=== PATIENT | female | born 1965 | race Caucasian/White ===

== ENCOUNTER 2024-07-22 10:57 | Inpatient (IN) | payer OTHER ==
--- NOTE | 2024-07-22 11:26 | ED ---
General Adult HPI - General Chief complaint: Weakness Stated complaint: Weakness,Dehydration Time Seen by Provider: 07/22/24 11:00 Source: patient, EMS, RN notes reviewed, old records reviewed Mode of arrival: EMS Limitations: no limitations - History of Present Illness Initial comments: 58-year-old female presenting with subjective fever and chills, nausea vomiting and diarrhea over the past 1 week. Apparently the patient has been bedbound for the past 1 week and was found by paramedics in bed covered in urine and stool. There is other people living in the home. Patient states she has had a mild cough as well. History is somewhat limited. - Related Data Allergies Allergy/AdvReac Type Severity Reaction Status Date / Time No Known Allergies Allergy Verified 07/22/24 11:09 Review of Systems ROS Statement: Those systems with pertinent positive or pertinent negative responses have been documented in the HPI. ROS Other: All systems not noted in ROS Statement are negative. Past Medical History Past Medical History: No Reported History History of Any Multi-Drug Resistant Organisms: None Reported Past Surgical History: No Surgical Hx Reported Past Psychological History: No Psychological Hx Reported Smoking Status: Former smoker Past Alcohol Use History: None Reported Past Drug Use History: None Reported General Exam Limitations: no limitations General appearance: in no apparent distress, lethargic Head exam: Present: atraumatic, normocephalic Eye exam: Present: normal appearance, PERRL ENT exam: Present: mucous membranes dry Respiratory exam: Present: normal lung sounds bilaterally. Absent: respiratory distress, wheezes Cardiovascular Exam: Present: regular rate, normal rhythm GI/Abdominal exam: Present: soft. Absent: distended, tenderness, guarding Extremities exam: Present: normal inspection. Absent: normal capillary refill, pedal edema Neurological exam: Present: alert, oriented X3, CN II-XII intact. Absent: motor sensory deficit Psychiatric exam: Present: normal affect, normal mood Skin exam: Present: warm, dry, other (Skin breakdown from the patient's low back to the upper thighs). Absent: intact, cyanosis, diaphoretic Course Vital Signs 07/22/24 07/22/24 11:01 13:13 Temperature 98.7 F Pulse Rate 67 105 H Respiratory 18 18 Rate Blood Pressure 126/91 113/95 O2 Sat by Pulse 96 92 L Oximetry Medical Decision Making - Medical Decision Making Was pt. sent in by a medical professional or institution (CHANDA Melvin, LINE APPLIANCE ASSEMBLER, urgent care, hospital, or fci...) When possible be specific @ -No Did you speak to anyone other than the patient for history (EMS, parent, family, police, friend...)? What history was obtained from this source @ -No Did you review nursing and triage notes (agree or disagree)? Why? @ -I reviewed and agree with nursing and triage notes Were old charts reviewed (outside hosp., previous admission, EMS record, old EKG, old radiological studies, urgent care reports/EKG's, fci records)? Report findings @ -No old charts were reviewed Differential Weakness: Hypoglycemia, shock, sepsis, hyponatremia, anemia, infection, OK, ETOH, adverse medicine reaction, overdose, stroke, this is not meant to be an all-inclusive list. EKG interpreted by me (3pts min.). @Sinus tachycardia rate of 109, HI interval 124, QRS duration 94, QTc [address] segment elevation. X-rays interpreted by me (1pt min.). @ -Chest x-ray negative for acute cardiopulmonary findings. CT interpreted by me (1pt min.). @ -None done U/S interpreted by me (1pt. min.). @ -None done What testing was considered but not performed or refused? (CT, X-rays, U/S, lab s)? Why? @ -None What meds were considered but not given or refused? Why? @ -None Did you discuss the management of the patient with other professionals (professionals i.e. CHANDA Melvin, LINE APPLIANCE ASSEMBLER, lab, RT, psych nurse, social work professor, salvage diver, teacher, community resource officer, caser)? Give summary @ -Yes, Dr. Norris will admit, he is able to see the patient in the emergency department. Was smoking cessation discussed for >3mins.? @ -No Was critical care preformed (if so, how long)? @ -[Yes, 35 minutes Were there social determinants of health that impacted care today? How? (Homelessness, low income, unemployed, alcoholism, drug addiction, transportation, low edu. Level, literacy, decrease access to med. care, custodial, rehab)? @ -No Was there de-escalation of care discussed even if they declined (Discuss DNR or withdrawal of care, Hospice)? DNR status @ -No What co-morbidities impacted this encounter? (DM, HTN, Smoking, COPD, CAD, Cancer, CVA, ARF, Chemo, Hep., AIDS, mental health diagnosis, sleep apnea, morbid obesity)? @ -None Was patient admitted / discharged? Hospital course, mention meds given and route, prescriptions, significant lab abnormalities, going to OR and other pertinent info. @ -58-year-old female presenting with weakness, chills, cough. Patient does test positive for coronavirus. She appears significantly dehydrated on exam. She has a JOHN with a BUN of 103 and a creatinine of 3.40. She has a lactic acid of 4.9 which I suspect is from dehydration. She has a elevated bilirubin and transaminitis. She has significant skin breakdown from her mid back to her upper thigh. She test positive for coronavirus but given her leukocytosis of 24 she is covered with antibiotics. She is given IV fluid and admitted for further treatment and evaluation. Undiagnosed new problem with uncertain prognosis? @ -No Drug Therapy requiring intensive monitoring for toxicity (Heparin, Nitro, Insulin, Cardizem)? @ -No Were any procedures done? @ -No Diagnosis/symptom? @ -[Coronavirus, JOHN, dehydration, leukocytosis Acute, or Chronic, or Acute on Chronic? @ -Acute Uncomplicated (without systemic symptoms) or Complicated (systemic symptoms)? @ -Complicated Side effects of treatment? @ -No Exacerbation, Progression, or Severe Exacerbation? @ -No Poses a threat to life or bodily function? How? (Chest pain, USA, OK, pneumonia, PE, COPD, DKA, ARF, appy, cholecystitis, CVA, Diverticulitis, Homicidal, Suicidal, threat to staff... and all critical care pts) @ -Yes, JOHN, dehydration, multiorgan failure, sepsis - Lab Data Result diagrams: 07/22/24 11:22 07/22/24 12:42 Lab Results 07/22/24 07/22/24 07/22/24 Range/Units 11:22 11:22 11:22 WBC 24.1 H (3.8-10.6) k/uL RBC 5.16 (3.80-5.40) m/uL Hgb 15.2 (11.4-16.0) gm/dL Hct 47.6 H (34.0-46.0) % MCV 92.2 (80.0-100.0) fL MCH 29.5 (25.0-35.0) pg MCHC 32.0 (31.0-37.0) g/dL RDW 14.3 (11.5-15.5) % Plt Count 251 (150-450) k/uL MPV 10.0 Neutrophils % 90 % Lymphocytes % 7 % Monocytes % 2 % Eosinophils % 1 % Basophils % 0 % Neutrophils # 21.7 H (1.3-7.7) k/uL Lymphocytes # 1.6 (1.0-4.8) k/uL Monocytes # 0.4 (0-1.0) k/uL Eosinophils # 0.2 (0-0.7) k/uL Basophils # 0.1 (0-0.2) k/uL PT 15.5 H (10.0-12.5) sec INR 1.5 H (<1.2) APTT 19.7 L (22.0-30.0) sec Sodium (137-145) mmol/L Potassium (3.5-5.1) mmol/L Chloride (98-107) mmol/L Carbon Dioxide (22-30) mmol/L Anion Gap mmol/L BUN (7-17) mg/dL Creatinine (0.52-1.04) mg/dL Est GFR (CKD-EPI)AfAm (>60 ml/min/1.73 sqM) Est GFR (CKD-EPI)NonAf (>60 ml/min/1.73 sqM) Glucose (74-99) mg/dL Lactic Ac Sepsis Rflx Plasma Lactic Acid Noel 4.9 H* (0.7-2.0) mmol/L Calcium (8.4-10.2) mg/dL Magnesium (1.6-2.3) mg/dL Total Bilirubin (0.2-1.3) mg/dL AST (14-36) U/L ALT (4-34) U/L Alkaline Phosphatase (38-126) U/L Creatine Kinase (30-135) U/L Total Protein (6.3-8.2) g/dL Albumin (3.5-5.0) g/dL Urine Color Urine Appearance (Clear) Urine pH (5.0-8.0) Ur Specific [place] (1.001-1.035) Urine Protein (Negative) Urine Glucose (UA) (Negative) Urine Ketones (Negative) Urine Blood (Negative) Urine Nitrite (Negative) Urine Bilirubin (Negative) Urine Urobilinogen (<2.0) mg/dL Ur Leukocyte Esterase (Negative) Urine RBC (0-5) /hpf Urine WBC (0-5) /hpf Ur Squamous Epith Cells (0-4) /hpf Urine Bacteria (None) /hpf Hyaline Casts (0-2) /lpf Urine Mucus (None) /hpf Influenza Type A (PCR) (Not Detectd) Influenza Type B (PCR) (Not Detectd) RSV (PCR) (Not Detectd) SARS-CoV-2 (PCR) (Not Detectd) 07/22/24 07/22/24 07/22/24 Range/Units 11:22 11:51 12:42 WBC (3.8-10.6) k/uL RBC (3.80-5.40) m/uL Hgb (11.4-16.0) gm/dL Hct (34.0-46.0) % MCV (80.0-100.0) fL MCH (25.0-35.0) pg MCHC (31.0-37.0) g/dL RDW (11.5-15.5) % Plt Count (150-450) k/uL MPV Neutrophils % % Lymphocytes % % Monocytes % % Eosinophils % % Basophils % % Neutrophils # (1.3-7.7) k/uL Lymphocytes # (1.0-4.8) k/uL Monocytes # (0-1.0) k/uL Eosinophils # (0-0.7) k/uL Basophils # (0-0.2) k/uL PT (10.0-12.5) sec INR (<1.2) APTT (22.0-30.0) sec Sodium 143 (137-145) mmol/L Potassium 4.0 (3.5-5.1) mmol/L Chloride 99 (98-107) mmol/L Carbon Dioxide 26 (22-30) mmol/L Anion Gap 18 mmol/L BUN 103 H* (7-17) mg/dL Creatinine 3.38 H (0.52-1.04) mg/dL Est GFR (CKD-EPI)AfAm 17 (>60 ml/min/1.73 sqM) Est GFR (CKD-EPI)NonAf 15 (>60 ml/min/1.73 sqM) Glucose 115 H (74-99) mg/dL Lactic Ac Sepsis Rflx Y Plasma Lactic Acid Noel (0.7-2.0) mmol/L Calcium 8.9 (8.4-10.2) mg/dL Magnesium 2.6 H (1.6-2.3) mg/dL Total Bilirubin 4.3 H (0.2-1.3) mg/dL AST 1317 H (14-36) U/L ALT 1141 H (4-34) U/L Alkaline Phosphatase 181 H (38-126) U/L Creatine Kinase 363 H (30-135) U/L Total Protein 6.8 (6.3-8.2) g/dL Albumin 3.6 (3.5-5.0) g/dL Urine Color Urine Appearance (Clear) Urine pH (5.0-8.0) Ur Specific [place] (1.001-1.035) Urine Protein (Negative) Urine Glucose (UA) (Negative) Urine Ketones (Negative) Urine Blood (Negative) Urine Nitrite (Negative) Urine Bilirubin (Negative) Urine Urobilinogen (<2.0) mg/dL Ur Leukocyte Esterase (Negative) Urine RBC (0-5) /hpf Urine WBC (0-5) /hpf Ur Squamous Epith Cells (0-4) /hpf Urine Bacteria (None) /hpf Hyaline Casts (0-2) /lpf Urine Mucus (None) /hpf Influenza Type A (PCR) Not Detected (Not Detectd) Influenza Type B (PCR) Not Detected (Not Detectd) RSV (PCR) Not Detected (Not Detectd) SARS-CoV-2 (PCR) Detected A (Not Detectd) 07/22/24 Range/Units 13:13 WBC (3.8-10.6) k/uL RBC (3.80-5.40) m/uL Hgb (11.4-16.0) gm/dL Hct (34.0-46.0) % MCV (80.0-100.0) fL MCH (25.0-35.0) pg MCHC (31.0-37.0) g/dL RDW (11.5-15.5) % Plt Count (150-450) k/uL MPV Neutrophils % % Lymphocytes % % Monocytes % % Eosinophils % % Basophils % % Neutrophils # (1.3-7.7) k/uL Lymphocytes # (1.0-4.8) k/uL Monocytes # (0-1.0) k/uL Eosinophils # (0-0.7) k/uL Basophils # (0-0.2) k/uL PT (10.0-12.5) sec INR (<1.2) APTT (22.0-30.0) sec Sodium (137-145) mmol/L Potassium (3.5-5.1) mmol/L Chloride (98-107) mmol/L Carbon Dioxide (22-30) mmol/L Anion Gap mmol/L BUN (7-17) mg/dL Creatinine (0.52-1.04) mg/dL Est GFR (CKD-EPI)AfAm (>60 ml/min/1.73 sqM) Est GFR (CKD-EPI)NonAf (>60 ml/min/1.73 sqM) Glucose (74-99) mg/dL Lactic Ac Sepsis Rflx Plasma Lactic Acid Noel (0.7-2.0) mmol/L Calcium (8.4-10.2) mg/dL Magnesium (1.6-2.3) mg/dL Total Bilirubin (0.2-1.3) mg/dL AST (14-36) U/L ALT (4-34) U/L Alkaline Phosphatase (38-126) U/L Creatine Kinase (30-135) U/L Total Protein (6.3-8.2) g/dL Albumin (3.5-5.0) g/dL Urine Color Dark Brown Urine Appearance Cloudy H (Clear) Urine pH 5.5 (5.0-8.0) Ur Specific [place] 1.026 (1.001-1.035) Urine Protein Trace H (Negative) Urine Glucose (UA) Negative (Negative) Urine Ketones Negative (Negative) Urine Blood Negative (Negative) Urine Nitrite Negative (Negative) Urine Bilirubin 1+ H (Negative) Urine Urobilinogen 12.0 (<2.0) mg/dL Ur Leukocyte Esterase Moderate H (Negative) Urine RBC 1 (0-5) /hpf Urine WBC 29 H (0-5) /hpf Ur Squamous Epith Cells 8 H (0-4) /hpf Urine Bacteria Moderate H (None) /hpf Hyaline Casts 12 H (0-2) /lpf Urine Mucus Few H (None) /hpf Influenza Type A (PCR) (Not Detectd) Influenza Type B (PCR) (Not Detectd) RSV (PCR) (Not Detectd) SARS-CoV-2 (PCR) (Not Detectd) Critical Care Time Critical Care Time: Yes Total Critical Care Time: 35 Disposition Clinical Impression: Dehydration, COVID-19, Lactic acidosis Disposition: ADMITTED IP TO THIS [facility] Condition: Stable Is patient prescribed a controlled substance at d/c from ED?: No Referrals: [facility] [NON-STAFF] - 1-2 days [facility] [NON-STAFF] - 1-2 days None,Stated [Primary Care Provider] - 1-2 days Forms: PH Area PCPs Time of Disposition: 14:11
[2024-07-22 11:37] LABS: Basophils # (A) 0.1 k/uL (0-0.2); Basophils % (A) 0 %; Eosinophils # (A) 0.2 k/uL (0-0.7); Eosinophils % (A) 1 %; HCT 47.6 % (34.0-46.0); HGB 15.2 gm/dL (11.4-16.0); Lymphocytes # (A) 1.6 k/uL (1.0-4.8); Lymphocytes % (A) 7 %; MCH 29.5 pg (25.0-35.0); MCV 92.2 fL (80.0-100.0); Monocytes # (A) 0.4 k/uL (0-1.0); Monocytes % (A) 2 %; Neutrophils # (A) 21.7 k/uL (1.3-7.7); Neutrophils % (A) 90 %; Platelet Count 251 k/uL (150-450); RBC 5.16 m/uL (3.80-5.40); RDW 14.3 % (11.5-15.5); WBC 24.1 k/uL (3.8-10.6)
[2024-07-22] MEDS: SODIUM CHLORIDE 0.9% 1,000 ML IV ONE ×2 (11:57→13:43)
[2024-07-22 12:09] LABS: INR 1.5 (<1.2); Influenza A Not Detected (Not Detectd); Influenza B Not Detected (Not Detectd); Prothrombin Time 15.5 sec (10.0-12.5); RSV Not Detected (Not Detectd)
[2024-07-22 12:10] LABS: Partial Thromboplastin Time 19.7 sec (22.0-30.0)
[2024-07-22 13:06] LABS: Albumin 3.6 g/dL (3.5-5.0); Alkaline Phosphatase 181 U/L (38-126); Anion Gap 18 mmol/L; Calcium 8.9 mg/dL (8.4-10.2); Carbon Dioxide 26 mmol/L (22-30); Chloride 99 mmol/L (98-107); Creatine Kinase 363 U/L (30-135); Glucose 115 mg/dL (74-99); Magnesium 2.6 mg/dL (1.6-2.3); Sodium 143 mmol/L (137-145); Total Bilirubin 4.3 mg/dL (0.2-1.3); Total Protein 6.8 g/dL (6.3-8.2)
[2024-07-22 13:12] LABS: African American GFR (CKD) 17 (>60 ml/min/1.73 sqM); Non-African American GFR(CKD) 15 (>60 ml/min/1.73 sqM)
[2024-07-22] MEDS: SODIUM CHLORIDE 0.9% 1,000 ML IV SCH (13:13)
--- NOTE | 2024-07-22 13:23 | XR ---
EXAMINATION TYPE: XR chest 1V portable DATE OF EXAM: 07/22/2024 12:11 PM COMPARISON: None CLINICAL INDICATION: Female, 58 years old with history of weakness; TECHNIQUE: XR chest 1V portable Frontal view of the chest. FINDINGS: Lungs/Pleura: There is no evidence of pleural effusion, focal consolidation, or pneumothorax. Pulmonary vascularity: Unremarkable. Heart/mediastinum: Cardiomediastinal silhouette is unremarkable. Musculoskeletal: No acute osseous pathology. IMPRESSION: No acute cardiopulmonary disease/process. [facility], , 07/22/2024 1:21 PM
[2024-07-22] MEDS ORDERED: TEMAZEPAM 15 MG CAP PO PRN (13:25)
[2024-07-22 13:28] LABS: ALT 1141 U/L (4-34); AST 1317 U/L (14-36); Blood Urea Nitrogen 103 mg/dL (7-17)
[2024-07-22 13:29] LABS: Appearance,Urine Cloudy (Clear); Bacteria,Urine Moderate /hpf; Bilirubin,Urine 1+ (Negative); Blood,Urine Negative (Negative); Color,Urine Dark Brown; Glucose,Urine (UA) Negative (Negative); Hyaline Casts,Urine 12 /lpf (0-2); Ketones,Urine Negative (Negative); Leukocyte Esterase,Urine Moderate (Negative); Mucus,Urine Few /hpf; Nitrite,Urine Negative (Negative); PH, Urine 5.5 (5.0-8.0); Protein,Urine Trace (Negative); RBC,Urine 1 /hpf (0-5); Specific Gravity,Urine 1.026 (1.001-1.035); Squamous Epithelial Cell,Urine 8 /hpf (0-4); WBC,Urine 29 /hpf (0-5)
[2024-07-22] MEDS ORDERED: NALOXONE 0.4 MG/ML 1 ML VIAL IV PRN (13:33)
[2024-07-22] MEDS: PIPERACILLIN-TAZOBACTAM 3.375 GM in SODIUM CHLORIDE 0.9% 100 ML IVPB SCH (13:42)
[2024-07-22] MEDS: HEPARIN SODIUM,PORCINE 5,000 UNIT/ML 1 ML VIAL SQ SCH (13:43)
[2024-07-22 14:31] LABS: T4, Free (Free Thyroxine) 2.37 ng/dL (0.78-2.19)
[2024-07-22] MEDS: THIAMINE 100 MG TAB PO SCH (17:38)
[2024-07-22] MEDS: HYDROmorphone 0.5 MG/0.5 ML SYRINGE IVP PRN (22:46)
--- NOTE | 2024-07-22 23:43 | HP ---
HISTORY AND PHYSICAL CHIEF COMPLAINTS: Nausea, vomiting, and diarrhea, decubitus ulcers, and weakness. HISTORY OF PRESENT ILLNESS: This is a 58-year-old woman with a past medical history of no significant medical illness, apparently not being followed by any primary physicians, apparently living with both her parents. The patient apparently became progressively weak and apparently bed bound for several days to weeks. The patient was having nausea, vomiting and diarrhea and weakness and EMS was called, found extensive decubitus ulcers in the back, where even underwear is stuck to the skin. The patient has some cough and COVID-19 is positive, which improved after treatment. The patient has features of sepsis. There is no history of any fever, rigors, or chills. PAST MEDICAL HISTORY: No significant history of cardiovascular or respiratory illness documented. MEDICATIONS: None. ALLERGIES: None. FAMILY HISTORY: No history of heart disease or strokes in the family. SOCIAL HISTORY: Previous history of smoking. REVIEW OF SYSTEMS: A 14-point review of systems is negative except as mentioned earlier. PHYSICAL EXAMINATION: VITAL SIGNS: Pulse is 105, blood pressure 130/94, respirations 18. HEENT: Conjunctivae normal. NECK: No JVD. CARDIOVASCULAR: S1, S2. RESPIRATIONS: Breath sounds diminished at the bases. No rhonchi. No crackles. ABDOMEN: Soft, obese, nontender. No mass palpable. LEGS: No edema. NERVOUS SYSTEM: As mentioned earlier, diffusely weak. SKIN: Extensive decubitus ulcers with cutting to the skin, erythematous in the back area present. LABORATORY DATA: WBC 24.1, INR 1.5. Lactic acid 4.9. COVID-19 is positive. ASSESSMENT: 1. Extensive decubitus ulcer with pressure ulcer with sepsis present on admission. 2. Generalized weakness. Nausea, vomiting, and diarrhea. 3. Elevated lactic acid. 4. COVID-19 positive. 5. Morbid obesity with BMI of 54.9. 6. Noncompliance. RECOMMENDATIONS AND DISCUSSION: This is a 58-year-old woman, who presented with multiple complex medical issues, we will monitor the patient closely. We will initiate broad-spectrum IV antibiotics, Infectious Disease and as well as Wound Care. DVT prophylaxis. Cultures. Monitor blood pressure closely. Symptomatic treatment for COVID. Chest x-ray showed no acute abnormality. Pulse ox 92%. DVT prophylaxis. Extruder Operator Vertical consult and possibly inform the APS regarding the home situation and involving the parents as well. Prognosis extremely guarded. Further recommendations to follow. MMODL / IJN: [id number] /
[2024-07-23] MEDS: HYDROcodone/APAP 5-325MG 1 EACH TAB PO PRN (04:30)
[2024-07-23 07:40] LABS: Basophils % (A) 0 %; Eosinophils % (A) 0 %; HCT 40.6 % (34.0-46.0); HGB 13.5 gm/dL (11.4-16.0); Lymphocytes # (A) 1.4 k/uL (1.0-4.8); Lymphocytes % (A) 8 %; MCH 30.2 pg (25.0-35.0); MCHC 33.2 g/dL (31.0-37.0); Mean Platelet Volume 10.2; Monocytes # (A) 0.5 k/uL (0-1.0); Monocytes % (A) 3 %; Neutrophils % (A) 89 %; Platelet Count 193 k/uL (150-450); RBC 4.47 m/uL (3.80-5.40); RDW 14.6 % (11.5-15.5)
[2024-07-23 07:48] LABS: Anion Gap 14 mmol/L; Calcium 7.9 mg/dL (8.4-10.2); Carbon Dioxide 22 mmol/L (22-30); Chloride 106 mmol/L (98-107); Glucose 104 mg/dL (74-99); Sodium 142 mmol/L (137-145)
[2024-07-23 07:54] LABS: African American GFR (CKD) 14 (>60 ml/min/1.73 sqM); Non-African American GFR(CKD) 12 (>60 ml/min/1.73 sqM)
[2024-07-23 08:04] LABS: Blood Urea Nitrogen 117 mg/dL (7-17)
--- NOTE | 2024-07-23 08:30 | US ---
EXAMINATION TYPE: US abdomen complete DATE OF EXAM: 07/23/2024 COMPARISON: NONE CLINICAL INDICATION: Female, 58 years old with history of Elevated liver enzymes; Elevated LFT's TECHNIQUE: Grayscale and color Doppler imaging of the abdomen was performed. FINDINGS: EXAM MEASUREMENTS: Liver Length: 17.3 cm Gallbladder Wall: 0.2 cm CBD: 0.3 cm, color Doppler imaging was utilized to isolate the common bile duct for measurement. Spleen: 9.0 cm Right Kidney: 9.7 x 3.6 x 5.0 cm Left Kidney: 9.3 x 5.5 x 4.7 cm CAR REPOSSESSOR NOTES: Morbidly obese, immobile pt- limited views, difficult scan Pancreas: 2mm duct visualized (within normal limits), tail obscured by overlying bowel gas Liver: No gross abnormality of the visualized portions. Limited views. Gallbladder: Lumen filled with sludge and gravel. Gallbladder itself is borderline distended up to 9 .0 x 4.0 cm but without any wall thickening or surrounding fluid. Evidence for sonographic Pulido's sign: No CBD: wnl Spleen: wnl Right Kidney: Visualized portions show no evidence of hydro, lower pole gassed out Left Kidney: Visualized portions show no evidence of hydro, mostly gassed out Upper IVC: wnl Abd Aorta: Obscured by overlying bowel gas IMPRESSION: 1. Exam limitations as above. Borderline liver size at 17.3 cm. 2. The gallbladder is filled with sludge and gravel. No ancillary findings of acute cholecystitis. 3. No biliary ductal dilatation. [facility], , 07/23/2024 8:28 AM
[2024-07-23 08:35] LABS: Crenated RBC Present; Poikilocytosis (M) Present
--- NOTE | 2024-07-23 09:18 | P.CONS ---
History of Present Illness - Reason for Consult Consult date: 07/22/24 Sepsis Requesting physician: Jina Norris - Chief Complaint Weakness nausea vomiting diarrhea x 1 week - History of Present Illness Patient is a 58-year-old female with no reported past medical history former smoker patient has been brought into the hospital for evaluation of subjective fever chills nausea vomiting diarrhea symptom has been going on for about a week apparently patient has been bedbound for the last 1 week as the patient was found by the paramedics in the bed covered with stool and urine with the symptoms the patient has been brought into the hospital on arrival to the ER patient was afebrile and no fever have been recorded subsequently patient was mildly tachycardic, blood pressure has been soft but not requiring any pressor support patient was not hypoxic or need for supplemental oxygen patient did have elevated white count 24,000 with a left shift BUN and creatinine has been elevated as well as elevated lactic acid and elevated liver enzymes UA has been mildly positive tested positive for COVID-19 patient did have a chest x-ray that was reported negative for acute cardiopulmonary disease process infectious disease was consulted for sepsis by admitting team patient denies having any fever or chills has been complaining of feeling weak mild headache but no urinary symptoms no chest pain shortness of breath minimal cough has been complaining of nausea vomiting did have some vague abdominal pain unable to quantify it any further and diarrhea but no blood in mucus in the stools Review of Systems Positive point and negatives has been mentioned in the HPI, complete review of systems was performed and all other systems are negative Past Medical History Past Medical History: No Reported History History of Any Multi-Drug Resistant Organisms: None Reported Past Surgical History: No Surgical Hx Reported Past Psychological History: No Psychological Hx Reported Smoking Status: Former smoker Past Alcohol Use History: None Reported Past Drug Use History: None Reported Medications and Allergies Home Medications Medication Instructions Recorded Confirmed Type No Known Home Medications 07/22/24 07/22/24 History Allergies Allergy/AdvReac Type Severity Reaction Status Date / Time No Known Allergies Allergy Verified 07/22/24 14:12 Physical Exam Vitals: Vital Signs Temp Pulse Resp BP Pulse Ox 07/22/24 13:13 105 H 18 113/95 92 L 07/22/24 11:01 98.7 F 67 18 126/91 96 Intake and Output 07/22/24 07/22/24 07/22/24 06:59 14:59 22:59 Other: Weight 136.078 kg GENERAL DESCRIPTION: Middle-aged female lying in bed, no distress. No tachypnea or accessory muscle of respiration use. HEENT: Shows Pallor , no scleral icterus. Oral mucous membrane is dry. NECK: Trachea central, no thyromegaly. LUNGS: Unlabored breathing. Clear to auscultation anteriorly. No wheeze or crackle. HEART: S1, S2, regular rate and rhythm. No loud murmur ABDOMEN: Soft, no tenderness EXTREMITIES: Diffuse swelling to bilateral lower extremity no redness SKIN: No rash, no masses palpable. NEUROLOGICAL: The patient is awake, alert, mood and affect normal. Results CBC & Chem 7: 07/29/24 08:33 08/02/24 05:44 Labs: Abnormal Lab Results - Last 24 Hours (Table) 07/22/24 07/22/24 07/22/24 Range/Units 11:22 11:22 11:22 WBC 24.1 H (3.8-10.6) k/uL Hct 47.6 H (34.0-46.0) % Neutrophils # 21.7 H (1.3-7.7) k/uL PT 15.5 H (10.0-12.5) sec INR 1.5 H (<1.2) APTT 19.7 L (22.0-30.0) sec BUN (7-17) mg/dL Creatinine (0.52-1.04) mg/dL Glucose (74-99) mg/dL Plasma Lactic Acid Noel 4.9 H* (0.7-2.0) mmol/L Magnesium (1.6-2.3) mg/dL Total Bilirubin (0.2-1.3) mg/dL AST (14-36) U/L ALT (4-34) U/L Alkaline Phosphatase (38-126) U/L Creatine Kinase (30-135) U/L Free T4 (0.78-2.19) ng/dL Urine Appearance (Clear) Urine Protein (Negative) Urine Bilirubin (Negative) Ur Leukocyte Esterase (Negative) Urine WBC (0-5) /hpf Ur Squamous Epith Cells (0-4) /hpf Urine Bacteria (None) /hpf Hyaline Casts (0-2) /lpf Urine Mucus (None) /hpf SARS-CoV-2 (PCR) (Not Detectd) 07/22/24 07/22/24 07/22/24 Range/Units 11:22 12:42 13:13 WBC (3.8-10.6) k/uL Hct (34.0-46.0) % Neutrophils # (1.3-7.7) k/uL PT (10.0-12.5) sec INR (<1.2) APTT (22.0-30.0) sec BUN 103 H* (7-17) mg/dL Creatinine 3.38 H (0.52-1.04) mg/dL Glucose 115 H (74-99) mg/dL Plasma Lactic Acid Noel (0.7-2.0) mmol/L Magnesium 2.6 H (1.6-2.3) mg/dL Total Bilirubin 4.3 H (0.2-1.3) mg/dL AST 1317 H (14-36) U/L ALT 1141 H (4-34) U/L Alkaline Phosphatase 181 H (38-126) U/L Creatine Kinase 363 H (30-135) U/L Free T4 (0.78-2.19) ng/dL Urine Appearance Cloudy H (Clear) Urine Protein Trace H (Negative) Urine Bilirubin 1+ H (Negative) Ur Leukocyte Esterase Moderate H (Negative) Urine WBC 29 H (0-5) /hpf Ur Squamous Epith Cells 8 H (0-4) /hpf Urine Bacteria Moderate H (None) /hpf Hyaline Casts 12 H (0-2) /lpf Urine Mucus Few H (None) /hpf SARS-CoV-2 (PCR) Detected A (Not Detectd) 07/22/24 Range/Units 13:55 WBC (3.8-10.6) k/uL Hct (34.0-46.0) % Neutrophils # (1.3-7.7) k/uL PT (10.0-12.5) sec INR (<1.2) APTT (22.0-30.0) sec BUN (7-17) mg/dL Creatinine (0.52-1.04) mg/dL Glucose (74-99) mg/dL Plasma Lactic Acid Noel (0.7-2.0) mmol/L Magnesium (1.6-2.3) mg/dL Total Bilirubin (0.2-1.3) mg/dL AST (14-36) U/L ALT (4-34) U/L Alkaline Phosphatase (38-126) U/L Creatine Kinase (30-135) U/L Free T4 2.37 H (0.78-2.19) ng/dL Urine Appearance (Clear) Urine Protein (Negative) Urine Bilirubin (Negative) Ur Leukocyte Esterase (Negative) Urine WBC (0-5) /hpf Ur Squamous Epith Cells (0-4) /hpf Urine Bacteria (None) /hpf Hyaline Casts (0-2) /lpf Urine Mucus (None) /hpf SARS-CoV-2 (PCR) (Not Detectd) Assessment and Plan (1) Sepsis Current Visit: Yes Status: Acute Code(s): A41.9 - SEPSIS, UNSPECIFIED ORGANISM SNOMED Code(s): 89764802 (2) Leukocytosis Current Visit: Yes Status: Acute Code(s): D72.829 - ELEVATED WHITE BLOOD CELL COUNT, UNSPECIFIED SNOMED Code(s): 652697012 (3) COVID-19 Current Visit: Yes Status: Acute Code(s): U07.1 - COVID-19 SNOMED Code(s): 964967901 (4) Cholangitis Current Visit: Yes Status: Acute Code(s): K83.09 - OTHER CHOLANGITIS SNOMED Code(s): 56261116 Plan: 1patient did have features of SIRS as the patient did have tachycardia elevated white count but no fever source likely abdominal keeping in mind predominantly symptoms of nausea vomiting and diarrhea and did have elevated liver enzymes concerning for possible cholangitis did have a positive UA urine source not entirely excluded 2-patient did tested positive for COVID-19 however did not have significant respiratory symptoms patient not hypoxic chest x-ray was negative questionable incidental finding versus mild infection treatment will be supportive and did not qualify for remdesivir or steroid 3-patient has been started on Zosyn appropriate to continue 4-check ultrasound of the abdomen to evaluate liver gallbladder as well as kidneys We will follow on clinical condition and cultures to further adjust medication if needed Thank you for this consultation we will follow the patient along with you Dictation was produced using [employer] dictation software. please excuse any grammatical, word or spelling errors. Time with Patient: Greater than 30
[2024-07-23] MEDS: PANTOPRAZOLE 40 MG TABLET PO SCH (09:46)
[2024-07-23 11:54] LABS: Glucose,Whole Blood 100 mg/dL (70-110)
[2024-07-23 16:25] LABS: Glucose,Whole Blood 102 mg/dL (70-110)
[2024-07-23] MEDS: MULTIVITAMINS, THERA 1 EACH TAB PO SCH (17:33)
[2024-07-23 20:17] LABS: Glucose,Whole Blood 109 mg/dL (70-110)
--- NOTE | 2024-07-24 00:26 | PN ---
PROGRESS NOTE DATE OF SERVICE: 07/23/2024 SUBJECTIVE: This is a woman, who was admitted with extensive decubitus ulcer and features of sepsis, who is being closely monitored. No chest pain. No palpitations. No fever. PHYSICAL EXAMINATION: VITAL SIGNS: Pulse is 100, blood pressure 87/58, respirations 16. CHEST: Clear to auscultation. HEART: S1 and S2. ABDOMEN: Soft. SKIN: Extensive decubitus present. LABORATORY DATA: Creatinine 3.91. ASSESSMENT: 1. Extensive decubitus ulcer with pressure ulcer with sepsis, present on admission. 2. Acute renal failure. 3. Generalized weakness. 4. Nausea, vomiting, and diarrhea. 5. Elevated lactic acid. 6. COVID-19 positive. 7. Morbid obesity with BMI of. 8. History of noncompliance. RECOMMENDATIONS: Recommend to continue current management and continue symptomatic treatment. Otherwise, continue with IV fluids cautiously. I would also recommend Nephrology consultation. Creatine kinase. Guarded prognosis. Further recommendations to follow. MMMACEYL / IJN: [id number] / KEN
[2024-07-24 06:25] LABS: Glucose,Whole Blood 94 mg/dL (70-110)
[2024-07-24 08:12] LABS: Anion Gap 16 mmol/L; Calcium 7.8 mg/dL (8.4-10.2); Carbon Dioxide 17 mmol/L (22-30); Chloride 109 mmol/L (98-107); Glucose 88 mg/dL (74-99); Potassium 4.5 mmol/L (3.5-5.1); Sodium 142 mmol/L (137-145)
[2024-07-24 08:18] LABS: African American GFR (CKD) 13 (>60 ml/min/1.73 sqM); Non-African American GFR(CKD) 11 (>60 ml/min/1.73 sqM)
[2024-07-24 08:20] LABS: Basophils % (A) 0 %; Eosinophils # (A) 0.1 k/uL (0-0.7); Eosinophils % (A) 1 %; HCT 34.9 % (34.0-46.0); Hypochromasia Slight; Lymphocytes # (A) 1.2 k/uL (1.0-4.8); Lymphocytes % (A) 12 %; MCH 29.4 pg (25.0-35.0); MCHC 31.6 g/dL (31.0-37.0); MCV 93.2 fL (80.0-100.0); Mean Platelet Volume 9.4; Monocytes # (A) 0.4 k/uL (0-1.0); Monocytes % (A) 4 %; Neutrophils # (A) 8.5 k/uL (1.3-7.7); Neutrophils % (A) 83 %; Platelet Count 162 k/uL (150-450); RBC 3.75 m/uL (3.80-5.40); RDW 14.5 % (11.5-15.5); WBC 10.2 k/uL (3.8-10.6)
[2024-07-24 08:21] LABS: Blood Urea Nitrogen 133 mg/dL (7-17)
--- NOTE | 2024-07-24 10:04 | P.NPCON ---
History of Present Illness - Reason for Consult acute renal failure - History of Present Illness Reason for consultation: Acute kidney injury History of present illness: Patient is a 58-year-old female seen in renal consultation for acute kidney injury. Unknown baseline renal function. Creatinine 3.38 on admission and is 4.19 today. Patient is not a reliable historian. History is obtained from the chart. Patient was brought to the hospital due to fever and chills along with nausea vomiting and diarrhea going on for the last 1 week. It is noted the patient has been bedbound and was found by paramedics in bed covered in urine and stool. Blood pressure noted to be as low as 87/55 this admission. It was 113/57 this morning. I do not see any fluid boluses given. She is currently receiving maintenance fluids with normal saline running at 130 cc an hour. She has a King catheter. Urine output documented as 610 cc since admission. I do not see home med list. Patient has a wound on her back which is growing Corynebacterium. She tested positive for COVID. UA suggestive of UTI. On IV antibiotics. Vital signs are stable. General: No acute distress. HEENT: Head exam is unremarkable. LUNGS: No audible rhonchi or wheezes. HEART: Rate and Rhythm are regular. ABDOMEN: Obese, nontender. EXTREMITITES: No edema. Past Medical History Past Medical History: No Reported History History of Any Multi-Drug Resistant Organisms: None Reported Past Surgical History: No Surgical Hx Reported Past Psychological History: No Psychological Hx Reported Smoking Status: Former smoker Past Alcohol Use History: None Reported Past Drug Use History: None Reported Medications and Allergies Home Medications Medication Instructions Recorded Confirmed Type No Known Home Medications 07/22/24 07/22/24 History Allergies Allergy/AdvReac Type Severity Reaction Status Date / Time No Known Allergies Allergy Verified 07/22/24 14:12 Physical Exam Vitals: Vital Signs Temp Pulse Resp BP Pulse Ox 07/24/24 04:00 98.5 F 64 16 113/57 97 07/24/24 02:00 86 16 07/24/24 00:00 98.3 F 86 16 130/57 97 07/23/24 20:00 98.0 F 99 16 122/64 98 07/23/24 16:00 98.2 F 98 18 115/59 99 07/23/24 14:00 98 18 07/23/24 12:00 98.4 F 98 18 109/67 96 Intake and Output 07/23/24 07/24/24 07/24/24 22:59 06:59 14:59 Intake Total 280 Output Total 210 Balance 70 Intake: Oral 280 Output: Urine 210 Other: Voiding Method Indwelling Catheter Indwelling Catheter Results - Lab Results Most recent lab results Calcium 7.8 mg/dL (8.4-10.2) L 07/24/24 07:29 Magnesium 2.6 mg/dL (1.6-2.3) H 07/22/24 12:42 07/24/24 07:52 07/24/24 07:29 Assessment and Plan Plan: Assessment: 1. Acute kidney injury secondary to ATN secondary to severe sepsis. Creatinine 3.38 on admission and is 4.19 today. Unknown baseline renal function. No hydronephrosis noted on ultrasound. 2. Acute COVID-19 infection. 3. Metabolic acidosis secondary to acute kidney injury and IV fluids. Also component of lactic acidosis which improved. 4. Nausea vomiting and diarrhea. Questionable cholangitis. On antibiotics. ID following. Plan: Change IV fluids from normal saline to bicarb drip. Maintain King catheter. Strict I's and O's. Continue to monitor renal function and urine output. If no improvement in renal function tomorrow, will initiate renal replacement therapy. Thank you for the consultation. I will continue to follow the patient with you during her hospital stay.
[2024-07-24 11:46] LABS: Glucose,Whole Blood 131 mg/dL (70-110)
--- NOTE | 2024-07-24 12:16 | CONS ---
CONSULTATION CHIEF COMPLAINT: Bradycardia. HISTORY OF PRESENT ILLNESS: This is a 58-year-old lady, who has no significant past medical history, lives with her parents, admitted to hospital with progressive weakness that has been going on for several days to weeks. She has extensive decubitus ulcers in her back. She has history of nausea, vomiting, diarrhea, and weakness. She seems very poorly kept. I have been consulted because she had a 4.2 second pause around 4 o'clock in the morning. There was another 6 second pause, which was probably mostly an artifact. She is currently in sinus rhythm with sinus tachycardia. The patient came in with new onset renal failure, but her potassium is not high. We do not have a TSH. We are checking it. The patient is a poor historian and we are not able to obtain any information from her. PAST MEDICAL HISTORY: None. MEDICATIONS: None. ALLERGIES: None. FAMILY HISTORY: I am unable to obtain from the patient in great detail. SOCIAL HISTORY: I am unable to obtain from the patient in great detail. REVIEW OF SYSTEMS: I am unable to obtain from the patient in great detail. The patient is currently not on any AV marina blockers. PHYSICAL EXAM: VITAL SIGNS: Heart rate is 64 beats per minute. Blood pressure is 113/57, respiratory rate is 18, O2 saturation is 99% on room air. CHEST: Reveals good air entry bilaterally. HEART: Reveals first and second heart sounds. No gallop. No murmur. ABDOMEN: Soft. EXTREMITIES: Reveals bilateral edema, cellulitis, and chronic changes. ASSESSMENT: 1. Sinus pause. 2. Acute renal failure. PLAN: Her pause could be related to sleep apnea as this happened in the early hours of morning. Please avoid all AV marina blockers. We will check a TSH. We will check an echocardiogram and we will watch her on telemetry. MMODL / IJN: [id number] /
[2024-07-24] MEDS: DEXTROSE 5% IN WATER 1,000 ML with SODIUM BICARB (1 MEQ/ML) 150 ML IV SCH (12:30)
--- NOTE | 2024-07-24 15:04 | P.PN ---
Subjective Progress Note Date: 07/23/24 Principal diagnosis: Reason for follow-up is COVID-19, leukocytosis Patient is a 58-year-old female with no reported past medical history former smoker patient has been brought into the hospital for evaluation of subjective fever chills nausea vomiting diarrhea patient tested positive for COVID 19 chest x-ray negative for acute cardiopulmonary disease process did have elevated white count and elevated liver enzymes. On today's evaluation that is 07/23/2024, Patient is afebrile this morning patient denies having any chest pain shortness of breath or cough, the patient is currently on room air, patient denies any abdominal pain no further diarrhea no nausea no vomiting. Patient white count is down to 18,000 creatinine 3.91 blood cultures are pending abdominal ultrasound gallbladder is filled with sludge no findings of acute cholecystitis no biliary duct dilatation Objective - Vital Signs Vital signs: Vital Signs Temp 97.5 F L 07/23/24 08:00 Pulse 100 07/23/24 08:00 Resp 16 07/23/24 08:00 BP 87/55 07/23/24 08:00 Pulse Ox 100 07/23/24 08:00 FiO2 Intake & Output 07/22/24 07/23/24 07/23/24 18:59 06:59 18:59 Intake Total 20 250 Output Total 0 400 Balance 20 -150 Weight 136.078 kg 136.078 kg 136.078 kg Intake: IV 20 10 Invasive Line 1 20 10 Oral 240 Output: Urine 0 400 Other: Voiding Method Indwelling Catheter Indwelling Catheter - Exam GENERAL DESCRIPTION: Middle-age female lying in bed in no distress RESPIRATORY SYSTEM: Unlabored breathing , decreased breath sounds at bases HEART: S1 S2 regular rate and rhythm , ABDOMEN: Soft , no tenderness EXTREMITIES: Diffuse swelling to the leg no redness - Labs CBC & Chem 7: 07/24/24 07:52 07/24/24 07:29 Labs: Abnormal Lab Results - Last 24 Hours (Table) 07/22/24 07/22/24 07/22/24 Range/Units 13:55 16:04 19:39 WBC (3.8-10.6) k/uL Neutrophils # (1.3-7.7) k/uL BUN (7-17) mg/dL Creatinine (0.52-1.04) mg/dL Glucose (74-99) mg/dL Plasma Lactic Acid Noel 2.6 H* 2.9 H* (0.7-2.0) mmol/L Calcium (8.4-10.2) mg/dL Creatine Kinase (30-135) U/L Free T3 pg/mL 1.90 L (2.30-4.20) pg/mL 07/22/24 07/23/24 07/23/24 Range/Units 22:43 02:13 06:58 WBC 18.0 H (3.8-10.6) k/uL Neutrophils # 16.0 H (1.3-7.7) k/uL BUN (7-17) mg/dL Creatinine (0.52-1.04) mg/dL Glucose (74-99) mg/dL Plasma Lactic Acid Noel 3.6 H* 3.4 H* (0.7-2.0) mmol/L Calcium (8.4-10.2) mg/dL Creatine Kinase (30-135) U/L Free T3 pg/mL (2.30-4.20) pg/mL 07/23/24 07/23/24 Range/Units 06:58 06:58 WBC (3.8-10.6) k/uL Neutrophils # (1.3-7.7) k/uL BUN 117 H* (7-17) mg/dL Creatinine 3.91 H (0.52-1.04) mg/dL Glucose 104 H (74-99) mg/dL Plasma Lactic Acid Noel (0.7-2.0) mmol/L Calcium 7.9 L (8.4-10.2) mg/dL Creatine Kinase 161 H (30-135) U/L Free T3 pg/mL (2.30-4.20) pg/mL Microbiology - Last 24 Hours (Table) 07/22/24 20:13 Gram Stain - Preliminary Back Assessment and Plan (1) Sepsis Current Visit: Yes Status: Acute Code(s): A41.9 - SEPSIS, UNSPECIFIED ORGANISM SNOMED Code(s): 88525618 (2) Leukocytosis Current Visit: Yes Status: Acute Code(s): D72.829 - ELEVATED WHITE BLOOD CELL COUNT, UNSPECIFIED SNOMED Code(s): 039261515 (3) COVID-19 Current Visit: Yes Status: Acute Code(s): U07.1 - COVID-19 SNOMED Code(s): 163828153 Plan: 1patient did have features of SIRS as the patient did have tachycardia elevated white count but no fever source likely abdominal keeping in mind predominantly symptoms of nausea vomiting and diarrhea and did have elevated liver enzymes concerning for possible cholangitis did have a positive UA urine source not entirely excluded 2-patient did tested positive for COVID-19 however did not have significant respiratory symptoms patient not hypoxic chest x-ray was negative questionable incidental finding versus mild infection treatment will be supportive and did not qualify for remdesivir or steroid 3-patient ultrasound of the abdomen did show some gallbladder sludge but no features of cholecystitis CBD was normal patient white count is trending down we will continue with the Zosyn Dictation was produced using [employer] dictation software. please excuse any grammatical, word or spelling errors. Time with Patient: Less than 30
--- NOTE | 2024-07-24 15:05 | P.PN ---
Subjective Progress Note Date: 07/24/24 Principal diagnosis: Reason for follow-up is COVID-19, leukocytosis Patient is a 58-year-old female with no reported past medical history former smoker patient has been brought into the hospital for evaluation of subjective fever chills nausea vomiting diarrhea patient tested positive for COVID 19 chest x-ray negative for acute cardiopulmonary disease process did have elevated white count and elevated liver enzymes. On today's evaluation that is 07/24/2024,the patient denies any fever or any chills, patient is breathing comfortably on room air, the patient denies chest pain shortness of breath and no significant cough, patient denies abdominal pain, no nausea vomiting or diarrhea. Patient white count normalized to 10.2, creatinine is 4.19 blood culture curre ntly pending Objective - Vital Signs Vital signs: Vital Signs Temp 97.6 F 07/24/24 08:00 Pulse 95 07/24/24 12:00 Resp 16 07/24/24 12:00 BP 108/57 07/24/24 12:00 Pulse Ox 95 07/24/24 12:00 FiO2 Intake & Output 07/23/24 07/24/24 07/24/24 18:59 06:59 18:59 Intake Total 250 280 118 Output Total 400 210 Balance -150 70 118 Weight 136.078 kg Intake: IV 10 Invasive Line 1 10 Oral 240 280 118 Output: Urine 400 210 Other: Voiding Method Indwelling Catheter Indwelling Catheter Indwelling Catheter - Exam GENERAL DESCRIPTION: Middle-age female lying in bed in no distress RESPIRATORY SYSTEM: Unlabored breathing , decreased breath sounds at bases HEART: S1 S2 regular rate and rhythm , ABDOMEN: Soft , no tenderness EXTREMITIES: Diffuse swelling to the leg no redness - Labs CBC & Chem 7: 07/24/24 07:52 07/24/24 07:29 Labs: Abnormal Lab Results - Last 24 Hours (Table) 07/23/24 07/24/24 07/24/24 Range/Units 06:58 07:29 07:52 RBC 3.75 L (3.80-5.40) m/uL Hgb 11.0 L (11.4-16.0) gm/dL Neutrophils # 8.5 H (1.3-7.7) k/uL Chloride 109 H (98-107) mmol/L Carbon Dioxide 17 L (22-30) mmol/L BUN 133 H* (7-17) mg/dL Creatinine 4.19 H (0.52-1.04) mg/dL POC Glucose (mg/dL) (70-110) mg/dL Calcium 7.8 L (8.4-10.2) mg/dL Creatine Kinase 161 H (30-135) U/L 07/24/24 Range/Units 11:44 RBC (3.80-5.40) m/uL Hgb (11.4-16.0) gm/dL Neutrophils # (1.3-7.7) k/uL Chloride (98-107) mmol/L Carbon Dioxide (22-30) mmol/L BUN (7-17) mg/dL Creatinine (0.52-1.04) mg/dL POC Glucose (mg/dL) 131 H (70-110) mg/dL Calcium (8.4-10.2) mg/dL Creatine Kinase (30-135) U/L Microbiology - Last 24 Hours (Table) 07/22/24 20:13 Gram Stain - Preliminary Back Wound Culture - Preliminary Corynebacterium amycolatum 07/22/24 13:13 Urine Culture - Final Urine,Voided 07/22/24 12:42 Blood Culture - Preliminary Blood Assessment and Plan (1) Sepsis Current Visit: Yes Status: Acute Code(s): A41.9 - SEPSIS, UNSPECIFIED ORGANISM SNOMED Code(s): 78836623 (2) Leukocytosis Current Visit: Yes Status: Acute Code(s): D72.829 - ELEVATED WHITE BLOOD CELL COUNT, UNSPECIFIED SNOMED Code(s): 289011300 (3) COVID-19 Current Visit: Yes Status: Acute Code(s): U07.1 - COVID-19 SNOMED Code(s): 710375760 Plan: 1patient did have features of SIRS as the patient did have tachycardia elevated white count but no fever source likely abdominal keeping in mind predominantly symptoms of nausea vomiting and diarrhea and did have elevated liver enzymes concerning for possible cholangitis did have a positive UA urine source not entirely excluded 2-patient did tested positive for COVID-19 however did not have significant respiratory symptoms patient not hypoxic chest x-ray was negative questionable incidental finding versus mild infection treatment will be supportive and did not qualify for remdesivir or steroid 3-patient ultrasound of the abdomen did show some gallbladder sludge but no features of cholecystitis CBD was normal For dialysis patient white count has normalized however has worsening of the kidney function nephrology has been consulted we will continue Zosyn and monitor clinical course closely Dictation was produced using [employer] dictation software. please excuse any grammatical, word or spelling errors. Time with Patient: Less than 30
[2024-07-24 16:49] LABS: Glucose,Whole Blood 108 mg/dL (70-110)
--- NOTE | 2024-07-24 19:01 | PN ---
PROGRESS NOTE DATE OF SERVICE: 07/24/2024 This is a 58-year-old woman who was admitted with extensive decubitus ulcer and pressure ulcers, also had acute renal failure. The creatinine is elevated at 4.19. Urine output is minimal. The patient had elevated LFTs also. PAST MEDICAL HISTORY: Reviewed. REVIEW OF SYSTEMS: Fourteen-point review of systems is negative except as mentioned earlier. CURRENT MEDICATIONS: Reviewed. PHYSICAL EXAM: VITAL SIGNS: Pulse is 95, blood pressure ntd, respirations 16. HEENT: Conjunctivae normal. NECK: No JVD. CARDIOVASCULAR: S1, S2. RESPIRATIONS: A few scattered rhonchi. ABDOMEN: Soft. LABS: Reviewed. ASSESSMENT: 1. Extensive decubitus ulcer with pressure ulcers with sepsis present on admission. 2. Acute renal failure with acute tubular necrosis, present on admission. 3. Generalized weakness. 4. Elevated LFTs. 5. Nausea, vomiting, diarrhea. 6. Elevated lactic acid. 7. COVID-19 positive. 8. Morbid obesity. 9. History of noncompliance with possible underlying psych issues. RECOMMENDATIONS: Recommend to continue current management and continue symptomatic treatment. Otherwise, at this time, I recommend broad-spectrum IV antibiotics. Follow the cultures. Repeat labs. Avoid nephrotoxic and hepatotoxic agents. Further recommendations to follow. MMODL / IJN: [id number] / MTDD
[2024-07-24 19:55] LABS: Glucose,Whole Blood 122 mg/dL (70-110)
[2024-07-25 05:46] LABS: Glucose,Whole Blood 129 mg/dL (70-110)
[2024-07-25 07:12] LABS: ALT 247 U/L (4-34); AST 49 U/L (14-36); Albumin 2.2 g/dL (3.5-5.0); Alkaline Phosphatase 190 U/L (38-126); Anion Gap 14 mmol/L; Calcium 7.2 mg/dL (8.4-10.2); Carbon Dioxide 24 mmol/L (22-30); Chloride 101 mmol/L (98-107); Glucose 107 mg/dL (74-99); Magnesium 2.1 mg/dL (1.6-2.3); Phosphorus 6.2 mg/dL (2.5-4.5); Potassium 3.5 mmol/L (3.5-5.1); Sodium 139 mmol/L (137-145); Total Bilirubin 1.5 mg/dL (0.2-1.3); Total Protein 4.5 g/dL (6.3-8.2)
[2024-07-25 07:14] LABS: Basophils % (A) 0 %; Eosinophils # (A) 0.1 k/uL (0-0.7); Eosinophils % (A) 1 %; HCT 32.2 % (34.0-46.0); HGB 10.8 gm/dL (11.4-16.0); Lymphocytes # (A) 1.3 k/uL (1.0-4.8); Lymphocytes % (A) 18 %; MCH 30.2 pg (25.0-35.0); MCHC 33.4 g/dL (31.0-37.0); MCV 90.4 fL (80.0-100.0); Mean Platelet Volume 10.6; Monocytes # (A) 0.4 k/uL (0-1.0); Monocytes % (A) 6 %; Neutrophils # (A) 5.4 k/uL (1.3-7.7); Neutrophils % (A) 74 %; Platelet Count 137 k/uL (150-450); RBC 3.56 m/uL (3.80-5.40); RDW 14.8 % (11.5-15.5); WBC 7.3 k/uL (3.8-10.6)
[2024-07-25 07:17] LABS: Blood Urea Nitrogen >120 mg/dL (7-17)
[2024-07-25 07:18] LABS: African American GFR (CKD) 11 (>60 ml/min/1.73 sqM); Non-African American GFR(CKD) 9 (>60 ml/min/1.73 sqM)
--- NOTE | 2024-07-25 09:42 | P.PN ---
Subjective Patient is seen in follow-up for acute kidney injury. Renal function worsening. Not a very reliable historian. Hemodynamically stable. Receiving IV fluids. Vital signs are stable. General: No acute distress. HEENT: Head exam is unremarkable. LUNGS: No audible rhonchi or wheezes. HEART: Rate and Rhythm are regular. ABDOMEN: Nontender. EXTREMITITES: Chronic changes noted. Trace edema. Objective - Vital Signs Vital signs: Vital Signs Temp 98 F 07/25/24 04:00 Pulse 78 07/25/24 04:00 Resp 16 07/25/24 04:00 BP 117/58 07/25/24 04:00 Pulse Ox 97 07/25/24 04:00 FiO2 Intake & Output 07/24/24 07/25/24 07/25/24 18:59 06:59 18:59 Intake Total 118 120 Output Total 100 400 Balance 18 -280 Weight 136 kg Intake: Oral 118 120 Output: Urine 100 400 Other: Voiding Method Indwelling Catheter Indwelling Catheter - Labs CBC & Chem 7: 07/25/24 06:13 07/25/24 06:13 Labs: Abnormal Lab Results - Last 24 Hours (Table) 07/24/24 07/24/24 07/25/24 Range/Units 11:44 19:52 05:44 RBC (3.80-5.40) m/uL Hgb (11.4-16.0) gm/dL Hct (34.0-46.0) % Plt Count (150-450) k/uL BUN (7-17) mg/dL Creatinine (0.52-1.04) mg/dL Glucose (74-99) mg/dL POC Glucose (mg/dL) 131 H 122 H 129 H (70-110) mg/dL Calcium (8.4-10.2) mg/dL Phosphorus (2.5-4.5) mg/dL Total Bilirubin (0.2-1.3) mg/dL AST (14-36) U/L ALT (4-34) U/L Alkaline Phosphatase (38-126) U/L Total Protein (6.3-8.2) g/dL Albumin (3.5-5.0) g/dL 07/25/24 07/25/24 Range/Units 06:13 06:13 RBC 3.56 L (3.80-5.40) m/uL Hgb 10.8 L (11.4-16.0) gm/dL Hct 32.2 L (34.0-46.0) % Plt Count 137 L (150-450) k/uL BUN >120 H* (7-17) mg/dL Creatinine 4.87 H (0.52-1.04) mg/dL Glucose 107 H (74-99) mg/dL POC Glucose (mg/dL) (70-110) mg/dL Calcium 7.2 L (8.4-10.2) mg/dL Phosphorus 6.2 H (2.5-4.5) mg/dL Total Bilirubin 1.5 H (0.2-1.3) mg/dL AST 49 H (14-36) U/L ALT 247 H (4-34) U/L Alkaline Phosphatase 190 H (38-126) U/L Total Protein 4.5 L (6.3-8.2) g/dL Albumin 2.2 L (3.5-5.0) g/dL Microbiology - Last 24 Hours (Table) 07/22/24 20:13 Gram Stain - Preliminary Back Wound Culture - Preliminary Corynebacterium amycolatum 07/22/24 12:42 Blood Culture - Preliminary Blood Assessment and Plan Plan: Assessment: 1. Acute kidney injury secondary to ATN secondary to severe sepsis. Creatinine 3.38 on admission and is 4.87 today. Unknown baseline renal function. No hydronephrosis noted on ultrasound. 2. Acute COVID-19 infection. 3. Metabolic acidosis secondary to acute kidney injury and IV fluids. Also component of lactic acidosis which improved. Improved with bicarb drip. 4. Nausea vomiting and diarrhea. Questionable cholangitis. On antibiotics. ID following. 5. Hyperphosphatemia secondary to acute kidney injury. Expect improvement postdialysis. Plan: Stop bicarb drip. Start normal saline at 75 cc an hour. Maintain King catheter. Strict I's and O's. With worsening renal function, concern for uremia, initiate renal replacement therapy. Plan for first treatment of hemodialysis today and second treatment tomorrow. Monitor for renal recovery.
[2024-07-25] MEDS: SODIUM CHLORIDE 0.9% 1,000 ML IV SCH (10:11)
[2024-07-25 11:45] LABS: Glucose,Whole Blood 96 mg/dL (70-110)
--- NOTE | 2024-07-25 12:06 | CA ---
Transthoracic Echo Report Name: Fern Gregg Age: 58 Gender: F : 1965 Exam Date: 07/25/2024 08:21 Exam Location: [facility] Ht (in): 62 Wt (lb): 300 Ordering Physician: Joseph Campa MD ([id number]) Attending/Referring Phys: Lokesh ATKINS Barrel Raiser Lyubov Olivas RDCS Procedure CPT: Indications: Bradycardia Cardiac Hx: Technical Quality: Good Contrast 1: Total Dose (mL): Contrast 2: Total Dose (mL): MEASUREMENTS (Male / Female) Normal Values 2D ECHO LV Diastolic Diameter PLAX 3.7 cm 4.2 - 5.9 / 3.9 - 5.3 cm LV Systolic Diameter PLAX 2.8 cm IVS Diastolic Thickness 0.8 cm 0.6 - 1.0 / 0.6 - 0.9 cm LVPW Diastolic Thickness 0.9 cm 0.6 - 1.0 / 0.6 - 0.9 cm LV Relative Wall Thickness 0.5 RV Internal Dim ED PLAX 3.0 cm LA Systolic Diameter LX 2.7 cm 3.0 - 4.0 / 2.7 - 3.8 cm LV Diastolic Volume MOD 4C 84.1 cm??? LV Systolic Volume MOD 4C 44.7 cm??? LV Ejection Fraction MOD 4C 46.8 % LV Cardiac Index MOD 4C 1509.0 cm???/min???m??? LV Diastolic Length 4C 8.3 cm LV Systolic Length 4C 6.6 cm LV Diastolic Volume MOD 2C 78.2 cm??? LV Systolic Volume MOD 2C 32.9 cm??? LV Ejection Fraction MOD 2C 57.9 % LV Cardiac Index MOD 2C 1736.0 cm???/min???m??? LV Diastolic Length 2C 8.4 cm LV Systolic Length 2C 6.6 cm LA Volume 33.8 cm??? 18 - 58 / 22 - 52 cm??? LA Volume Index 13.3 cm???/m??? 16 - 28 cm???/m??? M-MODE Aortic Root Diameter MM 3.2 cm AV Cusp Separation MM 2.1 cm DOPPLER AV Peak Velocity 166.4 cm/s AV Peak Gradient 11.1 mmHg MV Area PHT 3.5 cm??? Mitral E Point Velocity 105.9 cm/s Mitral A Point Velocity 71.8 cm/s Mitral E to A Ratio 1.5 MV Deceleration Time 219.5 ms TR Peak Velocity 196.3 cm/s TR Peak Gradient 15.4 mmHg Right Ventricular Systolic Press 19.9 mmHg FINDINGS Left Ventricle Left ventricular ejection fraction is estimated at 55-60 %. Small left ventricular cavity. Left ventricular wall thickness normal. Normal left ventricular wall motion. Right Ventricle Normal right ventricular size. Right ventricular systolic pressure within normal limits. Right Atrium Normal right atrial size. No right atrial thrombus or mass seen. Left Atrium Normal left atrial size. No left atrial thrombus or mass present. Mitral Valve Structurally normal mitral valve. No mitral stenosis, regurgitation or prolapse. Aortic Valve Trileaflet aortic valve. No aortic valve stenosis or regurgitation. Tricuspid Valve Structurally normal tricuspid valve. Mild tricuspid regurgitation. Pulmonic Valve Structurally normal pulmonic valve. No pulmonic regurgitation. Pericardium No pericardial or pleural effusion. Aorta Normal size aortic root and proximal ascending aorta. CONCLUSIONS Normal LV function Previewed by: Dr. Joseph Campa MD (Electronically Signed) Final Date: 25 July 2024 12:04
[2024-07-25] MEDS: LIDOCAINE 1% INJ 10MG/ML (20 ML MDV) SQ ONE (14:24)
--- NOTE | 2024-07-25 14:45 | P.GSCN ---
History of Present Illness History of present illness: 58-year-old female history of acute kidney injury due to sepsis consulted for placement of urgent dialysis catheter. Patient has been diagnosed with acute COVID-positive patient also has a m etabolic acidosis complaining of some nausea and vomiting Neck is supple no bruit appreciated Chest few crackles the lung bases. Second sound present Abdomen protuberant no peritoneal sign Femoral 1+ bilateral Plan is placement of a dialysis catheter risk and complication discussed Past Medical History Past Medical History: No Reported History History of Any Multi-Drug Resistant Organisms: None Reported Past Surgical History: No Surgical Hx Reported Past Psychological History: No Psychological Hx Reported Smoking Status: Former smoker Past Alcohol Use History: None Reported Past Drug Use History: None Reported Medications and Allergies Home Medications Medication Instructions Recorded Confirmed Type No Known Home Medications 07/22/24 07/22/24 History Allergies Allergy/AdvReac Type Severity Reaction Status Date / Time No Known Allergies Allergy Verified 07/22/24 14:12 Surgical - Exam Vital Signs Temp Pulse Resp BP Pulse Ox 98.7 F 67 18 126/91 96 07/22/24 11:01 07/22/24 11:01 07/22/24 11:01 07/22/24 11:01 07/22/24 11:01 Results - Labs 07/25/24 06:13 07/25/24 06:13 Abnormal Lab Results - Last 24 Hours (Table) 07/24/24 07/25/24 07/25/24 Range/Units 19:52 05:44 06:13 RBC 3.56 L (3.80-5.40) m/uL Hgb 10.8 L (11.4-16.0) gm/dL Hct 32.2 L (34.0-46.0) % Plt Count 137 L (150-450) k/uL BUN (7-17) mg/dL Creatinine (0.52-1.04) mg/dL Glucose (74-99) mg/dL POC Glucose (mg/dL) 122 H 129 H (70-110) mg/dL Calcium (8.4-10.2) mg/dL Phosphorus (2.5-4.5) mg/dL Total Bilirubin (0.2-1.3) mg/dL AST (14-36) U/L ALT (4-34) U/L Alkaline Phosphatase (38-126) U/L Total Protein (6.3-8.2) g/dL Albumin (3.5-5.0) g/dL 07/25/24 Range/Units 06:13 RBC (3.80-5.40) m/uL Hgb (11.4-16.0) gm/dL Hct (34.0-46.0) % Plt Count (150-450) k/uL BUN >120 H* (7-17) mg/dL Creatinine 4.87 H (0.52-1.04) mg/dL Glucose 107 H (74-99) mg/dL POC Glucose (mg/dL) (70-110) mg/dL Calcium 7.2 L (8.4-10.2) mg/dL Phosphorus 6.2 H (2.5-4.5) mg/dL Total Bilirubin 1.5 H (0.2-1.3) mg/dL AST 49 H (14-36) U/L ALT 247 H (4-34) U/L Alkaline Phosphatase 190 H (38-126) U/L Total Protein 4.5 L (6.3-8.2) g/dL Albumin 2.2 L (3.5-5.0) g/dL Microbiology - Last 24 Hours (Table) 07/22/24 20:13 Gram Stain - Preliminary Back Wound Culture - Preliminary Corynebacterium amycolatum 07/22/24 12:42 Blood Culture - Preliminary Blood Diabetes panel 07/25/24 Range/Units 06:13 Sodium 139 (137-145) mmol/L Potassium 3.5 (3.5-5.1) mmol/L Chloride 101 (98-107) mmol/L Carbon Dioxide 24 (22-30) mmol/L BUN >120 H* (7-17) mg/dL Creatinine 4.87 H (0.52-1.04) mg/dL Glucose 107 H (74-99) mg/dL Calcium 7.2 L (8.4-10.2) mg/dL AST 49 H (14-36) U/L ALT 247 H (4-34) U/L Alkaline Phosphatase 190 H (38-126) U/L Total Protein 4.5 L (6.3-8.2) g/dL Albumin 2.2 L (3.5-5.0) g/dL Calcium panel 07/25/24 Range/Units 06:13 Calcium 7.2 L (8.4-10.2) mg/dL Phosphorus 6.2 H (2.5-4.5) mg/dL Albumin 2.2 L (3.5-5.0) g/dL Pituitary panel 07/25/24 Range/Units 06:13 Sodium 139 (137-145) mmol/L Potassium 3.5 (3.5-5.1) mmol/L Chloride 101 (98-107) mmol/L Carbon Dioxide 24 (22-30) mmol/L BUN >120 H* (7-17) mg/dL Creatinine 4.87 H (0.52-1.04) mg/dL Glucose 107 H (74-99) mg/dL Calcium 7.2 L (8.4-10.2) mg/dL Adrenal panel 07/25/24 Range/Units 06:13 Sodium 139 (137-145) mmol/L Potassium 3.5 (3.5-5.1) mmol/L Chloride 101 (98-107) mmol/L Carbon Dioxide 24 (22-30) mmol/L BUN >120 H* (7-17) mg/dL Creatinine 4.87 H (0.52-1.04) mg/dL Glucose 107 H (74-99) mg/dL Calcium 7.2 L (8.4-10.2) mg/dL Total Bilirubin 1.5 H (0.2-1.3) mg/dL AST 49 H (14-36) U/L ALT 247 H (4-34) U/L Alkaline Phosphatase 190 H (38-126) U/L Total Protein 4.5 L (6.3-8.2) g/dL Albumin 2.2 L (3.5-5.0) g/dL
--- NOTE | 2024-07-25 14:47 | P.PCN ---
Description of Procedure: Preop diagnosis acute kidney injury due to sepsis, history of positive for acute COVID Postop the same Procedure sound guided 30 cm dialysis catheter placed left femoral approach Patient brought to the [employer] right and left groin was prepped and draped in Prestel manner Procedure 1% lidocaine plain infiltrated left groin ultrasound-guided micropuncture introduced left femoral vein micropuncture guide was passed. Then 4 Occitan sheath advanced up the guidewire. Then we passed a regular guidewire which was parked at the inferior vena cava then dilator was advanced up the guidewire under fluoroscopic control then we placed 30 cm dialysis catheter triple-lumen on the top of guidewire guidewire was removed flushed with heparin saline hep-locked secured with 3-0 nylon dressing applied patient tarted the procedure well
--- NOTE | 2024-07-25 15:11 | IR ---
EXAMINATION TYPE: IR cvc insert non tunneled DATE OF EXAM: 07/25/2024 FLUOROSCOPY JOHN, 0.4MIN, 0.125DAP No images are submitted. [facility], , 07/25/2024 3:09 PM
--- NOTE | 2024-07-25 15:23 | P.PN ---
Subjective Progress Note Date: 07/25/24 SUBJECTIVE: BUN more than 120, creatinine is 4.87, BP 117/57, heart rate 78 bpm, sinus rhythm on telemetry Denies any uremic pericarditis or encephalopathy symptoms at this time. PHYSICAL EXAMINATION Vital signs reviewed. Head: Normocephalic. Eyes: Sclerae nonicteric. Neck: Brisk carotid upstroke, no jugular venous distention. Lungs: Clear to auscultation. Heart: Regular rate and rhythm, S1-S2, no S3, no murmur or rub. Abdomen: Soft nontender, bowel sounds present, Extremities: No edema, Neuro: Alert, oriented, no focal neurological deficits. Detailed neuro exam was not performed. ASSESSMENT Sinus pause, likely due to metabolic derangements from JOHN Bradycardia JOHN with oliguric ATN Acute COVID-19 infection Metabolic acidosis Hyperphosphatemia Cardiac testing Echo shows EF 55 to 60%, no major valvular abnormality PLAN Continue to hold AV marina blocking agents Agree with hemodialysis Continue to monitor telemetry Kris Burroughs MD, FACC, RPVI Thank you for allowing [facility] to participate in this patient's care. Please contact us in case of any followup questions. Objective - Vital Signs Vital signs: Vital Signs Temp 98.2 F 07/25/24 10:10 Pulse 75 07/25/24 12:00 Resp 16 07/25/24 12:00 BP 115/56 07/25/24 12:00 Pulse Ox 94 L 07/25/24 12:00 FiO2 Intake & Output 07/24/24 07/25/24 07/25/24 18:59 06:59 18:59 Intake Total 118 120 250 Output Total 100 400 400 Balance 18 -280 -150 Weight 136 kg Intake: Oral 118 120 250 Output: Urine 100 400 400 Other: Voiding Method Indwelling Catheter Indwelling Catheter Indwelling Catheter - Labs CBC & Chem 7: 07/25/24 06:13 07/25/24 06:13 Labs: Abnormal Lab Results - Last 24 Hours (Table) 07/24/24 07/25/24 07/25/24 Range/Units 19:52 05:44 06:13 RBC 3.56 L (3.80-5.40) m/uL Hgb 10.8 L (11.4-16.0) gm/dL Hct 32.2 L (34.0-46.0) % Plt Count 137 L (150-450) k/uL BUN (7-17) mg/dL Creatinine (0.52-1.04) mg/dL Glucose (74-99) mg/dL POC Glucose (mg/dL) 122 H 129 H (70-110) mg/dL Calcium (8.4-10.2) mg/dL Phosphorus (2.5-4.5) mg/dL Total Bilirubin (0.2-1.3) mg/dL AST (14-36) U/L ALT (4-34) U/L Alkaline Phosphatase (38-126) U/L Total Protein (6.3-8.2) g/dL Albumin (3.5-5.0) g/dL 07/25/24 Range/Units 06:13 RBC (3.80-5.40) m/uL Hgb (11.4-16.0) gm/dL Hct (34.0-46.0) % Plt Count (150-450) k/uL BUN >120 H* (7-17) mg/dL Creatinine 4.87 H (0.52-1.04) mg/dL Glucose 107 H (74-99) mg/dL POC Glucose (mg/dL) (70-110) mg/dL Calcium 7.2 L (8.4-10.2) mg/dL Phosphorus 6.2 H (2.5-4.5) mg/dL Total Bilirubin 1.5 H (0.2-1.3) mg/dL AST 49 H (14-36) U/L ALT 247 H (4-34) U/L Alkaline Phosphatase 190 H (38-126) U/L Total Protein 4.5 L (6.3-8.2) g/dL Albumin 2.2 L (3.5-5.0) g/dL Microbiology - Last 24 Hours (Table) 07/22/24 20:13 Gram Stain - Preliminary Back Wound Culture - Preliminary Corynebacterium amycolatum 07/22/24 12:42 Blood Culture - Preliminary Blood
--- NOTE | 2024-07-25 15:36 | P.PN ---
Subjective Progress Note Date: 07/25/24 Principal diagnosis: Reason for follow-up is COVID-19, leukocytosis Patient is a 58-year-old female with no reported past medical history former smoker patient has been brought into the hospital for evaluation of subjective fever chills nausea vomiting diarrhea patient tested positive for COVID 19 chest x-ray negative for acute cardiopulmonary disease process did have elevated white count and elevated liver enzymes. On today's evaluation that is 07/25/2024,the patient remains to be afebrile, patient is on room air not requiring supplemental oxygen and denies any shortness of breath no chest pain or cough.Patient denies having any nausea or vomiting, no abdominal pain and no diarrhea has been reported. Patient white count 7.3 creatinine is 4.87 blood culture with corynebacterium Objective - Vital Signs Vital signs: Vital Signs Temp 98.2 F 07/25/24 10:10 Pulse 75 07/25/24 12:00 Resp 16 07/25/24 12:00 BP 115/56 07/25/24 12:00 Pulse Ox 94 L 07/25/24 12:00 FiO2 Intake & Output 07/24/24 07/25/24 07/25/24 18:59 06:59 18:59 Intake Total 118 120 250 Output Total 100 400 400 Balance 18 -280 -150 Weight 136 kg Intake: Oral 118 120 250 Output: Urine 100 400 400 Other: Voiding Method Indwelling Catheter Indwelling Catheter Indwelling Catheter - Exam GENERAL DESCRIPTION: Middle-age female lying in bed in no distress RESPIRATORY SYSTEM: Unlabored breathing , decreased breath sounds at bases HEART: S1 S2 regular rate and rhythm , ABDOMEN: Soft , no tenderness patient did have a excoriation to bilateral groin area more marked on the left side EXTREMITIES: Diffuse swelling to the leg no redness - Labs CBC & Chem 7: 07/25/24 06:13 07/25/24 06:13 Labs: Abnormal Lab Results - Last 24 Hours (Table) 07/24/24 07/25/24 07/25/24 Range/Units 19:52 05:44 06:13 RBC 3.56 L (3.80-5.40) m/uL Hgb 10.8 L (11.4-16.0) gm/dL Hct 32.2 L (34.0-46.0) % Plt Count 137 L (150-450) k/uL BUN (7-17) mg/dL Creatinine (0.52-1.04) mg/dL Glucose (74-99) mg/dL POC Glucose (mg/dL) 122 H 129 H (70-110) mg/dL Calcium (8.4-10.2) mg/dL Phosphorus (2.5-4.5) mg/dL Total Bilirubin (0.2-1.3) mg/dL AST (14-36) U/L ALT (4-34) U/L Alkaline Phosphatase (38-126) U/L Total Protein (6.3-8.2) g/dL Albumin (3.5-5.0) g/dL 07/25/24 Range/Units 06:13 RBC (3.80-5.40) m/uL Hgb (11.4-16.0) gm/dL Hct (34.0-46.0) % Plt Count (150-450) k/uL BUN >120 H* (7-17) mg/dL Creatinine 4.87 H (0.52-1.04) mg/dL Glucose 107 H (74-99) mg/dL POC Glucose (mg/dL) (70-110) mg/dL Calcium 7.2 L (8.4-10.2) mg/dL Phosphorus 6.2 H (2.5-4.5) mg/dL Total Bilirubin 1.5 H (0.2-1.3) mg/dL AST 49 H (14-36) U/L ALT 247 H (4-34) U/L Alkaline Phosphatase 190 H (38-126) U/L Total Protein 4.5 L (6.3-8.2) g/dL Albumin 2.2 L (3.5-5.0) g/dL Microbiology - Last 24 Hours (Table) 07/22/24 20:13 Gram Stain - Preliminary Back Wound Culture - Preliminary Corynebacterium amycolatum 07/22/24 12:42 Blood Culture - Preliminary Blood Assessment and Plan (1) Sepsis Current Visit: Yes Status: Acute Code(s): A41.9 - SEPSIS, UNSPECIFIED ORGANISM SNOMED Code(s): 95617002 (2) Leukocytosis Current Visit: Yes Status: Acute Code(s): D72.829 - ELEVATED WHITE BLOOD CELL COUNT, UNSPECIFIED SNOMED Code(s): 112561404 (3) COVID-19 Current Visit: Yes Status: Acute Code(s): U07.1 - COVID-19 SNOMED Code(s): 811661876 Plan: 1patient did have features of SIRS as the patient did have tachycardia elevated white count but no fever source likely abdominal keeping in mind predominantly symptoms of nausea vomiting and diarrhea and did have elevated liver enzymes concerning for possible cholangitis did have a positive UA urine source not entirely excluded 2-patient did tested positive for COVID-19 however did not have significant respiratory symptoms patient not hypoxic chest x-ray was negative questionable incidental finding versus mild infection treatment will be supportive and did not qualify for remdesivir or steroid 3-patient ultrasound of the abdomen did show some gallbladder sludge but no features of cholecystitis CBD was normal For dialysis patient white count has normalized however has worsening of the kidney function dialysis has been considered patient is on Zosyn Dictation was produced using [employer] dictation software. please excuse any grammatical, word or spelling errors. Time with Patient: Less than 30
[2024-07-25 16:21] LABS: Hepatitis B Surface Antigen Nonreactive (Nonreactive)
[2024-07-25 16:44] LABS: Glucose,Whole Blood 112 mg/dL (70-110)
[2024-07-25 18:01] LABS: Hepatitis B Surface AB- Quant 3.5 mIU/mL
[2024-07-25 20:08] LABS: Glucose,Whole Blood 98 mg/dL (70-110)
--- NOTE | 2024-07-26 01:49 | PN ---
PROGRESS NOTE DATE OF SERVICE: 07/25/2024 SUBJECTIVE: This is a 58-year-old woman, who was admitted with extensive decubitus ulcers and renal failure, is being closely monitored at this time. Actually the renal failure is worsening at 4.87. Urine output is also noted significant. The patient is confused. PAST MEDICAL HISTORY: Reviewed. REVIEW OF SYSTEMS: Could not be taken. CURRENT MEDICATIONS: Reviewed. PHYSICAL EXAMINATION: VITAL SIGNS: Pulse is 92, blood pressure 104/66, respirations 16. CHEST: A few scattered rhonchi and crackles. ABDOMEN: Soft. NERVOUS SYSTEM: Nonfocal. LABORATORY DATA: Creatinine is 4.87. Total bilirubin is 1.5. Albumin is 2.2. COVID is positive. ASSESSMENT: 1. Extensive decubitus ulcer with pressure ulcers with sepsis present on admission. 2. Acute renal failure with acute tubular necrosis, is worsening with oliguria. 3. Generalized weakness. 4. Elevated LFTs. 5. Nausea, vomiting, diarrhea history. 6. Elevated lactic acid. 7. COVID-19 positive. 8. Morbid obesity. 9. History of noncompliance with possible underlying psych issues. RECOMMENDATIONS: Recommend to continue current management and continue symptomatic treatment. Otherwise, closely follow with Nephrology. Monitor creatinine closely. Avoid nephrotoxic medications. The patient is on broad-spectrum IV antibiotics. The cultures are showing sign of bacteria. We will continue with monitoring with multiple consultants including Nephrology, Infectious Disease, Cardiology. Physical Therapy will be consulted and [employer] to evaluate the home situation. Overall prognosis extremely guarded because of multiple complex medical issues. Further recommendations to follow. MMODL / IJN: [id number] /
[2024-07-26 06:04] LABS: Glucose,Whole Blood 95 mg/dL (70-110)
[2024-07-26 08:27] LABS: African American GFR (CKD) 19 (>60 ml/min/1.73 sqM); Anion Gap 8 mmol/L; Blood Urea Nitrogen 78 mg/dL (7-17); Carbon Dioxide 27 mmol/L (22-30); Chloride 102 mmol/L (98-107); Glucose 82 mg/dL (74-99); Non-African American GFR(CKD) 17 (>60 ml/min/1.73 sqM); Sodium 137 mmol/L (137-145)
[2024-07-26 08:52] LABS: Potassium 3.9 mmol/L (3.5-5.1)
[2024-07-26] MEDS: MIDODRINE 5 MG TAB PO ONE (09:04)
--- NOTE | 2024-07-26 09:58 | P.PN ---
Subjective Patient is seen in follow-up for acute kidney injury. Renal function gradually worsened and was subsequently started on hemodialysis July 25, 2024 via temporary dialysis catheter. Not a very reliable historian. Blood pressure on the lower end. Receiving IV fluids. Vital signs are stable. General: No acute distress. HEENT: Head exam is unremarkable. LUNGS: No audible rhonchi or wheezes. HEART: Rate and Rhythm are regular. ABDOMEN: Nontender. EXTREMITITES: Chronic changes noted. Trace edema. Objective - Vital Signs Vital signs: Vital Signs Temp 98.2 F 07/26/24 08:00 Pulse 83 07/26/24 08:00 Resp 16 07/26/24 08:00 BP 82/50 07/26/24 08:00 Pulse Ox 96 07/26/24 08:00 FiO2 Intake & Output 07/25/24 07/26/24 07/26/24 18:59 06:59 18:59 Intake Total 250 400 Output Total 925 800 Balance -675 -400 Intake: Oral 250 Hemodialysis 400 Output: Urine 925 400 Hemodialysis 400 Hemodialysis Net Amount 0 Other: Voiding Method Indwelling Catheter Indwelling Catheter Indwelling Catheter - Labs CBC & Chem 7: 07/25/24 06:13 07/26/24 07:12 Labs: Abnormal Lab Results - Last 24 Hours (Table) 07/25/24 07/26/24 Range/Units 16:42 07:12 BUN 78 H (7-17) mg/dL Creatinine 3.03 H (0.52-1.04) mg/dL POC Glucose (mg/dL) 112 H (70-110) mg/dL Calcium 7.0 L (8.4-10.2) mg/dL Microbiology - Last 24 Hours (Table) 07/22/24 20:13 Gram Stain - Final Back Wound Culture - Final Corynebacterium amycolatum Brevibacterium species 07/22/24 12:42 Blood Culture - Preliminary Blood Assessment and Plan Plan: Assessment: 1. Acute kidney injury secondary to ATN secondary to severe sepsis. Creatinine 3.38 on admission and was up to 4.87 dated July 25, 2024 with BUN over 120. Started on hemodialysis July 25, 2024 via temporary dialysis catheter. Unknown baseline renal function. No hydronephrosis noted on ultrasound. 2. Acute COVID-19 infection. 3. Metabolic acidosis secondary to acute kidney injury and IV fluids. Also component of lactic acidosis which improved. Improved with bicarb drip. 4. Nausea vomiting and diarrhea. Questionable cholangitis. On antibiotics. ID following. 5. Hyperphosphatemia secondary to acute kidney injury. Phosphorus level 6.2 dated July 25, 2024. Expect improvement postdialysis. Plan: Currently seen while undergoing hemodialysis. Third treatment tomorrow. Maintain normal saline. Midodrine predialysis and mid treatment if needed. Maintain King catheter. Strict I's and O's. Repeat phosphorus level tomorrow. Monitor for renal recovery.
[2024-07-26 10:41] LABS: Glucose,Whole Blood 104 mg/dL (70-110)
[2024-07-26 11:44] LABS: Glucose,Whole Blood 97 mg/dL (70-110)
--- NOTE | 2024-07-26 13:11 | P.CON ---
Consult Note - . Consult date: 07/26/24 Assessment/Plan:: Wound care consultation: Reason for consultation: Multiple areas of pressure injury. Areas of laceration. History of chief complaint: This 58-year-old female is currently admitted with acute renal failure secondary to sepsis, with admitting complaint being simply fever, chills, nausea, vomiting and diarrhea. The patient is not a useful historian. It is difficult to ascertain her baseline cognitive function. It does appear that she has been very immobile. This is all complicated by her morbid obesity.On admission her undergarments were essentially crusted to her skin. Relevant physical examination: This is a severely obese 58-year-old woman with a very simple affect. On numerous large areas including her low back and buttocks posteriorly as well as her posterior right calf have mixed configuration with some full-thickness tissue loss and some mottling. She has one area on her posterior left flank where there appears to be a long area about 1/2 cm wide that also looks like a her and her tissues. Recommendation: On an acute basis I would simply cover the wounds with triad and place gauze over the triad. This would be sufficient while the wounds mature and it is determined what parts are full-thickness and what parts quickly epithelialize. Longer term we can switch to honey gel covered with gauze. The air mattress and rotation to avoid pressure on these areas will also be of help. When she is discharged she will also require more mcc with wound care and use of an air mattress to avoid pressure.
--- NOTE | 2024-07-26 14:58 | P.PN ---
Subjective HISTORY OF PRESENT ILLNESS: 07/26/2024 Patient examined this morning at the bedside. Patient currently denies any chest pain or pressure. She denies any shortness of breath. Patient has been started on hemodialysis secondary to acute kidney injury. Telemetry reviewed revealing sinus mechanism with a heart rate in the 50s. Patient did have a 4- second pause this morning. Echocardiogram completed revealing ejection fraction 55 to 60%, mild TR PHYSICAL EXAM: VITAL SIGNS: Reviewed. GENERAL: Well-developed in no acute distress. NECK: Supple. No JVD or thyromegaly LUNGS: Respirations even and unlabored. Lungs essentially clear to auscultation bilaterally. HEART: Bradycardic. Regular rate and rhythm. S1 and S2 heard. EXTREMITIES: Normal range of motion. No clubbing or cyanosis. Peripheral pulses intact. No lower extremity edema ASSESSMENT: Acute kidney injury secondary to sepsis requiring initiation of hemodialysis Sinus pauses, up to 4 seconds Sinus bradycardia Acute COVID-19 infection Nausea, vomiting, diarrhea Metabolic acidosis Hyperphosphatemia PLAN: Continue hemodialysis per nephrology Avoid AV marina blocking agents Continue telemetry monitoring Patient to receive 14-day event monitor at the time of discharge Patient to follow-up postdischarge with Dr. Campa Further recommendations pending patient course Nurse practitioner note has been reviewed by physician. Signing provider agrees with the documented findings, assessment, and plan of care documented by [employer] as a scribe. Objective - Vital Signs Vital signs: Vital Signs Temp 97.6 F 07/26/24 12:09 Pulse 71 07/26/24 12:09 Resp 16 07/26/24 12:09 BP 120/61 07/26/24 12:09 Pulse Ox 96 07/26/24 08:00 FiO2 Intake & Output 07/25/24 07/26/24 07/26/24 18:59 06:59 18:59 Intake Total 250 400 768 Output Total 925 800 875 Balance -675 -400 -107 Weight 136 kg Intake: Oral 250 118 Hemodialysis 400 650 Output: Urine 925 400 225 Hemodialysis 400 400 Hemodialysis Net Amount 0 250 Other: Voiding Method Indwelling Catheter Indwelling Catheter Indwelling Catheter - Labs CBC & Chem 7: 07/25/24 06:13 07/26/24 07:12 Labs: Abnormal Lab Results - Last 24 Hours (Table) 07/25/24 07/26/24 Range/Units 16:42 07:12 BUN 78 H (7-17) mg/dL Creatinine 3.03 H (0.52-1.04) mg/dL POC Glucose (mg/dL) 112 H (70-110) mg/dL Calcium 7.0 L (8.4-10.2) mg/dL Microbiology - Last 24 Hours (Table) 07/22/24 20:13 Gram Stain - Final Back Wound Culture - Final Corynebacterium amycolatum Brevibacterium species 07/22/24 12:42 Blood Culture - Preliminary Blood
--- NOTE | 2024-07-26 15:16 | P.PN ---
Subjective Progress Note Date: 07/26/24 Principal diagnosis: Reason for follow-up is COVID-19, leukocytosis Patient is a 58-year-old female with no reported past medical history former smoker patient has been brought into the hospital for evaluation of subjective fever chills nausea vomiting diarrhea patient tested positive for COVID 19 chest x-ray negative for acute cardiopulmonary disease process did have elevated white count and elevated liver enzymes. On today's evaluation that is 07/26/2024, the patient continues to be afebrile, the patient is on room air and breathing comfortably, the Pt denies having any chest pain or cough, the patient denies having any abdominal pain no vomiting or any diarrhea, mention no new symptoms feeling slightly better. Patient did have a creatinine 3.03 culture from the back is growing corynebacterium and brevibacterium Objective - Vital Signs Vital signs: Vital Signs Temp 97.6 F 07/26/24 12:09 Pulse 71 07/26/24 12:09 Resp 16 07/26/24 12:09 BP 120/61 07/26/24 12:09 Pulse Ox 96 07/26/24 08:00 FiO2 Intake & Output 07/25/24 07/26/24 07/26/24 18:59 06:59 18:59 Intake Total 250 400 768 Output Total 925 800 875 Balance -675 -400 -107 Weight 136 kg Intake: Oral 250 118 Hemodialysis 400 650 Output: Urine 925 400 225 Hemodialysis 400 400 Hemodialysis Net Amount 0 250 Other: Voiding Method Indwelling Catheter Indwelling Catheter Indwelling Catheter - Exam GENERAL DESCRIPTION: Middle-age female lying in bed in no distress RESPIRATORY SYSTEM: Unlabored breathing , decreased breath sounds at bases HEART: S1 S2 regular rate and rhythm , ABDOMEN: Soft , no tenderness EXTREMITIES: Diffuse swelling to the leg no redness - Labs CBC & Chem 7: 07/25/24 06:13 07/26/24 07:12 Labs: Abnormal Lab Results - Last 24 Hours (Table) 07/25/24 07/26/24 Range/Units 16:42 07:12 BUN 78 H (7-17) mg/dL Creatinine 3.03 H (0.52-1.04) mg/dL POC Glucose (mg/dL) 112 H (70-110) mg/dL Calcium 7.0 L (8.4-10.2) mg/dL Microbiology - Last 24 Hours (Table) 07/22/24 20:13 Gram Stain - Final Back Wound Culture - Final Corynebacterium amycolatum Brevibacterium species 07/22/24 12:42 Blood Culture - Preliminary Blood Assessment and Plan (1) Sepsis Current Visit: Yes Status: Acute Code(s): A41.9 - SEPSIS, UNSPECIFIED ORGANISM SNOMED Code(s): 13829938 (2) Leukocytosis Current Visit: Yes Status: Acute Code(s): D72.829 - ELEVATED WHITE BLOOD CELL COUNT, UNSPECIFIED SNOMED Code(s): 335684660 (3) COVID-19 Current Visit: Yes Status: Acute Code(s): U07.1 - COVID-19 SNOMED Code(s): 843680553 Plan: 1patient did have features of SIRS as the patient did have tachycardia elevated white count but no fever source likely abdominal keeping in mind predominantly symptoms of nausea vomiting and diarrhea and did have elevated liver enzymes concerning for possible cholangitis did have a positive UA urine source not entirely excluded 2-patient did tested positive for COVID-19 however did not have significant respiratory symptoms patient not hypoxic chest x-ray was negative questionable incidental finding versus mild infection treatment is supportive and no worsening respiratory status has been noticed 3-patient ultrasound of the abdomen did show some gallbladder sludge but no features of cholecystitis CBD was normal 4patient white count has normalized and culture has been negative for resistant pathogen we will discontinue Zosyn short course of oral Augmentin Dictation was produced using [employer] dictation software. please excuse any grammatical, word or spelling errors. Time with Patient: Less than 30
[2024-07-26 16:52] LABS: Glucose,Whole Blood 88 mg/dL (70-110)
[2024-07-26 20:34] LABS: Glucose,Whole Blood 87 mg/dL (70-110)
[2024-07-26] MEDS: AMOXIC-POT CLAV 500-125 MG 1 EACH TAB PO SCH (22:11)
--- NOTE | 2024-07-27 03:01 | P.PN ---
Subjective Progress Note Date: 07/26/24 This is a 58-year-old female who was recently admitted with extensive decubitus ulcers and wounds with increasing altered mentation and found to have significant acute renal failure requiring hemodialysis with multiple consultations following. Patient was also found to be COVID-19 positive and respiratory status is stable on room air. Patient with poor social support reportedly lives with family and has been mostly bedbound and does not have a primary care provider. Patient is not able to make her own decisions and would likely benefit from a guardian. PT/OT therapy to evaluate for possible ECF. Wound care is also been consulted for the extensive wounds. Review of systems: Constitutional: No reports of fatigue, fever, or chills Cardiovascular: No reports of chest pain or palpitations Respiratory: No reports of shortness of breath or cough GI: No reports of nausea, no reports of vomiting, no diarrhea, tolerating diet : No reports of dysuria or retention Neurovascular: reports of generalized weakness, significant weakness and inability to ambulate All medications have been reviewed Active Medications Hydrocodone Bitart/Acetaminophen (Hydrocodone/Apap 5-325mg 1 Each Tab) 1 each PO Q6HR PRN PRN Reason: Pain Last Admin: 07/23/24 04:30 Dose: 1 each Alprazolam (Alprazolam 0.25 Mg Tab) 0.25 mg PO TID PRN PRN Reason: Anxiety Amoxicillin/Clavulanate Potassium (Amoxic-Pot Clav 500-125 Mg 1 Each Tab) 1 each PO BID BRIA; Protocol Last Admin: 07/26/24 22:11 Dose: 1 each Heparin Sodium (Porcine) (Heparin Sodium,Porcine 5,000 Unit/Ml 1 Ml Vial) 5,000 unit SQ Q12HR BRIA Last Admin: 07/26/24 22:11 Dose: 5,000 unit Hydromorphone HCl (Hydromorphone 0.5 Mg/0.5 Ml Syringe) 0.5 mg IVP Q4HR PRN PRN Reason: Severe Pain (Scale 7 to 10) Last Admin: 07/26/24 08:49 Dose: 0.5 mg Sodium Chloride (Saline 0.9%) 1,000 mls @ 75 mls/hr IV .[id number] [facility] Last Admin: 07/26/24 09:04 Dose: 75 mls/hr Multivitamins (Multivitamins, Thera 1 Each Tab) 1 each PO DAILY@1200 [facility] Last Admin: 07/26/24 17:17 Dose: 1 each Naloxone HCl (Naloxone 0.4 Mg/Ml 1 Ml Vial) 0.2 mg IV Q2M PRN PRN Reason: Opioid Reversal Pantoprazole Sodium (Pantoprazole 40 Mg Tablet) 40 mg PO [id number] [facility] Last Admin: 07/26/24 06:47 Dose: 40 mg Petrolatum (Zinc Oxide Paste (Z-Guard) 1 Applic) 1 applic TOPICAL BID PRN; Protocol PRN Reason: Wound Healing Temazepam (Temazepam 15 Mg Cap) 15 mg PO HS PRN PRN Reason: Insomnia Thiamine HCl (Thiamine 100 Mg Tab) 100 mg PO BID-W/MEALS [facility] Last Admin: 07/26/24 17:17 Dose: 100 mg PHYSICAL EXAMINATION: GENERAL: The patient is alert and oriented x2, appears baseline, Well developed, elderly appearing, unkempt, morbidly obese HEENT: Pupils are round and equally reacting to light. EOMI. no scleral icterus. No conjunctival pallor. Normocephalic, atraumatic. No pharyngeal erythema. No thyromegaly. CARDIOVASCULAR: S1 and S2 muffled PULMONARY: diminished breath sounds bilaterally with no wheezing or rhonchi noted. ABDOMEN: soft. Nontender on exam. obese. non-distended, normoactive bowel sounds. No palpable organomegaly. MUSCULOSKELETAL: No joint swelling or deformity. EXTREMITIES: No cyanosis, clubbing, or pedal edema. NEUROLOGICAL: Gross neurological examination did not reveal any focal deficits. Diffuse weakness SKIN: No rashes. Extensive decubitus ulcers present on admission. Assessment: Extensive decubitus ulcer with pressure ulcers with sepsis, present on admission Leukocytosis, possibly secondary to above, improved Acute renal failure with acute tubular necrosis with worsening oliguria requiring hemodialysis Generalized weakness and mostly bedbound Elevated LFTs, trending down Nausea, vomiting, diarrhea history, likely secondary to COVID-19 COVID-19 infection Morbid obesity with a BMI 54.8 History of noncompliance and most likely possible underlying psychiatric issues GI prophylaxis DVT prophylaxis Full code Plan: Recommend to continue with current medications and management with multiple consultations following. Patient is continued on hemodialysis nephrology fol lowhortencia and case management to follow in the event patient requires outpatient dialysis. Kidney functions are improving and will continue current regimen Follow-up with repeat labs and replace electrolytes per protocol Await updated PT/OT therapy notes Wound care consulted and appreciate input and recommendations Infectious disease following maintained on IV antibiotics and will transition to a short course of oral Augmentin on discharge and to continue with local wound care Patient is not able to make medical decisions on her own and will likely require a guardian. Social work following working on this Plan is for ECF once medically stable and will discuss with consultations regarding discharge planning. Not quite ready for discharge as of yet Due to multiple complex medical issues, overall prognosis is extremely guarded The impression and plan of care has been dictated by Christina Soares, nurse practitioner as directed. Dr. Jr MD I have performed a history and examination and MDM of this patient, discussed the same with the dictator, and agree with the dictator's assessment and plan as written ,documented as a scribe. Based on total visit time, I have performed more than 50% of the visit. Any additional findings or plans will be noted. Objective - Vital Signs Vital signs: Vital Signs Temp 97.6 F 07/26/24 12:09 Pulse 71 07/26/24 12:09 Resp 16 07/26/24 12:09 BP 120/61 07/26/24 12:09 Pulse Ox 96 07/26/24 08:00 FiO2 Intake & Output 07/25/24 07/26/24 07/26/24 18:59 06:59 18:59 Intake Total 250 400 768 Output Total 925 800 875 Balance -675 -400 -107 Weight 136 kg Intake: Oral 250 118 Hemodialysis 400 650 Output: Urine 925 400 225 Hemodialysis 400 400 Hemodialysis Net Amount 0 250 Other: Voiding Method Indwelling Catheter Indwelling Catheter Indwelling Catheter - Labs CBC & Chem 7: 07/25/24 06:13 07/26/24 07:12 Labs: Abnormal Lab Results - Last 24 Hours (Table) 07/25/24 07/26/24 Range/Units 16:42 07:12 BUN 78 H (7-17) mg/dL Creatinine 3.03 H (0.52-1.04) mg/dL POC Glucose (mg/dL) 112 H (70-110) mg/dL Calcium 7.0 L (8.4-10.2) mg/dL Microbiology - Last 24 Hours (Table) 07/22/24 20:13 Gram Stain - Final Back Wound Culture - Final Corynebacterium amycolatum Brevibacterium species 07/22/24 12:42 Blood Culture - Preliminary Blood
[2024-07-27 06:01] LABS: Glucose,Whole Blood 103 mg/dL (70-110)
[2024-07-27 10:49] LABS: Basophils % (A) 0 %; Eosinophils # (A) 0.1 k/uL (0-0.7); Eosinophils % (A) 2 %; HCT 32.6 % (34.0-46.0); HGB 10.5 gm/dL (11.4-16.0); Hypochromasia Slight; Lymphocytes # (A) 1.2 k/uL (1.0-4.8); Lymphocytes % (A) 17 %; MCH 29.5 pg (25.0-35.0); MCHC 32.2 g/dL (31.0-37.0); MCV 91.6 fL (80.0-100.0); Mean Platelet Volume 9.1; Monocytes # (A) 0.3 k/uL (0-1.0); Monocytes % (A) 4 %; Neutrophils # (A) 5.1 k/uL (1.3-7.7); Neutrophils % (A) 75 %; Platelet Count 133 k/uL (150-450); RBC 3.55 m/uL (3.80-5.40); RDW 14.5 % (11.5-15.5); WBC 6.8 k/uL (3.8-10.6)
[2024-07-27 11:30] LABS: Glucose,Whole Blood 103 mg/dL (70-110)
--- NOTE | 2024-07-27 12:20 | P.PN ---
Subjective Progress Note Date: 07/27/24 This is a 58-year-old female who was recently admitted with extensive decubitus ulcers and wounds with increasing altered mentation and found to have significant acute renal failure requiring hemodialysis with multiple consultations following. Patient was also found to be COVID-19 positive and respiratory status is stable on room air. Patient with poor social support reportedly lives with family and has been mostly bedbound and does not have a primary care provider. Patient is not able to make her own decisions and would likely benefit from a guardian. PT/OT therapy to evaluate for possible ECF. Wound care is also been consulted for the extensive wounds. 07/27/2024 Patient is seen in follow-up today undergoing hemodialysis with nephrology following. Patient is continued with local wound care with extensive wounds noted to the backside with infectious disease following. Patient is to continue with Triad cream and frequent offloading of the areas. Patient is stable respiratory lorenzo with no shortness of breath or oxygen required. Patient is afebrile and maintained on antibiotics in the form of Augmentin with infectious disease following. Will follow-up with social work regarding discharge planning and the need for guardianship early next week. Has not been determined if pat ient will require outpatient dialysis. Will follow-up with kidney functions and also discuss further with nephrology. Review of systems: Constitutional: No reports of fatigue, fever, or chills Cardiovascular: No reports of chest pain or palpitations Respiratory: No reports of shortness of breath or cough GI: No reports of nausea, no reports of vomiting, no diarrhea, tolerating diet : No reports of dysuria or retention Neurovascular: reports of generalized weakness, significant weakness and inability to ambulate All medications have been reviewed PHYSICAL EXAMINATION: GENERAL: The patient is alert and oriented x2, appears baseline, Well developed, elderly appearing, unkempt, morbidly obese HEENT: Pupils are round and equally reacting to light. EOMI. no scleral icterus. No conjunctival pallor. Normocephalic, atraumatic. No pharyngeal erythema. No thyromegaly. CARDIOVASCULAR: S1 and S2 muffled PULMONARY: diminished breath sounds bilaterally with no wheezing or rhonchi note d. ABDOMEN: soft. Nontender on exam. obese. non-distended, normoactive bowel sounds. No palpable organomegaly. MUSCULOSKELETAL: No joint swelling or deformity. EXTREMITIES: No cyanosis, clubbing, or pedal edema. NEUROLOGICAL: Gross neurological examination did not reveal any focal deficits. Diffuse weakness SKIN: No rashes. Extensive decubitus ulcers present on admission. Assessment: Extensive decubitus ulcer with pressure ulcers with sepsis, present on admission Leukocytosis, possibly secondary to above, improved Acute renal failure with acute tubular necrosis with worsening oliguria requiring hemodialysis Generalized weakness and mostly bedbound Elevated LFTs, trending down Nausea, vomiting, diarrhea history, likely secondary to COVID-19 COVID-19 infection Morbid obesity with a BMI 54.8 History of noncompliance and most likely possible underlying psychiatric issues GI prophylaxis DVT prophylaxis Full code Plan: Recommend to continue with current medications and management with multiple consultations following. Patient is continued on hemodialysis nephrology following and case management to follow in the event patient requires outpatient dialysis. Has not been determined as of yet if patient will continue dialysis outpatient. Kidney functions are improving and will continue current regimen Follow-up with repeat labs and replace electrolytes per protocol Await updated PT/OT therapy notes Wound care consulted and appreciate input and recommendations Infectious disease following maintained on IV antibiotics and will transition to a short course of oral Augmentin on discharge and to continue with local wound care Patient is not able to make medical decisions on her own and will likely require a guardian. Social work following working on this Plan is for ECF once medically stable and will discuss with consultations regarding discharge planning. Not quite ready for discharge as of yet Due to multiple complex medical issues, overall prognosis is extremely guarded The impression and plan of care has been dictated as a scribe by Christina Soares, nurse practitioner as directed. Dr. Jr MD I have performed a history and examination and MDM of this patient, discussed the same with the dictator, and agree with the dictator's assessment and plan as written ,documented as a scribe. Based on total visit time, I have performed more than 50% of the visit. Any additional findings or plans will be noted. Objective - Vital Signs Vital signs: Vital Signs Temp 98.1 F 07/27/24 04:46 Pulse 80 07/27/24 04:46 Resp 18 07/27/24 04:46 BP 106/53 07/27/24 04:46 Pulse Ox 95 07/27/24 04:46 FiO2 Intake & Output 07/26/24 07/27/24 07/27/24 18:59 06:59 18:59 Intake Total 886 240 Output Total 875 500 Balance 11 -260 Weight 136 kg 136 kg Intake: Oral 236 240 Hemodialysis 650 Output: Urine 225 500 Hemodialysis 400 Hemodialysis Net Amount 250 Other: Voiding Method Indwelling Catheter Indwelling Catheter # Bowel Movements 1 - Labs CBC & Chem 7: 07/27/24 10:23 07/26/24 07:12 Labs: Abnormal Lab Results - Last 24 Hours (Table) 07/26/24 Range/Units 07:12 BUN 78 H (7-17) mg/dL Creatinine 3.03 H (0.52-1.04) mg/dL Calcium 7.0 L (8.4-10.2) mg/dL
--- NOTE | 2024-07-27 12:35 | P.PN ---
Subjective HISTORY OF PRESENT ILLNESS: 07/26/2024 Patient examined this morning at the bedside. Patient currently denies any chest pain or pressure. She denies any shortness of breath. Patient has been started on hemodialysis secondary to acute kidney injury. Telemetry reviewed revealing sinus mechanism with a heart rate in the 50s. Patient did have a 4- second pause this morning. Echocardiogram completed revealing ejection fraction 55 to 60%, mild TR 07/27/2024 Patient examined this morning at the bedside. Patient currently undergoing hemodialysis. Patient denies chest pain or pressure. She denies shortness of breath. Telemetry Veals sinus mechanism with a heart rate in the 70s. Patient continues to have pauses this morning however they are shorter in length of about 3 to 3.4 seconds. PHYSICAL EXAM: VITAL SIGNS: Reviewed. GENERAL: Well-developed in no acute distress. NECK: Supple. No JVD or thyromegaly LUNGS: Respirations even and unlabored. Lungs essentially clear to auscultation bilaterally. HEART: Regular rate and rhythm. S1 and S2 heard. EXTREMITIES: Normal range of motion. No clubbing or cyanosis. Peripheral pulses intact. No lower extremity edema ASSESSMENT: Acute kidney injury secondary to sepsis requiring initiation of hemodialysis Sinus pauses, up to 4 seconds Sinus bradycardia Acute COVID-19 infection Nausea, vomiting, diarrhea Metabolic acidosis Hyperphosphatemia PLAN: TSH checked and within normal limits Continue hemodialysis per nephrology Avoid AV marina blocking agents Continue telemetry monitoring Patient to receive 14-day event monitor at the time of discharge Patient to follow-up postdischarge with Dr. Campa Further recommendations pending patient course Nurse practitioner note has been reviewed by physician. Signing provider agrees with the documented findings, assessment, and plan of care documented by DIRECTOR OF SAFETY AND SECURITY as a scribe. Objective - Vital Signs Vital signs: Vital Signs Temp 98.0 F 07/27/24 09:22 Pulse 77 07/27/24 11:34 Resp 18 07/27/24 09:22 BP 105/59 07/27/24 11:34 Pulse Ox 97 07/27/24 09:22 FiO2 Intake & Output 07/26/24 07/27/24 07/27/24 18:59 06:59 18:59 Intake Total 886 240 358 Output Total 875 500 Balance 11 -260 358 Weight 136 kg 136 kg Intake: Oral 236 240 358 Hemodialysis 650 Output: Urine 225 500 Hemodialysis 400 Hemodialysis Net Amount 250 Other: Voiding Method Indwelling Catheter Indwelling Catheter Indwelling Catheter # Bowel Movements 1 - Labs CBC & Chem 7: 07/27/24 10:23 07/26/24 07:12 Labs: Abnormal Lab Results - Last 24 Hours (Table) 07/27/24 Range/Units 10:23 RBC 3.55 L (3.80-5.40) m/uL Hgb 10.5 L (11.4-16.0) gm/dL Hct 32.6 L (34.0-46.0) % Plt Count 133 L (150-450) k/uL
[2024-07-27] MEDS: ALTEPLASE 2 MG VIAL (CATHFLO) IV STA ×2 (12:46→12:47)
--- NOTE | 2024-07-27 14:39 | P.PN ---
Subjective Progress Note Date: 07/27/24 Patient is seen in follow-up for acute kidney injury. Renal function gradually worsened and was subsequently started on hemodialysis July 25, 2024 via temporary dialysis catheter. Not a very reliable historian. Blood pressure on the lower end. Had HD today and catheter was not functioning well. Vital signs are stable. General: No acute distress. HEENT: Head exam is unremarkable. LUNGS: No audible rhonchi or wheezes. HEART: Rate and Rhythm are regular. ABDOMEN: Nontender. EXTREMITITES: Chronic changes noted. Trace edema. Objective - Vital Signs Vital signs: Vital Signs Temp 98.0 F 07/27/24 09:22 Pulse 77 07/27/24 11:34 Resp 18 07/27/24 09:22 BP 105/59 07/27/24 11:34 Pulse Ox 97 07/27/24 09:22 FiO2 Intake & Output 07/26/24 07/27/24 07/27/24 18:59 06:59 18:59 Intake Total 886 240 358 Output Total 875 500 Balance 11 -260 358 Weight 136 kg 136 kg Intake: Oral 236 240 358 Hemodialysis 650 Output: Urine 225 500 Hemodialysis 400 Hemodialysis Net Amount 250 Other: Voiding Method Indwelling Catheter Indwelling Catheter Indwelling Catheter # Bowel Movements 1 - Labs CBC & Chem 7: 07/27/24 10:23 07/26/24 07:12 Labs: Abnormal Lab Results - Last 24 Hours (Table) 07/27/24 Range/Units 10:23 RBC 3.55 L (3.80-5.40) m/uL Hgb 10.5 L (11.4-16.0) gm/dL Hct 32.6 L (34.0-46.0) % Plt Count 133 L (150-450) k/uL Assessment and Plan Assessment: 1. Acute kidney injury secondary to ATN secondary to severe sepsis. Creatinine 3.38 on admission and was up to 4.87 dated July 25, 2024 with BUN over 120. Started on hemodialysis July 25, 2024 via temporary dialysis catheter. Unknown baseline renal function. No hydronephrosis noted on ultrasound. 2. Acute COVID-19 infection. 3. Metabolic acidosis secondary to acute kidney injury and IV fluids. Also component of lactic acidosis which improved. Improved with bicarb drip. 4. Nausea vomiting and diarrhea. Questionable cholangitis. On antibiotics. ID following. 5. Hyperphosphatemia secondary to acute kidney injury. Phosphorus level 6.2 dated July 25, 2024. Expect improvement postdialysis. Plan: Third HD treatment today. Next treatment Monday if needed. Urine output improved. Maintain normal saline. Midodrine predialysis and mid treatment if needed. Maintain King catheter. Strict I's and O's. Cathflo ordered for poorly functioning catheter Monitor for renal recovery.
[2024-07-27 16:13] LABS: Glucose,Whole Blood 112 mg/dL (70-110)
[2024-07-27 17:02] LABS: African American GFR (CKD) 40 (>60 ml/min/1.73 sqM); Anion Gap 5 mmol/L; Blood Urea Nitrogen 18 mg/dL (7-17); Calcium 7.4 mg/dL (8.4-10.2); Carbon Dioxide 28 mmol/L (22-30); Chloride 101 mmol/L (98-107); Glucose 115 mg/dL (74-99); Magnesium 1.7 mg/dL (1.6-2.3); Non-African American GFR(CKD) 35 (>60 ml/min/1.73 sqM); Phosphorus 2.1 mg/dL (2.5-4.5); Potassium 3.4 mmol/L (3.5-5.1); Sodium 134 mmol/L (137-145)
[2024-07-27 20:44] LABS: Glucose,Whole Blood 133 mg/dL (70-110)
[2024-07-28 06:12] LABS: Glucose,Whole Blood 99 mg/dL (70-110)
[2024-07-28 10:15] LABS: Basophils % (A) 0 %; Eosinophils # (A) 0.2 k/uL (0-0.7); Eosinophils % (A) 3 %; HCT 36.7 % (34.0-46.0); HGB 11.7 gm/dL (11.4-16.0); Hypochromasia Slight; Lymphocytes # (A) 1.6 k/uL (1.0-4.8); Lymphocytes % (A) 18 %; MCH 29.6 pg (25.0-35.0); MCHC 31.8 g/dL (31.0-37.0); MCV 93.1 fL (80.0-100.0); Mean Platelet Volume 9.1; Monocytes # (A) 0.4 k/uL (0-1.0); Monocytes % (A) 5 %; Neutrophils # (A) 6.6 k/uL (1.3-7.7); Neutrophils % (A) 73 %; Platelet Count 154 k/uL (150-450); RBC 3.94 m/uL (3.80-5.40); RDW 14.6 % (11.5-15.5)
[2024-07-28 10:27] LABS: African American GFR (CKD) 31 (>60 ml/min/1.73 sqM); Anion Gap 10 mmol/L; Blood Urea Nitrogen 20 mg/dL (7-17); Calcium 7.6 mg/dL (8.4-10.2); Carbon Dioxide 26 mmol/L (22-30); Chloride 100 mmol/L (98-107); Glucose 106 mg/dL (74-99); Non-African American GFR(CKD) 27 (>60 ml/min/1.73 sqM); Potassium 3.3 mmol/L (3.5-5.1); Sodium 136 mmol/L (137-145)
--- NOTE | 2024-07-28 11:23 | P.PN ---
Subjective Progress Note Date: 07/28/24 Patient is seen in follow-up for acute kidney injury. Renal function gradually worsened and was subsequently started on hemodialysis July 25, 2024 via temporary dialysis catheter. Not a very reliable historian. Vital signs are stable. General: No acute distress. HEENT: Head exam is unremarkable. LUNGS: No audible rhonchi or wheezes. HEART: Rate and Rhythm are regular. ABDOMEN: Nontender. EXTREMITITES: Chronic changes noted. Trace edema. Objective - Vital Signs Vital signs: Vital Signs Temp 98.3 F 07/28/24 05:35 Pulse 74 07/28/24 05:35 Resp 16 07/28/24 05:35 BP 142/62 07/28/24 05:35 Pulse Ox 98 07/28/24 05:35 FiO2 Intake & Output 07/27/24 07/28/24 07/28/24 18:59 06:59 18:59 Intake Total 1512 480 Output Total 1250 500 Balance 262 -500 480 Intake: Oral 712 480 Hemodialysis 800 Output: Urine 450 500 Hemodialysis 800 Hemodialysis Net Amount 0 Other: Voiding Method Indwelling Catheter Indwelling Catheter - Labs CBC & Chem 7: 07/28/24 09:21 07/28/24 09:21 Labs: Abnormal Lab Results - Last 24 Hours (Table) 07/27/24 07/27/24 07/27/24 Range/Units 10:23 16:11 16:19 RBC 3.55 L (3.80-5.40) m/uL Hgb 10.5 L (11.4-16.0) gm/dL Hct 32.6 L (34.0-46.0) % Plt Count 133 L (150-450) k/uL Sodium 134 L (137-145) mmol/L Potassium 3.4 L (3.5-5.1) mmol/L BUN 18 H (7-17) mg/dL Creatinine 1.64 H (0.52-1.04) mg/dL Glucose 115 H (74-99) mg/dL POC Glucose (mg/dL) 112 H (70-110) mg/dL Calcium 7.4 L (8.4-10.2) mg/dL Phosphorus 2.1 L (2.5-4.5) mg/dL 07/27/24 Range/Units 20:42 RBC (3.80-5.40) m/uL Hgb (11.4-16.0) gm/dL Hct (34.0-46.0) % Plt Count (150-450) k/uL Sodium (137-145) mmol/L Potassium (3.5-5.1) mmol/L BUN (7-17) mg/dL Creatinine (0.52-1.04) mg/dL Glucose (74-99) mg/dL POC Glucose (mg/dL) 133 H (70-110) mg/dL Calcium (8.4-10.2) mg/dL Phosphorus (2.5-4.5) mg/dL Microbiology - Last 24 Hours (Table) 07/22/24 12:42 Blood Culture - Final Blood Assessment and Plan Assessment: 1. Acute kidney injury secondary to ATN secondary to severe sepsis. Creatinine 3.38 on admission and was up to 4.87 dated July 25, 2024 with BUN over 120. Started on hemodialysis July 25, 2024 via temporary dialysis catheter. U nknown baseline renal function. No hydronephrosis noted on ultrasound. 2. Acute COVID-19 infection. 3. Metabolic acidosis secondary to acute kidney injury and IV fluids. Also component of lactic acidosis which improved. Improved with bicarb drip. 4. Nausea vomiting and diarrhea. Questionable cholangitis. On antibiotics. ID following. 5. Hyperphosphatemia secondary to acute kidney injury. Phosphorus level 6.2 dated July 25, 2024. Expect improvement postdialysis. Plan: Will monitor off HD today and assess for renal recovery given good urine output Maintain normal saline. Midodrine predialysis and mid treatment if needed. Maintain King catheter. Strict I's and O's.
[2024-07-28 11:27] LABS: Glucose,Whole Blood 101 mg/dL (70-110)
--- NOTE | 2024-07-28 13:24 | P.PN ---
Subjective HISTORY OF PRESENT ILLNESS: 07/26/2024 Patient examined this morning at the bedside. Patient currently denies any chest pain or pressure. She denies any shortness of breath. Patient has been started on hemodialysis secondary to acute kidney injury. Telemetry reviewed revealing sinus mechanism with a heart rate in the 50s. Patient did have a 4- second pause this morning. Echocardiogram completed revealing ejection fraction 55 to 60%, mild TR 07/27/2024 Patient examined this morning at the bedside. Patient currently undergoing hemodialysis. Patient denies chest pain or pressure. She denies shortness of breath. Telemetry Veals sinus mechanism with a heart rate in the 70s. Patient continues to have pauses this morning however they are shorter in length of about 3 to 3.4 seconds. 07/28/2024 Patient examined this morning at the bedside. Patient is resting comfortably in bed. Patient denies chest pain or pressure. She denies shortness of breath. Patient continues to have pauses this morning of about 3 seconds. PHYSICAL EXAM: VITAL SIGNS: Reviewed. GENERAL: Well-developed in no acute distress. NECK: Supple. No JVD or thyromegaly LUNGS: Respirations even and unlabored. Lungs essentially clear to auscultation bilaterally. HEART: Regular rate and rhythm. S1 and S2 heard. EXTREMITIES: Normal range of motion. No clubbing or cyanosis. Peripheral pulses intact. No lower extremity edema ASSESSMENT: Acute kidney injury secondary to sepsis requiring initiation of hemodialysis Sinus pauses, up to 4 seconds Sinus bradycardia Acute COVID-19 infection Nausea, vomiting, diarrhea Metabolic acidosis Hyperphosphatemia PLAN: TSH checked and within normal limits Continue hemodialysis per nephrology Avoid AV marina blocking agents Continue telemetry monitoring Patient to receive 14-day event monitor at the time of discharge Patient to follow-up postdischarge with Dr. Campa Patient with continued pauses this morning. We will consult EP for pacemaker evaluation. Cardiology team to notify Dr. Condon tomorrow morning of EP consult. Further recommendations pending patient course Nurse practitioner note has been reviewed by physician. Signing provider agrees with the documented findings, assessment, and plan of care documented by [employer]AD [employer] DEVELOPER ARCHITECT as a scribe. Objective - Vital Signs Vital signs: Vital Signs Temp 98.2 F 07/28/24 11:55 Pulse 89 07/28/24 11:55 Resp 18 07/28/24 11:55 BP 125/66 07/28/24 11:55 Pulse Ox 100 07/28/24 11:55 FiO2 Intake & Output 07/27/24 07/28/24 07/28/24 18:59 06:59 18:59 Intake Total 1512 720 Output Total 1250 500 Balance 262 -500 720 Intake: Oral 712 720 Hemodialysis 800 Output: Urine 450 500 Hemodialysis 800 Hemodialysis Net Amount 0 Other: Voiding Method Indwelling Catheter Indwelling Catheter Indwelling Catheter - Labs CBC & Chem 7: 07/28/24 09:21 07/28/24 09:21 Labs: Abnormal Lab Results - Last 24 Hours (Table) 07/27/24 07/27/24 07/27/24 Range/Units 16:11 16:19 20:42 Sodium 134 L (137-145) mmol/L Potassium 3.4 L (3.5-5.1) mmol/L BUN 18 H (7-17) mg/dL Creatinine 1.64 H (0.52-1.04) mg/dL Glucose 115 H (74-99) mg/dL POC Glucose (mg/dL) 112 H 133 H (70-110) mg/dL Calcium 7.4 L (8.4-10.2) mg/dL Phosphorus 2.1 L (2.5-4.5) mg/dL 07/28/24 Range/Units 09:21 Sodium 136 L (137-145) mmol/L Potassium 3.3 L (3.5-5.1) mmol/L BUN 20 H (7-17) mg/dL Creatinine 2.05 H (0.52-1.04) mg/dL Glucose 106 H (74-99) mg/dL POC Glucose (mg/dL) (70-110) mg/dL Calcium 7.6 L (8.4-10.2) mg/dL Phosphorus (2.5-4.5) mg/dL Microbiology - Last 24 Hours (Table) 07/22/24 12:42 Blood Culture - Final Blood
--- NOTE | 2024-07-28 14:08 | P.PN ---
Subjective Progress Note Date: 07/28/24 This is a 58-year-old female who was recently admitted with extensive decubitus ulcers and wounds with increasing altered mentation and found to have significant acute renal failure requiring hemodialysis with multiple consultations following. Patient was also found to be COVID-19 positive and respiratory status is stable on room air. Patient with poor social support reportedly lives with family and has been mostly bedbound and does not have a primary care provider. Patient is not able to make her own decisions and would likely benefit from a guardian. PT/OT therapy to evaluate for possible ECF. Wound care is also been consulted for the extensive wounds. 07/27/2024 Patient is seen in follow-up today undergoing hemodialysis with nephrology following. Patient is continued with local wound care with extensive wounds noted to the backside with infectious disease following. Patient is to continue with Triad cream and frequent offloading of the areas. Patient is stable respiratory lorenzo with no shortness of breath or oxygen required. Patient is afebrile and maintained on antibiotics in the form of Augmentin with infectious disease following. Will follow-up with social work regarding discharge planning and the need for guardianship early next week. Has not been determined if pat ient will require outpatient dialysis. Will follow-up with kidney functions and also discuss further with nephrology. 07/28/2024 Patient is seen in follow-up today with no acute overnight issues noted. Per nursing staff patient is having some pauses noted on telemetry and per cardiology avoid AV marina agents and have consulted Dr. Condon for possible EP evaluation. Patient is continued on hemodialysis with a temporary dialysis catheter showing improvements in kidney functions. Will discuss further with nephrology if patient is going to require outpatient dialysis. Patient will likely need a guardian and case management/social work services for discharge planning. Review of systems: Constitutional: No reports of fatigue, fever, or chills Cardiovascular: No reports of chest pain or palpitations Respiratory: No reports of shortness of breath or cough GI: No reports of nausea, no reports of vomiting, no diarrhea, tolerating diet : No reports of dysuria or retention Neurovascular: reports of generalized weakness, significant weakness and inability to ambulate All medications have been reviewed PHYSICAL EXAMINATION: GENERAL: The patient is alert and oriented x2, appears baseline, Well developed, elderly appearing, unkempt, morbidly obese HEENT: Pupils are round and equally reacting to light. EOMI. no scleral icterus. No conjunctival pallor. Normocephalic, atraumatic. No pharyngeal erythema. No thyromegaly. CARDIOVASCULAR: S1 and S2 muffled, irregular PULMONARY: diminished breath sounds bilaterally with no wheezing or rhonchi noted. ABDOMEN: soft. Nontender on exam. obese. non-distended, normoactive bowel sounds. No palpable organomegaly. MUSCULOSKELETAL: No joint swelling or deformity. EXTREMITIES: No cyanosis, clubbing, or pedal edema. NEUROLOGICAL: Gross neurological examination did not reveal any focal deficits. Diffuse weakness SKIN: No rashes. Extensive decubitus ulcers present on admission. Assessment: Extensive decubitus ulcer with pressure ulcers with sepsis, present on admission Leukocytosis, possibly secondary to above, improved Acute renal failure with acute tubular necrosis with worsening oliguria requiring hemodialysis Generalized weakness and mostly bedbound Elevated LFTs, trending down Nausea, vomiting, diarrhea history, likely secondary to COVID-19 COVID-19 infection Morbid obesity with a BMI 54.8 History of noncompliance and most likely possible underlying psychiatric issues GI prophylaxis DVT prophylaxis Full code Plan: Recommend to continue with current medications and management with multiple consultations following. Patient is continued on hemodialysis nephrology following and case management to follow in the event patient requires outpatient dialysis. Has not been determined as of yet if patient will continue dialysis outpatient. Kidney functions are improving and will continue current regimen Follow-up with repeat labs and replace electrolytes per protocol Await updated PT/OT therapy notes Wound care consulted and appreciate input and recommendations, continue local wound care will need extensive wound care outpatient as well Infectious disease following and is continued on oral Augmentin Per nursing staff patient was having pauses on telemetry and Dr. Condon consulted for evaluation of EP intervention. Will not see until 07/29/2024 as he is not currently rounding. Will await Dr. Condon evaluation and appreciate input and recommendations. Patient is not able to make medical decisions on her own and will likely require a guardian. Social work following working on this Plan is for ECF once medically stable and will discuss with consultations regarding discharge planning. Not quite ready for discharge as of yet Due to multiple complex medical issues, overall prognosis is extremely guarded The impression and plan of care has been dictated as a scribe by Christina Soares, nurse practitioner as directed. Dr. Jr MD I have performed a history and examination and MDM of this patient, discussed the same with the dictator, and agree with the dictator's assessment and plan as written ,documented as a scribe. Based on total visit time, I have performed more than 50% of the visit. Any additional findings or plans will be noted. Objective - Vital Signs Vital signs: Vital Signs Temp 98.3 F 07/28/24 05:35 Pulse 74 07/28/24 05:35 Resp 16 07/28/24 05:35 BP 142/62 07/28/24 05:35 Pulse Ox 98 07/28/24 05:35 FiO2 Intake & Output 07/27/24 07/28/24 07/28/24 18:59 06:59 18:59 Intake Total 1512 Output Total 1250 500 Balance 262 -500 Intake: Oral 712 Hemodialysis 800 Output: Urine 450 500 Hemodialysis 800 Hemodialysis Net Amount 0 Other: Voiding Method Indwelling Catheter Indwelling Catheter - Labs CBC & Chem 7: 07/28/24 09:21 07/28/24 09:21 Labs: Abnormal Lab Results - Last 24 Hours (Table) 07/27/24 07/27/24 07/27/24 Range/Units 10:23 16:11 16:19 RBC 3.55 L (3.80-5.40) m/uL Hgb 10.5 L (11.4-16.0) gm/dL Hct 32.6 L (34.0-46.0) % Plt Count 133 L (150-450) k/uL Sodium 134 L (137-145) mmol/L Potassium 3.4 L (3.5-5.1) mmol/L BUN 18 H (7-17) mg/dL Creatinine 1.64 H (0.52-1.04) mg/dL Glucose 115 H (74-99) mg/dL POC Glucose (mg/dL) 112 H (70-110) mg/dL Calcium 7.4 L (8.4-10.2) mg/dL Phosphorus 2.1 L (2.5-4.5) mg/dL 07/27/24 Range/Units 20:42 RBC (3.80-5.40) m/uL Hgb (11.4-16.0) gm/dL Hct (34.0-46.0) % Plt Count (150-450) k/uL Sodium (137-145) mmol/L Potassium (3.5-5.1) mmol/L BUN (7-17) mg/dL Creatinine (0.52-1.04) mg/dL Glucose (74-99) mg/dL POC Glucose (mg/dL) 133 H (70-110) mg/dL Calcium (8.4-10.2) mg/dL Phosphorus (2.5-4.5) mg/dL Microbiology - Last 24 Hours (Table) 07/22/24 12:42 Blood Culture - Final Blood
--- NOTE | 2024-07-28 14:27 | P.PN ---
Subjective Progress Note Date: 07/27/24 Principal diagnosis: Reason for follow-up is COVID-19, leukocytosis Patient is a 58-year-old female with no reported past medical history former smoker patient has been brought into the hospital for evaluation of subjective fever chills nausea vomiting diarrhea patient tested positive for COVID 19 chest x-ray negative for acute cardiopulmonary disease process did have elevated white count and elevated liver enzymes. On today's evaluation that is 07/27/2024, patient did not have any fever and denies any chills, patient is breathing comfortably on room air, patient with no chest pain or cough patient did not have any abdominal pain nausea vomiting or any loose stools, no new symptoms. Patient white count 6.8, creat is 1.64 Objective - Vital Signs Vital signs: Vital Signs Temp 98.0 F 07/27/24 09:22 Pulse 80 07/27/24 13:35 Resp 18 07/27/24 13:35 BP 127/61 07/27/24 13:35 Pulse Ox 97 07/27/24 13:35 FiO2 Intake & Output 07/26/24 07/27/24 07/27/24 18:59 06:59 18:59 Intake Total 886 240 594 Output Total 875 500 275 Balance 11 -260 319 Weight 136 kg 136 kg Intake: Oral 236 240 594 Hemodialysis 650 Output: Urine 225 500 275 Hemodialysis 400 Hemodialysis Net Amount 250 Other: Voiding Method Indwelling Catheter Indwelling Catheter Indwelling Catheter # Bowel Movements 1 - Exam GENERAL DESCRIPTION: Middle-age female lying in bed in no distress RESPIRATORY SYSTEM: Unlabored breathing , decreased breath sounds at bases HEART: S1 S2 regular rate and rhythm , ABDOMEN: Soft , no tenderness EXTREMITIES: Diffuse swelling to the leg no redness - Labs CBC & Chem 7: 07/28/24 09:21 07/28/24 09:21 Labs: Abnormal Lab Results - Last 24 Hours (Table) 07/27/24 Range/Units 10:23 RBC 3.55 L (3.80-5.40) m/uL Hgb 10.5 L (11.4-16.0) gm/dL Hct 32.6 L (34.0-46.0) % Plt Count 133 L (150-450) k/uL Assessment and Plan (1) Sepsis Current Visit: Yes Status: Acute Code(s): A41.9 - SEPSIS, UNSPECIFIED ORGANISM SNOMED Code(s): 36167806 (2) Leukocytosis Current Visit: Yes Status: Acute Code(s): D72.829 - ELEVATED WHITE BLOOD CELL COUNT, UNSPECIFIED SNOMED Code(s): 793691161 (3) COVID-19 Current Visit: Yes Status: Acute Code(s): U07.1 - COVID-19 SNOMED Code(s): 332167183 Plan: 1patient did have features of SIRS as the patient did have tachycardia elevated white count but no fever source likely abdominal keeping in mind predominantly symptoms of nausea vomiting and diarrhea and did have elevated liver enzymes concerning for possible cholangitis did have a positive UA urine source not entirely excluded 2-patient did tested positive for COVID-19 however did not have significant respiratory symptoms patient not hypoxic chest x-ray was negative questionable incidental finding versus mild infection treatment is supportive and no worsening respiratory status has been noticed 3-patient ultrasound of the abdomen did show some gallbladder sludge but no features of cholecystitis CBD was normal 4patient white count has normalized and culture has been negative for resistant pathogen patient is currently on oral Augmentin and will monitor clinical course closely Dictation was produced using [employer] dictation software. please excuse any grammatical, word or spelling errors. Time with Patient: Less than 30
--- NOTE | 2024-07-28 14:28 | P.PN ---
Subjective Progress Note Date: 07/28/24 Principal diagnosis: Reason for follow-up is COVID-19, leukocytosis Patient is a 58-year-old female with no reported past medical history former smoker patient has been brought into the hospital for evaluation of subjective fever chills nausea vomiting diarrhea patient tested positive for COVID 19 chest x-ray negative for acute cardiopulmonary disease process did have elevated white count and elevated liver enzymes. On today's evaluation that is 07/28/2024, Patient is afebrile patient is currently on room air and breathing comfortably no distress patient is currently sleepy no vomiting diarrhea any changes reported by the nursing staff. Patient white count is 9.0, creatinine 2.05 Objective - Vital Signs Vital signs: Vital Signs Temp 98.2 F 07/28/24 11:55 Pulse 89 07/28/24 11:55 Resp 18 07/28/24 11:55 BP 125/66 07/28/24 11:55 Pulse Ox 100 07/28/24 11:55 FiO2 Intake & Output 07/27/24 07/28/24 07/28/24 18:59 06:59 18:59 Intake Total 1512 720 Output Total 1250 500 Balance 262 -500 720 Intake: Oral 712 720 Hemodialysis 800 Output: Urine 450 500 Hemodialysis 800 Hemodialysis Net Amount 0 Other: Voiding Method Indwelling Catheter Indwelling Catheter Indwelling Catheter - Labs CBC & Chem 7: 07/28/24 09:21 07/28/24 09:21 Labs: Abnormal Lab Results - Last 24 Hours (Table) 07/27/24 07/27/24 07/27/24 Range/Units 16:11 16:19 20:42 Sodium 134 L (137-145) mmol/L Potassium 3.4 L (3.5-5.1) mmol/L BUN 18 H (7-17) mg/dL Creatinine 1.64 H (0.52-1.04) mg/dL Glucose 115 H (74-99) mg/dL POC Glucose (mg/dL) 112 H 133 H (70-110) mg/dL Calcium 7.4 L (8.4-10.2) mg/dL Phosphorus 2.1 L (2.5-4.5) mg/dL 07/28/24 Range/Units 09:21 Sodium 136 L (137-145) mmol/L Potassium 3.3 L (3.5-5.1) mmol/L BUN 20 H (7-17) mg/dL Creatinine 2.05 H (0.52-1.04) mg/dL Glucose 106 H (74-99) mg/dL POC Glucose (mg/dL) (70-110) mg/dL Calcium 7.6 L (8.4-10.2) mg/dL Phosphorus (2.5-4.5) mg/dL Microbiology - Last 24 Hours (Table) 07/22/24 12:42 Blood Culture - Final Blood Assessment and Plan (1) Sepsis Current Visit: Yes Status: Acute Code(s): A41.9 - SEPSIS, UNSPECIFIED ORGANISM SNOMED Code(s): 51402967 (2) Leukocytosis Current Visit: Yes Status: Acute Code(s): D72.829 - ELEVATED WHITE BLOOD CELL COUNT, UNSPECIFIED SNOMED Code(s): 809073690 (3) COVID-19 Current Visit: Yes Status: Acute Code(s): U07.1 - COVID-19 SNOMED Code(s): 893446094 Plan: 1patient did have features of SIRS as the patient did have tachycardia elevated white count but no fever source likely abdominal keeping in mind predominantly symptoms of nausea vomiting and diarrhea and did have elevated liver enzymes concerning for possible cholangitis did have a positive UA urine source not entirely excluded 2-patient did tested positive for COVID-19 however did not have significant respiratory symptoms patient not hypoxic chest x-ray was negative questionable incidental finding versus mild infection treatment is supportive and no worsening respiratory status has been noticed 3-patient ultrasound of the abdomen did show some gallbladder sludge but no features of cholecystitis CBD was normal 4patient white count has normalized and culture has been negative for resistant pathogen 5patient continue with a short course of oral Augmentin and continue supportive care Dictation was produced using [employer] dictation software. please excuse any grammatical, word or spelling errors. Time with Patient: Less than 30
[2024-07-28 16:37] LABS: Glucose,Whole Blood 93 mg/dL (70-110)
[2024-07-28] MEDS: POTASSIUM CHLORIDE ER 20 MEQ TAB.ER PO SCH (17:08)
[2024-07-28 19:53] LABS: Glucose,Whole Blood 107 mg/dL (70-110)
[2024-07-29 05:55] LABS: Glucose,Whole Blood 102 mg/dL (70-110)
[2024-07-29 09:21] LABS: Basophils % (A) 0 %; Eosinophils # (A) 0.3 k/uL (0-0.7); Eosinophils % (A) 3 %; HCT 33.8 % (34.0-46.0); HGB 10.7 gm/dL (11.4-16.0); Hypochromasia Moderate; Lymphocytes # (A) 1.4 k/uL (1.0-4.8); Lymphocytes % (A) 16 %; MCH 29.4 pg (25.0-35.0); MCHC 31.6 g/dL (31.0-37.0); Mean Platelet Volume 8.8; Monocytes # (A) 0.4 k/uL (0-1.0); Monocytes % (A) 4 %; Neutrophils # (A) 6.7 k/uL (1.3-7.7); Neutrophils % (A) 76 %; Platelet Count 164 k/uL (150-450); RBC 3.64 m/uL (3.80-5.40); RDW 14.7 % (11.5-15.5); WBC 8.8 k/uL (3.8-10.6)
[2024-07-29 09:29] LABS: African American GFR (CKD) 26 (>60 ml/min/1.73 sqM); Anion Gap 7 mmol/L; Blood Urea Nitrogen 21 mg/dL (7-17); Calcium 7.6 mg/dL (8.4-10.2); Carbon Dioxide 26 mmol/L (22-30); Chloride 107 mmol/L (98-107); Glucose 109 mg/dL (74-99); Non-African American GFR(CKD) 22 (>60 ml/min/1.73 sqM); Potassium 3.8 mmol/L (3.5-5.1); Sodium 140 mmol/L (137-145)
[2024-07-29 11:24] LABS: Glucose,Whole Blood 100 mg/dL (70-110)
--- NOTE | 2024-07-29 12:34 | P.PN ---
Subjective Progress Note Date: 07/29/24 07/29/2024 Patient was seen and examined resting comfortably in bed. She has not had recurrent pauses since 07/27/2024. Denies any dizziness, lightheadedness or syncope. She has had no chest discomfort. Her breathing is stable. PHYSICAL EXAM: VITAL SIGNS: Reviewed. GENERAL: Well-developed in no acute distress. NECK: Supple. No JVD or thyromegaly LUNGS: Respirations even and unlabored. Lungs essentially clear to auscultation bilaterally. HEART: Regular rate and rhythm. S1 and S2 heard. EXTREMITIES: Normal range of motion. No clubbing or cyanosis. Peripheral pulses intact. No lower extremity edema ASSESSMENT: Acute kidney injury secondary to sepsis requiring initiation of hemodialysis Sinus pauses, up to 4 seconds Sinus bradycardia Acute COVID-19 infection Nausea, vomiting, diarrhea Metabolic acidosis Hyperphosphatemia PLAN: From cardiology's perspective there is no indication for permanent pacemaker at this time Continue hemodialysis per nephrology Avoid AV marina blocking agents Patient to receive 14-day event monitor at the time of discharge Patient to follow-up postdischarge with Dr. Campa FLAG CAR DRIVER note has been reviewed, I agree with a documented findings and plan of care. Patient was seen and examined. Objective - Vital Signs Vital signs: Vital Signs Temp 98.2 F 07/29/24 11:53 Pulse 98 07/29/24 11:53 Resp 20 07/29/24 11:53 BP 135/63 07/29/24 11:53 Pulse Ox 100 07/29/24 11:53 FiO2 Intake & Output 07/28/24 07/29/24 07/29/24 18:59 06:59 18:59 Intake Total 1080 400 Output Total 500 1000 760 Balance 580 -1000 -360 Weight 135 kg Intake: Oral 1080 400 Output: Urine 500 1000 760 Other: Voiding Method Indwelling Catheter Indwelling Catheter Indwelling Catheter # Voids 1 - Labs CBC & Chem 7: 07/29/24 08:33 07/29/24 08:33 Labs: Abnormal Lab Results - Last 24 Hours (Table) 07/29/24 07/29/24 Range/Units 08:33 08:33 RBC 3.64 L (3.80-5.40) m/uL Hgb 10.7 L (11.4-16.0) gm/dL Hct 33.8 L (34.0-46.0) % BUN 21 H (7-17) mg/dL Creatinine 2.36 H (0.52-1.04) mg/dL Glucose 109 H (74-99) mg/dL Calcium 7.6 L (8.4-10.2) mg/dL
--- NOTE | 2024-07-29 12:48 | P.PN ---
Subjective Progress Note Date: 07/29/24 Patient is seen in follow-up for acute kidney injury. Renal function gradually worsened and was subsequently started on hemodialysis July 25, 2024 via temporary dialysis catheter. Not acute events over night. Vital signs are stable. General: No acute distress. HEENT: Head exam is unremarkable. LUNGS: No audible rhonchi or wheezes. HEART: Rate and Rhythm are regular. ABDOMEN: Nontender. EXTREMITITES: Chronic changes noted. Trace edema. Objective - Vital Signs Vital signs: Vital Signs Temp 98 F 07/29/24 08:00 Pulse 94 07/29/24 08:00 Resp 20 07/29/24 08:00 BP 144/63 07/29/24 08:00 Pulse Ox 98 07/29/24 08:00 FiO2 Intake & Output 07/28/24 07/29/24 07/29/24 18:59 06:59 18:59 Intake Total 1080 400 Output Total 500 1000 760 Balance 580 -1000 -360 Weight 135 kg Intake: Oral 1080 400 Output: Urine 500 1000 760 Other: Voiding Method Indwelling Catheter Indwelling Catheter Indwelling Catheter # Voids 1 - Labs CBC & Chem 7: 07/29/24 08:33 07/29/24 08:33 Labs: Abnormal Lab Results - Last 24 Hours (Table) 07/29/24 07/29/24 Range/Units 08:33 08:33 RBC 3.64 L (3.80-5.40) m/uL Hgb 10.7 L (11.4-16.0) gm/dL Hct 33.8 L (34.0-46.0) % BUN 21 H (7-17) mg/dL Creatinine 2.36 H (0.52-1.04) mg/dL Glucose 109 H (74-99) mg/dL Calcium 7.6 L (8.4-10.2) mg/dL Assessment and Plan Assessment: 1. Acute kidney injury secondary to ATN secondary to severe sepsis. Creatinine 3.38 on admission and was up to 4.87 dated July 25, 2024 with BUN over 120. Started on hemodialysis July 25, 2024 via temporary dialysis catheter. Unknown baseline renal function. No hydronephrosis noted on ultrasound. 2. Acute COVID-19 infection. 3. Metabolic acidosis secondary to acute kidney injury and IV fluids. Also component of lactic acidosis which improved. Improved with bicarb drip. 4. Nausea vomiting and diarrhea. Questionable cholangitis. On antibiotics. ID following. 5. Hyperphosphatemia secondary to acute kidney injury. Phosphorus level 6.2 dated July 25, 2024. Expect improvement postdialysis. Plan: Urine output remains good Hold HD today monitor renal recovery Maintain normal saline. Midodrine predialysis and mid treatment if needed. Check daily for need of further HD
[2024-07-30 08:48] LABS: ALT 122 U/L (4-34); AST 52 U/L (14-36); African American GFR (CKD) 31 (>60 ml/min/1.73 sqM); Alkaline Phosphatase 242 U/L (38-126); Anion Gap 8 mmol/L; Bilirubin, Delta 0.4 mg/dL (0.0-0.2); Bilirubin,Unconjugated 0.5 mg/dL (0.0-1.1); Blood Urea Nitrogen 23 mg/dL (7-17); Calcium 7.5 mg/dL (8.4-10.2); Carbon Dioxide 21 mmol/L (22-30); Chloride 111 mmol/L (98-107); Glucose 100 mg/dL (74-99); Non-African American GFR(CKD) 27 (>60 ml/min/1.73 sqM); Potassium 3.9 mmol/L (3.5-5.1); Sodium 140 mmol/L (137-145); Total Bilirubin 0.9 mg/dL (0.2-1.3); Total Protein 4.5 g/dL (6.3-8.2)
--- NOTE | 2024-07-30 11:28 | P.PN ---
Subjective Progress Note Date: 07/30/24 07/29/2024 Patient was seen and examined resting comfortably in bed. She has not had recurrent pauses since 07/27/2024. Denies any dizziness, lightheadedness or syncope. She has had no chest discomfort. Her breathing is stable. 07/30/2024 Was seen and examined resting comfortably in bed. Vital signs have been stable. She has had no recurrent pauses in the last couple of days. She denies any dizziness, lightheadedness or syncope. She has had no chest discomfort. Her breathing is stable. PHYSICAL EXAM: VITAL SIGNS: Reviewed. GENERAL: Well-developed in no acute distress. NECK: Supple. No JVD or thyromegaly LUNGS: Respirations even and unlabored. Lungs essentially clear to auscultation bilaterally. HEART: Regular rate and rhythm. S1 and S2 heard. EXTREMITIES: Normal range of motion. No clubbing or cyanosis. Peripheral pulses intact. No lower extremity edema ASSESSMENT: Acute kidney injury secondary to sepsis requiring initiation of hemodialysis Sinus pauses, up to 4 seconds Sinus bradycardia Acute COVID-19 infection Nausea, vomiting, diarrhea Metabolic acidosis Hyperphosphatemia PLAN: From cardiology's perspective there is no indication for permanent pacemaker at this time Continue hemodialysis per nephrology Avoid AV marina blocking agents Patient to receive 14-day event monitor at the time of discharge Patient to follow-up postdischarge with Dr. Campa We will follow the patient on an as-needed basis. Please do not hesitate to contact us with questions. HOOK PULLER note has been reviewed, I agree with a documented findings and plan of care. Patient was seen and examined. Objective - Vital Signs Vital signs: Vital Signs Temp 98.1 F 07/30/24 08:00 Pulse 96 07/30/24 08:00 Resp 18 07/30/24 08:00 BP 124/76 07/30/24 08:00 Pulse Ox 95 07/30/24 08:00 FiO2 Intake & Output 07/29/24 07/30/24 07/30/24 18:59 06:59 18:59 Intake Total 1780 360 Output Total 1660 700 375 Balance 120 -700 -15 Intake: Intake, IV Titration 900 Amount Sodium Chloride 0.9% 1, 900 000 ml @ 75 mls/hr IV . [id number] [facility] Rx#:[id number] Oral 880 360 Output: Urine 1660 700 375 Other: Voiding Method Indwelling Catheter Indwelling Catheter Indwelling Catheter # Voids 1 # Bowel Movements 1 - Labs CBC & Chem 7: 07/29/24 08:33 07/30/24 07:31 Labs: Abnormal Lab Results - Last 24 Hours (Table) 07/30/24 Range/Units 07:31 Chloride 111 H (98-107) mmol/L Carbon Dioxide 21 L (22-30) mmol/L BUN 23 H (7-17) mg/dL Creatinine 2.04 H (0.52-1.04) mg/dL Glucose 100 H (74-99) mg/dL Calcium 7.5 L (8.4-10.2) mg/dL Delta Bilirubin 0.4 H (0.0-0.2) mg/dL AST 52 H (14-36) U/L ALT 122 H (4-34) U/L Alkaline Phosphatase 242 H (38-126) U/L Total Protein 4.5 L (6.3-8.2) g/dL Albumin 2.0 L (3.5-5.0) g/dL
--- NOTE | 2024-07-30 11:55 | P.PN ---
Subjective This is a 58-year-old female who was recently admitted with extensive decubitus ulcers and wounds with increasing altered mentation and found to have significant acute renal failure requiring hemodialysis with multiple consultations following. Patient was also found to be COVID-19 positive and respiratory status is stable on room air. Patient with poor social support reportedly lives with family and has been mostly bedbound and does not have a primary care provider. Patient is not able to make her own decisions and would likely benefit from a guardian. PT/OT therapy to evaluate for possible ECF. Wound care is also been consulted for the extensive wounds. 07/27/2024 Patient is seen in follow-up today undergoing hemodialysis with nephrology following. Patient is continued with local wound care with extensive wounds noted to the backside with infectious disease following. Patient is to continue with Triad cream and frequent offloading of the areas. Patient is stable respiratory lorenzo with no shortness of breath or oxygen required. Patient is afebrile and maintained on antibiotics in the form of Augmentin with infectious disease following. Will follow-up with social work regarding discharge planning and the need for guardianship early next week. Has not been determined if patient will require outpatient dialysis. Will follow-up with kidney functions and also discuss further with nephrology. 07/28/2024 Patient is seen in follow-up today with no acute overnight issues noted. Per nursing staff patient is having some pauses noted on telemetry and per cardiology avoid AV marina agents and have consulted Dr. Condon for possible EP evaluation. Patient is continued on hemodialysis with a temporary dialysis catheter showing improvements in kidney functions. Will discuss further with nephrology if patient is going to require outpatient dialysis. Patient will likely need a guardian and case management/social work services for discharge planning. 07/30 Patient lying in bed mentation at baseline Still complaining from mild abdominal discomfort, still complains from some loose stool but no vomiting and she tolerates diet She has hemodialysis catheter in the left groin. Her creatinine came down to 2.0 today compared to 2.3 yesterday Liver enzymes checked slightly less and improving. Bilirubin is back to normal Currently covered with Augmentin and normal saline 75 mL/h . Senior Specialist recommended heart monitor x 14 days open discharge Objective - Vital Signs Vital signs: Vital Signs Temp 98.1 F 07/30/24 08:00 Pulse 96 07/30/24 08:00 Resp 18 07/30/24 08:00 BP 124/76 07/30/24 08:00 Pulse Ox 95 07/30/24 08:00 FiO2 Intake & Output 07/29/24 07/30/24 07/30/24 18:59 06:59 18:59 Intake Total 1780 360 Output Total 1660 700 375 Balance 120 -700 -15 Intake: Intake, IV Titration 900 Amount Sodium Chloride 0.9% 1, 900 000 ml @ 75 mls/hr IV . [id number] [facility] Rx#:[id number] Oral 880 360 Output: Urine 1660 700 375 Other: Voiding Method Indwelling Catheter Indwelling Catheter Indwelling Catheter # Voids 1 # Bowel Movements 1 - Exam -GENERAL: The patient is alert and oriented x3, not in any acute distress. Well developed, well nourished. Generally weak, obese with BMI 54.4 HEENT: Pupils are round and equally reacting to light. EOMI. No scleral icterus. No conjunctival pallor. Normocephalic, atraumatic. No pharyngeal erythema. No thyromegaly. CARDIOVASCULAR: S1 and S2 present. No murmurs, rubs, or gallops. PULMONARY: Chest is clear to auscultation, no wheezing , no crackles. ABDOMEN: Soft, nontender, nondistended, normoactive bowel sounds. No palpable organomegaly. MUSCULOSKELETAL: No joint swelling or deformity. -EXTREMITIES: No cyanosis, clubbing, or pedal edema. Left groin dialysis catheter in place NEUROLOGICAL: Gross neurological examination did not reveal any focal deficits. SKIN: No rashes. no petechiae. - Labs CBC & Chem 7: 07/29/24 08:33 07/30/24 07:31 Labs: Abnormal Lab Results - Last 24 Hours (Table) 07/30/24 Range/Units 07:31 Chloride 111 H (98-107) mmol/L Carbon Dioxide 21 L (22-30) mmol/L BUN 23 H (7-17) mg/dL Creatinine 2.04 H (0.52-1.04) mg/dL Glucose 100 H (74-99) mg/dL Calcium 7.5 L (8.4-10.2) mg/dL Delta Bilirubin 0.4 H (0.0-0.2) mg/dL AST 52 H (14-36) U/L ALT 122 H (4-34) U/L Alkaline Phosphatase 242 H (38-126) U/L Total Protein 4.5 L (6.3-8.2) g/dL Albumin 2.0 L (3.5-5.0) g/dL Assessment and Plan Assessment: Extensive decubitus ulcer with pressure ulcers with sepsis, present on admission Leukocytosis, possibly secondary to above, improved Acute renal failure with acute tubular necrosis with worsening oliguria requiring hemodialysis Generalized weakness and mostly bedbound Elevated LFTs, trending down Nausea, vomiting, diarrhea history, likely secondary to COVID-19 COVID-19 infection Morbid obesity with a BMI 54.8 History of noncompliance and most likely possible underlying psychiatric issues Plan: Continue with Augmentin Continue with normal saline 75 mL/h Several consultants on the case including infectious disease, nephrology, content production specialist Continue with dialysis per nephrology team, dialysis started during this hospitalization and looks might be temporal with creatinine improving si gnificantly. Patient require event monitor for her heart upon discharge x 14 days Labs and medication were reviewed.. Continue same treatment. Continue with symptomatic treatment. Resume home medication. Monitor labs and vitals. DVT and GI prophylaxis. Further recommendations as per clinical course of the patient DVT prophylaxis: Subcutaneous heparin GI Prophylaxis: Protonix PT/OT: Pending Prognosis is guarded
[2024-07-30 12:02] VITALS: BMI 54.4
--- NOTE | 2024-07-30 12:31 | P.PN ---
Subjective patient is seen for follow-up for acute kidney injury. Renal function has been improving and hemodialysis has been on hold. Last hemodialysis treatment was on 07/27/2024. Serum creatinine decreased to 2.0 today from 2.3 yesterday. Good urine output noted. 2.3 L over 24 hours Objective - Vital Signs Vital signs: Vital Signs Temp 98.1 F 07/30/24 08:00 Pulse 96 07/30/24 08:00 Resp 18 07/30/24 08:00 BP 124/76 07/30/24 08:00 Pulse Ox 95 07/30/24 08:00 FiO2 Intake & Output 07/29/24 07/30/24 07/30/24 18:59 06:59 18:59 Intake Total 1780 360 Output Total 1660 700 375 Balance 120 -700 -15 Weight 135 kg Intake: Intake, IV Titration 900 Amount Sodium Chloride 0.9% 1, 900 000 ml @ 75 mls/hr IV . [id number] [facility] Rx#:[id number] Oral 880 360 Output: Urine 1660 700 375 Other: Voiding Method Indwelling Catheter Indwelling Catheter Indwelling Catheter # Voids 1 # Bowel Movements 1 - Exam patient is awake, comfortable, no acute distress. Examination of the heart S1 and S2 Examination of the lungs bilateral breath sounds are heard Abdomen is soft nontender Examination lower extremity shows chronic skin changes no significant edema noted - Labs CBC & Chem 7: 07/29/24 08:33 07/30/24 07:31 Labs: Abnormal Lab Results - Last 24 Hours (Table) 07/30/24 Range/Units 07:31 Chloride 111 H (98-107) mmol/L Carbon Dioxide 21 L (22-30) mmol/L BUN 23 H (7-17) mg/dL Creatinine 2.04 H (0.52-1.04) mg/dL Glucose 100 H (74-99) mg/dL Calcium 7.5 L (8.4-10.2) mg/dL Delta Bilirubin 0.4 H (0.0-0.2) mg/dL AST 52 H (14-36) U/L ALT 122 H (4-34) U/L Alkaline Phosphatase 242 H (38-126) U/L Total Protein 4.5 L (6.3-8.2) g/dL Albumin 2.0 L (3.5-5.0) g/dL Assessment and Plan Assessment: 1. Acute kidney injury secondary to ATN secondary to severe sepsis. Creatinine 3.38 on admission and was up to 4.87 dated July 25, 2024 with BUN over 120. Started on hemodialysis July 25, 2024 via temporary dialysis catheter. Unknown baseline renal function. No hydronephrosis noted on ultrasound. Hemodialysis currently on hold with last treatment on 07/27/2024. Renal function continues to improve. 2. Acute COVID-19 infection. 3. Metabolic acidosis secondary to acute kidney injury and IV fluids. Also component of lactic acidosis which improved. Improved 4. Nausea vomiting and diarrhea. Questionable cholangitis. On antibiotics. ID following. 5. Hyperphosphatemia secondary to acute kidney injury. Plan: continue to hold dialysis. Accurate I's and O's continue to avoid nephrotoxic agents. Repeat labs in a.m.
--- NOTE | 2024-07-31 11:52 | P.PN ---
Subjective Progress Note Date: 07/29/24 Principal diagnosis: Reason for follow-up is COVID-19, leukocytosis Patient is a 58-year-old female with no reported past medical history former smoker patient has been brought into the hospital for evaluation of subjective fever chills nausea vomiting diarrhea patient tested positive for COVID 19 chest x-ray negative for acute cardiopulmonary disease process did have elevated white count and elevated liver enzymes. On today's evaluation that is 07/29/2024, patient has been afebrile, patient is breathing comfortably and is currently on room air, patient denies having any significant cough no chest pain, patient denies nausea vomiting or diarrhea and no abdominal pain. Patient white count is 8.8, creatinine is 2.36. Objective - Vital Signs Vital signs: Vital Signs Temp 98.2 F 07/29/24 11:53 Pulse 98 07/29/24 11:53 Resp 20 07/29/24 11:53 BP 135/63 07/29/24 11:53 Pulse Ox 100 07/29/24 11:53 FiO2 Intake & Output 07/28/24 07/29/24 07/29/24 18:59 06:59 18:59 Intake Total 1080 640 Output Total 500 1000 760 Balance 580 -1000 -120 Weight 135 kg Intake: Oral 1080 640 Output: Urine 500 1000 760 Other: Voiding Method Indwelling Catheter Indwelling Catheter Indwelling Catheter # Voids 1 - Exam GENERAL DESCRIPTION: Middle-age female lying in bed in no distress RESPIRATORY SYSTEM: Unlabored breathing , decreased breath sounds at bases HEART: S1 S2 regular rate and rhythm , ABDOMEN: Soft , no tenderness EXTREMITIES: Diffuse swelling to the leg no redness - Labs CBC & Chem 7: 07/29/24 08:33 07/30/24 07:31 Labs: Abnormal Lab Results - Last 24 Hours (Table) 07/29/24 07/29/24 Range/Units 08:33 08:33 RBC 3.64 L (3.80-5.40) m/uL Hgb 10.7 L (11.4-16.0) gm/dL Hct 33.8 L (34.0-46.0) % BUN 21 H (7-17) mg/dL Creatinine 2.36 H (0.52-1.04) mg/dL Glucose 109 H (74-99) mg/dL Calcium 7.6 L (8.4-10.2) mg/dL Assessment and Plan (1) Sepsis Current Visit: Yes Status: Acute Code(s): A41.9 - SEPSIS, UNSPECIFIED ORGANISM SNOMED Code(s): 17340863 (2) Leukocytosis Current Visit: Yes Status: Acute Code(s): D72.829 - ELEVATED WHITE BLOOD CELL COUNT, UNSPECIFIED SNOMED Code(s): 901832337 (3) COVID-19 Current Visit: Yes Status: Acute Code(s): U07.1 - COVID-19 SNOMED Code(s): 650776184 Plan: 1patient did have features of SIRS as the patient did have tachycardia elevated white count but no fever source likely abdominal keeping in mind predominantly symptoms of nausea vomiting and diarrhea and did have elevated liver enzymes concerning for possible cholangitis did have a positive UA urine source not entirely excluded 2-patient did tested positive for COVID-19 however did not have significant respiratory symptoms patient not hypoxic chest x-ray was negative questionable incidental finding versus mild infection treatment is supportive and no worsening respiratory status has been noticed 3-patient ultrasound of the abdomen did show some gallbladder sludge but no features of cholecystitis CBD was normal 4patient white count has normalized and culture has been negative for resistant pathogen, continue on Augmentin Dictation was produced using [employer] dictation software. please excuse any grammatical, word or spelling errors. Time with Patient: Less than 30
--- NOTE | 2024-07-31 11:53 | P.PN ---
Subjective Progress Note Date: 07/30/24 Principal diagnosis: Reason for follow-up is COVID-19, leukocytosis Patient is a 58-year-old female with no reported past medical history former smoker patient has been brought into the hospital for evaluation of subjective fever chills nausea vomiting diarrhea patient tested positive for COVID 19 chest x-ray negative for acute cardiopulmonary disease process did have elevated white count and elevated liver enzymes. On today's evaluation that is 07/30/2024, Patient is afebrile this morning patient denies having any chest pain shortness of breath or cough, the patient is currently on room air, patient denies any abdominal pain no diarrhea no nausea no vomiting Patient did have a creatinine of 2.04 no CBC was done today Objective - Vital Signs Vital signs: Vital Signs Temp 98.4 F 07/30/24 15:42 Pulse 98 07/30/24 15:42 Resp 16 07/30/24 15:42 BP 125/65 07/30/24 15:42 Pulse Ox 98 07/30/24 15:42 FiO2 Intake & Output 07/29/24 07/30/24 07/30/24 18:59 06:59 18:59 Intake Total 1780 1140 Output Total 6030 783 6020 Balance 120 -700 -285 Weight 135 kg Intake: Intake, IV Titration 900 Amount Sodium Chloride 0.9% 1, 900 000 ml @ 75 mls/hr IV . [id number] [facility] Rx#:[id number] Oral 880 1140 Output: Urine 1879 001 9005 Other: Voiding Method Indwelling Catheter Indwelling Catheter Indwelling Catheter # Voids 1 # Bowel Movements 1 - Exam GENERAL DESCRIPTION: Middle-age female lying in bed in no distress RESPIRATORY SYSTEM: Unlabored breathing , decreased breath sounds at bases HEART: S1 S2 regular rate and rhythm , ABDOMEN: Soft , no tenderness EXTREMITIES: Diffuse swelling to the leg no redness - Labs CBC & Chem 7: 07/29/24 08:33 07/30/24 07:31 Labs: Abnormal Lab Results - Last 24 Hours (Table) 07/30/24 Range/Units 07:31 Chloride 111 H (98-107) mmol/L Carbon Dioxide 21 L (22-30) mmol/L BUN 23 H (7-17) mg/dL Creatinine 2.04 H (0.52-1.04) mg/dL Glucose 100 H (74-99) mg/dL Calcium 7.5 L (8.4-10.2) mg/dL Delta Bilirubin 0.4 H (0.0-0.2) mg/dL AST 52 H (14-36) U/L ALT 122 H (4-34) U/L Alkaline Phosphatase 242 H (38-126) U/L Total Protein 4.5 L (6.3-8.2) g/dL Albumin 2.0 L (3.5-5.0) g/dL Assessment and Plan (1) Sepsis Current Visit: Yes Status: Acute Code(s): A41.9 - SEPSIS, UNSPECIFIED ORGANISM SNOMED Code(s): 92792925 (2) Leukocytosis Current Visit: Yes Status: Acute Code(s): D72.829 - ELEVATED WHITE BLOOD CELL COUNT, UNSPECIFIED SNOMED Code(s): 952077196 (3) COVID-19 Current Visit: Yes Status: Acute Code(s): U07.1 - COVID-19 SNOMED Code(s): 290746391 Plan: 1patient did have features of SIRS as the patient did have tachycardia elevated white count but no fever source likely abdominal keeping in mind predominantly symptoms of nausea vomiting and diarrhea and did have elevated liver enzymes concerning for possible cholangitis did have a positive UA urine source not entirely excluded 2-patient did tested positive for COVID-19 however did not have significant re spiratory symptoms patient not hypoxic chest x-ray was negative questionable incidental finding versus mild infection treatment is supportive and no worsening respiratory status has been noticed 3-patient ultrasound of the abdomen did show some gallbladder sludge but no features of cholecystitis CBD was normal 4patient white count has normalized and culture has been negative for resistant pathogen, currently being treated with Augmentin and monitor clinical course closely Dictation was produced using [employer] dictation software. please excuse any grammatical, word or spelling errors. Time with Patient: Less than 30
--- NOTE | 2024-07-31 12:30 | P.PN ---
Subjective patient is seen for follow-up for acute kidney injury. Renal function has been improving and hemodialysis has been on hold. Last hemodialysis treatment was on 07/27/2024. Serum creatinine decreased to 2.0 from 2.3. Labs are pending from today. Good urine output noted. Objective - Vital Signs Vital signs: Vital Signs Temp 97.8 F 07/31/24 08:00 Pulse 90 07/31/24 08:00 Resp 18 07/31/24 08:00 BP 123/75 07/31/24 08:00 Pulse Ox 96 07/31/24 08:00 FiO2 Intake & Output 07/30/24 07/31/24 07/31/24 18:59 06:59 18:59 Intake Total 1260 10 Output Total 1575 1125 850 Balance -315 -1115 -850 Weight 135 kg Intake: IV 10 Invasive Line 4 10 Oral 1260 Output: Urine 1575 1125 850 Other: Voiding Method Indwelling Catheter Indwelling Catheter - Exam patient is awake, comfortable, no acute distress. Abdomen is soft nontender Examination lower extremity shows chronic skin changes no significant edema noted - Labs CBC & Chem 7: 07/29/24 08:33 07/30/24 07:31 Assessment and Plan Assessment: 1. Acute kidney injury secondary to ATN secondary to severe sepsis. Creatinine 3.38 on admission and was up to 4.87 dated July 25, 2024 with BUN over 120. Started on hemodialysis July 25, 2024 via temporary dialysis catheter. Unknown baseline renal function. No hydronephrosis noted on ultrasound. Hemodialysis currently on hold with last treatment on 07/27/2024. Renal function continues to improve. 2. Acute COVID-19 infection. 3. Metabolic acidosis secondary to acute kidney injury and IV fluids. Also component of lactic acidosis which improved. Improved 4. Nausea vomiting and diarrhea. Questionable cholangitis. On antibiotics. ID following. 5. Hyperphosphatemia secondary to acute kidney injury. Plan: continue to hold dialysis. Check labs today Accurate I's and O's continue to avoid nephrotoxic agents. Repeat labs in a.m.
[2024-07-31 13:01] LABS: African American GFR (CKD) 34 (>60 ml/min/1.73 sqM); Anion Gap 3 mmol/L; Blood Urea Nitrogen 20 mg/dL (7-17); Calcium 7.5 mg/dL (8.4-10.2); Carbon Dioxide 27 mmol/L (22-30); Chloride 110 mmol/L (98-107); Glucose 95 mg/dL (74-99); Non-African American GFR(CKD) 30 (>60 ml/min/1.73 sqM); Potassium 3.6 mmol/L (3.5-5.1); Sodium 140 mmol/L (137-145)
--- NOTE | 2024-07-31 14:16 | P.PN ---
Subjective This is a 58-year-old female who was recently admitted with extensive decubitus ulcers and wounds with increasing altered mentation and found to have significant acute renal failure requiring hemodialysis with multiple consultations following. Patient was also found to be COVID-19 positive and respiratory status is stable on room air. Patient with poor social support reportedly lives with family and has been mostly bedbound and does not have a primary care provider. Patient is not able to make her own decisions and would likely benefit from a guardian. PT/OT therapy to evaluate for possible ECF. Wound care is also been consulted for the extensive wounds. 07/27/2024 Patient is seen in follow-up today undergoing hemodialysis with nephrology following. Patient is continued with local wound care with extensive wounds noted to the backside with infectious disease following. Patient is to continue with Triad cream and frequent offloading of the areas. Patient is stable respiratory lorenzo with no shortness of breath or oxygen required. Patient is afebrile and maintained on antibiotics in the form of Augmentin with infectious disease following. Will follow-up with social work regarding discharge planning and the need for guardianship early next week. Has not been determined if patient will require outpatient dialysis. Will follow-up with kidney functions and also discuss further with nephrology. 07/28/2024 Patient is seen in follow-up today with no acute overnight issues noted. Per nursing staff patient is having some pauses noted on telemetry and per cardiology avoid AV marina agents and have consulted Dr. Condon for possible EP evaluation. Patient is continued on hemodialysis with a temporary dialysis catheter showing improvements in kidney functions. Will discuss further with nephrology if patient is going to require outpatient dialysis. Patient will likely need a guardian and case management/social work services for discharge planning. 07/30 Patient lying in bed mentation at baseline Still complaining from mild abdominal discomfort, still complains from some loose stool but no vomiting and she tolerates diet She has hemodialysis catheter in the left groin. Her creatinine came down to 2.0 today compared to 2.3 yesterday Liver enzymes checked slightly less and improving. Bilirubin is back to normal Currently covered with Augmentin and normal saline 75 mL/h . Medical Sales Specialist recommended heart monitor x 14 days open discharge 07/31/24 Patient feels better, only mild abdominal discomfort No other new complaint She remains on normal saline 75 mL/h and creatinine down to 1.8 She has King catheter in place with good urine output Remains on Augmentin. Liver enzymes are stable. But slightly elevated. Treated for possible cholangitis Possible discharge in 24 to 48 hours Objective - Vital Signs Vital signs: Vital Signs Temp 97.8 F 07/31/24 08:00 Pulse 90 07/31/24 08:00 Resp 18 07/31/24 08:00 BP 123/75 07/31/24 08:00 Pulse Ox 96 07/31/24 08:00 FiO2 Intake & Output 07/30/24 07/31/24 07/31/24 18:59 06:59 18:59 Intake Total 1260 10 Output Total 1575 1125 850 Balance -327 -3229 -801 Weight 135 kg Intake: IV 10 Invasive Line 4 10 Oral 1260 Output: Urine 1575 1125 850 Other: Voiding Method Indwelling Catheter Indwelling Catheter Indwelling Catheter - Exam -GENERAL: The patient is alert and oriented x3, not in any acute distress. Well developed, well nourished. Generally weak, obese with BMI 54.4 HEENT: Pupils are round and equally reacting to light. EOMI. No scleral icterus. No conjunctival pallor. Normocephalic, atraumatic. No pharyngeal erythema. No thyromegaly. CARDIOVASCULAR: S1 and S2 present. No murmurs, rubs, or gallops. PULMONARY: Chest is clear to auscultation, no wheezing , no crackles. ABDOMEN: Soft, nontender, nondistended, normoactive bowel sounds. No palpable organomegaly. MUSCULOSKELETAL: No joint swelling or deformity. -EXTREMITIES: No cyanosis, clubbing, or pedal edema. Left groin dialysis catheter in place NEUROLOGICAL: Gross neurological examination did not reveal any focal deficits. SKIN: No rashes. no petechiae. - Labs CBC & Chem 7: 07/29/24 08:33 07/31/24 12:16 Labs: Abnormal Lab Results - Last 24 Hours (Table) 07/31/24 Range/Units 12:16 Chloride 110 H (98-107) mmol/L BUN 20 H (7-17) mg/dL Creatinine 1.86 H (0.52-1.04) mg/dL Calcium 7.5 L (8.4-10.2) mg/dL Assessment and Plan Assessment: Extensive decubitus ulcer with pressure ulcers with sepsis, present on admission Leukocytosis, possibly secondary to above, improved Acute renal failure with acute tubular necrosis with worsening oliguria requiring hemodialysis Generalized weakness and mostly bedbound Elevated LFTs, trending down Nausea, vomiting, diarrhea history, likely secondary to COVID-19 COVID-19 infection Morbid obesity with a BMI 54.8 History of noncompliance and most likely possible underlying psychiatric issues Plan: Continue with Augmentin Continue with normal saline 75 mL/h Several consultants on the case including infectious disease, nephrology, manufacturing assembler Continue with dialysis per nephrology team, dialysis started during this hospitalization and looks might be temporal with creatinine improving significantly. Patient require event monitor for her heart upon discharge x 14 days Labs and medication were reviewed.. Continue same treatment. Continue with symptomatic treatment. Resume home medication. Monitor labs and vitals. DVT and GI prophylaxis. Further recommendations as per clinical course of the patient DVT prophylaxis: Subcutaneous heparin GI Prophylaxis: Protonix PT/OT: Pending Prognosis is guarded
--- NOTE | 2024-07-31 15:51 | P.PN ---
Subjective Progress Note Date: 07/31/24 Principal diagnosis: Reason for follow-up is COVID-19, leukocytosis Patient is a 58-year-old female with no reported past medical history former smoker patient has been brought into the hospital for evaluation of subjective fever chills nausea vomiting diarrhea patient tested positive for COVID 19 chest x-ray negative for acute cardiopulmonary disease process did have elevated white count and elevated liver enzymes. On today's evaluation that is 07/31/2024,the patient denies any fever or any chills, patient is breathing comfortably on room air, the patient denies chest pain shortness of breath and no significant cough, patient denies abdominal pain, no nausea vomiting or diarrhea. Patient white count is 8.8 as of 121 no CBC has been done since then creatinine is down to 1.86 Objective - Vital Signs Vital signs: Vital Signs Temp 97.8 F 07/31/24 08:00 Pulse 90 07/31/24 08:00 Resp 18 07/31/24 08:00 BP 123/75 07/31/24 08:00 Pulse Ox 96 07/31/24 08:00 FiO2 Intake & Output 07/30/24 07/31/24 07/31/24 18:59 06:59 18:59 Intake Total 1260 10 240 Output Total 1575 1125 850 Balance -315 -1115 -610 Weight 135 kg Intake: IV 10 Invasive Line 4 10 Oral 1260 240 Output: Urine 1575 1125 850 Other: Voiding Method Indwelling Catheter Indwelling Catheter Indwelling Catheter - Exam GENERAL DESCRIPTION: Middle-age female lying in bed in no distress RESPIRATORY SYSTEM: Unlabored breathing , decreased breath sounds at bases HEART: S1 S2 regular rate and rhythm , ABDOMEN: Soft , no tenderness EXTREMITIES: Diffuse swelling to the leg no redness - Labs CBC & Chem 7: 07/29/24 08:33 07/31/24 12:16 Labs: Abnormal Lab Results - Last 24 Hours (Table) 07/31/24 Range/Units 12:16 Chloride 110 H (98-107) mmol/L BUN 20 H (7-17) mg/dL Creatinine 1.86 H (0.52-1.04) mg/dL Calcium 7.5 L (8.4-10.2) mg/dL Assessment and Plan (1) Sepsis Current Visit: Yes Status: Acute Code(s): A41.9 - SEPSIS, UNSPECIFIED ORGANISM SNOMED Code(s): 42574093 (2) Leukocytosis Current Visit: Yes Status: Acute Code(s): D72.829 - ELEVATED WHITE BLOOD CELL COUNT, UNSPECIFIED SNOMED Code(s): 144315574 (3) COVID-19 Current Visit: Yes Status: Acute Code(s): U07.1 - COVID-19 SNOMED Code(s): 219505286 Plan: 1patient did have features of SIRS as the patient did have tachycardia elevated white count but no fever source likely abdominal keeping in mind predominantly symptoms of nausea vomiting and diarrhea and did have elevated liver enzymes concerning for possible cholangitis did have a positive UA urine source not entirely excluded 2-patient did tested positive for COVID-19 however did not have significant respiratory symptoms patient not hypoxic chest x-ray was negative questionable incidental finding versus mild infection treatment is supportive and no worsening respiratory status has been noticed 3-patient ultrasound of the abdomen did show some gallbladder sludge but no f eatures of cholecystitis CBD was normal 4patient white count has normalized and culture has been negative for resistant pathogen, patient has received adequate antibiotic we will go ahead and discon tinue Augmentin monitor the patient closely off antibiotic Dictation was produced using [employer] dictation software. please excuse any grammatical, word or spelling errors. Time with Patient: Less than 30
[2024-08-01 05:56] LABS: ALT 93 U/L (4-34); AST 39 U/L (14-36); African American GFR (CKD) 41 (>60 ml/min/1.73 sqM); Alkaline Phosphatase 207 U/L (38-126); Anion Gap 4 mmol/L; Bilirubin, Delta 0.3 mg/dL (0.0-0.2); Bilirubin,Unconjugated 0.6 mg/dL (0.0-1.1); Blood Urea Nitrogen 19 mg/dL (7-17); Calcium 7.4 mg/dL (8.4-10.2); Carbon Dioxide 23 mmol/L (22-30); Chloride 112 mmol/L (98-107); Glucose 90 mg/dL (74-99); Non-African American GFR(CKD) 36 (>60 ml/min/1.73 sqM); Phosphorus 3.6 mg/dL (2.5-4.5); Potassium 3.8 mmol/L (3.5-5.1); Sodium 139 mmol/L (137-145); Total Bilirubin 0.9 mg/dL (0.2-1.3); Total Protein 4.5 g/dL (6.3-8.2)
--- NOTE | 2024-08-01 12:09 | P.PN ---
Subjective patient is seen for follow-up for acute kidney injury. Renal function has been improving and hemodialysis has been on hold. Last hemodialysis treatment was on 07/27/2024. Serum creatinine decreased to 1.6 today. Good urine output noted. Objective - Vital Signs Vital signs: Vital Signs Temp 98.5 F 08/01/24 06:56 Pulse 99 08/01/24 08:00 Resp 18 08/01/24 08:00 BP 132/83 08/01/24 06:56 Pulse Ox 98 08/01/24 06:56 FiO2 Intake & Output 07/31/24 08/01/24 08/01/24 18:59 06:59 18:59 Intake Total 480 240 Output Total 1850 1800 Balance -1370 -1560 Intake: Oral 480 240 Output: Urine 1850 1800 Other: Voiding Method Indwelling Catheter Indwelling Catheter Indwelling Catheter # Bowel Movements 1 - Exam patient is awake, comfortable, no acute distress. Examination of the heart S1 and S2 Examination of the lungs bilateral breath sounds are heard Abdomen is soft nontender Examination lower extremity shows chronic skin changes no significant edema noted - Labs CBC & Chem 7: 07/29/24 08:33 08/01/24 04:32 Labs: Abnormal Lab Results - Last 24 Hours (Table) 07/31/24 08/01/24 Range/Units 12:16 04:32 Chloride 110 H 112 H (98-107) mmol/L BUN 20 H 19 H (7-17) mg/dL Creatinine 1.86 H 1.60 H (0.52-1.04) mg/dL Calcium 7.5 L 7.4 L (8.4-10.2) mg/dL Delta Bilirubin 0.3 H (0.0-0.2) mg/dL AST 39 H (14-36) U/L ALT 93 H (4-34) U/L Alkaline Phosphatase 207 H (38-126) U/L Total Protein 4.5 L (6.3-8.2) g/dL Albumin 2.0 L (3.5-5.0) g/dL Assessment and Plan Assessment: 1. Acute kidney injury secondary to ATN secondary to severe sepsis. Creatinine 3.38 on admission and was up to 4.87 dated July 25, 2024 with BUN over 120. Started on hemodialysis July 25, 2024 via temporary dialysis catheter. Unknown baseline renal function. No hydronephrosis noted on ultrasound. Hemodialysis currently on hold with last treatment on 07/27/2024. Renal function continues to improve. 2. Acute COVID-19 infection. 3. Metabolic acidosis secondary to acute kidney injury and IV fluids. Also co mponent of lactic acidosis which improved. Improved 4. Nausea vomiting and diarrhea. Questionable cholangitis. On antibiotics. ID following. 5. Hyperphosphatemia secondary to acute kidney injury. Improved with improving renal function. Plan: Discontinue dialysis catheter continue to avoid nephrotoxic agents. Repeat labs in a.m.
--- NOTE | 2024-08-01 15:14 | P.PN ---
Subjective Progress Note Date: 08/01/24 Principal diagnosis: Reason for follow-up is COVID-19, leukocytosis Patient is a 58-year-old female with no reported past medical history former smoker patient has been brought into the hospital for evaluation of subjective fever chills nausea vomiting diarrhea patient tested positive for COVID 19 chest x-ray negative for acute cardiopulmonary disease process did have elevated white count and elevated liver enzymes. On today's evaluation that is 08/01/2024,the patient remains to be afebrile, patient is on room air not requiring supplemental oxygen and denies any shortness of breath no chest pain or cough.Patient denies having any nausea or vomiting, complaining of some epigastric discomfort but no diarrhea. Patient did have a creatinine 1.60 no CBC was done today Objective - Vital Signs Vital signs: Vital Signs Temp 98.3 F 08/01/24 13:39 Pulse 108 H 08/01/24 13:39 Resp 19 08/01/24 13:39 BP 132/68 08/01/24 13:39 Pulse Ox 97 08/01/24 13:39 FiO2 Intake & Output 07/31/24 08/01/24 08/01/24 18:59 06:59 18:59 Intake Total 480 240 Output Total 1850 1800 Balance -1370 -1560 Intake: Oral 480 240 Output: Urine 1850 1800 Other: Voiding Method Indwelling Catheter Indwelling Catheter Indwelling Catheter # Bowel Movements 1 - Exam GENERAL DESCRIPTION: Middle-age female lying in bed in no distress RESPIRATORY SYSTEM: Unlabored breathing , decreased breath sounds at bases HEART: S1 S2 regular rate and rhythm , ABDOMEN: Soft , no tenderness EXTREMITIES: Diffuse swelling to the leg no redness - Labs CBC & Chem 7: 07/29/24 08:33 08/01/24 04:32 Labs: Abnormal Lab Results - Last 24 Hours (Table) 08/01/24 Range/Units 04:32 Chloride 112 H (98-107) mmol/L BUN 19 H (7-17) mg/dL Creatinine 1.60 H (0.52-1.04) mg/dL Calcium 7.4 L (8.4-10.2) mg/dL Delta Bilirubin 0.3 H (0.0-0.2) mg/dL AST 39 H (14-36) U/L ALT 93 H (4-34) U/L Alkaline Phosphatase 207 H (38-126) U/L Total Protein 4.5 L (6.3-8.2) g/dL Albumin 2.0 L (3.5-5.0) g/dL Assessment and Plan (1) Sepsis Current Visit: Yes Status: Acute Code(s): A41.9 - SEPSIS, UNSPECIFIED ORGANISM SNOMED Code(s): 78284618 (2) Leukocytosis Current Visit: Yes Status: Acute Code(s): D72.829 - ELEVATED WHITE BLOOD CELL COUNT, UNSPECIFIED SNOMED Code(s): 762208797 (3) COVID-19 Current Visit: Yes Status: Acute Code(s): U07.1 - COVID-19 SNOMED Code(s): 627155523 Plan: 1patient did have features of SIRS as the patient did have tachycardia elevated white count but no fever source likely abdominal keeping in mind predominantly symptoms of nausea vomiting and diarrhea and did have elevated liver enzymes concerning for possible cholangitis did have a positive UA urine source not entirely excluded 2-patient did tested positive for COVID-19 however did not have significant respiratory symptoms patient not hypoxic chest x-ray was negative questionable incidental finding 3-patient ultrasound of the abdomen did show some gallbladder sludge but no features of cholecystitis CBD was normal 4patient white count has normalized and culture has been negative for resistant pathogen, patient antibiotic has been discontinued we will monitor closely off antibiotics 5wound care to the back with Aquacel silver dressing keep the area of the pressure she did go to pathogen more likely skin lary Dictation was produced using [employer] dictation software. please excuse any grammatical, word or spelling errors. Time with Patient: Less than 30
--- NOTE | 2024-08-01 21:44 | P.PN ---
Subjective This is a 58-year-old female who was recently admitted with extensive decubitus ulcers and wounds with increasing altered mentation and found to have significant acute renal failure requiring hemodialysis with multiple consultations following. Patient was also found to be COVID-19 positive and respiratory status is stable on room air. Patient with poor social support reportedly lives with family and has been mostly bedbound and does not have a primary care provider. Patient is not able to make her own decisions and would likely benefit from a guardian. PT/OT therapy to evaluate for possible ECF. Wound care is also been consulted for the extensive wounds. 07/27/2024 Patient is seen in follow-up today undergoing hemodialysis with nephrology following. Patient is continued with local wound care with extensive wounds noted to the backside with infectious disease following. Patient is to continue with Triad cream and frequent offloading of the areas. Patient is stable respiratory lorenzo with no shortness of breath or oxygen required. Patient is afebrile and maintained on antibiotics in the form of Augmentin with infectious disease following. Will follow-up with social work regarding discharge planning and the need for guardianship early next week. Has not been determined if patient will require outpatient dialysis. Will follow-up with kidney functions and also discuss further with nephrology. 07/28/2024 Patient is seen in follow-up today with no acute overnight issues noted. Per nursing staff patient is having some pauses noted on telemetry and per cardiology avoid AV marina agents and have consulted Dr. Condon for possible EP evaluation. Patient is continued on hemodialysis with a temporary dialysis catheter showing improvements in kidney functions. Will discuss further with nephrology if patient is going to require outpatient dialysis. Patient will likely need a guardian and case management/social work services for discharge planning. 07/30 Patient lying in bed mentation at baseline Still complaining from mild abdominal discomfort, still complains from some loose stool but no vomiting and she tolerates diet She has hemodialysis catheter in the left groin. Her creatinine came down to 2.0 today compared to 2.3 yesterday Liver enzymes checked slightly less and improving. Bilirubin is back to normal Currently covered with Augmentin and normal saline 75 mL/h . Vessel Traffic Officer recommended heart monitor x 14 days open discharge 07/31/24 Patient feels better, only mild abdominal discomfort No other new complaint She remains on normal saline 75 mL/h and creatinine down to 1.8 She has King catheter in place with good urine output Remains on Augmentin. Liver enzymes are stable. But slightly elevated. Treated for possible cholangitis Possible discharge in 24 to 48 hours 1/ Patient keep to feels improved, no new complaints Will going to discontinue hemodialysis catheter after contacting vascular surgery team Other than that his creatinine continues to improve down to 1.6, patient yoni nued on normal saline 75 mL/h. IV fluid tonight to 50 mL/h Will check creatinine tomorrow Also Augmentin has been prescribed. For his suspected cholangitis we will continue monitor while off antibiotic Objective - Vital Signs Vital signs: Vital Signs Temp 98.3 F 08/01/24 13:39 Pulse 108 H 08/01/24 13:39 Resp 19 08/01/24 13:39 BP 132/68 08/01/24 13:39 Pulse Ox 97 08/01/24 13:39 FiO2 Intake & Output 07/31/24 08/01/24 08/01/24 18:59 06:59 18:59 Intake Total 480 240 240 Output Total 1850 1800 1275 Balance -1370 -1560 -1035 Intake: Oral 480 240 240 Output: Urine 1850 1800 1275 Other: Voiding Method Indwelling Catheter Indwelling Catheter Indwelling Catheter # Bowel Movements 1 1 - Exam -GENERAL: The patient is alert and oriented x3, not in any acute distress. Well developed, well nourished. Generally weak, obese with BMI 54.4 HEENT: Pupils are round and equally reacting to light. EOMI. No scleral icterus. No conjunctival pallor. Normocephalic, atraumatic. No pharyngeal erythema. No thyromegaly. CARDIOVASCULAR: S1 and S2 present. No murmurs, rubs, or gallops. PULMONARY: Chest is clear to auscultation, no wheezing , no crackles. ABDOMEN: Soft, nontender, nondistended, normoactive bowel sounds. No palpable organomegaly. MUSCULOSKELETAL: No joint swelling or deformity. -EXTREMITIES: No cyanosis, clubbing, or pedal edema. Left groin dialysis catheter in place NEUROLOGICAL: Gross neurological examination did not reveal any focal deficits. SKIN: No rashes. no petechiae. - Labs CBC & Chem 7: 07/29/24 08:33 08/01/24 04:32 Labs: Abnormal Lab Results - Last 24 Hours (Table) 08/01/24 Range/Units 04:32 Chloride 112 H (98-107) mmol/L BUN 19 H (7-17) mg/dL Creatinine 1.60 H (0.52-1.04) mg/dL Calcium 7.4 L (8.4-10.2) mg/dL Delta Bilirubin 0.3 H (0.0-0.2) mg/dL AST 39 H (14-36) U/L ALT 93 H (4-34) U/L Alkaline Phosphatase 207 H (38-126) U/L Total Protein 4.5 L (6.3-8.2) g/dL Albumin 2.0 L (3.5-5.0) g/dL Assessment and Plan Assessment: Extensive decubitus ulcer with pressure ulcers with sepsis, present on admission Leukocytosis, possibly secondary to above, improved Acute renal failure with acute tubular necrosis with worsening oliguria requiring hemodialysis Generalized weakness and mostly bedbound Elevated LFTs, trending down Nausea, vomiting, diarrhea history, likely secondary to COVID-19 COVID-19 infection Morbid obesity with a BMI 54.8 History of noncompliance and most likely possible underlying psychiatric issues Plan: Discontinue with Augmentin on 08/01 and keep monitoring while off antibiotic Continue with normal saline 75 mL/h, rate will be lowered to 50 mL Several consultants on the case including infectious disease, nephrology, payroll secretary Continue with dialysis per nephrology team, dialysis started during this hospitalization and looks might be temporal with creatinine improving significantly. Patient require event monitor for her heart upon discharge x 14 days Labs and medication were reviewed.. Continue same treatment. Continue with symptomatic treatment. Resume home medication. Monitor labs and vitals. DVT and GI prophylaxis. Further recommendations as per clinical course of the patient DVT prophylaxis: Subcutaneous heparin GI Prophylaxis: Protonix PT/OT: Pending Prognosis is guarded
[2024-08-02 06:06] LABS: African American GFR (CKD) 53 (>60 ml/min/1.73 sqM); Anion Gap 3 mmol/L; Blood Urea Nitrogen 17 mg/dL (7-17); Calcium 7.2 mg/dL (8.4-10.2); Carbon Dioxide 25 mmol/L (22-30); Chloride 112 mmol/L (98-107); Glucose 97 mg/dL (74-99); Non-African American GFR(CKD) 46 (>60 ml/min/1.73 sqM); Potassium 3.7 mmol/L (3.5-5.1); Sodium 140 mmol/L (137-145)
--- NOTE | 2024-08-02 10:41 | OP ---
OPERATIVE REPORT DATE OF SERVICE : PROCEDURE: Removal of the dialysis catheter, left femoral approach. DESCRIPTION OF PROCEDURE: The patient was seen in the room. Left groin was prepped and stitches from the groin were removed and the catheter was removed. Pressures were held and pressure dressing applied. The patient tolerated the procedure well. MMMACEYL / NAMN: [id number] /
--- NOTE | 2024-08-02 10:53 | P.PN ---
Subjective This is a 58-year-old female who was recently admitted with extensive decubitus ulcers and wounds with increasing altered mentation and found to have significant acute renal failure requiring hemodialysis with multiple consultations following. Patient was also found to be COVID-19 positive and respiratory status is stable on room air. Patient with poor social support reportedly lives with family and has been mostly bedbound and does not have a primary care provider. Patient is not able to make her own decisions and would likely benefit from a guardian. PT/OT therapy to evaluate for possible ECF. Wound care is also been consulted for the extensive wounds. 07/27/2024 Patient is seen in follow-up today undergoing hemodialysis with nephrology following. Patient is continued with local wound care with extensive wounds noted to the backside with infectious disease following. Patient is to continue with Triad cream and frequent offloading of the areas. Patient is stable respiratory lorenzo with no shortness of breath or oxygen required. Patient is afebrile and maintained on antibiotics in the form of Augmentin with infectious disease following. Will follow-up with social work regarding discharge planning and the need for guardianship early next week. Has not been determined if patient will require outpatient dialysis. Will follow-up with kidney functions and also discuss further with nephrology. 07/28/2024 Patient is seen in follow-up today with no acute overnight issues noted. Per nursing staff patient is having some pauses noted on telemetry and per cardiology avoid AV marina agents and have consulted Dr. Condon for possible EP evaluation. Patient is continued on hemodialysis with a temporary dialysis catheter showing improvements in kidney functions. Will discuss further with nephrology if patient is going to require outpatient dialysis. Patient will likely need a guardian and case management/social work services for discharge planning. 07/30 Patient lying in bed mentation at baseline Still complaining from mild abdominal discomfort, still complains from some loose stool but no vomiting and she tolerates diet She has hemodialysis catheter in the left groin. Her creatinine came down to 2.0 today compared to 2.3 yesterday Liver enzymes checked slightly less and improving. Bilirubin is back to normal Currently covered with Augmentin and normal saline 75 mL/h . Professor Of History recommended heart monitor x 14 days open discharge 07/31/24 Patient feels better, only mild abdominal discomfort No other new complaint She remains on normal saline 75 mL/h and creatinine down to 1.8 She has King catheter in place with good urine output Remains on Augmentin. Liver enzymes are stable. But slightly elevated. Treated for possible cholangitis Possible discharge in 24 to 48 hours 08/01 Patient keep to feels improved, no new complaints Will going to discontinue hemodialysis catheter after contacting vascular surgery team Other than that his creatinine continues to improve down to 1.6, patient yoni nued on normal saline 75 mL/h. IV fluid tonight to 50 mL/h Will check creatinine tomorrow Also Augmentin has been prescribed. For his suspected cholangitis we will continue monitor while off antibiotic 08/02 pt today is doing well off iv fluids and off antibiotic, patient finished her course of Augmentin and she Monitoring now She denies any other new complaint She feels even better than yesterday Creatinine down to 1.3 and potassium 3.7 Patient medically stable for discharge However as per staff patient requires guardianship prior to discharge, and geriatric case manager on the case Objective - Vital Signs Vital signs: Vital Signs Temp 98.7 F 08/02/24 07:22 Pulse 90 08/02/24 07:22 Resp 19 08/02/24 07:22 BP 132/71 08/02/24 07:22 Pulse Ox 100 08/02/24 07:22 FiO2 Intake & Output 08/01/24 08/02/24 08/02/24 18:59 06:59 18:59 Intake Total 240 Output Total 1275 1600 Balance -1035 -1600 Intake: Oral 240 Output: Urine 1275 1600 Other: Voiding Method Indwelling Catheter Indwelling Catheter # Bowel Movements 1 - Exam -GENERAL: The patient is alert and oriented x3, not in any acute distress. Well developed, well nourished. Generally weak, obese with BMI 54.4 HEENT: Pupils are round and equally reacting to light. EOMI. No scleral icterus. No conjunctival pallor. Normocephalic, atraumatic. No pharyngeal erythema. No thyromegaly. CARDIOVASCULAR: S1 and S2 present. No murmurs, rubs, or gallops. PULMONARY: Chest is clear to auscultation, no wheezing , no crackles. ABDOMEN: Soft, nontender, nondistended, normoactive bowel sounds. No palpable organomegaly. MUSCULOSKELETAL: No joint swelling or deformity. -EXTREMITIES: No cyanosis, clubbing, or pedal edema. Left groin dialysis catheter in place NEUROLOGICAL: Gross neurological examination did not reveal any focal deficits. SKIN: No rashes. no petechiae. - Labs CBC & Chem 7: 07/29/24 08:33 08/02/24 05:44 Labs: Abnormal Lab Results - Last 24 Hours (Table) 08/02/24 Range/Units 05:44 Chloride 112 H (98-107) mmol/L Creatinine 1.30 H (0.52-1.04) mg/dL Calcium 7.2 L (8.4-10.2) mg/dL Assessment and Plan Assessment: Extensive decubitus ulcer with pressure ulcers with sepsis, present on admission Leukocytosis, possibly secondary to above, improved Acute renal failure with acute tubular necrosis with worsening oliguria requiring hemodialysis Generalized weakness and mostly bedbound Elevated LFTs, trending down Nausea, vomiting, diarrhea history, likely secondary to COVID-19 COVID-19 infection Morbid obesity with a BMI 54.8 History of noncompliance and most likely possible underlying psychiatric issues Plan: Patient antibiotic was stopped and patient being monitored closely IV fluid discontinued and creatinine improved Several consultants on the case including infectious disease, nephrology, health safety coordinator Continue with dialysis per nephrology team, dialysis started during this hospitalization and looks might be temporal with creatinine improving signif icantly. Patient require event monitor for her heart upon discharge x 14 days Labs and medication were reviewed.. Continue same treatment. Continue with symptomatic treatment. Resume home medication. Monitor labs and vitals. DVT and GI prophylaxis. Further recommendations as per clinical course of the patient DVT prophylaxis: Subcutaneous heparin GI Prophylaxis: Protonix PT/OT: Pending Prognosis is guarded Patient medically stable for discharge pending placement. As per staff patient cannot be discharged until she gets guardianship
--- NOTE | 2024-08-02 14:59 | P.PN ---
Subjective Progress Note Date: 08/02/24 Principal diagnosis: Reason for follow-up is COVID-19, leukocytosis Patient is a 58-year-old female with no reported past medical history former smoker patient has been brought into the hospital for evaluation of subjective fever chills nausea vomiting diarrhea patient tested positive for COVID 19 chest x-ray negative for acute cardiopulmonary disease process did have elevated white count and elevated liver enzymes. On today's evaluation that is 08/02/2024, the patient continues to be afebrile, the patient is on room air and breathing comfortably, the Pt denies having any chest pain or cough, the patient denies having any abdominal pain no vomiting or any diarrhea mention feeling better. Patient creatinine is down to 1.30 no CBC was done today Objective - Vital Signs Vital signs: Vital Signs Temp 98.7 F 08/02/24 07:22 Pulse 90 08/02/24 07:22 Resp 19 08/02/24 07:22 BP 132/71 08/02/24 07:22 Pulse Ox 100 08/02/24 07:22 FiO2 Intake & Output 08/01/24 08/02/24 08/02/24 18:59 06:59 18:59 Intake Total 240 Output Total 1275 1600 700 Balance -6214 -1600 -700 Weight 135 kg Intake: Oral 240 Output: Urine 1275 1600 700 Other: Voiding Method Indwelling Catheter Indwelling Catheter Indwelling Catheter # Bowel Movements 1 - Exam GENERAL DESCRIPTION: Middle-age female lying in bed in no distress RESPIRATORY SYSTEM: Unlabored breathing , decreased breath sounds at bases HEART: S1 S2 regular rate and rhythm , ABDOMEN: Soft , no tenderness EXTREMITIES: Diffuse swelling to the leg no redness - Labs CBC & Chem 7: 07/29/24 08:33 08/02/24 05:44 Labs: Abnormal Lab Results - Last 24 Hours (Table) 08/02/24 Range/Units 05:44 Chloride 112 H (98-107) mmol/L Creatinine 1.30 H (0.52-1.04) mg/dL Calcium 7.2 L (8.4-10.2) mg/dL Assessment and Plan (1) Sepsis Current Visit: Yes Status: Acute Code(s): A41.9 - SEPSIS, UNSPECIFIED ORGANISM SNOMED Code(s): 79269936 (2) Leukocytosis Current Visit: Yes Status: Acute Code(s): D72.829 - ELEVATED WHITE BLOOD CELL COUNT, UNSPECIFIED SNOMED Code(s): 519943922 (3) COVID-19 Current Visit: Yes Status: Acute Code(s): U07.1 - COVID-19 SNOMED Code(s): 323023485 Plan: 1patient did have features of SIRS as the patient did have tachycardia elevated white count but no fever source likely abdominal keeping in mind predominantly symptoms of nausea vomiting and diarrhea and did have elevated liver enzymes concerning for possible cholangitis did have a positive UA urine source not entirely excluded 2-patient did tested positive for COVID-19 however did not have significant respiratory symptoms patient not hypoxic chest x-ray was negative questionable incidental finding 3-patient ultrasound of the abdomen did show some gallbladder sludge but no features of cholecystitis CBD was normal 4wound care to the back with Aquacel silver dressing keep the area of the pressure she did grew pathogen more likely skin lary including not behaving as cellulitis 5-patient white count has normalized and culture has been negative for resistant pathogen, patient antibiotic has been discontinued we will monitor closely off antibiotics Dictation was produced using [employer] dictation software. please excuse any grammatical, word or spelling errors. Time with Patient: Less than 30
--- NOTE | 2024-08-02 18:31 | P.PN ---
Subjective patient is seen for follow-up for acute kidney injury. Renal function has been improving and hemodialysis has been on hold. Last hemodialysis treatment was on 07/27/2024. Serum creatinine decreased to 1.3 today. Good urine output noted. Objective - Vital Signs Vital signs: Vital Signs Temp 98.5 F 08/02/24 14:00 Pulse 105 H 08/02/24 14:00 Resp 17 08/02/24 14:00 BP 116/76 08/02/24 14:00 Pulse Ox 98 08/02/24 14:00 FiO2 Intake & Output 08/01/24 08/02/24 08/02/24 18:59 06:59 18:59 Intake Total 240 120 Output Total 1275 1600 1900 Balance -5365 -1600 -1780 Weight 135 kg Intake: Oral 240 120 Output: Urine 1275 1600 1900 Other: Voiding Method Indwelling Catheter Indwelling Catheter Indwelling Catheter # Bowel Movements 1 - Exam patient is awake, comfortable, no acute distress. Examination of the heart S1 and S2 Examination of the lungs bilateral breath sounds are heard Abdomen is soft nontender Examination lower extremity shows chronic skin changes no significant edema noted - Labs CBC & Chem 7: 07/29/24 08:33 08/02/24 05:44 Labs: Abnormal Lab Results - Last 24 Hours (Table) 08/02/24 Range/Units 05:44 Chloride 112 H (98-107) mmol/L Creatinine 1.30 H (0.52-1.04) mg/dL Calcium 7.2 L (8.4-10.2) mg/dL Assessment and Plan Assessment: 1. Acute kidney injury secondary to ATN secondary to severe sepsis. Creatinine 3.38 on admission and was up to 4.87 dated July 25, 2024 with BUN over 120. Started on hemodialysis July 25, 2024 via temporary dialysis catheter. Unknown baseline renal function. No hydronephrosis noted on ultrasound. Hemodialysis currently on hold with last treatment on 07/27/2024. Renal function continues to improve. Dialysis catheter was discontinued on 08/01/2024 2. Acute COVID-19 infection. 3. Metabolic acidosis secondary to acute kidney injury and IV fluids. Also component of lactic acidosis which improved. Improved 4. Nausea vomiting and diarrhea. Questionable cholangitis. On antibiotics. ID following. 5. Hyperphosphatemia secondary to acute kidney injury. Improved with improving renal function. Plan: Continue to monitor labs periodically. DC IV fluids if tolerating oral intake continue to avoid nephrotoxic agents.
[2024-08-03] MEDS: ZINC OXIDE PASTE (Z-GUARD) 1 APPLIC TOPICAL PRN (01:41)
[2024-08-03 10:10] LABS: BUN/Creat Ratio 10.77 Ratio (12.00-20.00); Carbon Dioxide 24.3 mmol/L (21.6-31.8); Chloride 112 mmol/L (96-109); Glucose 101 mg/dL (70-110); Potassium 3.7 mmol/L (3.5-5.5); Sodium 147 mmol/L (135-145)
[2024-08-03 10:11] LABS: Calcium 7.4 mg/dL (8.7-10.3)
--- NOTE | 2024-08-03 10:33 | P.PN ---
Subjective Patient is seen in follow-up for acute kidney injury. Renal function gradually worsened and was subsequently started on hemodialysis July 25, 2024 via temporary dialysis catheter. Renal function subsequently improved and dialysis catheter has been discontinued. Creatinine 1.3 today. Nonoliguric. Vital signs are stable. General: No acute distress. HEENT: Head exam is unremarkable. LUNGS: No audible rhonchi or wheezes. HEART: Rate and Rhythm are regular. ABDOMEN: Nontender. EXTREMITITES: No edema. Objective - Vital Signs Vital signs: Vital Signs Temp 98.6 F 08/03/24 07:53 Pulse 108 H 08/03/24 08:00 Resp 18 08/03/24 08:00 BP 112/80 08/03/24 07:53 Pulse Ox 99 08/03/24 07:53 FiO2 Intake & Output 08/02/24 08/03/24 08/03/24 18:59 06:59 18:59 Intake Total 120 Output Total 1900 700 Balance -1780 -700 Weight 135 kg Intake: Oral 120 Output: Urine 1900 700 Uretheral (King) 450 Other: Voiding Method Indwelling Catheter Indwelling Catheter Indwelling Catheter # Voids 1 - Labs CBC & Chem 7: 07/29/24 08:33 08/03/24 05:39 Labs: Abnormal Lab Results - Last 24 Hours (Table) 08/03/24 Range/Units 05:39 Sodium 147 H (135-145) mmol/L Chloride 112 H (96-109) mmol/L Est GFR (CKD-EPI) 48 L (>=60) BUN/Creatinine Ratio 10.77 L (12.00-20.00) Ratio Calcium 7.4 L (8.7-10.3) mg/dL Assessment and Plan Plan: Assessment: 1. Acute kidney injury secondary to ATN secondary to severe sepsis. Creatinine 3.38 on admission and was up to 4.87 dated July 25, 2024 with BUN over 120. Started on hemodialysis July 25, 2024 via temporary dialysis catheter. Renal function subsequently improved and dialysis catheter has now been removed. Creatinine 1.3 today. Unknown baseline renal function. No hydronephrosis noted on ultrasound. 2. Acute COVID-19 infection. 3. Metabolic acidosis secondary to acute kidney injury and IV fluids. Also component of lactic acidosis which improved. Resolved. 4. Nausea vomiting and diarrhea. Questionable cholangitis. s/p antibiotics. ID following. 5. Hyperphosphatemia secondary to acute kidney injury. Improved. 6. Hypernatremia from lack of oral water intake. Plan: Change IV fluids to D5W at 50 cc an hour. Encouraged oral intake, including free water. Avoid nephrotoxins. Repeat labs in the morning.
[2024-08-03] MEDS: DEXTROSE 5% IN WATER 1,000 ML IV SCH (14:33)
--- NOTE | 2024-08-03 20:45 | P.PN ---
Subjective Progress Note Date: 08/03/24 Patient evaluated today in follow-up in the medical floor resting in bed comfortably. Patient has completed a course of oral Augmentin with concerns for cholangitis. Additionally patient was started on hemodialysis since admission with recovery of her renal function and no longer is requiring hemodialysis. Most recent blood work today reveals a sodium level of 147, BUN of 14 creatinine of 1.3. Her LFTs are slowly improving. Wound cultures to her sacral decubitus show Corynebacterium and Brevibacterium species. Cardiology following secondary to sinus pauses and they have recommended an event monitor on discharge for 14 days for further evaluation and further recommendations on outpatient basis. Patient does not have any health insurance and Adult Protective Services has been involved patient will go for a guardianship hearing on August 07 and to help with discharge planning. She will remain in the hospital until this has been completed. Review of Systems Constitutional: Denied any fatigue denied any fever. Cardio vascular: denied any chest pain, palpitations Gastrointestinal: denied any nausea, vomiting, diarrhea Pulmonary: Denied any shortness of breath cough Neurologic denied any new focal deficits All inpatient medications were reviewed and appropriate changes in these medi cations as dictated in the interval history and assessment and plan. PHYSICAL EXAMINATION: GENERAL: The patient is alert and oriented x3, not in any acute distress. Well developed, well nourished. Morbidly obese HEENT: Pupils are round and equally reacting to light. EOMI. No scleral icterus. No conjunctival pallor. Normocephalic, atraumatic. No pharyngeal erythema. No thyromegaly. CARDIOVASCULAR: S1 and S2 present. No murmurs, rubs, or gallops. PULMONARY: Chest is clear to auscultation, no wheezing or crackles. ABDOMEN: Soft, nontender, nondistended, normoactive bowel sounds. No palpable organomegaly. MUSCULOSKELETAL: No joint swelling or deformity. EXTREMITIES: No cyanosis, clubbing, or pedal edema. NEUROLOGICAL: Gross neurological examination did not reveal any focal deficits. SKIN: No rashes. Assessment and plan Multiple areas of pressure injury with mixed full-thickness tissue loss and mottling wound care has evaluated the patient recommending to continue with Triad cream and pressure offloading as well as a specialty air mattress. Patient will require alf wound care and follow-up with the wound care center on discharge. Extensive decubitus ulcer with pressure ulcers with sepsis, present on admission Leukocytosis, possibly secondary to above, improved Acute renal failure with acute tubular necrosis with worsening oliguria requiring hemodialysis renal function has recovered Generalized weakness and mostly bedbound Elevated LFTs, trending down possibly underlying cholangitis completed course of antibiotic therapy Nausea, vomiting, diarrhea history, likely secondary to COVID-19 COVID-19 infection Morbid obesity with a BMI 54.8 History of noncompliance and most likely possible underlying psychiatric issues GI prophylaxis DVT prophylaxis Full code Plan Patient remains off antibiotic therapy and being monitored Renal function has essentially normalized nephrology following closely Patient is off hemodialysis at this time Event monitor on discharge for a total of 14 days recommended by cardiology with outpatient follow-up As mentioned continue local wound care to the sacral decubitus ulcer and additional areas of tissue loss on her back and buttock with Triad cream patient will require close follow-up with the wound care center on discharge for additional recommendations. Per home care once these wounds mature patient may be switched over to a honey gel type wound care. Secondary to patient's condition admission Adult Protective Services was consulted and recommended for patient to go for guardianship hearing which is arranged for August 07 patient will need to remain in the hospital until this happens as she does not have any health insurance coverage and will need assistance with discharge planning to a alf facility. PT OT has been consulted Monitor electrolytes and renal function The impression and plan of care has been dictated by Lauren Mendoza, Nurse Practitioner as directed. Dr. Henrique MD I have performed a history and physical examination and medical decision making of this patient, discussed the same with the dictator, and agree with the dictators assessment and plan as written, documented as a scribe. Based on total visit time, I have performed more than 50% of this visit. Objective - Vital Signs Vital signs: Vital Signs Temp 98.6 F 08/03/24 07:53 Pulse 108 H 08/03/24 08:00 Resp 18 08/03/24 08:00 BP 112/80 08/03/24 07:53 Pulse Ox 99 08/03/24 07:53 FiO2 Intake & Output 08/02/24 08/03/24 08/03/24 18:59 06:59 18:59 Intake Total 120 Output Total 1900 700 Balance -1780 -700 Weight 135 kg Intake: Oral 120 Output: Urine 1900 700 Uretheral (King) 450 Other: Voiding Method Indwelling Catheter Indwelling Catheter Indwelling Catheter # Voids 1 - Labs CBC & Chem 7: 07/29/24 08:33 08/03/24 05:39 Labs: Abnormal Lab Results - Last 24 Hours (Table) 08/03/24 Range/Units 05:39 Sodium 147 H (135-145) mmol/L Chloride 112 H (96-109) mmol/L Est GFR (CKD-EPI) 48 L (>=60) BUN/Creatinine Ratio 10.77 L (12.00-20.00) Ratio Calcium 7.4 L (8.7-10.3) mg/dL Assessment and Plan Time with Patient: Less than 30
--- NOTE | 2024-08-03 22:19 | P.PN ---
Subjective Progress Note Date: 08/03/24 Principal diagnosis: Reason for follow-up is COVID-19, leukocytosis Patient is a 58-year-old female with no reported past medical history former smoker patient has been brought into the hospital for evaluation of subjective fever chills nausea vomiting diarrhea patient tested positive for COVID 19 chest x-ray negative for acute cardiopulmonary disease process did have elevated white count and elevated liver enzymes. On today's evaluation that is 08/03/2024, patient did not have any fever and denies any chills, patient is breathing comfortably on room air, patient with no chest pain or cough patient complaining of some epigastric abdominal discomfort but no nausea vomiting or any loose stools. Patient creatinine normalized to 1.3 and liver enzymes seem to have improved as well on the last blood draw Objective - Vital Signs Vital signs: Vital Signs Temp 99.3 F 08/03/24 14:37 Pulse 104 H 08/03/24 14:37 Resp 17 08/03/24 14:37 BP 110/72 08/03/24 14:37 Pulse Ox 98 08/03/24 14:37 FiO2 Intake & Output 08/02/24 08/03/24 08/03/24 18:59 06:59 18:59 Intake Total 120 Output Total 1900 700 Balance -1780 -700 Weight 135 kg Intake: Oral 120 Output: Urine 1900 700 Uretheral (King) 450 Other: Voiding Method Indwelling Catheter Indwelling Catheter Indwelling Catheter # Voids 1 - Exam GENERAL DESCRIPTION: Middle-age female lying in bed in no distress RESPIRATORY SYSTEM: Unlabored breathing , decreased breath sounds at bases HEART: S1 S2 regular rate and rhythm , ABDOMEN: Soft , no tenderness EXTREMITIES: Diffuse swelling to the leg no redness - Labs CBC & Chem 7: 07/29/24 08:33 08/03/24 05:39 Labs: Abnormal Lab Results - Last 24 Hours (Table) 08/03/24 Range/Units 05:39 Sodium 147 H (135-145) mmol/L Chloride 112 H (96-109) mmol/L Est GFR (CKD-EPI) 48 L (>=60) BUN/Creatinine Ratio 10.77 L (12.00-20.00) Ratio Calcium 7.4 L (8.7-10.3) mg/dL Assessment and Plan (1) Sepsis Current Visit: Yes Status: Acute Code(s): A41.9 - SEPSIS, UNSPECIFIED ORGANISM SNOMED Code(s): 53128358 (2) Leukocytosis Current Visit: Yes Status: Acute Code(s): D72.829 - ELEVATED WHITE BLOOD CELL COUNT, UNSPECIFIED SNOMED Code(s): 546123456 (3) COVID-19 Current Visit: Yes Status: Acute Code(s): U07.1 - COVID-19 SNOMED Code(s): 175080699 (4) Cholangitis Current Visit: Yes Status: Acute Code(s): K83.09 - OTHER CHOLANGITIS SNOMED Code(s): 54147764 Plan: 1patient did have features of SIRS as the patient did have tachycardia elevated white count but no fever source likely abdominal keeping in mind predominantly symptoms of nausea vomiting and diarrhea and did have elevated liver enzymes concerning for possible cholangitis did have a positive UA urine source not entirely excluded 2-patient did tested positive for COVID-19 however did not have significant respiratory symptoms patient not hypoxic chest x-ray was negative questionable incidental finding 3-patient ultrasound of the abdomen did show some gallbladder sludge but no features of cholecystitis CBD was normal, subsequently her liver enzymes have improved and the patient has completed course of antibiotics currently being monitored closely off antibiotic 4wound care to the back with Aquacel silver dressing keep the area of the pressure she did grew pathogen more likely skin lary including not behaving as cellulitis Dictation was produced using [employer] dictation software. please excuse any grammatical, word or spelling errors. Time with Patient: Less than 30
[2024-08-04 10:29] LABS: Blood Urea Nitrogen 12.6 mg/dL (9.0-27.0); Calcium 7.4 mg/dL (8.7-10.3); Carbon Dioxide 24.9 mmol/L (21.6-31.8); Chloride 106 mmol/L (96-109); Glucose 96 mg/dL (70-110); Magnesium 1.2 mg/dL (1.5-2.4); Potassium 4.1 mmol/L (3.5-5.5); Sodium 142 mmol/L (135-145)
--- NOTE | 2024-08-04 10:54 | P.PN ---
Subjective Patient is seen in follow-up for acute kidney injury. Renal function gradually worsened and was subsequently started on hemodialysis July 25, 2024 via temporary dialysis catheter. Renal function subsequently improved and dialysis catheter has been discontinued. Creatinine 1.2 today. Nonoliguric. Vital signs are stable. General: No acute distress. HEENT: Head exam is unremarkable. LUNGS: No audible rhonchi or wheezes. HEART: Rate and Rhythm are regular. ABDOMEN: Nontender. EXTREMITITES: No edema. Objective - Vital Signs Vital signs: Vital Signs Temp 98 F 08/04/24 07:30 Pulse 88 08/04/24 08:00 Resp 17 08/04/24 08:00 BP 125/81 08/04/24 07:30 Pulse Ox 99 08/04/24 07:30 FiO2 Intake & Output 08/03/24 08/04/24 08/04/24 18:59 06:59 18:59 Output Total 650 1300 Balance -650 -1300 Output: Urine 650 1300 Other: Voiding Method Indwelling Catheter Indwelling Catheter Indwelling Catheter # Voids 1 - Labs CBC & Chem 7: 07/29/24 08:33 08/04/24 04:14 Labs: Abnormal Lab Results - Last 24 Hours (Table) 08/04/24 Range/Units 04:14 Est GFR (CKD-EPI) 53 L (>=60) BUN/Creatinine Ratio 10.50 L (12.00-20.00) Ratio Calcium 7.4 L (8.7-10.3) mg/dL Magnesium 1.2 L (1.5-2.4) mg/dL Assessment and Plan Plan: Assessment: 1. Acute kidney injury secondary to ATN secondary to severe sepsis. Creatinine 3.38 on admission and was up to 4.87 dated July 25, 2024 with BUN over 120. Started on hemodialysis July 25, 2024 via temporary dialysis catheter. Segundo al function subsequently improved and dialysis catheter has now been removed. Creatinine 1.2 today. Unknown baseline renal function. No hydronephrosis noted on ultrasound. 2. Acute COVID-19 infection. 3. Metabolic acidosis secondary to acute kidney injury and IV fluids. Also component of lactic acidosis which improved. Resolved. 4. Nausea vomiting and diarrhea. Questionable cholangitis. s/p antibiotics. ID following. 5. Hyperphosphatemia secondary to acute kidney injury. Improved. 6. Hypernatremia from lack of oral water intake. Improved with D5W. 7. Hypomagnesemia from poor intake. Plan: Stop IV fluids. Encouraged oral intake, including free water. Avoid nephrotoxins. Replace magnesium. Repeat labs in the morning.
[2024-08-04] MEDS: MAGNESIUM SULFATE-D5W PMX 1 GM in DEXTROSE/WATER 1 100ML.BAG IVPB SCH (11:43)
--- NOTE | 2024-08-04 14:04 | P.PN ---
Subjective Progress Note Date: 08/04/24 Principal diagnosis: Reason for follow-up is COVID-19, leukocytosis Patient is a 58-year-old female with no reported past medical history former smoker patient has been brought into the hospital for evaluation of subjective fever chills nausea vomiting diarrhea patient tested positive for COVID 19 chest x-ray negative for acute cardiopulmonary disease process did have elevated white count and elevated liver enzymes. On today's evaluation that is 08/04/2024, Patient is afebrile patient is currently on room air and denies having any shortness of breath, the patient denies any chest pain or cough, the patient denies any nausea vomiting still still having chest discomfort but no diarrhea. Patient did have creatinine 1.2 Objective - Vital Signs Vital signs: Vital Signs Temp 98 F 08/04/24 07:30 Pulse 88 08/04/24 08:00 Resp 17 08/04/24 08:00 BP 125/81 08/04/24 07:30 Pulse Ox 99 08/04/24 07:30 FiO2 Intake & Output 08/03/24 08/04/24 08/04/24 18:59 06:59 18:59 Output Total 650 1300 Balance -650 -1300 Output: Urine 650 1300 Other: Voiding Method Indwelling Catheter Indwelling Catheter Indwelling Catheter # Voids 1 - Exam GENERAL DESCRIPTION: Middle-age female lying in bed in no distress RESPIRATORY SYSTEM: Unlabored breathing , decreased breath sounds at bases HEART: S1 S2 regular rate and rhythm , ABDOMEN: Soft , no tenderness EXTREMITIES: Diffuse swelling to the leg no redness - Labs CBC & Chem 7: 07/29/24 08:33 08/04/24 04:14 Labs: Abnormal Lab Results - Last 24 Hours (Table) 08/04/24 Range/Units 04:14 Est GFR (CKD-EPI) 53 L (>=60) BUN/Creatinine Ratio 10.50 L (12.00-20.00) Ratio Calcium 7.4 L (8.7-10.3) mg/dL Magnesium 1.2 L (1.5-2.4) mg/dL Assessment and Plan (1) Sepsis Current Visit: Yes Status: Acute Code(s): A41.9 - SEPSIS, UNSPECIFIED ORGANISM SNOMED Code(s): 57360791 (2) Leukocytosis Current Visit: Yes Status: Acute Code(s): D72.829 - ELEVATED WHITE BLOOD CELL COUNT, UNSPECIFIED SNOMED Code(s): 158045526 (3) COVID-19 Current Visit: Yes Status: Acute Code(s): U07.1 - COVID-19 SNOMED Code(s): 580437476 (4) Cholangitis Current Visit: Yes Status: Acute Code(s): K83.09 - OTHER CHOLANGITIS SNOMED Code(s): 87727662 Plan: 1patient did have features of SIRS as the patient did have tachycardia elevated white count but no fever source likely abdominal keeping in mind predominantly symptoms of nausea vomiting and diarrhea and did have elevated liver enzymes concerning for possible cholangitis did have a positive UA urine source not entirely excluded 2-patient did tested positive for COVID-19 however did not have significant respiratory symptoms patient not hypoxic chest x-ray was negative questionable incidental finding 3-patient ultrasound of the abdomen did show some gallbladder sludge but no features of cholecystitis CBD was normal, subsequently her liver enzymes have improved and the patient has completed course of antibiotics currently being monitored closely off antibiotic 4wound care to the back with Aquacel silver dressing keep the area of the pressure she did grew pathogen more likely skin lary including not behaving as cellulitis, hence no need for antibiotic therapy at this point Dictation was produced using [employer] dictation software. please excuse any grammatical, word or spelling errors. Time with Patient: Less than 30
--- NOTE | 2024-08-04 15:01 | P.PN ---
Subjective Progress Note Date: 08/04/24 Patient evaluated today in follow-up in the medical floor resting in bed comfortably. Patient has completed a course of oral Augmentin with concerns for cholangitis. Additionally patient was started on hemodialysis since admission with recovery of her renal function and no longer is requiring hemodialysis. Most recent blood work today reveals a sodium level of 147, BUN of 14 creatinine of 1.3. Her LFTs are slowly improving. Wound cultures to her sacral decubitus show Corynebacterium and Brevibacterium species. Cardiology following secondary to sinus pauses and they have recommended an event monitor on discharge for 14 days for further evaluation and further recommendations on outpatient basis. Patient does not have any health insurance and Adult Protective Services has been involved patient will go for a guardianship hearing on August 07 and to help with discharge planning. She will remain in the hospital until this has been completed. 08/04/2024 Patient evaluated in follow-up with the medical floor. Patient is completed a course of oral Augmentin. Patient has completed hemodialysis. She is currently pending guardianship hearing for August 07. Local wound care continues to the pressure injury to her bottom and back. Patient has no acute complaints today. Review of Systems Constitutional: Denied any fatigue denied any fever. Cardio vascular: denied any chest pain, palpitations Gastrointestinal: denied any nausea, vomiting, diarrhea Pulmonary: Denied any shortness of breath cough Neurologic denied any new focal deficits All inpatient medications were reviewed and appropriate changes in these medications as dictated in the interval history and assessment and plan. PHYSICAL EXAMINATION: GENERAL: The patient is alert and oriented x3, not in any acute distress. Well developed, well nourished. Morbidly obese HEENT: Pupils are round and equally reacting to light. EOMI. No scleral icterus. No conjunctival pallor. Normocephalic, atraumatic. No pharyngeal erythema. No thyromegaly. CARDIOVASCULAR: S1 and S2 present. No murmurs, rubs, or gallops. PULMONARY: Chest is clear to auscultation, no wheezing or crackles. ABDOMEN: Soft, nontender, nondistended, normoactive bowel sounds. No palpable organomegaly. MUSCULOSKELETAL: No joint swelling or deformity. EXTREMITIES: No cyanosis, clubbing, or pedal edema. NEUROLOGICAL: Gross neurological examination did not reveal any focal deficits. SKIN: No rashes. Pressure injuries as mentioned in the HPI Assessment and plan Multiple areas of pressure injury with mixed full-thickness tissue loss and mottling wound care has evaluated the patient recommending to continue with Triad cream and pressure offloading as well as a specialty air mattress. Patient will require alf wound care and follow-up with the wound care center on discharge. Extensive decubitus ulcer with pressure ulcers with sepsis, present on admission Leukocytosis, possibly secondary to above, improved Acute renal failure with acute tubular necrosis with worsening oliguria requiring hemodialysis renal function has recovered Generalized weakness and mostly bedbound Elevated LFTs, trending down possibly underlying cholangitis completed course of antibiotic therapy Nausea, vomiting, diarrhea history, likely secondary to COVID-19 COVID-19 infection Morbid obesity with a BMI 54.8 History of noncompliance and most likely possible underlying psychiatric issues GI prophylaxis DVT prophylaxis Full code Plan Patient remains off antibiotic therapy and being monitored Renal function has essentially normalized nephrology following closely Patient is off hemodialysis at this time Event monitor on discharge for a total of 14 days recommended by cardiology with outpatient follow-up As mentioned continue local wound care to the sacral decubitus ulcer and additional areas of tissue loss on her back and buttock with Triad cream patient will require close follow-up with the wound care center on discharge for additional recommendations. Per home care once these wounds mature patient may be switched over to a honey gel type wound care. Secondary to patient's condition admission Adult Protective Services was consulted and recommended for patient to go for guardianship hearing which is arranged for August 07 patient will need to remain in the hospital until this happens as she does not have any health insurance coverage and will need assistance with discharge planning to a alf facility. PT OT has been consulted Monitor electrolytes and renal function The impression and plan of care has been dictated by Lauren Mendoza, Nurse Practitioner as directed. Dr. Henrique MD I have performed a history and physical examination and medical decision making of this patient, discussed the same with the dictator, and agree with the dictators assessment and plan as written, documented as a scribe. Based on total visit time, I have performed more than 50% of this visit. Objective - Vital Signs Vital signs: Vital Signs Temp 98 F 08/04/24 07:30 Pulse 88 08/04/24 08:00 Resp 17 08/04/24 08:00 BP 125/81 08/04/24 07:30 Pulse Ox 99 08/04/24 07:30 FiO2 Intake & Output 08/03/24 08/04/24 08/04/24 18:59 06:59 18:59 Output Total 650 1300 Balance -650 -1300 Output: Urine 650 1300 Other: Voiding Method Indwelling Catheter Indwelling Catheter Indwelling Catheter # Voids 1 - Labs CBC & Chem 7: 07/29/24 08:33 08/04/24 04:14 Labs: Abnormal Lab Results - Last 24 Hours (Table) 08/04/24 Range/Units 04:14 Est GFR (CKD-EPI) 53 L (>=60) BUN/Creatinine Ratio 10.50 L (12.00-20.00) Ratio Calcium 7.4 L (8.7-10.3) mg/dL Magnesium 1.2 L (1.5-2.4) mg/dL Assessment and Plan Time with Patient: Less than 30
[2024-08-05 08:43] LABS: BUN/Creat Ratio 11.45 Ratio (12.00-20.00); Blood Urea Nitrogen 12.6 mg/dL (9.0-27.0); Calcium 7.6 mg/dL (8.7-10.3); Carbon Dioxide 25.7 mmol/L (21.6-31.8); Chloride 106 mmol/L (96-109); Glucose 113 mg/dL (70-110); Potassium 3.7 mmol/L (3.5-5.5); Sodium 139 mmol/L (135-145)
[2024-08-05 08:49] LABS: Magnesium 1.9 mg/dL (1.5-2.4)
--- NOTE | 2024-08-05 13:36 | P.PN ---
Subjective patient is seen for follow-up for acute kidney injury. Renal function has been improving and hemodialysis has been on hold. Last hemodialysis treatment was on 07/27/2024. Serum creatinine decreased to 1.1 today. Good urine output noted. Objective - Vital Signs Vital signs: Vital Signs Temp 98.1 F 08/05/24 07:50 Pulse 98 08/05/24 07:50 Resp 17 08/05/24 07:50 BP 121/64 08/05/24 07:50 Pulse Ox 98 08/05/24 07:50 FiO2 Intake & Output 08/04/24 08/05/24 08/05/24 18:59 06:59 18:59 Output Total 650 1400 1200 Balance -650 -1400 -1200 Output: Urine 650 1400 1200 Other: Voiding Method Indwelling Catheter Indwelling Catheter Indwelling Catheter - Exam patient is awake, comfortable, no acute distress. Examination of the heart S1 and S2 Examination of the lungs bilateral breath sounds are heard Abdomen is soft nontender Examination lower extremity shows chronic skin changes no significant edema noted - Labs CBC & Chem 7: 07/29/24 08:33 08/05/24 03:08 Labs: Abnormal Lab Results - Last 24 Hours (Table) 08/05/24 Range/Units 03:08 Est GFR (CKD-EPI) 59 L (>=60) BUN/Creatinine Ratio 11.45 L (12.00-20.00) Ratio Glucose 113 H (70-110) mg/dL Calcium 7.6 L (8.7-10.3) mg/dL Assessment and Plan Assessment: 1. Acute kidney injury secondary to ATN secondary to severe sepsis. Creatinine 3.38 on admission and was up to 4.87 dated July 25, 2024 with BUN over 120. Started on hemodialysis July 25, 2024 via temporary dialysis catheter. Unknown baseline renal function. No hydronephrosis noted on ultrasound. Hemodialysis currently on hold with last treatment on 07/27/2024. Renal function continues to improve. Dialysis catheter was discontinued on 08/01/2024 2. Acute COVID-19 infection. Improved. 3. Metabolic acidosis secondary to acute kidney injury and IV fluids. Also component of lactic acidosis which improved. Improved 4. Nausea vomiting and diarrhea. Questionable cholangitis. On antibiotics. ID following. 5. Hyperphosphatemia secondary to acute kidney injury. Improved with improving renal function. Plan: Continue to monitor labs periodically. Continue off of IV fluids continue to avoid nephrotoxic agents.
--- NOTE | 2024-08-05 23:49 | P.PN ---
Subjective Progress Note Date: 08/05/24 Patient evaluated today in follow-up in the medical floor resting in bed comfortably. Patient has completed a course of oral Augmentin with concerns for cholangitis. Additionally patient was started on hemodialysis since admission with recovery of her renal function and no longer is requiring hemodialysis. Most recent blood work today reveals a sodium level of 147, BUN of 14 creatinine of 1.3. Her LFTs are slowly improving. Wound cultures to her sacral decubitus show Corynebacterium and Brevibacterium species. Cardiology following secondary to sinus pauses and they have recommended an event monitor on discharge for 14 days for further evaluation and further recommendations on outpatient basis. Patient does not have any health insurance and Adult Protective Services has been involved patient will go for a guardianship hearing on August 07 and to help with discharge planning. She will remain in the hospital until this has been completed. 08/04/2024 Patient evaluated in follow-up with the medical floor. Patient is completed a course of oral Augmentin. Patient has completed hemodialysis. She is currently pending guardianship hearing for August 07. Local wound care continues to the pressure injury to her bottom and back. Patient has no acute complaints today. 08/05/2024 Patient is seen in follow-up this morning with multiple consultations following. Currently awaiting guardianship hearing but social work will be attending on August 07. Patient has completed hemodialysis and not requiring further dialysis at this time and will follow-up with repeat labs. Patient to continue with local wound care and offloading frequently. Patient is afebrile denies chest pain or shortness of breath. Patient reports tolerating diet with no reported nausea or vomiting. Review of Systems Constitutional: Denied any fatigue denied any fever. Cardio vascular: denied any chest pain, palpitations Gastrointestinal: denied any nausea, vomiting, diarrhea Pulmonary: Denied any shortness of breath cough Neurologic denied any new focal deficits continues with significant weakness All inpatient medications were reviewed and appropriate changes in these medications as dictated in the interval history and assessment and plan. PHYSICAL EXAMINATION: GENERAL: The patient is alert and oriented x3, not in any acute distress. Well developed, well nourished. Morbidly obese HEENT: Pupils are round and equally reacting to light. EOMI. No scleral icterus. No conjunctival pallor. Normocephalic, atraumatic. No pharyngeal erythema. No thyromegaly. CARDIOVASCULAR: S1 and S2 present. No murmurs, rubs, or gallops. PULMONARY: Chest is clear to auscultation, no wheezing or crackles. ABDOMEN: Soft, nontender, nondistended, normoactive bowel sounds. No palpable organomegaly. MUSCULOSKELETAL: No joint swelling or deformity. EXTREMITIES: No cyanosis, clubbing, or pedal edema. NEUROLOGICAL: Gross neurological examination did not reveal any focal deficits. Diffusely weak SKIN: No rashes. Pressure injuries as mentioned in the HPI Assessment and plan: Multiple areas of pressure injury with mixed full-thickness tissue loss and mottling wound care has evaluated the patient recommending to continue with Triad cream and pressure offloading as well as a specialty air mattress. Patient will require senior care wound care and follow-up with the wound care center on discharge. Extensive decubitus ulcer with pressure ulcers with sepsis, present on admission Leukocytosis, possibly secondary to above, improved Acute renal failure with acute tubular necrosis with worsening oliguria requiring hemodialysis renal function has recovered Generalized weakness and mostly bedbound Elevated LFTs, trending down possibly underlying cholangitis completed course of antibiotic therapy Nausea, vomiting, diarrhea history, likely secondary to COVID-19, improved COVID-19 infection Morbid obesity with a BMI 54.8 History of noncompliance and most likely possible underlying psychiatric issues GI prophylaxis DVT prophylaxis Full code Plan: Patient remains off antibiotic therapy and being monitored with infectious disease following Renal function has essentially normalized nephrology following closely. Patient is off hemodialysis at this time Event monitor on discharge for a total of 14 days recommended by cardiology with outpatient follow-up As mentioned continue local wound care to the sacral decubitus ulcer and additional areas of tissue loss on her back and buttock with Triad cream patient will require close follow-up with the wound care center on discharge for additional recommendations. Per home care once these wounds mature patient may be switched over to a honey gel type wound care. Secondary to patient's condition admission Adult Protective Services was consulted and recommended for patient to go for guardianship hearing which is arranged for August 07 patient will need to remain in the hospital until this happens as she does not have any health insurance coverage and will need assistance with discharge planning to a senior care facility. PT OT has be en consulted Monitor electrolytes and renal function The impression and plan of care has been dictated by Christina Soares, Nurse Practitioner as directed. Dr. Henrique MD I have performed a history and physical examination and medical decision making of this patient, discussed the same with the dictator, and agree with the dictators assessment and plan as written, documented as a scribe. Based on total visit time, I have performed more than 50% of this visit. Objective - Vital Signs Vital signs: Vital Signs Temp 98.1 F 08/05/24 07:50 Pulse 98 08/05/24 07:50 Resp 17 08/05/24 07:50 BP 121/64 08/05/24 07:50 Pulse Ox 98 08/05/24 07:50 FiO2 Intake & Output 08/04/24 08/05/24 08/05/24 18:59 06:59 18:59 Output Total 650 1400 Balance -650 -1400 Output: Urine 650 1400 Other: Voiding Method Indwelling Catheter Indwelling Catheter - Labs CBC & Chem 7: 07/29/24 08:33 08/05/24 03:08 Labs: Abnormal Lab Results - Last 24 Hours (Table) 08/04/24 08/05/24 Range/Units 04:14 03:08 Est GFR (CKD-EPI) 53 L 59 L (>=60) BUN/Creatinine Ratio 10.50 L 11.45 L (12.00-20.00) Ratio Glucose 113 H (70-110) mg/dL Calcium 7.4 L 7.6 L (8.7-10.3) mg/dL Magnesium 1.2 L (1.5-2.4) mg/dL
[2024-08-06 08:48] LABS: African American GFR (CKD) 74 (>60 ml/min/1.73 sqM); Anion Gap 6 mmol/L; Blood Urea Nitrogen 12 mg/dL (7-17); Calcium 8.2 mg/dL (8.4-10.2); Carbon Dioxide 28 mmol/L (22-30); Chloride 105 mmol/L (98-107); Glucose 94 mg/dL (74-99); Magnesium 1.8 mg/dL (1.6-2.3); Non-African American GFR(CKD) 64 (>60 ml/min/1.73 sqM); Potassium 3.7 mmol/L (3.5-5.1); Sodium 139 mmol/L (137-145)
--- NOTE | 2024-08-06 14:37 | P.PN ---
Subjective Progress Note Date: 08/05/24 Principal diagnosis: Reason for follow-up is COVID-19, leukocytosis Patient is a 58-year-old female with no reported past medical history former smoker patient has been brought into the hospital for evaluation of subjective fever chills nausea vomiting diarrhea patient tested positive for COVID 19 chest x-ray negative for acute cardiopulmonary disease process did have elevated white count and elevated liver enzymes. On today's evaluation that is 08/05/2023, patient has been afebrile, patient is breathing comfortably and is currently on room air, patient denies having any significant cough no chest pain, patient denies nausea vomiting or diarrhea some epigastric abdominal pain but no worsening. Patient creatinine is 1.1 no CBC was done today Objective - Vital Signs Vital signs: Vital Signs Temp 98.1 F 08/05/24 07:50 Pulse 98 08/05/24 07:50 Resp 17 08/05/24 07:50 BP 121/64 08/05/24 07:50 Pulse Ox 98 08/05/24 07:50 FiO2 Intake & Output 08/04/24 08/05/24 08/05/24 18:59 06:59 18:59 Output Total 650 1400 1200 Balance -650 -1400 -1200 Output: Urine 650 1400 1200 Other: Voiding Method Indwelling Catheter Indwelling Catheter Indwelling Catheter - Exam GENERAL DESCRIPTION: Middle-age female lying in bed in no distress RESPIRATORY SYSTEM: Unlabored breathing , decreased breath sounds at bases HEART: S1 S2 regular rate and rhythm , ABDOMEN: Soft , no tenderness EXTREMITIES: Diffuse swelling to the leg no redness - Labs CBC & Chem 7: 07/29/24 08:33 08/06/24 08:02 Labs: Abnormal Lab Results - Last 24 Hours (Table) 08/05/24 Range/Units 03:08 Est GFR (CKD-EPI) 59 L (>=60) BUN/Creatinine Ratio 11.45 L (12.00-20.00) Ratio Glucose 113 H (70-110) mg/dL Calcium 7.6 L (8.7-10.3) mg/dL Assessment and Plan (1) Sepsis Current Visit: Yes Status: Acute Code(s): A41.9 - SEPSIS, UNSPECIFIED ORGANISM SNOMED Code(s): 63701407 (2) Leukocytosis Current Visit: Yes Status: Acute Code(s): D72.829 - ELEVATED WHITE BLOOD CELL COUNT, UNSPECIFIED SNOMED Code(s): 042730597 (3) COVID-19 Current Visit: Yes Status: Acute Code(s): U07.1 - COVID-19 SNOMED Code(s): 449174558 (4) Cholangitis Current Visit: Yes Status: Acute Code(s): K83.09 - OTHER CHOLANGITIS SNOMED Code(s): 72811822 Plan: 1patient did have features of SIRS as the patient did have tachycardia elevated white count but no fever source likely abdominal keeping in mind predominantly symptoms of nausea vomiting and diarrhea and did have elevated liver enzymes concerning for possible cholangitis did have a positive UA urine source not entirely excluded 2-patient did tested positive for COVID-19 however did not have significant respiratory symptoms patient not hypoxic chest x-ray was negative questionable incidental finding 3-patient ultrasound of the abdomen did show some gallbladder sludge but no features of cholecystitis CBD was normal, subsequently her liver enzymes have improved and the patient has completed course of antibiotics and will monitor closely off antibiotic at this point 4wound care to the back with Aquacel silver dressing keep the area of the pressure she did grew pathogen more likely skin lary including not behaving as cellulitis, continue with local wound care Dictation was produced using [employer] dictation software. please excuse any grammatical, word or spelling errors. Time with Patient: Less than 30
--- NOTE | 2024-08-06 14:38 | P.PN ---
Subjective Progress Note Date: 08/06/24 Principal diagnosis: Reason for follow-up is COVID-19, leukocytosis Patient is a 58-year-old female with no reported past medical history former smoker patient has been brought into the hospital for evaluation of subjective fever chills nausea vomiting diarrhea patient tested positive for COVID 19 chest x-ray negative for acute cardiopulmonary disease process did have elevated white count and elevated liver enzymes. On today's evaluation that is 08/06/2023, Patient is afebrile this morning patient denies having any chest pain shortness of breath or cough, the patient is currently on room air, patient mention improvement in epigastric abdominal pain no diarrhea no nausea no vomiting. Patient did have creatinine 0.99 no CBC was done today Objective - Vital Signs Vital signs: Vital Signs Temp 98.8 F 08/06/24 13:36 Pulse 92 08/06/24 13:36 Resp 18 08/06/24 13:36 BP 105/70 08/06/24 13:36 Pulse Ox 100 08/06/24 13:36 FiO2 Intake & Output 08/05/24 08/06/24 08/06/24 18:59 06:59 18:59 Intake Total 1317 Output Total 1850 2325 1000 Balance -1850 -1008 -1000 Intake: Oral 1317 Output: Urine 1850 2325 1000 Other: Voiding Method Indwelling Catheter Indwelling Catheter - Exam GENERAL DESCRIPTION: Middle-age female lying in bed in no distress RESPIRATORY SYSTEM: Unlabored breathing , decreased breath sounds at bases HEART: S1 S2 regular rate and rhythm , ABDOMEN: Soft , no tenderness EXTREMITIES: Diffuse swelling to the leg no redness - Labs CBC & Chem 7: 07/29/24 08:33 08/06/24 08:02 Labs: Abnormal Lab Results - Last 24 Hours (Table) 08/06/24 Range/Units 08:02 Calcium 8.2 L (8.4-10.2) mg/dL Assessment and Plan (1) Sepsis Current Visit: Yes Status: Acute Code(s): A41.9 - SEPSIS, UNSPECIFIED ORGANISM SNOMED Code(s): 60794082 (2) Leukocytosis Current Visit: Yes Status: Acute Code(s): D72.829 - ELEVATED WHITE BLOOD CELL COUNT, UNSPECIFIED SNOMED Code(s): 921632211 (3) COVID-19 Current Visit: Yes Status: Acute Code(s): U07.1 - COVID-19 SNOMED Code(s): 782559435 (4) Cholangitis Current Visit: Yes Status: Acute Code(s): K83.09 - OTHER CHOLANGITIS SNOMED Code(s): 18256934 Plan: 1patient did have features of SIRS as the patient did have tachycardia elevated white count but no fever source likely abdominal keeping in mind predominantly symptoms of nausea vomiting and diarrhea and did have elevated liver enzymes concerning for possible cholangitis did have a positive UA urine source not entirely excluded 2-patient did tested positive for COVID-19 however did not have significant respiratory symptoms patient not hypoxic chest x-ray was negative questionable incidental finding 3-wound care to the back with Aquacel silver dressing keep the area of the pressure she did grew pathogen more likely skin lary including not behaving as cellulitis, continue with local wound care 4-patient ultrasound of the abdomen did show some gallbladder sludge but no features of cholecystitis CBD was normal, subsequently her liver enzymes have improved and the patient has completed course of antibiotics and will monitor closely off antibiotic at this point Dictation was produced using [employer] dictation software. please excuse any grammatical, word or spelling errors. Time with Patient: Less than 30
--- NOTE | 2024-08-06 20:24 | P.PN ---
Subjective patient is seen for follow-up for acute kidney injury. Renal function has been improving and hemodialysis has been on hold. Last hemodialysis treatment was on 07/27/2024. Serum creatinine decreased to 0.9 today. Good urine output noted. Objective - Vital Signs Vital signs: Vital Signs Temp 98.8 F 08/06/24 13:36 Pulse 92 08/06/24 13:36 Resp 18 08/06/24 13:36 BP 105/70 08/06/24 13:36 Pulse Ox 100 08/06/24 13:36 FiO2 Intake & Output 08/06/24 08/06/24 08/07/24 06:59 18:59 06:59 Intake Total 1317 Output Total 2325 1900 Balance -1008 -1900 Intake: Oral 1317 Output: Urine 2325 1900 Other: Voiding Method Indwelling Catheter - Exam patient is awake, comfortable, no acute distress. Examination of the heart S1 and S2 Examination of the lungs bilateral breath sounds are heard Abdomen is soft nontender Examination lower extremity shows chronic skin changes no significant edema noted - Labs CBC & Chem 7: 07/29/24 08:33 08/06/24 08:02 Labs: Abnormal Lab Results - Last 24 Hours (Table) 08/06/24 Range/Units 08:02 Calcium 8.2 L (8.4-10.2) mg/dL Assessment and Plan Assessment: 1. Acute kidney injury secondary to ATN secondary to severe sepsis. Creatinine 3.38 on admission and was up to 4.87 dated July 25, 2024 with BUN over 120. Started on hemodialysis July 25, 2024 via temporary dialysis catheter. Unknown baseline renal function. No hydronephrosis noted on ultrasound. Hemodialysis currently on hold with last treatment on 07/27/2024. Renal function continues to improve. Dialysis catheter was discontinued on 08/01/2024 2. Acute COVID-19 infection. Improved. 3. Metabolic acidosis secondary to acute kidney injury and IV fluids. Also component of lactic acidosis which improved. Improved 4. Nausea vomiting and diarrhea. Questionable cholangitis. On antibiotics. ID following. 5. Hyperphosphatemia secondary to acute kidney injury. Improved with improving renal function. Plan: Continue to monitor labs periodically. Continue off of IV fluids continue to avoid nephrotoxic agents.
--- NOTE | 2024-08-07 05:22 | P.PN ---
Subjective Progress Note Date: 08/06/24 Patient evaluated today in follow-up in the medical floor resting in bed comfortably. Patient has completed a course of oral Augmentin with concerns for cholangitis. Additionally patient was started on hemodialysis since admission with recovery of her renal function and no longer is requiring hemodialysis. Most recent blood work today reveals a sodium level of 147, BUN of 14 creatinine of 1.3. Her LFTs are slowly improving. Wound cultures to her sacral decubitus show Corynebacterium and Brevibacterium species. Cardiology following secondary to sinus pauses and they have recommended an event monitor on discharge for 14 days for further evaluation and further recommendations on outpatient basis. Patient does not have any health insurance and Adult Protective Services has been involved patient will go for a guardianship hearing on August 07 and to help with discharge planning. She will remain in the hospital until this has been completed. 08/04/2024 Patient evaluated in follow-up with the medical floor. Patient is completed a course of oral Augmentin. Patient has completed hemodialysis. She is currently pending guardianship hearing for August 07. Local wound care continues to the pressure injury to her bottom and back. Patient has no acute complaints today. 08/05/2024 Patient is seen in follow-up this morning with multiple consultations following. Currently awaiting guardianship hearing but social work will be attending on August 07. Patient has completed hemodialysis and not requiring further dialysis at this time and will follow-up with repeat labs. Patient to continue with local wound care and offloading frequently. Patient is afebrile denies chest pain or shortness of breath. Patient reports tolerating diet with no reported nausea or vomiting. 08/06/2024 Patient is seen in follow-up today currently awaiting to undergo guardianship hearing on August 07 with case management/social work following and will be arranging for possible ECF once guardianship this is obtained. Patient is afebrile with no reports of chest pain or shortness of breath currently sitting up in the bed on room air. Patient to continue with local wound care and has completed antibiotic therapy. Patient reports to tolerating diet with no reported nausea or vomiting. Nephrology following and kidney functions have recovered and not requiring further dialysis at this time. Review of Systems Constitutional: Denied any fatigue denied any fever. Cardio vascular: denied any chest pain, palpitations Gastrointestinal: denied any nausea, vomiting, diarrhea Pulmonary: Denied any shortness of breath cough Neurologic denied any new focal deficits, continues with significant weakness All inpatient medications were reviewed and appropriate changes in these medications as dictated in the interval history and assessment and plan. PHYSICAL EXAMINATION: GENERAL: The patient is alert and oriented x 23 baseline, not in any acute distress. Well developed, well nourished. Morbidly obese HEENT: Pupils are round and equally reacting to light. EOMI. No scleral icterus. No conjunctival pallor. Normocephalic, atraumatic. No pharyngeal erythema. No thyromegaly. CARDIOVASCULAR: S1 and S2 present. No murmurs, rubs, or gallops. PULMONARY: Chest is clear to auscultation, no wheezing or crackles. ABDOMEN: Soft, obese, nontender, nondistended, normoactive bowel sounds. No palpable organomegaly. MUSCULOSKELETAL: No joint swelling or deformity. EXTREMITIES: No cyanosis, clubbing, or pedal edema. NEUROLOGICAL: Gross neurological examination did not reveal any focal deficits. Diffusely weak SKIN: No rashes. Pressure injuries as mentioned in the HPI Assessment and plan: Multiple areas of pressure injury with mixed full-thickness tissue loss and mottling wound care has evaluated the patient recommending to continue with Triad cream and pressure offloading as well as a specialty air mattress. Patient will require residential wound care and follow-up with the wound care center on discharge. Extensive decubitus ulcer with pressure ulcers with sepsis, present on admission Leukocytosis, possibly secondary to above, improved Acute renal failure with acute tubular necrosis with worsening oliguria requiring hemodialysis renal function has recovered Generalized weakness and mostly bedbound Elevated LFTs, trending down possibly underlying cholangitis, completed course of antibiotic therapy Nausea, vomiting, diarrhea history, likely secondary to COVID-19, improved COVID-19 infection Morbid obesity with a BMI 54.8 History of noncompliance and most likely possible underlying psychiatric issues GI prophylaxis DVT prophylaxis Full code Plan: Patient remains off antibiotic therapy and being monitored with infectious disease following Renal function has essentially normalized nephrology following closely. Patient is off hemodialysis at this time Event monitor on discharge for a total of 14 days recommended by cardiology with outpatient follow-up As mentioned continue local wound care to the sacral decubitus ulcer and additional areas of tissue loss on her back and buttock with Triad cream patient will require close follow-up with the wound care center on discharge for additional recommendations. Per home care once these wounds mature patient may be switched over to a honey gel type wound care. Secondary to patient's condition on admission, Adult Protective Services was consulted and recommended for patient to go for guardianship hearing which is arranged for August 07 patient will need to remain in the hospital until this happens as she does not have any health insurance coverage and will need assistance with discharge planning to a residential facility. PT OT has been consulted and will needed updated therapy notes Will discuss further with case management/social work regarding discharge planning once guardianship is obtained on August 07, 2024. The impression and plan of care has been dictated by Christina Soares Nurse Practitioner as directed. Dr. Henrique MD I have performed a history and physical examination and medical decision making of this patient, discussed the same with the dictator, and agree with the dictators assessment and plan as written, documented as a scribe. Based on total visit time, I have performed more than 50% of this visit. Objective - Vital Signs Vital signs: Vital Signs Temp 98.2 F 08/06/24 07:30 Pulse 88 08/06/24 07:30 Resp 18 08/06/24 07:30 BP 138/90 08/06/24 07:30 Pulse Ox 97 08/06/24 07:30 FiO2 Intake & Output 08/05/24 08/06/24 08/06/24 18:59 06:59 18:59 Intake Total 1317 Output Total 1850 2325 Balance -1850 -1008 Intake: Oral 1317 Output: Urine 1850 2325 Other: Voiding Method Indwelling Catheter Indwelling Catheter - Labs CBC & Chem 7: 07/29/24 08:33 08/06/24 08:02 Labs: Abnormal Lab Results - Last 24 Hours (Table) 08/06/24 Range/Units 08:02 Calcium 8.2 L (8.4-10.2) mg/dL
--- NOTE | 2024-08-08 06:14 | P.PN ---
Subjective Progress Note Date: 08/07/24 Patient evaluated today in follow-up in the medical floor resting in bed comfortably. Patient has completed a course of oral Augmentin with concerns for cholangitis. Additionally patient was started on hemodialysis since admission with recovery of her renal function and no longer is requiring hemodialysis. Most recent blood work today reveals a sodium level of 147, BUN of 14 creatinine of 1.3. Her LFTs are slowly improving. Wound cultures to her sacral decubitus show Corynebacterium and Brevibacterium species. Cardiology following secondary to sinus pauses and they have recommended an event monitor on discharge for 14 days for further evaluation and further recommendations on outpatient basis. Patient does not have any health insurance and Adult Protective Services has been involved patient will go for a guardianship hearing on August 07 and to help with discharge planning. She will remain in the hospital until this has been completed. 08/04/2024 Patient evaluated in follow-up with the medical floor. Patient is completed a course of oral Augmentin. Patient has completed hemodialysis. She is currently pending guardianship hearing for August 07. Local wound care continues to the pressure injury to her bottom and back. Patient has no acute complaints today. 08/05/2024 Patient is seen in follow-up this morning with multiple consultations following. Currently awaiting guardianship hearing but social work will be attending on August 07. Patient has completed hemodialysis and not requiring further dialysis at this time and will follow-up with repeat labs. Patient to continue with local wound care and offloading frequently. Patient is afebrile denies chest pain or shortness of breath. Patient reports tolerating diet with no reported nausea or vomiting. 08/06/2024 Patient is seen in follow-up today currently awaiting to undergo guardianship hearing on August 07 with case management/social work following and will be arranging for possible ECF once guardianship this is obtained. Patient is afebrile with no reports of chest pain or shortness of breath currently sitting up in the bed on room air. Patient to continue with local wound care and has completed antibiotic therapy. Patient reports to tolerating diet with no reported nausea or vomiting. Nephrology following and kidney functions have recovered and not requiring further dialysis at this time. 08/07/2024 Patient is seen in follow-up this morning with no acute overnight issues. Per social work patient did receive a public guardian and now working with obtaining Medicaid. Patient has no insurance and will need ECF on discharge and will be a difficult placement due to no insurance. Patient is afebrile with no reported chest pain or shortness of breath. Patient is maintained off hemodialysis and will follow-up on repeat labs to monitor kidney functions. Recommend PT/OT therapy daily and continued wound care. Review of Systems Constitutional: Denied any fatigue denied any fever. Cardio vascular: denied any chest pain, palpitations Gastrointestinal: denied any nausea, vomiting, diarrhea Pulmonary: Denied any shortness of breath cough Neurologic denied any new focal deficits, continues with significant weakness All inpatient medications were reviewed and appropriate changes in these medications as dictated in the interval history and assessment and plan. PHYSICAL EXAMINATION: GENERAL: The patient is alert and oriented x 23 baseline, not in any acute distress. Well developed, well nourished. Morbidly obese HEENT: Pupils are round and equally reacting to light. EOMI. No scleral icterus. No conjunctival pallor. Normocephalic, atraumatic. No pharyngeal erythema. No thyromegaly. CARDIOVASCULAR: S1 and S2 present. No murmurs, rubs, or gallops. PULMONARY: Chest is clear to auscultation, no wheezing or crackles. ABDOMEN: Soft, obese, nontender, nondistended, normoactive bowel sounds. No palpable organomegaly. MUSCULOSKELETAL: No joint swelling or deformity. EXTREMITIES: No cyanosis, clubbing, or pedal edema. NEUROLOGICAL: Gross neurological examination did not reveal any focal deficits. Diffusely weak SKIN: No rashes. Pressure injuries as mentioned in the HPI Assessment and plan: Multiple areas of pressure injury with mixed full-thickness tissue loss and mottling wound care has evaluated the patient recommending to continue with Triad cream and pressure offloading as well as a specialty air mattress. Patient will require assisted wound care and follow-up with the wound care center on discharge. Extensive decubitus ulcer with pressure ulcers with sepsis, present on admission Leukocytosis, possibly secondary to above, improved Acute renal failure with acute tubular necrosis with worsening oliguria requiring hemodialysis renal function has recovered Generalized weakness and mostly bedbound Elevated LFTs, trending down possibly underlying cholangitis, completed course of antibiotic therapy Nausea, vomiting, diarrhea history, likely secondary to COVID-19, improved COVID-19 infection Morbid obesity with a BMI 54.8 History of noncompliance and most likely possible underlying psychiatric issues GI prophylaxis DVT prophylaxis Full code Plan: Patient remains off antibiotic therapy and being monitored with infectious disease following Renal function has essentially normalized nephrology following closely. Patient is off hemodialysis at this time. Will be repeating a.m. labs to monitor kidney functions Event monitor on discharge for a total of 14 days recommended by cardiology with outpatient follow-up As mentioned continue local wound care to the sacral decubitus ulcer and additional areas of tissue loss on her back and buttock with Triad cream patient will require close follow-up with the wound care center on discharge for additional recommendations. Per home care once these wounds mature patient may be switched over to a honey gel type wound care. Adult Protective Services is involved and patient did obtain a public guardian with social work following. Per social work patient has no insurance and working with possibly obtaining Medicaid and ECF. Per social work, will be difficult placement PT OT has been consulted and will needed updated therapy notes Will discuss further with case management/social work regarding discharge planning The impression and plan of care has been dictated by Christina Soares, Nurse Practitioner as directed. Dr. Henrique MD I have performed a history and physical examination and medical decision making of this patient, discussed the same with the dictator, and agree with the dictators assessment and plan as written, documented as a scribe. Based on total visit time, I have performed more than 50% of this visit. Objective - Vital Signs Vital signs: Vital Signs Temp 98.9 F 08/07/24 06:53 Pulse 98 08/07/24 06:53 Resp 18 08/07/24 06:53 BP 139/85 08/07/24 06:53 Pulse Ox 96 08/07/24 06:53 FiO2 Intake & Output 08/06/24 08/07/24 08/07/24 18:59 06:59 18:59 Intake Total 1600 Output Total 1900 1300 Balance -1900 300 Intake: Oral 1600 Output: Urine 1900 1300 Other: Voiding Method Indwelling Catheter - Labs CBC & Chem 7: 07/29/24 08:33 08/06/24 08:02
[2024-08-08 09:37] LABS: BUN/Creat Ratio 14.25 Ratio (12.00-20.00); Blood Urea Nitrogen 11.4 mg/dL (9.0-27.0); Carbon Dioxide 24.7 mmol/L (21.6-31.8); Chloride 102 mmol/L (96-109); Glucose 102 mg/dL (70-110); Magnesium 1.4 mg/dL (1.5-2.4); Potassium 3.8 mmol/L (3.5-5.5); Sodium 136 mmol/L (135-145)
[2024-08-08 09:52] LABS: Basophils # (A) 0.02 X 10*3/uL (0.00-0.10); Basophils % (A) 0.3 %; Eosinophils # (A) 0.16 X 10*3/uL (0.04-0.35); Eosinophils % (A) 2.6 %; HCT 29.1 % (37.2-46.3); HGB 9.1 g/dL (12.0-15.0); Lymphocytes % (A) 24.4 %; MCH 29.2 pg (27.0-32.0); MCHC 31.3 g/dL (32.0-37.0); MCV 93.3 FL (80.0-97.0); Mean Platelet Volume 9.8 FL (9.5-12.2); Monocytes # (A) 0.47 X 10*3/uL (0.20-1.00); Monocytes % (A) 7.7 %; NRBC Per 100 WBC 0 X 10*3/uL (0.00-0.01); Neutrophils # (A) 3.94 X 10*3/uL (1.80-7.70); Neutrophils % (A) 64.2 %; Platelet Count 188 X 10*3/uL (140-440); RBC 3.12 X 10*6/uL (4.10-5.20); RDW 16.4 % (11.5-14.5); WBC 6.14 X 10*3/uL (4.50-10.00)
[2024-08-08] MEDS ORDERED: Magnesium Replacement Protocol 1 EACH MISC MISCELLANE PRN (14:33)
--- NOTE | 2024-08-08 14:35 | P.PN ---
Subjective Progress Note Date: 08/08/24 Patient evaluated today in follow-up in the medical floor resting in bed comfortably. Patient has completed a course of oral Augmentin with concerns for cholangitis. Additionally patient was started on hemodialysis since admission with recovery of her renal function and no longer is requiring hemodialysis. Most recent blood work today reveals a sodium level of 147, BUN of 14 creatinine of 1.3. Her LFTs are slowly improving. Wound cultures to her sacral decubitus show Corynebacterium and Brevibacterium species. Cardiology following secondary to sinus pauses and they have recommended an event monitor on discharge for 14 days for further evaluation and further recommendations on outpatient basis. Patient does not have any health insurance and Adult Protective Services has been involved patient will go for a guardianship hearing on August 07 and to help with discharge planning. She will remain in the hospital until this has been completed. 08/04/2024 Patient evaluated in follow-up with the medical floor. Patient is completed a course of oral Augmentin. Patient has completed hemodialysis. She is currently pending guardianship hearing for August 07. Local wound care continues to the pressure injury to her bottom and back. Patient has no acute complaints today. 08/05/2024 Patient is seen in follow-up this morning with multiple consultations following. Currently awaiting guardianship hearing but social work will be attending on August 07. Patient has completed hemodialysis and not requiring further dialysis at this time and will follow-up with repeat labs. Patient to continue with local wound care and offloading frequently. Patient is afebrile denies chest pain or shortness of breath. Patient reports tolerating diet with no reported nausea or vomiting. 08/06/2024 Patient is seen in follow-up today currently awaiting to undergo guardianship hearing on August 07 with case management/social work following and will be arranging for possible ECF once guardianship this is obtained. Patient is afebrile with no reports of chest pain or shortness of breath currently sitting up in the bed on room air. Patient to continue with local wound care and has completed antibiotic therapy. Patient reports to tolerating diet with no reported nausea or vomiting. Nephrology following and kidney functions have recovered and not requiring further dialysis at this time. 08/08/2024 Patient is evaluated in follow-up of medical floor. She has no acute complaints at this time. Legal guardianship has been obtained for this patient and she is currently pending a Medicaid application and will then need an accepting placement facility. Continue with local wound care. Has completed antibiotic therapy at this time. Review of Systems Constitutional: Denied any fatigue denied any fever. Cardio vascular: denied any chest pain, palpitations Gastrointestinal: denied any nausea, vomiting, diarrhea Pulmonary: Denied any shortness of breath cough Neurologic denied any new focal deficits, continues with significant weakness All inpatient medications were reviewed and appropriate changes in these medications as dictated in the interval history and assessment and plan. PHYSICAL EXAMINATION: GENERAL: The patient is alert and oriented x 23 baseline, not in any acute dis tress. Well developed, well nourished. Morbidly obese HEENT: Pupils are round and equally reacting to light. EOMI. No scleral icterus. No conjunctival pallor. Normocephalic, atraumatic. No pharyngeal erythema. No thyromegaly. CARDIOVASCULAR: S1 and S2 present. No murmurs, rubs, or gallops. PULMONARY: Chest is clear to auscultation, no wheezing or crackles. ABDOMEN: Soft, obese, nontender, nondistended, normoactive bowel sounds. No palpable organomegaly. MUSCULOSKELETAL: No joint swelling or deformity. EXTREMITIES: No cyanosis, clubbing, or pedal edema. NEUROLOGICAL: Gross neurological examination did not reveal any focal deficits. Diffusely weak SKIN: No rashes. Pressure injuries as mentioned in the HPI Assessment and plan: Multiple areas of pressure injury with mixed full-thickness tissue loss and mottling wound care has evaluated the patient recommending to continue with Tri ad cream and pressure offloading as well as a specialty air mattress. Patient will require long-term wound care and follow-up with the wound care center on discharge. Extensive decubitus ulcer with pressure ulcers with sepsis, present on admission Leukocytosis, possibly secondary to above, improved Acute renal failure with acute tubular necrosis with worsening oliguria requiring hemodialysis renal function has recovered Generalized weakness and mostly bedbound Elevated LFTs, trending down possibly underlying cholangitis, completed course of antibiotic therapy Nausea, vomiting, diarrhea history, likely secondary to COVID-19, improved COVID-19 infection Morbid obesity with a BMI 54.8 History of noncompliance and most likely possible underlying psychiatric issues GI prophylaxis DVT prophylaxis Full code Plan: Patient remains off antibiotic therapy and being monitored with infectious disease following Renal function has essentially normalized nephrology following closely. Patient is off hemodialysis at this time Event monitor on discharge for a total of 14 days recommended by cardiology with outpatient follow-up As mentioned continue local wound care to the sacral decubitus ulcer and additional areas of tissue loss on her back and buttock with Triad cream patient will require close follow-up with the wound care center on discharge for additional recommendations. Per home care once these wounds mature patient may be switched over to a honey gel type wound care. Secondary to patient's condition on admission, Adult Protective Services was consulted. Now has a legal guardian. She is currently pending Medicaid application. Will need physical therapy occupational therapy follow-up notes. The impression and plan of care has been dictated by Nurse Lois Gray as directed. Dr. Henrique MD I have performed a history and physical examination and medical decision making of this patient, discussed the same with the dictator, and agree with the dictat ors assessment and plan as written, documented as a scribe. Based on total visit time, I have performed more than 50% of this visit. Objective - Vital Signs Vital signs: Vital Signs Temp 98.1 F 08/08/24 07:25 Pulse 87 08/08/24 07:25 Resp 17 08/08/24 07:25 BP 108/76 08/08/24 07:25 Pulse Ox 95 08/08/24 07:25 FiO2 Intake & Output 08/07/24 08/08/24 08/08/24 18:59 06:59 18:59 Output Total 1999 1350 800 Balance -1999 -1350 -800 Weight 135 kg 135.4 kg Output: Urine 1999 1350 800 Other: Voiding Method Indwelling Catheter Indwelling Catheter # Voids 1 - Labs CBC & Chem 7: 08/08/24 06:07 08/08/24 06:07 Labs: Abnormal Lab Results - Last 24 Hours (Table) 08/08/24 08/08/24 Range/Units 06:07 06:07 RBC 3.12 L (4.10-5.20) X 10*6/uL Hgb 9.1 L (12.0-15.0) g/dL Hct 29.1 L (37.2-46.3) % MCHC 31.3 L (32.0-37.0) g/dL RDW 16.4 H (11.5-14.5) % Immature Gran # 0.05 H (0.00-0.04) X 10*3/uL Calcium 8.0 L (8.7-10.3) mg/dL Magnesium 1.4 L (1.5-2.4) mg/dL Assessment and Plan Time with Patient: Less than 30
[2024-08-08] MEDS: MAGNESIUM SULFATE-D5W PMX 1 GM in DEXTROSE/WATER 1 100ML.BAG IVPB SCH (15:15)
--- NOTE | 2024-08-08 16:10 | P.PN ---
Subjective Progress Note Date: 08/07/24 Principal diagnosis: Reason for follow-up is COVID-19, leukocytosis Patient is a 58-year-old female with no reported past medical history former smoker patient has been brought into the hospital for evaluation of subjective fever chills nausea vomiting diarrhea patient tested positive for COVID 19 chest x-ray negative for acute cardiopulmonary disease process did have elevated white count and elevated liver enzymes. On today's evaluation that is 08/07/2024,the patient denies any fever or any chills, patient is breathing comfortably on room air, the patient denies chest pain shortness of breath and no significant cough, patient epigastric abdominal pain has improved, no nausea vomiting or diarrhea. Denies any worsening pain to the wound area. Patient did have a creatinine 0.99 Objective - Vital Signs Vital signs: Vital Signs Temp 98.9 F 08/07/24 06:53 Pulse 98 08/07/24 06:53 Resp 18 08/07/24 06:53 BP 139/85 08/07/24 06:53 Pulse Ox 96 08/07/24 06:53 FiO2 Intake & Output 08/06/24 08/07/24 08/07/24 18:59 06:59 18:59 Intake Total 1600 Output Total 1900 1300 Balance -1900 300 Weight 135 kg Intake: Oral 1600 Output: Urine 1900 1300 Other: Voiding Method Indwelling Catheter - Exam GENERAL DESCRIPTION: Middle-age female lying in bed in no distress RESPIRATORY SYSTEM: Unlabored breathing , decreased breath sounds at bases HEART: S1 S2 regular rate and rhythm , ABDOMEN: Soft , no tenderness EXTREMITIES: Diffuse swelling to the leg no redness - Labs CBC & Chem 7: 08/08/24 06:07 08/08/24 06:07 Assessment and Plan (1) Sepsis Current Visit: Yes Status: Acute Code(s): A41.9 - SEPSIS, UNSPECIFIED ORGANISM SNOMED Code(s): 17709593 (2) Leukocytosis Current Visit: Yes Status: Acute Code(s): D72.829 - ELEVATED WHITE BLOOD CELL COUNT, UNSPECIFIED SNOMED Code(s): 865506048 (3) COVID-19 Current Visit: Yes Status: Acute Code(s): U07.1 - COVID-19 SNOMED Code(s): 165025975 (4) Cholangitis Current Visit: Yes Status: Acute Code(s): K83.09 - OTHER CHOLANGITIS SNOMED Code(s): 63037821 Plan: 1patient did have features of SIRS as the patient did have tachycardia elevated white count but no fever source likely abdominal keeping in mind predominantly symptoms of nausea vomiting and diarrhea and did have elevated liver enzymes concerning for possible cholangitis did have a positive UA urine source not entirely excluded 2-patient did tested positive for COVID-19 however did not have significant respiratory symptoms patient not hypoxic chest x-ray was negative questionable incidental finding 3-wound care to the back with Aquacel silver dressing keep the area of the pressure she did grew pathogen more likely skin lary including not behaving as cellulitis, continue with local wound care 4-patient ultrasound of the abdomen did show some gallbladder sludge but no features of cholecystitis CBD was normal, subsequently her liver enzymes have improved and the patient has completed course of antibiotics currently doing well off antibiotics will repeat CBC with a.m. lab Dictation was produced using [employer] dictation software. please excuse any grammatical, word or spelling errors. Time with Patient: Less than 30
--- NOTE | 2024-08-08 16:11 | P.PN ---
Subjective Progress Note Date: 08/08/24 Principal diagnosis: Reason for follow-up is COVID-19, leukocytosis Patient is a 58-year-old female with no reported past medical history former smoker patient has been brought into the hospital for evaluation of subjective fever chills nausea vomiting diarrhea patient tested positive for COVID 19 chest x-ray negative for acute cardiopulmonary disease process did have elevated white count and elevated liver enzymes. On today's evaluation that is 08/08/2024,the patient remains to be afebrile, patient is on room air not requiring supplemental oxygen and denies any shortness of breath no chest pain or cough.Patient denies having any nausea or vomiting, no abdominal pain and no diarrhea has been reported, the patient wounds are looking better as reported by the nursing staff within the dressing. Patient white count 6.14, creatinine 0.8 Objective - Vital Signs Vital signs: Vital Signs Temp 98.5 F 08/08/24 13:20 Pulse 80 08/08/24 13:20 Resp 17 08/08/24 13:20 BP 115/61 08/08/24 13:20 Pulse Ox 95 08/08/24 13:20 FiO2 Intake & Output 08/07/24 08/08/24 08/08/24 18:59 06:59 18:59 Output Total 1999 1350 800 Balance -1999 -1350 -800 Weight 135 kg 135.4 kg Output: Urine 1999 1350 800 Other: Voiding Method Indwelling Catheter Indwelling Catheter # Voids 1 - Exam GENERAL DESCRIPTION: Middle-age female lying in bed in no distress RESPIRATORY SYSTEM: Unlabored breathing , decreased breath sounds at bases HEART: S1 S2 regular rate and rhythm , ABDOMEN: Soft , no tenderness EXTREMITIES: Diffuse swelling to the leg no redness - Labs CBC & Chem 7: 08/08/24 06:07 08/08/24 06:07 Labs: Abnormal Lab Results - Last 24 Hours (Table) 08/08/24 08/08/24 Range/Units 06:07 06:07 RBC 3.12 L (4.10-5.20) X 10*6/uL Hgb 9.1 L (12.0-15.0) g/dL Hct 29.1 L (37.2-46.3) % MCHC 31.3 L (32.0-37.0) g/dL RDW 16.4 H (11.5-14.5) % Immature Gran # 0.05 H (0.00-0.04) X 10*3/uL Calcium 8.0 L (8.7-10.3) mg/dL Magnesium 1.4 L (1.5-2.4) mg/dL Assessment and Plan (1) Sepsis Current Visit: Yes Status: Acute Code(s): A41.9 - SEPSIS, UNSPECIFIED ORGANISM SNOMED Code(s): 46500470 (2) Leukocytosis Current Visit: Yes Status: Acute Code(s): D72.829 - ELEVATED WHITE BLOOD CELL COUNT, UNSPECIFIED SNOMED Code(s): 448282644 (3) COVID-19 Current Visit: Yes Status: Acute Code(s): U07.1 - COVID-19 SNOMED Code(s): 631025090 (4) Cholangitis Current Visit: Yes Status: Acute Code(s): K83.09 - OTHER CHOLANGITIS SNOMED Code(s): 21750598 Plan: 1patient did have features of SIRS as the patient did have tachycardia elevated white count but no fever source likely abdominal keeping in mind predominantly symptoms of nausea vomiting and diarrhea and did have elevated liver enzymes concerning for possible cholangitis did have a positive UA urine source not e ntirely excluded 2-patient did tested positive for COVID-19 however did not have significant respiratory symptoms patient not hypoxic chest x-ray was negative questionable incidental finding 3-wound care to the back with Aquacel silver dressing keep the area of the pressure she did grew pathogen more likely skin lary including not behaving as cellulitis, patient nurse will change the dressing today concerning, some drainage from one of the wound she already have changed the dressing will review the wound tomorrow with primary dressing changes 4-patient ultrasound of the abdomen did show some gallbladder sludge but no features of cholecystitis CBD was normal, subsequently her liver enzymes have improved and the patient has completed course of antibiotics currently doing well off antibiotics and the patient white count has been normal Dictation was produced using [employer] dictation software. please excuse any grammatical, word or spelling errors. Time with Patient: Less than 30
[2024-08-08] MEDS: HYDROcodone/APAP 5-325MG 1 EACH TAB PO PRN (23:37)
[2024-08-09] MEDS: LACTULOSE 20 GM/30 ML CUP PO SCH (15:46)
[2024-08-09] MEDS: SENNOSIDES 8.6 MG TAB PO SCH (20:20)
[2024-08-10] MEDS: bisacodyL 10 MG SUPP RECTAL SCH (00:30)
--- NOTE | 2024-08-10 07:11 | P.PN ---
Subjective Progress Note Date: 08/09/24 Patient evaluated today in follow-up in the medical floor resting in bed comfortably. Patient has completed a course of oral Augmentin with concerns for cholangitis. Additionally patient was started on hemodialysis since admission with recovery of her renal function and no longer is requiring hemodialysis. Most recent blood work today reveals a sodium level of 147, BUN of 14 creatinine of 1.3. Her LFTs are slowly improving. Wound cultures to her sacral decubitus show Corynebacterium and Brevibacterium species. Cardiology following secondary to sinus pauses and they have recommended an event monitor on discharge for 14 days for further evaluation and further recommendations on outpatient basis. Patient does not have any health insurance and Adult Protective Services has been involved patient will go for a guardianship hearing on August 07 and to help with discharge planning. She will remain in the hospital until this has been completed. 08/04/2024 Patient evaluated in follow-up with the medical floor. Patient is completed a course of oral Augmentin. Patient has completed hemodialysis. She is currently pending guardianship hearing for August 07. Local wound care continues to the pressure injury to her bottom and back. Patient has no acute complaints today. 08/05/2024 Patient is seen in follow-up this morning with multiple consultations following. Currently awaiting guardianship hearing but social work will be attending on August 07. Patient has completed hemodialysis and not requiring further dialysis at this time and will follow-up with repeat labs. Patient to continue with local wound care and offloading frequently. Patient is afebrile denies chest pain or shortness of breath. Patient reports tolerating diet with no reported nausea or vomiting. 08/06/2024 Patient is seen in follow-up today currently awaiting to undergo guardianship hearing on August 07 with case management/social work following and will be arranging for possible ECF once guardianship this is obtained. Patient is afebrile with no reports of chest pain or shortness of breath currently sitting up in the bed on room air. Patient to continue with local wound care and has completed antibiotic therapy. Patient reports to tolerating diet with no reported nausea or vomiting. Nephrology following and kidney functions have recovered and not requiring further dialysis at this time. 08/08/2024 Patient is evaluated in follow-up of medical floor. She has no acute complaints at this time. Legal guardianship has been obtained for this patient and she is currently pending a Medicaid application and will then need an accepting placement facility. Continue with local wound care. Has completed antibiotic therapy at this time. 08/09/2024 Patient is seen in follow-up today reports no significant overnight issues although is having some lower abdominal cramping. Patient reports is passing gas and there are positive bowel sounds noted on exam. Nursing staff reports she has not had a bowel movement and will continue bowel regimen as needed. Patient reports is eating and tolerating diet with no reported nausea or vomiting. Patient remains off antibiotics and kidney functions have recovered and maintained off dialysis. Patient continues to await insurance and ECF placement as patient has just received a guardian and working with social work regarding discharge planning. Encouraged frequent offloading and position changes. Review of Systems Constitutional: Denied any fatigue denied any fever. Cardio vascular: denied any chest pain, palpitations Gastrointestinal: denied any nausea, vomiting, diarrhea, reports of some lower abdominal cramping and reports having bowel movements although unreliable Pulmonary: Denied any shortness of breath cough Neurologic denied any new focal deficits, continues with significant weakness All inpatient medications were reviewed and appropriate changes in these medications as dictated in the interval history and assessment and plan. PHYSICAL EXAMINATION: GENERAL: The patient is alert and oriented x 2 baseline, not in any acute distress. Well developed, well nourished. Morbidly obese HEENT: Pupils are round and equally reacting to light. EOMI. No scleral icterus. No conjunctival pallor. Normocephalic, atraumatic. No pharyngeal erythema. No thyromegaly. CARDIOVASCULAR: S1 and S2 present. No murmurs, rubs, or gallops. PULMONARY: Chest is clear to auscultation, no wheezing or crackles. ABDOMEN: Soft, obese, mildly tender in lower quadrants, nondistended, normoactive bowel sounds. No palpable organomegaly. MUSCULOSKELETAL: No joint swelling or deformity. EXTREMITIES: No cyanosis, clubbing, or pedal edema. NEUROLOGICAL: Gross neurological examination did not reveal any focal deficits. Diffusely weak SKIN: No rashes. Pressure injuries as mentioned in the HPI Assessment and plan: Multiple areas of pressure injury with mixed full-thickness tissue loss and mottling wound care has evaluated the patient recommending to continue with Triad cream and pressure offloading as well as a specialty air mattress. Patient will require senior living wound care and follow-up with the wound care center on discharge. Extensive decubitus ulcer with pressure ulcers with sepsis, present on admission Leukocytosis, possibly secondary to above, improved Acute renal failure with acute tubular necrosis with worsening oliguria requiring hemodialysis renal function has recovered Generalized weakness and mostly bedbound Elevated LFTs, trending down possibly underlying cholangitis, completed course of antibiotic therapy Nausea, vomiting, diarrhea history, likely secondary to COVID-19, improved COVID-19 infection Morbid obesity with a BMI 54.8 History of noncompliance and most likely possible underlying psychiatric issues GI prophylaxis DVT prophylaxis Full code Plan: Patient remains off antibiotic therapy and being monitored with infectious disease following Renal function has essentially normalized nephrology following closely. Patient is off hemodialysis at this time. Will follow-up with repeat labs and monitor kidney functions closely. Replace electrolytes per protocol Patient reports of some abdominal cramping in the lower quadrants and reports is passing gas and having bowel movements although unsure of reliability as nursing staff reports she has not been having bowel movements. Recommend to continue with bowel regimen Scheduled as well as needed. Patient will need an event monitor on discharge for a total of 14 days recommended by cardiology with outpatient follow-up As mentioned continue local wound care to the sacral decubitus ulcer and additional areas of tissue loss on her back and buttock with Triad cream patient will require close follow-up with the wound care center on discharge for additional recommendations. Per home care once these wounds mature patient may be switched over to a honey gel type wound care. Secondary to patient's condition on admission, Adult Protective Services was consulted. Now has a legal guardian. She is currently pending Medicaid application. Will need physical therapy occupational therapy follow-up notes. The impression and plan of care has been dictated by Christina Soares, Nurse Practitioner as directed. Dr. Henrique MD I have performed a history and physical examination and medical decision making of this patient, discussed the same with the dictator, and agree with the dictators assessment and plan as written, documented as a scribe. Based on total visit time, I have performed more than 50% of this visit. Objective - Vital Signs Vital signs: Vital Signs Temp 99.1 F 08/10/24 02:25 Pulse 96 08/10/24 02:25 Resp 18 08/10/24 02:25 BP 110/68 08/10/24 02:25 Pulse Ox 95 08/10/24 02:25 FiO2 Intake & Output 08/09/24 08/10/24 08/10/24 18:59 06:59 18:59 Intake Total 1490 Output Total 1200 Balance -1200 1490 Intake: Oral 1490 Output: Urine 1200 Other: Voiding Method Indwelling Catheter # Bowel Movements 1 - Labs CBC & Chem 7: 08/08/24 06:07 08/08/24 06:07
--- NOTE | 2024-08-10 15:52 | P.PN ---
Subjective Progress Note Date: 08/09/24 Principal diagnosis: Reason for follow-up is COVID-19, leukocytosis Patient is a 58-year-old female with no reported past medical history former smoker patient has been brought into the hospital for evaluation of subjective fever chills nausea vomiting diarrhea patient tested positive for COVID 19 chest x-ray negative for acute cardiopulmonary disease process did have elevated white count and elevated liver enzymes. On today's evaluation that is 08/09/2024, the patient continues to be afebrile, the patient is on room air and breathing comfortably, the Pt denies having any chest pain or cough, the patient denies having any abdominal pain no vomiting or any diarrhea has been reported by the nursing staff No new labs were obtained today Objective - Vital Signs Vital signs: Vital Signs Temp 98.6 F 08/09/24 14:37 Pulse 99 08/09/24 14:37 Resp 18 08/09/24 14:37 BP 119/76 08/09/24 14:37 Pulse Ox 98 08/09/24 14:37 FiO2 Intake & Output 08/09/24 08/09/24 08/10/24 06:59 18:59 06:59 Intake Total 500 Output Total 750 1200 Balance -250 -1200 Weight 135 kg Intake: Oral 500 Output: Urine 750 1200 Other: Voiding Method Indwelling Catheter Indwelling Catheter - Exam GENERAL DESCRIPTION: Middle-age female lying in bed in no distress RESPIRATORY SYSTEM: Unlabored breathing , decreased breath sounds at bases HEART: S1 S2 regular rate and rhythm , ABDOMEN: Soft , no tenderness EXTREMITIES: Diffuse swelling to the leg no redness - Labs CBC & Chem 7: 08/08/24 06:07 08/08/24 06:07 Assessment and Plan (1) Sepsis Current Visit: Yes Status: Acute Code(s): A41.9 - SEPSIS, UNSPECIFIED ORGANISM SNOMED Code(s): 61613018 (2) Leukocytosis Current Visit: Yes Status: Acute Code(s): D72.829 - ELEVATED WHITE BLOOD CELL COUNT, UNSPECIFIED SNOMED Code(s): 357193985 (3) COVID-19 Current Visit: Yes Status: Acute Code(s): U07.1 - COVID-19 SNOMED Code(s): 050702074 (4) Cholangitis Current Visit: Yes Status: Acute Code(s): K83.09 - OTHER CHOLANGITIS SNOMED Code(s): 10617671 Plan: 1patient did have features of SIRS as the patient did have tachycardia elevated white count but no fever source likely abdominal keeping in mind predominantly symptoms of nausea vomiting and diarrhea and did have elevated liver enzymes concerning for possible cholangitis did have a positive UA urine source not entirely excluded 2-patient did tested positive for COVID-19 however did not have significant respiratory symptoms patient not hypoxic chest x-ray was negative questionable incidental finding 3-patient ultrasound of the abdomen did show some gallbladder sludge but no features of cholecystitis CBD was normal, subsequently her liver enzymes have improved and the patient has completed course of antibiotics currently doing well off antibiotics and the patient white count has been normal 4-patient did have multiple wounds to the back and posterior thigh area without any cellulitis, wound care to the back with Aquacel silver dressing change q. 48-hour discussed with the nursing staff at the time of rounds Dictation was produced using [employer] dictation software. please excuse any grammatical, word or spelling errors. Time with Patient: Less than 30
--- NOTE | 2024-08-10 15:53 | P.PN ---
Subjective Progress Note Date: 08/10/24 Principal diagnosis: Reason for follow-up is COVID-19, leukocytosis Patient is a 58-year-old female with no reported past medical history former smoker patient has been brought into the hospital for evaluation of subjective fever chills nausea vomiting diarrhea patient tested positive for COVID 19 chest x-ray negative for acute cardiopulmonary disease process did have elevated white count and elevated liver enzymes. On today's evaluation that is 08/10/2024, patient did not have any fever and denies any chills, patient is breathing comfortably on room air, patient with no chest pain or cough patient mentions some abdominal pain nausea vomiting or any loose stools denies pain to the wounds. No new labs obtained today Objective - Vital Signs Vital signs: Vital Signs Temp 97.9 F 08/10/24 13:58 Pulse 95 08/10/24 13:58 Resp 15 08/10/24 13:58 BP 132/73 08/10/24 13:58 Pulse Ox 99 08/10/24 13:58 FiO2 Intake & Output 08/09/24 08/10/24 08/10/24 18:59 06:59 18:59 Intake Total 2440 Output Total 1200 1600 Balance -1200 840 Intake: Oral 2440 Output: Urine 1200 1600 Other: Voiding Method Indwelling Catheter Indwelling Catheter # Bowel Movements 2 - Exam GENERAL DESCRIPTION: Middle-age female lying in bed in no distress RESPIRATORY SYSTEM: Unlabored breathing , decreased breath sounds at bases HEART: S1 S2 regular rate and rhythm , ABDOMEN: Soft , no tenderness EXTREMITIES: Diffuse swelling to the leg no redness - Labs CBC & Chem 7: 08/08/24 06:07 08/08/24 06:07 Assessment and Plan (1) Sepsis Current Visit: Yes Status: Acute Code(s): A41.9 - SEPSIS, UNSPECIFIED ORGANISM SNOMED Code(s): 34933580 (2) Leukocytosis Current Visit: Yes Status: Acute Code(s): D72.829 - ELEVATED WHITE BLOOD CELL COUNT, UNSPECIFIED SNOMED Code(s): 517406822 (3) COVID-19 Current Visit: Yes Status: Acute Code(s): U07.1 - COVID-19 SNOMED Code(s): 124875316 (4) Cholangitis Current Visit: Yes Status: Acute Code(s): K83.09 - OTHER CHOLANGITIS SNOMED Code(s): 04967904 Plan: 1patient did have features of SIRS as the patient did have tachycardia elevated white count but no fever source likely abdominal keeping in mind predominantly symptoms of nausea vomiting and diarrhea and did have elevated liver enzymes concerning for possible cholangitis did have a positive UA urine source not entirely excluded 2-patient did tested positive for COVID-19 however did not have significant respiratory symptoms patient not hypoxic chest x-ray was negative questionable incidental finding 3-patient ultrasound of the abdomen did show some gallbladder sludge but no features of cholecystitis CBD was normal, subsequently her liver enzymes have improved and the patient has completed course of antibiotics currently doing well off antibiotics and the patient white count has been normal 4-patient did have multiple wounds to the back and posterior thigh area without any cellulitis, wound care to the back with Aquacel silver dressing change q. 48-hour and monitor the patient closely off antibiotic Dictation was produced using [employer] dictation software. please excuse any grammatical, word or spelling errors. Time with Patient: Less than 30
--- NOTE | 2024-08-10 21:01 | P.PN ---
Subjective Progress Note Date: 08/10/24 Patient evaluated today in follow-up in the medical floor resting in bed comfortably. Patient has completed a course of oral Augmentin with concerns for cholangitis. Additionally patient was started on hemodialysis since admission with recovery of her renal function and no longer is requiring hemodialysis. Most recent blood work today reveals a sodium level of 147, BUN of 14 creatinine of 1.3. Her LFTs are slowly improving. Wound cultures to her sacral decubitus show Corynebacterium and Brevibacterium species. Cardiology following secondary to sinus pauses and they have recommended an event monitor on discharge for 14 days for further evaluation and further recommendations on outpatient basis. Patient does not have any health insurance and Adult Protective Services has been involved patient will go for a guardianship hearing on August 07 and to help with discharge planning. She will remain in the hospital until this has been completed. 08/04/2024 Patient evaluated in follow-up with the medical floor. Patient is completed a course of oral Augmentin. Patient has completed hemodialysis. She is currently pending guardianship hearing for August 07. Local wound care continues to the pressure injury to her bottom and back. Patient has no acute complaints today. 08/05/2024 Patient is seen in follow-up this morning with multiple consultations following. Currently awaiting guardianship hearing but social work will be attending on August 07. Patient has completed hemodialysis and not requiring further dialysis at this time and will follow-up with repeat labs. Patient to continue with local wound care and offloading frequently. Patient is afebrile denies chest pain or shortness of breath. Patient reports tolerating diet with no reported nausea or vomiting. 08/06/2024 Patient is seen in follow-up today currently awaiting to undergo guardianship hearing on August 07 with case management/social work following and will be arranging for possible ECF once guardianship this is obtained. Patient is afebrile with no reports of chest pain or shortness of breath currently sitting up in the bed on room air. Patient to continue with local wound care and has completed antibiotic therapy. Patient reports to tolerating diet with no reported nausea or vomiting. Nephrology following and kidney functions have recovered and not requiring further dialysis at this time. 08/08/2024 Patient is evaluated in follow-up of medical floor. She has no acute complaints at this time. Legal guardianship has been obtained for this patient and she is currently pending a Medicaid application and will then need an accepting placement facility. Continue with local wound care. Has completed antibiotic therapy at this time. 08/09/2024 Patient is seen in follow-up today reports no significant overnight issues although is having some lower abdominal cramping. Patient reports is passing gas and there are positive bowel sounds noted on exam. Nursing staff reports she has not had a bowel movement and will continue bowel regimen as needed. Patient reports is eating and tolerating diet with no reported nausea or vomiting. Patient remains off antibiotics and kidney functions have recovered and maintained off dialysis. Patient continues to await insurance and ECF placement as patient has just received a guardian and working with social work regarding discharge planning. Encouraged frequent offloading and position changes. 08/10/2024 Patient evaluated today in follow up on the medical floor. Patient has no acute complaints at this time and reports improvement in the abdominal cramping. States her bottom is sore when she is having bowel movements. Review of Systems Constitutional: Denied any fatigue denied any fever. Cardio vascular: denied any chest pain, palpitations Gastrointestinal: denied any nausea, vomiting, diarrhea, reports of some lower abdominal cramping and reports having bowel movements although unreliable Pulmonary: Denied any shortness of breath cough Neurologic denied any new focal deficits, continues with significant weakness All inpatient medications were reviewed and appropriate changes in these medications as dictated in the interval history and assessment and plan. PHYSICAL EXAMINATION: GENERAL: The patient is alert and oriented x 2 baseline, not in any acute distress. Well developed, well nourished. Morbidly obese HEENT: Pupils are round and equally reacting to light. EOMI. No scleral icterus. No conjunctival pallor. Normocephalic, atraumatic. No pharyngeal erythema. No thyromegaly. CARDIOVASCULAR: S1 and S2 present. No murmurs, rubs, or gallops. PULMONARY: Chest is clear to auscultation, no wheezing or crackles. ABDOMEN: Soft, obese, mildly tender in lower quadrants, nondistended, normoactive bowel sounds. No palpable organomegaly. MUSCULOSKELETAL: No joint swelling or deformity. EXTREMITIES: No cyanosis, clubbing, or pedal edema. NEUROLOGICAL: Gross neurological examination did not reveal any focal deficits. Diffusely weak SKIN: No rashes. Pressure injuries as mentioned in the HPI Assessment and plan: Multiple areas of pressure injury with mixed full-thickness tissue loss and mottling wound care has evaluated the patient recommending to continue with Triad cream and pressure offloading as well as a specialty air mattress. Patient will require [facility] wound care and follow-up with the wound care center on discharge. Extensive decubitus ulcer with pressure ulcers with sepsis, present on admission Leukocytosis, possibly secondary to above, improved Acute renal failure with acute tubular necrosis with worsening oliguria requiring hemodialysis renal function has recovered Generalized weakness and mostly bedbound Elevated LFTs, trending down possibly underlying cholangitis, completed course of antibiotic therapy Nausea, vomiting, diarrhea history, likely secondary to COVID-19, improved COVID-19 infection Morbid obesity with a BMI 54.8 History of noncompliance and most likely possible underlying psychiatric issues GI prophylaxis DVT prophylaxis Full code Plan: Patient remains off antibiotic therapy and being monitored with infectious disease following Renal function has essentially normalized nephrology following closely. Patient is off hemodialysis at this time. Will follow-up with repeat labs and monitor kidney functions closely. Replace electrolytes per protocol Patient reports of some abdominal cramping in the lower quadrants and reports is passing gas and having bowel movements although unsure of reliability as nursing staff reports she has not been having bowel movements. Recommend to continue with bowel regimen Scheduled as well as needed. Patient will need an event monitor on discharge for a total of 14 days recommended by cardiology with outpatient follow-up As mentioned continue local wound care to the sacral decubitus ulcer and additional areas of tissue loss on her back and buttock with Triad cream patient will require close follow-up with the wound care center on discharge for additional recommendations. Per home care once these wounds mature patient may be switched over to a honey gel type wound care. Secondary to patient's condition on admission, Adult Protective Services was consulted. Now has a legal guardian. She is currently pending Medicaid application. Will need physical therapy occupational therapy follow-up notes. The impression and plan of care has been dictated by Lauren Mendoza, Nurse Practitioner as directed. Dr. Henrique MD I have performed a history and physical examination and medical decision making of this patient, discussed the same with the dictator, and agree with the dictators assessment and plan as written, documented as a scribe. Based on total visit time, I have performed more than 50% of this visit. Objective - Vital Signs Vital signs: Vital Signs Temp 97.9 F 08/10/24 07:05 Pulse 96 08/10/24 07:05 Resp 15 08/10/24 07:05 BP 111/66 08/10/24 07:05 Pulse Ox 95 08/10/24 07:05 FiO2 Intake & Output 08/09/24 08/10/24 08/10/24 18:59 06:59 18:59 Intake Total 2440 Output Total 1200 1600 Balance -1200 840 Intake: Oral 2440 Output: Urine 1200 1600 Other: Voiding Method Indwelling Catheter Indwelling Catheter # Bowel Movements 2 - Labs CBC & Chem 7: 08/08/24 06:07 08/08/24 06:07 Assessment and Plan Time with Patient: Less than 30
[2024-08-11 09:31] LABS: Basophils # (A) 0.03 X 10*3/uL (0.00-0.10); Basophils % (A) 0.5 %; Eosinophils # (A) 0.16 X 10*3/uL (0.04-0.35); Eosinophils % (A) 2.7 %; HCT 29.5 % (37.2-46.3); HGB 9.1 g/dL (12.0-15.0); Lymphocytes # (A) 1.55 X 10*3/uL (0.90-5.00); Lymphocytes % (A) 26.6 %; MCH 28.6 pg (27.0-32.0); MCHC 30.8 g/dL (32.0-37.0); MCV 92.8 FL (80.0-97.0); Mean Platelet Volume 9.9 FL (9.5-12.2); Monocytes # (A) 0.44 X 10*3/uL (0.20-1.00); Monocytes % (A) 7.5 %; NRBC Per 100 WBC 0 X 10*3/uL (0.00-0.01); Neutrophils # (A) 3.55 X 10*3/uL (1.80-7.70); Platelet Count 280 X 10*3/uL (140-440); RBC 3.18 X 10*6/uL (4.10-5.20); RDW 16.4 % (11.5-14.5); WBC 5.83 X 10*3/uL (4.50-10.00)
[2024-08-11 11:52] LABS: BUN/Creat Ratio 11.75 Ratio (12.00-20.00); Blood Urea Nitrogen 9.4 mg/dL (9.0-27.0); Calcium 8.2 mg/dL (8.7-10.3); Carbon Dioxide 24.2 mmol/L (21.6-31.8); Chloride 103 mmol/L (96-109); Glucose 101 mg/dL (70-110); Potassium 4.3 mmol/L (3.5-5.5); Sodium 137 mmol/L (135-145)
--- NOTE | 2024-08-11 14:09 | P.PN ---
Subjective Progress Note Date: 08/11/24 Patient evaluated today in follow-up in the medical floor resting in bed comfortably. Patient has completed a course of oral Augmentin with concerns for cholangitis. Additionally patient was started on hemodialysis since admission with recovery of her renal function and no longer is requiring hemodialysis. Most recent blood work today reveals a sodium level of 147, BUN of 14 creatinine of 1.3. Her LFTs are slowly improving. Wound cultures to her sacral decubitus show Corynebacterium and Brevibacterium species. Cardiology following secondary to sinus pauses and they have recommended an event monitor on discharge for 14 days for further evaluation and further recommendations on outpatient basis. Patient does not have any health insurance and Adult Protective Services has been involved patient will go for a guardianship hearing on August 07 and to help with discharge planning. She will remain in the hospital until this has been completed. 08/04/2024 Patient evaluated in follow-up with the medical floor. Patient is completed a course of oral Augmentin. Patient has completed hemodialysis. She is currently pending guardianship hearing for August 07. Local wound care continues to the pressure injury to her bottom and back. Patient has no acute complaints today. 08/05/2024 Patient is seen in follow-up this morning with multiple consultations following. Currently awaiting guardianship hearing but social work will be attending on August 07. Patient has completed hemodialysis and not requiring further dialysis at this time and will follow-up with repeat labs. Patient to continue with local wound care and offloading frequently. Patient is afebrile denies chest pain or shortness of breath. Patient reports tolerating diet with no reported nausea or vomiting. 08/06/2024 Patient is seen in follow-up today currently awaiting to undergo guardianship hearing on August 07 with case management/social work following and will be arranging for possible ECF once guardianship this is obtained. Patient is afebrile with no reports of chest pain or shortness of breath currently sitting up in the bed on room air. Patient to continue with local wound care and has completed antibiotic therapy. Patient reports to tolerating diet with no reported nausea or vomiting. Nephrology following and kidney functions have recovered and not requiring further dialysis at this time. 08/08/2024 Patient is evaluated in follow-up of medical floor. She has no acute complaints at this time. Legal guardianship has been obtained for this patient and she is currently pending a Medicaid application and will then need an accepting placement facility. Continue with local wound care. Has completed antibiotic therapy at this time. 08/09/2024 Patient is seen in follow-up today reports no significant overnight issues although is having some lower abdominal cramping. Patient reports is passing gas and there are positive bowel sounds noted on exam. Nursing staff reports she has not had a bowel movement and will continue bowel regimen as needed. Patient reports is eating and tolerating diet with no reported nausea or vomiting. Patient remains off antibiotics and kidney functions have recovered and maintained off dialysis. Patient continues to await insurance and ECF placement as patient has just received a guardian and working with social work regarding discharge planning. Encouraged frequent offloading and position changes. 08/10/2024 Patient evaluated today in follow up on the medical floor. Patient has no acute complaints at this time and reports improvement in the abdominal cramping. States her bottom is sore when she is having bowel movements. 08/11/2024 Patient is eval obtain follow-up in the medical floor. No acute complaints. She is tolerating diet. Blood work today was repeated with a white blood cell count of eight 5.83, hemoglobin 9.1, sodium 137, BUN of 9.4 creatinine of 0.8. Hemodynamically she is stable. Review of Systems Constitutional: Denied any fatigue denied any fever. Cardio vascular: denied any chest pain, palpitations Gastrointestinal: denied any nausea, vomiting, diarrhea, reports of some lower abdominal cramping and reports having bowel movements although unreliable Pulmonary: Denied any shortness of breath cough Neurologic denied any new focal deficits, continues with significant weakness All inpatient medications were reviewed and appropriate changes in these medications as dictated in the interval history and assessment and plan. PHYSICAL EXAMINATION: GENERAL: The patient is alert and oriented x 2 baseline, not in any acute distress. Well developed, well nourished. Morbidly obese HEENT: Pupils are round and equally reacting to light. EOMI. No scleral icterus. No conjunctival pallor. Normocephalic, atraumatic. No pharyngeal erythema. No thyromegaly. CARDIOVASCULAR: S1 and S2 present. No murmurs, rubs, or gallops. PULMONARY: Chest is clear to auscultation, no wheezing or crackles. ABDOMEN: Soft, obese, mildly tender in lower quadrants, nondistended, normoactive bowel sounds. No palpable organomegaly. MUSCULOSKELETAL: No joint swelling or deformity. EXTREMITIES: No cyanosis, clubbing, or pedal edema. NEUROLOGICAL: Gross neurological examination did not reveal any focal deficits. Diffusely weak SKIN: No rashes. Pressure injuries as mentioned in the HPI Assessment and plan: Multiple areas of pressure injury with mixed full-thickness tissue loss and mottling wound care has evaluated the patient recommending to continue with Triad cream and pressure offloading as well as a specialty air mattress. Patient will require long-term wound care and follow-up with the wound care center on discharge. Extensive decubitus ulcer with pressure ulcers with sepsis, present on admission Leukocytosis, possibly secondary to above, improved Acute renal failure with acute tubular necrosis with worsening oliguria requiring hemodialysis renal function has recovered Generalized weakness and mostly bedbound Elevated LFTs, trending down possibly underlying cholangitis, completed course of antibiotic therapy Nausea, vomiting, diarrhea history, likely secondary to COVID-19, improved COVID-19 infection Morbid obesity with a BMI 54.8 History of noncompliance and most likely possible underlying psychiatric issues GI prophylaxis DVT prophylaxis Full code Plan: Patient remains off antibiotic therapy and being monitored with infectious disease following Renal function has essentially normalized nephrology following closely. Patient is off hemodialysis at this time. Will follow-up with repeat labs and monitor kidney functions closely. Replace electrolytes per protocol Patient reports of some abdominal cramping in the lower quadrants and reports is passing gas and having bowel movements although unsure of reliability as nursing staff reports she has not been having bowel movements. Recommend to continue with bowel regimen Scheduled as well as needed. Patient will need an event monitor on discharge for a total of 14 days recommended by cardiology with outpatient follow-up As mentioned continue local wound care to the sacral decubitus ulcer and additional areas of tissue loss on her back and buttock with Triad cream patient will require close follow-up with the wound care center on discharge for additional recommendations. Per home care once these wounds mature patient may be switched over to a honey gel type wound care. Secondary to patient's condition on admission, Adult Protective Services was consulted. Now has a legal guardian. She is currently pending Medicaid [place] lication. Will need physical therapy occupational therapy follow-up notes. Social work to follow-up on Monday for continued discharge planning. The impression and plan of care has been dictated by Lauren Mendoza, Nurse Practitioner as directed. Dr. Henrique MD I have performed a history and physical examination and medical decision making of this patient, discussed the same with the dictator, and agree with the dictators assessment and plan as written, documented as a scribe. Based on total visit time, I have performed more than 50% of this visit. Objective - Vital Signs Vital signs: Vital Signs Temp 98.0 F 08/11/24 07:50 Pulse 94 08/11/24 07:50 Resp 16 08/11/24 07:50 BP 119/71 08/11/24 07:50 Pulse Ox 100 08/11/24 07:50 FiO2 Intake & Output 08/10/24 08/11/24 08/11/24 18:59 06:59 18:59 Output Total 900 500 Balance -900 -500 Output: Urine 900 500 Other: Voiding Method Indwelling Catheter Indwelling Catheter # Bowel Movements 3 1 - Labs CBC & Chem 7: 08/11/24 03:51 08/11/24 03:51 Assessment and Plan Time with Patient: Less than 30
--- NOTE | 2024-08-11 14:39 | P.PN ---
Subjective Progress Note Date: 08/11/24 Principal diagnosis: Reason for follow-up is COVID-19, leukocytosis Patient is a 58-year-old female with no reported past medical history former smoker patient has been brought into the hospital for evaluation of subjective fever chills nausea vomiting diarrhea patient tested positive for COVID 19 chest x-ray negative for acute cardiopulmonary disease process did have elevated white count and elevated liver enzymes. On today's evaluation that is 08/11/2024, Patient is afebrile patient is currently on room air and denies having any shortness of breath, the patient denies any chest pain or cough, the patient denies any nausea vomiting did not have any abdominal pain and no diarrhea or any pain to the lower back wound. The patient white count is 5.83, creatinine 0.8 Objective - Vital Signs Vital signs: Vital Signs Temp 97.7 F 08/11/24 13:41 Pulse 94 08/11/24 13:41 Resp 17 08/11/24 13:41 BP 127/86 08/11/24 13:41 Pulse Ox 98 08/11/24 13:41 FiO2 Intake & Output 08/10/24 08/11/24 08/11/24 18:59 06:59 18:59 Output Total 900 500 Balance -900 -500 Output: Urine 900 500 Other: Voiding Method Indwelling Catheter Indwelling Catheter # Bowel Movements 3 1 - Exam GENERAL DESCRIPTION: Middle-age female lying in bed in no distress RESPIRATORY SYSTEM: Unlabored breathing , decreased breath sounds at bases HEART: S1 S2 regular rate and rhythm , ABDOMEN: Soft , no tenderness EXTREMITIES: Diffuse swelling to the leg no redness - Labs CBC & Chem 7: 08/11/24 03:51 08/11/24 03:51 Labs: Abnormal Lab Results - Last 24 Hours (Table) 08/11/24 08/11/24 Range/Units 03:51 03:51 RBC 3.18 L (4.10-5.20) X 10*6/uL Hgb 9.1 L (12.0-15.0) g/dL Hct 29.5 L (37.2-46.3) % MCHC 30.8 L (32.0-37.0) g/dL RDW 16.4 H (11.5-14.5) % Immature Gran # 0.10 H (0.00-0.04) X 10*3/uL BUN/Creatinine Ratio 11.75 L (12.00-20.00) Ratio Calcium 8.2 L (8.7-10.3) mg/dL Assessment and Plan (1) Leukocytosis Current Visit: Yes Status: Acute Code(s): D72.829 - ELEVATED WHITE BLOOD CELL COUNT, UNSPECIFIED SNOMED Code(s): 433714517 (2) COVID-19 Current Visit: Yes Status: Acute Code(s): U07.1 - COVID-19 SNOMED Code(s): 144866660 (3) Cholangitis Current Visit: Yes Status: Acute Code(s): K83.09 - OTHER CHOLANGITIS SNOMED Code(s): 36450398 (4) Wound, open, back Current Visit: Yes Status: Acute Code(s): S21.209A - UNSP OPN WND UNSP BK WL OF THORAX W/O PENET THOR CAV, INIT SNOMED Code(s): 781792700 Plan: 1patient did have features of SIRS as the patient did have tachycardia elevated white count but no fever source likely abdominal keeping in mind predominantly symptoms of nausea vomiting and diarrhea and did have elevated liver enzymes concerning for possible cholangitis did have a positive UA urine source not entirely excluded 2-patient did tested positive for COVID-19 however did not have significant respiratory symptoms patient not hypoxic chest x-ray was negative questionable incidental finding 3-patient ultrasound of the abdomen did show some gallbladder sludge but no features of cholecystitis CBD was normal, subsequently her liver enzymes have improved and the patient has completed course of antibiotics currently doing well off antibiotics and the patient white count has been normal 4-patient did have multiple wounds to the back and posterior thigh area without any cellulitis, patient has been advised local wound care to the back with Aquacel silver dressing change q. 48-hour and frequent change of position Dictation was produced using [employer] dictation software. please excuse any grammatical, word or spelling errors. Time with Patient: Less than 30
[2024-08-12 20:25] LABS: Glucose,Whole Blood 93 mg/dL (70-110)
--- NOTE | 2024-08-12 22:03 | P.PN ---
Subjective Progress Note Date: 08/12/24 Patient evaluated today in follow-up in the medical floor resting in bed comfortably. Patient has completed a course of oral Augmentin with concerns for cholangitis. Additionally patient was started on hemodialysis since admission with recovery of her renal function and no longer is requiring hemodialysis. Most recent blood work today reveals a sodium level of 147, BUN of 14 creatinine of 1.3. Her LFTs are slowly improving. Wound cultures to her sacral decubitus show Corynebacterium and Brevibacterium species. Cardiology following secondary to sinus pauses and they have recommended an event monitor on discharge for 14 days for further evaluation and further recommendations on outpatient basis. Patient does not have any health insurance and Adult Protective Services has been involved patient will go for a guardianship hearing on August 07 and to help with discharge planning. She will remain in the hospital until this has been completed. 08/04/2024 Patient evaluated in follow-up with the medical floor. Patient is completed a course of oral Augmentin. Patient has completed hemodialysis. She is currently pending guardianship hearing for August 07. Local wound care continues to the pressure injury to her bottom and back. Patient has no acute complaints today. 08/05/2024 Patient is seen in follow-up this morning with multiple consultations following. Currently awaiting guardianship hearing but social work will be attending on August 07. Patient has completed hemodialysis and not requiring further dialysis at this time and will follow-up with repeat labs. Patient to continue with local wound care and offloading frequently. Patient is afebrile denies chest pain or shortness of breath. Patient reports tolerating diet with no reported nausea or vomiting. 08/06/2024 Patient is seen in follow-up today currently awaiting to undergo guardianship hearing on August 07 with case management/social work following and will be arranging for possible ECF once guardianship this is obtained. Patient is afebrile with no reports of chest pain or shortness of breath currently sitting up in the bed on room air. Patient to continue with local wound care and has completed antibiotic therapy. Patient reports to tolerating diet with no reported nausea or vomiting. Nephrology following and kidney functions have recovered and not requiring further dialysis at this time. 08/08/2024 Patient is evaluated in follow-up of medical floor. She has no acute complaints at this time. Legal guardianship has been obtained for this patient and she is currently pending a Medicaid application and will then need an accepting placement facility. Continue with local wound care. Has completed antibiotic therapy at this time. 08/09/2024 Patient is seen in follow-up today reports no significant overnight issues although is having some lower abdominal cramping. Patient reports is passing gas and there are positive bowel sounds noted on exam. Nursing staff reports she has not had a bowel movement and will continue bowel regimen as needed. Patient reports is eating and tolerating diet with no reported nausea or vomiting. Patient remains off antibiotics and kidney functions have recovered and maintained off dialysis. Patient continues to await insurance and ECF placement as patient has just received a guardian and working with social work regarding discharge planning. Encouraged frequent offloading and position changes. 08/10/2024 Patient evaluated today in follow up on the medical floor. Patient has no acute complaints at this time and reports improvement in the abdominal cramping. States her bottom is sore when she is having bowel movements. 08/11/2024 Patient is eval obtain follow-up in the medical floor. No acute complaints. She is tolerating diet. Blood work today was repeated with a white blood cell count of eight 5.83, hemoglobin 9.1, sodium 137, BUN of 9.4 creatinine of 0.8. Hemodynamically she is stable. 08/12/2024 Patient evaluated today in follow up on the medical floor. No acute complaints. Has a small area on her left forearm with erythema at old IV site where tegaderm was in place likely a contact dermatitis. Review of Systems Constitutional: Denied any fatigue denied any fever. Cardio vascular: denied any chest pain, palpitations Gastrointestinal: denied any nausea, vomiting, diarrhea, reports of some lower abdominal cramping and reports having bowel movements although unreliable Pulmonary: Denied any shortness of breath cough Neurologic denied any new focal deficits, continues with significant weakness All inpatient medications were reviewed and appropriate changes in these medications as dictated in the interval history and assessment and plan. PHYSICAL EXAMINATION: GENERAL: The patient is alert and oriented x 2 baseline, not in any acute distress. Well developed, well nourished. Morbidly obese HEENT: Pupils are round and equally reacting to light. EOMI. No scleral icterus. No conjunctival pallor. Normocephalic, atraumatic. No pharyngeal erythema. No thyromegaly. CARDIOVASCULAR: S1 and S2 present. No murmurs, rubs, or gallops. PULMONARY: Chest is clear to auscultation, no wheezing or crackles. ABDOMEN: Soft, obese, mildly tender in lower quadrants, nondistended, normoactive bowel sounds. No palpable organomegaly. MUSCULOSKELETAL: No joint swelling or deformity. EXTREMITIES: No cyanosis, clubbing, or pedal edema. NEUROLOGICAL: Gross neurological examination did not reveal any focal deficits. Diffusely weak SKIN: No rashes. Pressure injuries as mentioned in the HPI Assessment and plan: Multiple areas of pressure injury with mixed full-thickness tissue loss and mottling wound care has evaluated the patient recommending to continue with Triad cream and pressure offloading as well as a specialty air mattress. Patient will require senior care wound care and follow-up with the wound care center on discharge. Extensive decubitus ulcer with pressure ulcers with sepsis, present on admission Leukocytosis, possibly secondary to above, improved Acute renal failure with acute tubular necrosis with worsening oliguria requiring hemodialysis renal function has recovered Generalized weakness and mostly bedbound Elevated LFTs, trending down possibly underlying cholangitis, completed course of antibiotic therapy Nausea, vomiting, diarrhea history, likely secondary to COVID-19, improved COVID-19 infection Morbid obesity with a BMI 54.8 History of noncompliance and most likely possible underlying psychiatric issues GI prophylaxis DVT prophylaxis Full code Plan: Patient remains off antibiotic therapy and being monitored with infectious disease following Renal function has essentially normalized nephrology following closely. Patient is off hemodialysis at this time. Will follow-up with repeat labs and monitor kidney functions closely. Replace electrolytes per protocol Continue with bowel regimen Patient will need an event monitor on discharge for a total of 14 days recommend ed by cardiology with outpatient follow-up As mentioned continue local wound care to the sacral decubitus ulcer and additional areas of tissue loss on her back and buttock with Triad cream patient will require close follow-up with the wound care center on discharge for additional recommendations. Per home care once these wounds mature patient may be switched over to a honey gel type wound care. Secondary to patient's condition on admission, Adult Protective Services was consulted. Now has a legal guardian. She is currently pending Medicaid application. Will need physical therapy occupational therapy follow-up notes. Multiple referrals have been made for placement. The impression and plan of care has been dictated by Lauren Mendoza, Nurse Practitioner as directed. Dr. Henrique MD I have performed a history and physical examination and medical decision making of this patient, discussed the same with the dictator, and agree with the dictators assessment and plan as written, documented as a scribe. Based on total visit time, I have performed more than 50% of this visit. Objective - Vital Signs Vital signs: Vital Signs Temp 98.3 F 08/12/24 19:12 Pulse 100 08/12/24 19:12 Resp 18 08/12/24 19:12 BP 143/84 08/12/24 19:12 Pulse Ox 99 08/12/24 19:12 FiO2 Intake & Output 08/12/24 08/12/24 08/13/24 06:59 18:59 06:59 Intake Total 1080 Output Total 400 Balance 680 Weight 135 kg Intake: Oral 1080 Output: Urine 400 Uretheral (King) 400 Other: Voiding Method Indwelling Catheter Indwelling Catheter # Bowel Movements 1 1 - Labs CBC & Chem 7: 08/11/24 03:51 08/11/24 03:51 Assessment and Plan Time with Patient: Less than 30
[2024-08-13] MEDS: ALPRAZolam 0.25 MG TAB PO PRN (04:14)
[2024-08-13] MEDS: ONDANSETRON 4 MG/2 ML VIAL IVP PRN (05:09)
[2024-08-13 06:20] LABS: Glucose,Whole Blood 99 mg/dL (70-110)
[2024-08-13 11:11] LABS: Glucose,Whole Blood 105 mg/dL (70-110)
--- NOTE | 2024-08-13 16:19 | P.PN ---
Subjective Progress Note Date: 08/12/24 Principal diagnosis: Reason for follow-up is COVID-19, leukocytosis Patient is a 58-year-old female with no reported past medical history former smoker patient has been brought into the hospital for evaluation of subjective fever chills nausea vomiting diarrhea patient tested positive for COVID 19 chest x-ray negative for acute cardiopulmonary disease process did have elevated white count and elevated liver enzymes. On today's evaluation that is 08/12/2023, patient has been afebrile, patient is breathing comfortably and is currently on room air, patient denies having any significant cough no chest pain, patient denies nausea vomiting or diarrhea and no abdominal pain patient has developed a rash complaining of some itching mostly to the upper torso but no tongue swelling or difficulty breathing. No new lab has been repeated today Objective - Vital Signs Vital signs: Vital Signs Temp 98.1 F 08/12/24 07:13 Pulse 106 H 08/12/24 07:13 Resp 17 08/12/24 07:13 BP 135/87 08/12/24 07:13 Pulse Ox 99 08/12/24 07:13 FiO2 Intake & Output 08/11/24 08/12/24 08/12/24 18:59 06:59 18:59 Intake Total 2300 1080 Output Total 1100 400 Balance 1200 680 Intake: Oral 2300 1080 Output: Urine 1100 400 Uretheral (King) 400 Other: Voiding Method Indwelling Catheter Indwelling Catheter Indwelling Catheter # Bowel Movements 1 - Exam GENERAL DESCRIPTION: Middle-age female lying in bed in no distress RESPIRATORY SYSTEM: Unlabored breathing , decreased breath sounds at bases HEART: S1 S2 regular rate and rhythm , ABDOMEN: Soft , no tenderness Skin: Micropapular rash to the upper chest and upper arm - Labs CBC & Chem 7: 08/11/24 03:51 08/11/24 03:51 Assessment and Plan (1) Leukocytosis Current Visit: Yes Status: Acute Code(s): D72.829 - ELEVATED WHITE BLOOD CELL COUNT, UNSPECIFIED SNOMED Code(s): 164564162 (2) COVID-19 Current Visit: Yes Status: Acute Code(s): U07.1 - COVID-19 SNOMED Code(s): 150734615 (3) Cholangitis Current Visit: Yes Status: Acute Code(s): K83.09 - OTHER CHOLANGITIS SNOMED Code(s): 85262448 (4) Wound, open, back Current Visit: Yes Status: Acute Code(s): S21.209A - UNSP OPN WND UNSP BK WL OF THORAX W/O PENET THOR CAV, INIT SNOMED Code(s): 808817414 (5) Drug rash Current Visit: Yes Status: Acute Code(s): L27.0 - GEN SKIN ERUPTION DUE TO DRUGS AND MEDS TAKEN INTERNALLY SNOMED Code(s): 26728988 Plan: 1patient did have features of SIRS as the patient did have tachycardia elevated white count but no fever source likely abdominal keeping in mind predominantly symptoms of nausea vomiting and diarrhea and did have elevated liver enzymes con cerning for possible cholangitis did have a positive UA urine source not entirely excluded 2-patient did tested positive for COVID-19 however did not have significant respiratory symptoms patient not hypoxic chest x-ray was negative questionable incidental finding 3-patient ultrasound of the abdomen did show some gallbladder sludge but no features of cholecystitis CBD was normal, subsequently her liver enzymes have improved and the patient has completed course of antibiotics currently doing we ll off antibiotics and the patient white count has been normal 4-patient did have multiple wounds to the back and posterior thigh area without any cellulitis, patient has been advised local wound care to the back with Aquacel silver dressing change q. 48-hour and frequent change of position 5patient has developed a rash to the upper chest and upper extremity concerning for possible drug rash likely offending drug could be the Protonix which will be discontinued and the patient will monitor Dictation was produced using [employer] dictation software. please excuse any grammatical, word or spelling errors. Time with Patient: Less than 30
--- NOTE | 2024-08-13 16:20 | P.PN ---
Subjective Progress Note Date: 08/13/24 Principal diagnosis: Reason for follow-up is COVID-19, leukocytosis Patient is a 58-year-old female with no reported past medical history former smoker patient has been brought into the hospital for evaluation of subjective fever chills nausea vomiting diarrhea patient tested positive for COVID 19 chest x-ray negative for acute cardiopulmonary disease process did have elevated white count and elevated liver enzymes. On today's evaluation that is 08/13/2023, Patient is afebrile this morning patient denies having any chest pain shortness of breath or cough, the patient is currently on room air, patient denies any abdominal pain mention did have a bowel movement and feeling better overall itching or rash has decreased in intensity Objective - Vital Signs Vital signs: Vital Signs Temp 97.8 F 08/13/24 14:00 Pulse 104 H 08/13/24 14:00 Resp 17 08/13/24 14:00 BP 134/83 08/13/24 14:00 Pulse Ox 100 08/13/24 14:00 FiO2 Intake & Output 08/12/24 08/13/24 08/13/24 18:59 06:59 18:59 Output Total 875 Balance -875 Weight 135 kg Output: Urine 875 Other: Voiding Method Indwelling Catheter Indwelling Catheter Indwelling Catheter # Bowel Movements 1 - Exam GENERAL DESCRIPTION: Middle-age female lying in bed in no distress RESPIRATORY SYSTEM: Unlabored breathing , decreased breath sounds at bases HEART: S1 S2 regular rate and rhythm , ABDOMEN: Soft , no tenderness Skin: Micropapular rash to the upper chest and upper arm slightly decreased in intensity - Labs CBC & Chem 7: 08/11/24 03:51 08/11/24 03:51 Assessment and Plan (1) Leukocytosis Current Visit: Yes Status: Acute Code(s): D72.829 - ELEVATED WHITE BLOOD CELL COUNT, UNSPECIFIED SNOMED Code(s): 157747125 (2) COVID-19 Current Visit: Yes Status: Acute Code(s): U07.1 - COVID-19 SNOMED Code(s): 841066584 (3) Cholangitis Current Visit: Yes Status: Acute Code(s): K83.09 - OTHER CHOLANGITIS SNOMED Code(s): 79043699 (4) Wound, open, back Current Visit: Yes Status: Acute Code(s): S21.209A - UNSP OPN WND UNSP BK WL OF THORAX W/O PENET THOR CAV, INIT SNOMED Code(s): 541427000 (5) Drug rash Current Visit: Yes Status: Acute Code(s): L27.0 - GEN SKIN ERUPTION DUE TO DRUGS AND MEDS TAKEN INTERNALLY SNOMED Code(s): 06345135 Plan: 1patient did have features of SIRS as the patient did have tachycardia elevated white count but no fever source likely abdominal keeping in mind predominantly symptoms of nausea vomiting and diarrhea and did have elevated liver enzymes concerning for possible cholangitis did have a positive UA urine source not entirely excluded 2-patient did tested positive for COVID-19 however did not have significant respiratory symptoms patient not hypoxic chest x-ray was negative questionable incidental finding 3-patient ultrasound of the abdomen did show some gallbladder sludge but no features of cholecystitis CBD was normal, subsequently her liver enzymes have improved and the patient has completed course of antibiotics currently doing well off antibiotics and the patient white count has been normal 4-patient did have multiple wounds to the back and posterior thigh area without any cellulitis, patient has been advised local wound care to the back with Aquacel silver dressing change q. 48-hour and frequent change of position 5patient has developed a rash to the upper chest and upper extremity concerning for possible drug rash likely offending drug could be the Protonix which was dis continued yesterday and the rash is slightly improving and will be monitored closely Dictation was produced using [employer] dictation software. please excuse any grammatical, word or spelling errors. Time with Patient: Less than 30
--- NOTE | 2024-08-13 16:22 | P.PN ---
Subjective Progress Note Date: 08/13/24 Patient evaluated today in follow-up in the medical floor resting in bed comfortably. Patient has completed a course of oral Augmentin with concerns for cholangitis. Additionally patient was started on hemodialysis since admission with recovery of her renal function and no longer is requiring hemodialysis. Most recent blood work today reveals a sodium level of 147, BUN of 14 creatinine of 1.3. Her LFTs are slowly improving. Wound cultures to her sacral decubitus show Corynebacterium and Brevibacterium species. Cardiology following secondary to sinus pauses and they have recommended an event monitor on discharge for 14 days for further evaluation and further recommendations on outpatient basis. Patient does not have any health insurance and Adult Protective Services has been involved patient will go for a guardianship hearing on August 07 and to help with discharge planning. She will remain in the hospital until this has been completed. 08/04/2024 Patient evaluated in follow-up with the medical floor. Patient is completed a course of oral Augmentin. Patient has completed hemodialysis. She is currently pending guardianship hearing for August 07. Local wound care continues to the pressure injury to her bottom and back. Patient has no acute complaints today. 08/05/2024 Patient is seen in follow-up this morning with multiple consultations following. Currently awaiting guardianship hearing but social work will be attending on August 07. Patient has completed hemodialysis and not requiring further dialysis at this time and will follow-up with repeat labs. Patient to continue with local wound care and offloading frequently. Patient is afebrile denies chest pain or shortness of breath. Patient reports tolerating diet with no reported nausea or vomiting. 08/06/2024 Patient is seen in follow-up today currently awaiting to undergo guardianship hearing on August 07 with case management/social work following and will be arranging for possible ECF once guardianship this is obtained. Patient is afebrile with no reports of chest pain or shortness of breath currently sitting up in the bed on room air. Patient to continue with local wound care and has completed antibiotic therapy. Patient reports to tolerating diet with no reported nausea or vomiting. Nephrology following and kidney functions have recovered and not requiring further dialysis at this time. 08/08/2024 Patient is evaluated in follow-up of medical floor. She has no acute complaints at this time. Legal guardianship has been obtained for this patient and she is currently pending a Medicaid application and will then need an accepting placement facility. Continue with local wound care. Has completed antibiotic therapy at this time. 08/09/2024 Patient is seen in follow-up today reports no significant overnight issues although is having some lower abdominal cramping. Patient reports is passing gas and there are positive bowel sounds noted on exam. Nursing staff reports she has not had a bowel movement and will continue bowel regimen as needed. Patient reports is eating and tolerating diet with no reported nausea or vomiting. Patient remains off antibiotics and kidney functions have recovered and maintained off dialysis. Patient continues to await insurance and ECF placement as patient has just received a guardian and working with social work regarding discharge planning. Encouraged frequent offloading and position changes. 08/10/2024 Patient evaluated today in follow up on the medical floor. Patient has no acute complaints at this time and reports improvement in the abdominal cramping. States her bottom is sore when she is having bowel movements. 08/11/2024 Patient is eval obtain follow-up in the medical floor. No acute complaints. She is tolerating diet. Blood work today was repeated with a white blood cell count of eight 5.83, hemoglobin 9.1, sodium 137, BUN of 9.4 creatinine of 0.8. Hemodynamically she is stable. 08/12/2024 Patient evaluated today in follow up on the medical floor. No acute complaints. Has a small area on her left forearm with erythema at old IV site where tegaderm was in place likely a contact dermatitis. 08/13/2024 Patient is evaluated today in follow up. Patient is resting in bed comfortably. No acute abdominal complaints today. Electrolytes and renal function have been stable. Hemodynamically stable. Patient is out of covid precautions. Review of Systems Constitutional: Denied any fatigue denied any fever. Cardio vascular: denied any chest pain, palpitations Gastrointestinal: denied any nausea, vomiting, diarrhea, reports of some lower abdominal cramping and reports having bowel movements although unreliable Pulmonary: Denied any shortness of breath cough Neurologic denied any new focal deficits, continues with significant weakness All inpatient medications were reviewed and appropriate changes in these medica tions as dictated in the interval history and assessment and plan. PHYSICAL EXAMINATION: GENERAL: The patient is alert and oriented x 2 baseline, not in any acute distress. Well developed, well nourished. Morbidly obese HEENT: Pupils are round and equally reacting to light. EOMI. No scleral icterus. No conjunctival pallor. Normocephalic, atraumatic. No pharyngeal erythema. No thyromegaly. CARDIOVASCULAR: S1 and S2 present. No murmurs, rubs, or gallops. PULMONARY: Chest is clear to auscultation, no wheezing or crackles. ABDOMEN: Soft, obese, mildly tender in lower quadrants, nondistended, normoactive bowel sounds. No palpable organomegaly. MUSCULOSKELETAL: No joint swelling or deformity. EXTREMITIES: No cyanosis, clubbing, or pedal edema. NEUROLOGICAL: Gross neurological examination did not reveal any focal deficits. Diffusely weak SKIN: No rashes. Pressure injuries as mentioned in the HPI Assessment and plan: Multiple areas of pressure injury with mixed full-thickness tissue loss and mottling wound care has evaluated the patient recommending to continue with Triad cream and pressure offloading as well as a specialty air mattress. Patient will require custodial wound care and follow-up with the wound care center on discharge. Extensive decubitus ulcer with pressure ulcers with sepsis, present on admission Leukocytosis, possibly secondary to above, improved Acute renal failure with acute tubular necrosis with worsening oliguria requiring hemodialysis renal function has recovered Generalized weakness and mostly bedbound Elevated LFTs, trending down possibly underlying cholangitis, completed course of antibiotic therapy Nausea, vomiting, diarrhea history, likely secondary to COVID-19, improved COVID-19 infection Morbid obesity with a BMI 54.8 History of noncompliance and most likely possible underlying psychiatric issues GI prophylaxis DVT prophylaxis Full code Plan: Patient remains off antibiotic therapy and being monitored with infectious disease following Renal function has essentially normalized nephrology following closely. Patient is off hemodialysis at this time. Will follow-up with repeat labs and monitor kidney functions closely. Replace electrolytes per protocol Continue with bowel regimen Patient will need an event monitor on discharge for a total of 14 days recommended by cardiology with outpatient follow-up As mentioned continue local wound care to the sacral decubitus ulcer and additional areas of tissue loss on her back and buttock with Triad cream patient will require close follow-up with the wound care center on discharge for additional recommendations. Per home care once these wounds mature patient may be switched over to a honey gel type wound care. Secondary to patient's condition on admission, Adult Protective Services was consulted. Now has a legal guardian. She is currently pending Medicaid application. Will need physical therapy occupational therapy follow-up notes. Multiple referrals have been made for placement. [facility] has accepted the patient and will be discharged in the next 24 hours. The impression and plan of care has been dictated by Lauren Mendoza, Nurse Practitioner as directed. Dr. Henrique MD I have performed a history and physical examination and medical decision making of this patient, discussed the same with the dictator, and agree with the dictators assessment and plan as written, documented as a scribe. Based on total visit time, I have performed more than 50% of this visit. Objective - Vital Signs Vital signs: Vital Signs Temp 97.8 F 08/13/24 14:00 Pulse 104 H 08/13/24 14:00 Resp 17 08/13/24 14:00 BP 134/83 08/13/24 14:00 Pulse Ox 100 08/13/24 14:00 FiO2 Intake & Output 08/12/24 08/13/24 08/13/24 18:59 06:59 18:59 Output Total 875 Balance -875 Weight 135 kg Output: Urine 875 Other: Voiding Method Indwelling Catheter Indwelling Catheter Indwelling Catheter # Bowel Movements 1 - Labs CBC & Chem 7: 08/11/24 03:51 08/11/24 03:51 Assessment and Plan Time with Patient: Less than 30
[2024-08-13 16:25] LABS: Glucose,Whole Blood 104 mg/dL (70-110)
[2024-08-13 20:31] LABS: Glucose,Whole Blood 123 mg/dL (70-110)
[2024-08-14 06:12] LABS: Glucose,Whole Blood 98 mg/dL (70-110)
--- NOTE | 2024-08-14 08:55 | P.DS ---
Providers Date of admission: 07/22/24 13:34 Attending physician: Jina Norris Consults: 07/22/24 13:24 Consult Physician Routine Consulting Provider: Fatou Blum Consult Reason/Comments: sepsis Do you want consulting provider notified?: Yes 07/23/24 14:33 Consult Physician Routine Consulting Provider: Mark Barahona Consult Reason/Comments: arf Do you want consulting provider notified?: Yes 07/24/24 01:49 Consult Physician Urgent Consulting Provider: Dylan Madden Consult Reason/Comments: multiple cardiac pauses greater than 3 seconds. Do you want consulting provider notified?: Yes, Notify in am 07/25/24 09:12 Consult Physician Routine Consulting Provider: Nadeem Liu Consult Reason/Comments: Placement of temporary hemodialysis catheter Do you want consulting provider notified?: Yes 07/28/24 13:23 Consult Physician Routine Consulting Provider: Flaco Condon Consult Reason/Comments: Pauses, evaluate for pacemaker Do you want consulting provider notified?: Yes Primary care physician: Stated None Hospital Course: Final Diagnosis Multiple areas of pressure injury with mixed full-thickness tissue loss and mottling wound care has evaluated the patient recommending to continue with Triad cream and pressure offloading as well as a specialty air mattress. Patient will require senior living wound care and follow-up with the wound care center on discharge. Extensive decubitus ulcer with pressure ulcers with sepsis, present on admission Leukocytosis, possibly secondary to above, improved Acute renal failure with acute tubular necrosis with worsening oliguria requiring hemodialysis renal function has recovered Generalized weakness and mostly bedbound Elevated LFTs, trending down possibly underlying cholangitis, completed course of antibiotic therapy Nausea, vomiting, diarrhea history, likely secondary to COVID-19, improved COVID-19 infection Morbid obesity with a BMI 54.8 History of noncompliance and most likely possible underlying psychiatric issues Discharge Disposition Stable for discharge to the [facility]. Patient will continue on thiamine and multivitamin. She ate patient is receiving [place] for pain management. As mentioned wound care to continue with Triad cream and gauze can change 3 times a week to her wounds on her buttock back and thighs I would recommend close follow-up with wound care on discharge and a recommendation for long-term wound care will be with the Medihoney gel cover with gauze and change 3 times a week. Her renal function electrolytes repeat blood work in 2 to 3 days. Antibiotics needed on discharge. Hospital Course Patient is a 58-year-old female with no reported past medical history, former smoker. patient has been brought into the hospital for evaluation of subjective fever chills nausea vomiting diarrhea symptom has been going on for about a week apparently patient has been bedbound for the last 1 week as the patient was found by the paramedics in the bed covered with stool and urine. Patient had a white blood cell count of 24, no fever, did have elevated lactic acid and elevated liver enzymes. Was found to be positive for acute covid infection. Patient had a negative chest xray. Due to the concern for sepsis patient admitted to the hospital with ID consultation. Additionally patient found to have significant wounds and skin break down on her back, buttock and thighs with prompted a wound care consultation. Wound care consultation describes numerous large areas including her low back and buttocks posteriorly as well as her posterior right calf have mixed configuration with some full- thickness tissue loss and some mottling. She has one area on her posterior left flank where there appears to be a long area about 1/2 cm wide that also looks like a her and her tissues. Recommendations made to cover wounds with triad and cover with gauze. Patient to follow up with wound care on discharge and recommendations made to transition to buttermaker wound care with honey gel and gauze and change three times a week or as needed if dressings are soiled. Patient should be placed on pressure air reduction mattress on discharge to the [facility]. Patient did have an elevated creatinine on admission which spiked at 4.87 and currently has normalized. Nephrology followed along with the patient. Patient did receive hemodialysis and temporary hemodialysis catheter has been moved and patient will not require any further hemodialysis on discharge. Patient did not have any medical insurance she required subacute rehabilitation due to her significant medical debility and condition on admission. She is not complaining of any chest pain or shortness of breath. She has completed a period of isolation for her acute COVID infection. She is awake alert oriented baseline cognitive function unkown however she is alert x 3. Pleasant. Patient will be discharged to [facility]. Please see medication reconciliation for a list of current medications. Thank ana martin for allowing us to participate in the care of this patient. The impression and plan of care has been dictated by Lauren Mendoza, Nurse Practitioner as directed. Dr. Henrique MD I have performed a history and physical examination and medical decision making of this patient, discussed the same with the dictator, and agree with the dictators assessment and plan as written, documented as a scribe. Based on total visit time, I have performed more than 50% of this visit. Patient Condition at Discharge: Stable Plan - Discharge Summary Discharge Rx Participant: Yes New Discharge Prescriptions: New HYDROcodone/APAP 5-325MG [[place] 5-325] 1 each PO Q6HR PRN #4 tab PRN Reason: Pain Thiamine [Vitamin B-1] 100 mg PO BID-W/MEALS tab ALPRAZolam [Xanax] 0.25 mg PO TID PRN #6 tab PRN Reason: Anxiety Heparin Sodium,Porcine (1 ml) [Heparin Sodium] 5,000 unit SQ Q12HR each Multivitamins, Thera [Multivitamin (formulary)] 1 each PO DAILY@1200 tab Sennosides [Senokot] 8.6 mg PO BID tab Pantoprazole [Protonix] 40 mg PO DAILY #30 tab Discharge Medication List ALPRAZolam [Xanax] 0.25 mg PO TID PRN #6 tab 08/14/24 [Rx] HYDROcodone/APAP 5-325MG [[place] 5-325] 1 each PO Q6HR PRN #4 tab 08/14/24 [Rx] Heparin Sodium,Porcine (1 ml) [Heparin Sodium] 5,000 unit SQ Q12HR each 08/14/24 [Rx] Multivitamins, Thera [Multivitamin (formulary)] 1 each PO DAILY@1200 tab 08/14/24 [Rx] Pantoprazole [Protonix] 40 mg PO DAILY #30 tab 08/14/24 [Rx] Sennosides [Senokot] 8.6 mg PO BID tab 08/14/24 [Rx] Thiamine [Vitamin B-1] 100 mg PO BID-W/MEALS tab 08/14/24 [Rx] Follow up Appointment(s)/Referral(s): Artur Perez DPM [STAFF PHYSICIAN] - 1 Week (for onychomycosis and nail trim) [facility] [NON-STAFF] - 1-2 days [facility] [NON-STAFF] - 1-2 days None,Stated [Primary Care Provider] - 1-2 days Ambulatory/Diagnostic Orders: Basic Metabolic Panel [LAB.AMB] Location: None Selected Complete Blood Count w/diff [LAB.AMB] Time Frame: 3 Days, Location: None Selected Discharge/Stand Alone Forms: Area PCPs Discharge Disposition: TRANSFER TO SNF/ECF
[2024-08-14 11:29] LABS: Glucose,Whole Blood 103 mg/dL (70-110)
[2024-08-14 16:33] LABS: Glucose,Whole Blood 90 mg/dL (70-110)
[2024-08-14 20:47] LABS: Glucose,Whole Blood 105 mg/dL (70-110)
[2024-08-15 06:10] LABS: Glucose,Whole Blood 91 mg/dL (70-110)
[2024-08-15 11:33] LABS: Glucose,Whole Blood 166 mg/dL (70-110)
--- NOTE | 2024-08-15 15:12 | P.PN ---
Subjective Progress Note Date: 08/15/24 Patient evaluated today in follow-up in the medical floor resting in bed comfortably. Patient has completed a course of oral Augmentin with concerns for cholangitis. Additionally patient was started on hemodialysis since admission with recovery of her renal function and no longer is requiring hemodialysis. Most recent blood work today reveals a sodium level of 147, BUN of 14 creatinine of 1.3. Her LFTs are slowly improving. Wound cultures to her sacral decubitus show Corynebacterium and Brevibacterium species. Cardiology following secondary to sinus pauses and they have recommended an event monitor on discharge for 14 days for further evaluation and further recommendations on outpatient basis. Patient does not have any health insurance and Adult Protective Services has been involved patient will go for a guardianship hearing on August 07 and to help with discharge planning. She will remain in the hospital until this has been completed. 08/04/2024 Patient evaluated in follow-up with the medical floor. Patient is completed a course of oral Augmentin. Patient has completed hemodialysis. She is currently pending guardianship hearing for August 07. Local wound care continues to the pressure injury to her bottom and back. Patient has no acute complaints today. 08/05/2024 Patient is seen in follow-up this morning with multiple consultations following. Currently awaiting guardianship hearing but social work will be attending on August 07. Patient has completed hemodialysis and not requiring further dialysis at this time and will follow-up with repeat labs. Patient to continue with local wound care and offloading frequently. Patient is afebrile denies chest pain or shortness of breath. Patient reports tolerating diet with no reported nausea or vomiting. 08/06/2024 Patient is seen in follow-up today currently awaiting to undergo guardianship hearing on August 07 with case management/social work following and will be arranging for possible ECF once guardianship this is obtained. Patient is afebrile with no reports of chest pain or shortness of breath currently sitting up in the bed on room air. Patient to continue with local wound care and has completed antibiotic therapy. Patient reports to tolerating diet with no reported nausea or vomiting. Nephrology following and kidney functions have recovered and not requiring further dialysis at this time. 08/08/2024 Patient is evaluated in follow-up of medical floor. She has no acute complaints at this time. Legal guardianship has been obtained for this patient and she is currently pending a Medicaid application and will then need an accepting placement facility. Continue with local wound care. Has completed antibiotic therapy at this time. 08/09/2024 Patient is seen in follow-up today reports no significant overnight issues although is having some lower abdominal cramping. Patient reports is passing gas and there are positive bowel sounds noted on exam. Nursing staff reports she has not had a bowel movement and will continue bowel regimen as needed. Patient reports is eating and tolerating diet with no reported nausea or vomiting. Patient remains off antibiotics and kidney functions have recovered and maintained off dialysis. Patient continues to await insurance and ECF placement as patient has just received a guardian and working with social work regarding discharge planning. Encouraged frequent offloading and position changes. 08/10/2024 Patient evaluated today in follow up on the medical floor. Patient has no acute complaints at this time and reports improvement in the abdominal cramping. States her bottom is sore when she is having bowel movements. 08/11/2024 Patient is eval obtain follow-up in the medical floor. No acute complaints. She is tolerating diet. Blood work today was repeated with a white blood cell count of eight 5.83, hemoglobin 9.1, sodium 137, BUN of 9.4 creatinine of 0.8. Hemodynamically she is stable. 08/12/2024 Patient evaluated today in follow up on the medical floor. No acute complaints. Has a small area on her left forearm with erythema at old IV site where tegaderm was in place likely a contact dermatitis. 08/13/2024 Patient is evaluated today in follow up. Patient is resting in bed comfortably. No acute abdominal complaints today. Electrolytes and renal function have been stable. Hemodynamically stable. Patient is out of covid precautions. 08/15/2024 Follow up with social work today that patient cannot DC to [facility] until medicaid application is completed and they are awaiting a phone call back from the legal guardian. Patient has no acute complaints today. States that she ate breakfast and lunch well. Bowels are moving. Wound care will be reconsulted to review the current wound care orders prior to discharge. Triad cream is currently being applied to multiple areas of pressure injury. Review of Systems Constitutional: Denied any fatigue denied any fever. Cardio vascular: denied any chest pain, palpitations Gastrointestinal: denied any nausea, vomiting, diarrhea, Pulmonary: Denied any shortness of breath cough Neurologic denied any new focal deficits, continues with significant weakness All inpatient medications were reviewed and appropriate changes in these medications as dictated in the interval history and assessment and plan. PHYSICAL EXAMINATION: GENERAL: The patient is alert and oriented x 2 baseline, not in any acute distress. Well developed, well nourished. Morbidly obese HEENT: Pupils are round and equally reacting to light. EOMI. No scleral icterus. No conjunctival pallor. Normocephalic, atraumatic. No pharyngeal erythema. No thyromegaly. CARDIOVASCULAR: S1 and S2 present. No murmurs, rubs, or gallops. PULMONARY: Chest is clear to auscultation, no wheezing or crackles. ABDOMEN: Soft, obese, mildly tender in lower quadrants, nondistended, normoactive bowel sounds. No palpable organomegaly. MUSCULOSKELETAL: No joint swelling or deformity. EXTREMITIES: No cyanosis, clubbing, or pedal edema. NEUROLOGICAL: Gross neurological examination did not reveal any focal deficits. Diffusely weak SKIN: No rashes. Pressure injuries as mentioned in the HPI Assessment and plan: Multiple areas of pressure injury with mixed full-thickness tissue loss and mottling wound care has evaluated the patient recommending to continue with Triad cream and pressure offloading as well as a specialty air mattress. Patient will require care home wound care and follow-up with the wound c are center on discharge. Extensive decubitus ulcer with pressure ulcers with sepsis, present on admission Leukocytosis, possibly secondary to above, improved Acute renal failure with acute tubular necrosis with worsening oliguria requiring hemodialysis renal function has recovered Generalized weakness and mostly bedbound Elevated LFTs, trending down possibly underlying cholangitis, completed course of antibiotic therapy Nausea, vomiting, diarrhea history, likely secondary to COVID-19, improved COVID-19 infection Morbid obesity with a BMI 54.8 History of noncompliance and most likely possible underlying psychiatric issues GI prophylaxis DVT prophylaxis Full code Plan: Patient remains off antibiotic therapy and being monitored with infectious disease following Renal function has essentially normalized nephrology following closely. Patient is off hemodialysis at this time. Will follow-up with repeat labs and monitor kidney functions closely. Replace electrolytes per protocol Continue with bowel regimen Patient will need an event monitor on discharge for a total of 14 days recommended by cardiology with outpatient follow-up As mentioned continue local wound care to the sacral decubitus ulcer and additional areas of tissue loss on her back and buttock with Triad cream patient will require close follow-up with the wound care center on discharge for additional recommendations. Per home care once these wounds mature patient may be switched over to a honey gel type wound care. Will request wound care re-consultation for follow up and further recommendations for wound care. Secondary to patient's condition on admission, Adult Protective Services was consulted. Now has a legal guardian. She is currently pending Medicaid application. Will need physical therapy occupational therapy follow-up notes. Multiple referrals have been made for placement. [facility]. Patient unable to Discharge until medicaid application is pending. Social work to update when patient is able to discharge. The impression and plan of care has been dictated by Nurse Malini Gray titioner as directed. Dr. Henrique MD I have performed a history and physical examination and medical decision making of this patient, discussed the same with the dictator, and agree with the dictators assessment and plan as written, documented as a scribe. Based on total visit time, I have performed more than 50% of this visit. Objective - Vital Signs Vital signs: Vital Signs Temp 98.3 F 08/15/24 13:30 Pulse 105 H 08/15/24 13:30 Resp 16 08/15/24 13:30 BP 117/74 08/15/24 13:30 Pulse Ox 100 08/15/24 13:30 FiO2 Intake & Output 08/14/24 08/15/24 08/15/24 18:59 06:59 18:59 Intake Total 2160 Output Total 1500 1200 Balance -1500 960 Intake: Oral 2160 Output: Urine 1500 1200 Other: Voiding Method Indwelling Catheter # Bowel Movements 1 - Labs CBC & Chem 7: 08/11/24 03:51 08/11/24 03:51 Labs: Abnormal Lab Results - Last 24 Hours (Table) 08/15/24 Range/Units 11:32 POC Glucose (mg/dL) 166 H (70-110) mg/dL Assessment and Plan Time with Patient: Less than 30
--- NOTE | 2024-08-15 15:32 | P.PN ---
Subjective Progress Note Date: 08/15/24 Principal diagnosis: Reason for follow-up is COVID-19, leukocytosis Patient is a 58-year-old female with no reported past medical history former smoker patient has been brought into the hospital for evaluation of subjective fever chills nausea vomiting diarrhea patient tested positive for COVID 19 chest x-ray negative for acute cardiopulmonary disease process did have elevated white count and elevated liver enzymes. On today's evaluation that is 08/15/2024,the patient remains to be afebrile, patient is on room air not requiring supplemental oxygen and denies any shortness of breath no chest pain or cough.Patient denies having any nausea or vomiting, no abdominal pain and no diarrhea has been reported, denies pain to the back wound or any worsening rash Objective - Vital Signs Vital signs: Vital Signs Temp 98.3 F 08/15/24 13:30 Pulse 105 H 08/15/24 13:30 Resp 16 08/15/24 13:30 BP 117/74 08/15/24 13:30 Pulse Ox 100 08/15/24 13:30 FiO2 Intake & Output 08/14/24 08/15/24 08/15/24 18:59 06:59 18:59 Intake Total 2160 Output Total 1500 1200 Balance -1500 960 Intake: Oral 2160 Output: Urine 1500 1200 Other: Voiding Method Indwelling Catheter # Bowel Movements 1 - Exam GENERAL DESCRIPTION: Middle-age female lying in bed in no distress RESPIRATORY SYSTEM: Unlabored breathing , decreased breath sounds at bases HEART: S1 S2 regular rate and rhythm , ABDOMEN: Soft , no tenderness Skin: Micropapular rash to the upper chest and upper arm slightly decreased in intensity - Labs CBC & Chem 7: 08/11/24 03:51 08/11/24 03:51 Labs: Abnormal Lab Results - Last 24 Hours (Table) 08/15/24 Range/Units 11:32 POC Glucose (mg/dL) 166 H (70-110) mg/dL Assessment and Plan (1) Leukocytosis Current Visit: Yes Status: Acute Code(s): D72.829 - ELEVATED WHITE BLOOD CELL COUNT, UNSPECIFIED SNOMED Code(s): 344682238 (2) COVID-19 Current Visit: Yes Status: Acute Code(s): U07.1 - COVID-19 SNOMED Code(s): 781350880 (3) Cholangitis Current Visit: Yes Status: Acute Code(s): K83.09 - OTHER CHOLANGITIS SNOMED Code(s): 80535213 (4) Wound, open, back Current Visit: Yes Status: Acute Code(s): S21.209A - UNSP OPN WND UNSP BK WL OF THORAX W/O PENET THOR CAV, INIT SNOMED Code(s): 911813903 (5) Drug rash Current Visit: Yes Status: Acute Code(s): L27.0 - GEN SKIN ERUPTION DUE TO DRUGS AND MEDS TAKEN INTERNALLY SNOMED Code(s): 23822298 Plan: 1patient did have features of SIRS as the patient did have tachycardia elevated white count but no fever source likely abdominal keeping in mind predominantly symptoms of nausea vomiting and diarrhea and did have elevated liver enzymes concerning for possible cholangitis did have a positive UA urine source not entirely excluded 2-patient did tested positive for COVID-19 however did not have significant respiratory symptoms patient not hypoxic chest x-ray was negative questionable incidental finding 3-patient ultrasound of the abdomen did show some gallbladder sludge but no features of cholecystitis CBD was normal, subsequently her liver enzymes have improved and the patient has completed course of antibiotics currently doing well off antibiotics and the patient white count has been normal 4-patient did have multiple wounds to the back and posterior thigh area without any cellulitis, patient has been advised local wound care to the back with Aquacel silver dressing change q. 48-hour and frequent change of position discontinue Triad cream 5patient has developed a rash to the upper chest and upper extremity concerning for possible drug rash likely offending drug could be the Protonix which was discontinued still having some rash questionable related to heparin, may consider discontinuation of heparin will discuss with admitting team Dictation was produced using [employer] dictation software. please excuse any grammatical, word or spelling errors. Time with Patient: Less than 30
--- NOTE | 2024-08-15 15:32 | P.PN ---
Subjective Progress Note Date: 08/14/24 Principal diagnosis: Reason for follow-up is COVID-19, leukocytosis Patient is a 58-year-old female with no reported past medical history former smoker patient has been brought into the hospital for evaluation of subjective fever chills nausea vomiting diarrhea patient tested positive for COVID 19 chest x-ray negative for acute cardiopulmonary disease process did have elevated white count and elevated liver enzymes. On today's evaluation that is 08/14/2024,the patient denies any fever or any chills, patient is breathing comfortably on room air, the patient denies chest pain shortness of breath and no significant cough, patient denies abdominal pain, no nausea vomiting or diarrhea. Denies any worsening rash or itching No new labs Objective - Vital Signs Vital signs: Vital Signs Temp 97.8 F 08/14/24 08:00 Pulse 100 08/14/24 08:00 Resp 18 08/14/24 08:00 BP 108/72 08/14/24 08:00 Pulse Ox 97 08/14/24 08:00 FiO2 Intake & Output 08/13/24 08/14/24 08/14/24 18:59 06:59 18:59 Output Total 1500 1025 Balance -1500 -1025 Output: Urine 1500 1025 Other: Voiding Method Indwelling Catheter Indwelling Catheter - Exam GENERAL DESCRIPTION: Middle-age female lying in bed in no distress RESPIRATORY SYSTEM: Unlabored breathing , decreased breath sounds at bases HEART: S1 S2 regular rate and rhythm , ABDOMEN: Soft , no tenderness Skin: Micropapular rash to the upper chest and upper arm slightly decreased in intensity - Labs CBC & Chem 7: 08/11/24 03:51 08/11/24 03:51 Labs: Abnormal Lab Results - Last 24 Hours (Table) 08/13/24 Range/Units 20:29 POC Glucose (mg/dL) 123 H (70-110) mg/dL Assessment and Plan (1) Leukocytosis Current Visit: Yes Status: Acute Code(s): D72.829 - ELEVATED WHITE BLOOD C ELL COUNT, UNSPECIFIED SNOMED Code(s): 135271413 (2) COVID-19 Current Visit: Yes Status: Acute Code(s): U07.1 - COVID-19 SNOMED Code(s): 631311628 (3) Cholangitis Current Visit: Yes Status: Acute Code(s): K83.09 - OTHER CHOLANGITIS SNOME D Code(s): 36420827 (4) Wound, open, back Current Visit: Yes Status: Acute Code(s): S21.209A - UNSP OPN WND UNSP BK WL OF THORAX W/O PENET THOR CAV, INIT SNOMED Code(s): 522141940 (5) Drug rash Current Visit: Yes Status: Acute Code(s): L27.0 - GEN SKIN ERUPTION DUE TO DRUGS AND MEDS TAKEN INTERNALLY SNOMED Code(s): 16240293 Plan: 1patient did have features of SIRS as the patient did have tachycardia elevated white count but no fever source likely abdominal keeping in mind predominantly symptoms of nausea vomiting and diarrhea and did have elevated liver enzymes concerning for possible cholangitis did have a positive UA urine source not entirely excluded 2-patient did tested positive for COVID-19 however did not have significant respiratory symptoms patient not hypoxic chest x-ray was negative questionable incidental finding 3-patient ultrasound of the abdomen did show some gallbladder sludge but no features of cholecystitis CBD was normal, subsequently her liver enzymes have improved and the patient has completed course of antibiotics currently doing well off antibiotics and the patient white count has been normal 4-patient did have multiple wounds to the back and posterior thigh area without any cellulitis, patient has been advised local wound care to the back with Aquacel silver dressing change q. 48-hour and frequent change of position 5patient has developed a rash to the upper chest and upper extremity concerning for possible drug rash likely offending drug could be the Protonix which was discontinued some improvement in the rash and will be monitored closely Dictation was produced using [employer] dictation software. please excuse any grammatical, word or spelling errors. Time with Patient: Less than 30
[2024-08-15 16:39] LABS: Glucose,Whole Blood 94 mg/dL (70-110)
[2024-08-15 21:09] LABS: Glucose,Whole Blood 148 mg/dL (70-110)
[2024-08-16 06:26] LABS: Glucose,Whole Blood 93 mg/dL (70-110)
[2024-08-16 11:39] LABS: Glucose,Whole Blood 97 mg/dL (70-110)
[2024-08-16 16:39] LABS: Glucose,Whole Blood 116 mg/dL (70-110)
[2024-08-16 20:35] LABS: Glucose,Whole Blood 101 mg/dL (70-110)
--- NOTE | 2024-08-16 22:00 | P.PN ---
Subjective Progress Note Date: 08/16/24 Patient evaluated today in follow-up in the medical floor resting in bed comfortably. Patient has completed a course of oral Augmentin with concerns for cholangitis. Additionally patient was started on hemodialysis since admission with recovery of her renal function and no longer is requiring hemodialysis. Most recent blood work today reveals a sodium level of 147, BUN of 14 creatinine of 1.3. Her LFTs are slowly improving. Wound cultures to her sacral decubitus show Corynebacterium and Brevibacterium species. Cardiology following secondary to sinus pauses and they have recommended an event monitor on discharge for 14 days for further evaluation and further recommendations on outpatient basis. Patient does not have any health insurance and Adult Protective Services has been involved patient will go for a guardianship hearing on August 07 and to help with discharge planning. She will remain in the hospital until this has been completed. 08/04/2024 Patient evaluated in follow-up with the medical floor. Patient is completed a course of oral Augmentin. Patient has completed hemodialysis. She is currently pending guardianship hearing for August 07. Local wound care continues to the pressure injury to her bottom and back. Patient has no acute complaints today. 08/05/2024 Patient is seen in follow-up this morning with multiple consultations following. Currently awaiting guardianship hearing but social work will be attending on August 07. Patient has completed hemodialysis and not requiring further dialysis at this time and will follow-up with repeat labs. Patient to continue with local wound care and offloading frequently. Patient is afebrile denies chest pain or shortness of breath. Patient reports tolerating diet with no reported nausea or vomiting. 08/06/2024 Patient is seen in follow-up today currently awaiting to undergo guardianship hearing on August 07 with case management/social work following and will be arranging for possible ECF once guardianship this is obtained. Patient is afebrile with no reports of chest pain or shortness of breath currently sitting up in the bed on room air. Patient to continue with local wound care and has completed antibiotic therapy. Patient reports to tolerating diet with no reported nausea or vomiting. Nephrology following and kidney functions have recovered and not requiring further dialysis at this time. 08/08/2024 Patient is evaluated in follow-up of medical floor. She has no acute complaints at this time. Legal guardianship has been obtained for this patient and she is currently pending a Medicaid application and will then need an accepting placement facility. Continue with local wound care. Has completed antibiotic therapy at this time. 08/09/2024 Patient is seen in follow-up today reports no significant overnight issues although is having some lower abdominal cramping. Patient reports is passing gas and there are positive bowel sounds noted on exam. Nursing staff reports she has not had a bowel movement and will continue bowel regimen as needed. Patient reports is eating and tolerating diet with no reported nausea or vomiting. Patient remains off antibiotics and kidney functions have recovered and maintained off dialysis. Patient continues to await insurance and ECF placement as patient has just received a guardian and working with social work regarding discharge planning. Encouraged frequent offloading and position changes. 08/10/2024 Patient evaluated today in follow up on the medical floor. Patient has no acute complaints at this time and reports improvement in the abdominal cramping. States her bottom is sore when she is having bowel movements. 08/11/2024 Patient is eval obtain follow-up in the medical floor. No acute complaints. She is tolerating diet. Blood work today was repeated with a white blood cell count of eight 5.83, hemoglobin 9.1, sodium 137, BUN of 9.4 creatinine of 0.8. Hemodynamically she is stable. 08/12/2024 Patient evaluated today in follow up on the medical floor. No acute complaints. Has a small area on her left forearm with erythema at old IV site where tegaderm was in place likely a contact dermatitis. 08/13/2024 Patient is evaluated today in follow up. Patient is resting in bed comfortably. No acute abdominal complaints today. Electrolytes and renal function have been stable. Hemodynamically stable. Patient is out of covid precautions. 08/15/2024 Follow up with social work today that patient cannot DC to [facility] until medicaid application is completed and they are awaiting a phone call back from the legal guardian. Patient has no acute complaints today. States that she ate breakfast and lunch well. Bowels are moving. Wound care will be reconsulted to review the current wound care orders prior to discharge. Triad cream is currently being applied to multiple areas of pressure injury. 08/16/2024 Patient is seen in follow-up today and discuss further with social work and following with public guardian and will be starting a Medicaid application soon. Currently awaiting at least a pending application for ECF to accept. Patient has been accepted at [facility]. Unable to except on the weekends and will likely follow-up with social work on Monday regarding Medicaid application status and possible discharge planning. Patient is afebrile with no reported chest pain or shortness of breath. Patient to continue with local wound care. Review of Systems Constitutional: Denied any fatigue denied any fever. Cardio vascular: denied any chest pain, palpitations Gastrointestinal: denied any nausea, vomiting, diarrhea, Pulmonary: Denied any shortness of breath cough Neurologic denied any new focal deficits, continues with significant weakness All inpatient medications were reviewed and appropriate changes in these medications as dictated in the interval history and assessment and plan. PHYSICAL EXAMINATION: GENERAL: The patient is sleeping although arousable, alert and oriented x 2 baseline, not in any acute distress. Well developed, well nourished. Morbidly obese HEENT: Pupils are round and equally reacting to light. EOMI. No scleral icterus. No conjunctival pallor. Normocephalic, atraumatic. No pharyngeal erythema. No thyromegaly. CARDIOVASCULAR: S1 and S2 present. No murmurs, rubs, or gallops. PULMONARY: Chest is clear to auscultation, no wheezing or crackles. ABDOMEN: Soft, obese, mildly tender in lower quadrants, nondistended, normoactive bowel sounds. No palpable organomegaly. MUSCULOSKELETAL: No joint swelling or deformity. EXTREMITIES: No cyanosis, clubbing, or pedal edema. NEUROLOGICAL: Gross neurological examination did not reveal any focal deficits. Diffusely weak SKIN: No rashes. Pressure injuries as mentioned in the HPI Assessment and plan: Multiple areas of pressure injury with mixed full-thickness tissue loss and mottling wound care has evaluated the patient recommending to continue with Triad cream and pressure offloading as well as a specialty air mattress. Patient will require [facility] wound care and follow-up with the wound care center on discharge. Extensive decubitus ulcer with pressure ulcers with sepsis, present on admission Leukocytosis, possibly secondary to above, improved Acute renal failure with acute tubular necrosis with worsening oliguria requiring hemodialysis renal function has recovered Generalized weakness and mostly bedbound Elevated LFTs, trending down possibly underlying cholangitis, completed course of antibiotic therapy Nausea, vomiting, diarrhea history, likely secondary to COVID-19, improved COVID-19 infection Morbid obesity with a BMI 54.8 History of noncompliance and most likely possible underlying psychiatric issues GI prophylaxis DVT prophylaxis Full code Plan: Patient remains off antibiotic therapy and being monitored with infectious disease following Renal function has essentially normalized nephrology following closely. Patient is off hemodialysis at this time. Continue with bowel regimen Patient will need an event monitor on discharge for a total of 14 days recommen ded by cardiology with outpatient follow-up As mentioned continue local wound care to the sacral decubitus ulcer and additional areas of tissue loss on her back and buttock with Triad cream patient will require close follow-up with the wound care center on discharge for additional recommendations. Per home care once these wounds mature patient may be switched over to a honey gel type wound care. Will request wound care re-consultation for follow up and further recommendations for wound care. Secondary to patient's condition on admission, Adult Protective Services was consulted. Now has a legal guardian. She is currently pending Medicaid application. Social work discussed with guardian about filling out application and this will be initiated. Will need physical therapy occupational therapy follow-up notes. Multiple referrals have been made for placement. [facility] has accepted. Patient unable to Discharge until medicaid application is pending. Social work to follow and will contact guardian's office on Monday morning regarding Medicaid application. The impression and plan of care has been dictated by Christina Soares, Nurse Practitioner as directed. Dr. Henrique MD I have performed a history and physical examination and medical decision making of this patient, discussed the same with the dictator, and agree with the dictators assessment and plan as written, documented as a scribe. Based on total visit time, I have performed more than 50% of this visit. Objective - Vital Signs Vital signs: Vital Signs Temp 98.1 F 08/16/24 06:58 Pulse 107 H 08/16/24 06:58 Resp 17 08/16/24 06:58 BP 109/63 08/16/24 06:58 Pulse Ox 98 08/16/24 06:58 FiO2 Intake & Output 08/15/24 08/16/24 08/16/24 18:59 06:59 18:59 Intake Total 1890 Output Total 1150 850 Balance -1150 1040 Intake: Oral 1890 Output: Urine 1150 850 Other: Voiding Method Indwelling Catheter # Bowel Movements 1 - Labs CBC & Chem 7: 08/11/24 03:51 01/12/25 03:51 Labs: Abnormal Lab Results - Last 24 Hours (Table) 08/15/24 08/15/24 Range/Units 11:32 21:08 POC Glucose (mg/dL) 166 H 148 H (70-110) mg/dL
[2024-08-17 06:21] LABS: Glucose,Whole Blood 90 mg/dL (70-110)
[2024-08-17 11:23] LABS: Glucose,Whole Blood 111 mg/dL (70-110)
[2024-08-17 16:16] LABS: Glucose,Whole Blood 126 mg/dL (70-110)
--- NOTE | 2024-08-17 16:41 | P.PN ---
Subjective Progress Note Date: 08/17/24 Patient evaluated today in follow-up in the medical floor resting in bed comfortably. Patient has completed a course of oral Augmentin with concerns for cholangitis. Additionally patient was started on hemodialysis since admission with recovery of her renal function and no longer is requiring hemodialysis. Most recent blood work today reveals a sodium level of 147, BUN of 14 creatinine of 1.3. Her LFTs are slowly improving. Wound cultures to her sacral decubitus show Corynebacterium and Brevibacterium species. Cardiology following secondary to sinus pauses and they have recommended an event monitor on discharge for 14 days for further evaluation and further recommendations on outpatient basis. Patient does not have any health insurance and Adult Protective Services has been involved patient will go for a guardianship hearing on August 07 and to help with discharge planning. She will remain in the hospital until this has been completed. 08/04/2024 Patient evaluated in follow-up with the medical floor. Patient is completed a course of oral Augmentin. Patient has completed hemodialysis. She is currently pending guardianship hearing for August 07. Local wound care continues to the pressure injury to her bottom and back. Patient has no acute complaints today. 08/05/2024 Patient is seen in follow-up this morning with multiple consultations following. Currently awaiting guardianship hearing but social work will be attending on August 07. Patient has completed hemodialysis and not requiring further dialysis at this time and will follow-up with repeat labs. Patient to continue with local wound care and offloading frequently. Patient is afebrile denies chest pain or shortness of breath. Patient reports tolerating diet with no reported nausea or vomiting. 08/06/2024 Patient is seen in follow-up today currently awaiting to undergo guardianship hearing on August 07 with case management/social work following and will be arranging for possible ECF once guardianship this is obtained. Patient is afebrile with no reports of chest pain or shortness of breath currently sitting up in the bed on room air. Patient to continue with local wound care and has completed antibiotic therapy. Patient reports to tolerating diet with no reported nausea or vomiting. Nephrology following and kidney functions have recovered and not requiring further dialysis at this time. 08/08/2024 Patient is evaluated in follow-up of medical floor. She has no acute complaints at this time. Legal guardianship has been obtained for this patient and she is currently pending a Medicaid application and will then need an accepting placement facility. Continue with local wound care. Has completed antibiotic therapy at this time. 08/09/2024 Patient is seen in follow-up today reports no significant overnight issues although is having some lower abdominal cramping. Patient reports is passing gas and there are positive bowel sounds noted on exam. Nursing staff reports she has not had a bowel movement and will continue bowel regimen as needed. Patient reports is eating and tolerating diet with no reported nausea or vomiting. Patient remains off antibiotics and kidney functions have recovered and maintained off dialysis. Patient continues to await insurance and ECF placement as patient has just received a guardian and working with social work regarding discharge planning. Encouraged frequent offloading and position changes. 08/10/2024 Patient evaluated today in follow up on the medical floor. Patient has no acute complaints at this time and reports improvement in the abdominal cramping. States her bottom is sore when she is having bowel movements. 08/11/2024 Patient is eval obtain follow-up in the medical floor. No acute complaints. She is tolerating diet. Blood work today was repeated with a white blood cell count of eight 5.83, hemoglobin 9.1, sodium 137, BUN of 9.4 creatinine of 0.8. Hemodynamically she is stable. 08/12/2024 Patient evaluated today in follow up on the medical floor. No acute complaints. Has a small area on her left forearm with erythema at old IV site where tegaderm was in place likely a contact dermatitis. 08/13/2024 Patient is evaluated today in follow up. Patient is resting in bed comfortably. No acute abdominal complaints today. Electrolytes and renal function have been stable. Hemodynamically stable. Patient is out of covid precautions. 08/15/2024 Follow up with social work today that patient cannot DC to [facility] until medicaid application is completed and they are awaiting a phone call back from the legal guardian. Patient has no acute complaints today. States that she ate breakfast and lunch well. Bowels are moving. Wound care will be reconsulted to review the current wound care orders prior to discharge. Triad cream is currently being applied to multiple areas of pressure injury. 08/16/2024 Patient is seen in follow-up today and discuss further with social work and following with public guardian and will be starting a Medicaid application soon. Currently awaiting at least a pending application for ECF to accept. Patient has been accepted at [facility]. Unable to except on the weekends and will likely follow-up with social work on Monday regarding Medicaid application status and possible discharge planning. Patient is afebrile with no reported chest pain or shortness of breath. Patient to continue with local wound care. 08/17/2024 Patient evaluated today in follow up. No acute complaints at this time. Continue to await the medicaid application and placement. ID following off antibiotic therapy and out of COVID precautions. Review of Systems Constitutional: Denied any fatigue denied any fever. Cardio vascular: denied any chest pain, palpitations Gastrointestinal: denied any nausea, vomiting, diarrhea, Pulmonary: Denied any shortness of breath cough Neurologic denied any new focal deficits, continues with significant weakness All inpatient medications were reviewed and appropriate changes in these medications as dictated in the interval history and assessment and plan. PHYSICAL EXAMINATION: GENERAL: The patient is alert and oriented x 2 baseline, not in any acute distress. Well developed, well nourished. Morbidly obese HEENT: Pupils are round and equally reacting to light. EOMI. No scleral icterus. No conjunctival pallor. Normocephalic, atraumatic. No pharyngeal erythema. No thyromegaly. CARDIOVASCULAR: S1 and S2 present. No murmurs, rubs, or gallops. PULMONARY: Chest is clear to auscultation, no wheezing or crackles. ABDOMEN: Soft, obese, mildly tender in lower quadrants, nondistended, normoactive bowel sounds. No palpable organomegaly. MUSCULOSKELETAL: No joint swelling or deformity. EXTREMITIES: No cyanosis, clubbing, or pedal edema. NEUROLOGICAL: Gross neurological examination did not reveal any focal deficits. Diffusely weak SKIN: No rashes. Pressure injuries as mentioned in the HPI Assessment and plan: Multiple areas of pressure injury with mixed full-thickness tissue loss and mottling wound care has evaluated the patient recommending to continue with Triad cream and pressure offloading as well as a specialty air mattress. Patient will require retirement wound care and follow-up with the wound care center on discharge. Extensive decubitus ulcer with pressure ulcers with sepsis, present on admission Leukocytosis, possibly secondary to above, improved Acute renal failure with acute tubular necrosis with worsening oliguria requiring hemodialysis renal function has recovered Generalized weakness and mostly bedbound Elevated LFTs, trending down possibly underlying cholangitis, completed course of antibiotic therapy Nausea, vomiting, diarrhea history, likely secondary to COVID-19, improved COVID-19 infection Morbid obesity with a BMI 54.8 History of noncompliance and most likely possible underlying psychiatric issues GI prophylaxis DVT prophylaxis Full code Plan: Patient remains off antibiotic therapy and being monitored with infectious disease following Renal function has essentially normalized nephrology following closely. Patient is off hemodialysis at this time. Will follow-up with repeat labs and monitor kidney functions closely. Replace electrolytes per protocol Continue with bowel regimen Patient will need an event monitor on discharge for a total of 14 days recommended by cardiology with outpatient follow-up As mentioned continue local wound care to the sacral decubitus ulcer and a dditional areas of tissue loss on her back and buttock with Triad cream patient will require close follow-up with the wound care center on discharge for additional recommendations. Per home care once these wounds mature patient may be switched over to a honey gel type wound care. Will request wound care re-consultation for follow up and further recommendations for wound care. Secondary to patient's condition on admission, Adult Protective Services was consulted. Now has a legal guardian. She is currently pending Medicaid application. Will need physical therapy occupational therapy follow-up notes. Multiple referrals have been made for placement. [facility]. Patient unable to Discharge until medicaid application is pending. Social work to update when patient is able to discharge. The impression and plan of care has been dictated by Lauren Mendoza, Nurse Practitioner as directed. Dr. Henrique MD I have performed a history and physical examination and medical decision making of this patient, discussed the same with the dictator, and agree with the dictators assessment and plan as written, documented as a scribe. Based on total visit time, I have performed more than 50% of this visit. Objective - Vital Signs Vital signs: Vital Signs Temp 98.7 F 08/17/24 13:23 Pulse 95 08/17/24 13:23 Resp 18 08/17/24 13:23 BP 128/79 08/17/24 13:23 Pulse Ox 97 08/17/24 13:23 FiO2 Intake & Output 08/16/24 08/17/24 08/17/24 18:59 06:59 18:59 Output Total 875 Balance -875 Output: Urine 875 Other: Voiding Method Indwelling Catheter Indwelling Catheter # Bowel Movements 9 - Labs CBC & Chem 7: 08/11/24 03:51 08/11/24 03:51 Labs: Abnormal Lab Results - Last 24 Hours (Table) 08/16/24 08/17/24 Range/Units 16:38 11:21 POC Glucose (mg/dL) 116 H 111 H (70-110) mg/dL Assessment and Plan Time with Patient: Less than 30
[2024-08-17 20:50] LABS: Glucose,Whole Blood 140 mg/dL (70-110)
[2024-08-18 06:11] LABS: Glucose,Whole Blood 114 mg/dL (70-110)
[2024-08-18 11:29] LABS: Glucose,Whole Blood 117 mg/dL (70-110)
[2024-08-18 16:31] LABS: Glucose,Whole Blood 116 mg/dL (70-110)
[2024-08-18 20:12] LABS: Glucose,Whole Blood 138 mg/dL (70-110)
--- NOTE | 2024-08-19 03:42 | P.PN ---
Subjective Progress Note Date: 08/18/24 Patient evaluated today in follow-up in the medical floor resting in bed comfortably. Patient has completed a course of oral Augmentin with concerns for cholangitis. Additionally patient was started on hemodialysis since admission with recovery of her renal function and no longer is requiring hemodialysis. Most recent blood work today reveals a sodium level of 147, BUN of 14 creatinine of 1.3. Her LFTs are slowly improving. Wound cultures to her sacral decubitus show Corynebacterium and Brevibacterium species. Cardiology following secondary to sinus pauses and they have recommended an event monitor on discharge for 14 days for further evaluation and further recommendations on outpatient basis. Patient does not have any health insurance and Adult Protective Services has been involved patient will go for a guardianship hearing on August 07 and to help with discharge planning. She will remain in the hospital until this has been completed. 08/04/2024 Patient evaluated in follow-up with the medical floor. Patient is completed a course of oral Augmentin. Patient has completed hemodialysis. She is currently pending guardianship hearing for August 07. Local wound care continues to the pressure injury to her bottom and back. Patient has no acute complaints today. 08/05/2024 Patient is seen in follow-up this morning with multiple consultations following. Currently awaiting guardianship hearing but social work will be attending on August 07. Patient has completed hemodialysis and not requiring further dialysis at this time and will follow-up with repeat labs. Patient to continue with local wound care and offloading frequently. Patient is afebrile denies chest pain or shortness of breath. Patient reports tolerating diet with no reported nausea or vomiting. 08/06/2024 Patient is seen in follow-up today currently awaiting to undergo guardianship hearing on August 07 with case management/social work following and will be arranging for possible ECF once guardianship this is obtained. Patient is afebrile with no reports of chest pain or shortness of breath currently sitting up in the bed on room air. Patient to continue with local wound care and has completed antibiotic therapy. Patient reports to tolerating diet with no reported nausea or vomiting. Nephrology following and kidney functions have recovered and not requiring further dialysis at this time. 08/08/2024 Patient is evaluated in follow-up of medical floor. She has no acute complaints at this time. Legal guardianship has been obtained for this patient and she is currently pending a Medicaid application and will then need an accepting placement facility. Continue with local wound care. Has completed antibiotic therapy at this time. 08/09/2024 Patient is seen in follow-up today reports no significant overnight issues although is having some lower abdominal cramping. Patient reports is passing gas and there are positive bowel sounds noted on exam. Nursing staff reports she has not had a bowel movement and will continue bowel regimen as needed. Patient reports is eating and tolerating diet with no reported nausea or vomiting. Patient remains off antibiotics and kidney functions have recovered and maintained off dialysis. Patient continues to await insurance and ECF placement as patient has just received a guardian and working with social work regarding discharge planning. Encouraged frequent offloading and position changes. 08/10/2024 Patient evaluated today in follow up on the medical floor. Patient has no acute complaints at this time and reports improvement in the abdominal cramping. States her bottom is sore when she is having bowel movements. 08/11/2024 Patient is eval obtain follow-up in the medical floor. No acute complaints. She is tolerating diet. Blood work today was repeated with a white blood cell count of eight 5.83, hemoglobin 9.1, sodium 137, BUN of 9.4 creatinine of 0.8. Hemodynamically she is stable. 08/12/2024 Patient evaluated today in follow up on the medical floor. No acute complaints. Has a small area on her left forearm with erythema at old IV site where tegaderm was in place likely a contact dermatitis. 08/13/2024 Patient is evaluated today in follow up. Patient is resting in bed comfortably. No acute abdominal complaints today. Electrolytes and renal function have been stable. Hemodynamically stable. Patient is out of covid precautions. 08/15/2024 Follow up with social work today that patient cannot DC to [facility] until medicaid application is completed and they are awaiting a phone call back from the legal guardian. Patient has no acute complaints today. States that she ate breakfast and lunch well. Bowels are moving. Wound care will be reconsulted to review the current wound care orders prior to discharge. Triad cream is currently being applied to multiple areas of pressure injury. 08/16/2024 Patient is seen in follow-up today and discuss further with social work and following with public guardian and will be starting a Medicaid application soon. Currently awaiting at least a pending application for ECF to accept. Patient has been accepted at [facility]. Unable to except on the weekends and will likely follow-up with social work on Monday regarding Medicaid application status and possible discharge planning. Patient is afebrile with no reported chest pain or shortness of breath. Patient to continue with local wound care. 08/17/2024 Patient evaluated today in follow up. No acute complaints at this time. Continue to await the medicaid application and placement. ID following off antibiotic therapy and out of COVID precautions. 08/18/2024 Patient continues to await Medicaid pending application to be accepted to ECF. No acute overnight issues noted and patient is continued on local wound care and continued PT/OT therapy. Patient has been working on her upper extremity strength and is moving and wiggling her toes frequently. Patient will need extensive PT/OT therapy on discharge. Patient is afebrile with no reported chest pain or shortness of breath. Patient reports tolerating diet and reports is having bowel movements. Will change bowel regimen to as needed. Review of Systems Constitutional: Denied any fatigue denied any fever. Cardio vascular: denied any chest pain, palpitations Gastrointestinal: denied any nausea, vomiting, diarrhea, Pulmonary: Denied any shortness of breath cough Neurologic denied any new focal deficits, continues with significant weakness All inpatient medications were reviewed and appropriate changes in these medications as dictated in the interval history and assessment and plan. PHYSICAL EXAMINATION: GENERAL: The patient is alert and oriented x 2 baseline, not in any acute distress. Well developed, well nourished. Morbidly obese HEENT: Pupils are round and equally reacting to light. EOMI. No scleral icterus. No conjunctival pallor. Normocephalic, atraumatic. No pharyngeal erythema. No thyromegaly. CARDIOVASCULAR: S1 and S2 present. No murmurs, rubs, or gallops. PULMONARY: Chest is clear to auscultation, no wheezing or crackles. ABDOMEN: Soft, obese, mildly tender in lower quadrants, nondistended, normoa ctive bowel sounds. No palpable organomegaly. MUSCULOSKELETAL: No joint swelling or deformity. EXTREMITIES: No cyanosis, clubbing, or pedal edema. NEUROLOGICAL: Gross neurological examination did not reveal any focal deficits. Diffusely weak SKIN: No rashes. Pressure injuries as mentioned in the HPI Assessment and plan: Multiple areas of pressure injury with mixed full-thickness tissue loss and mottling wound care has evaluated the patient recommending to continue with Triad cream and pressure offloading as well as a specialty air mattress. Patient will require fpc wound care and follow-up with the wound care center on discharge. Extensive decubitus ulcer with pressure ulcers with sepsis, present on admission Leukocytosis, possibly secondary to above, improved Acute renal failure with acute tubular necrosis with worsening oliguria requiring hemodialysis renal function has recovered Generalized weakness and mostly bedbound Elevated LFTs, trending down possibly underlying cholangitis, completed course of antibiotic therapy Nausea, vomiting, diarrhea history, likely secondary to COVID-19, improved COVID-19 infection Morbid obesity with a BMI 54.8 History of noncompliance and most likely possible underlying psychiatric issues GI prophylaxis DVT prophylaxis Full code Plan: Patient remains off antibiotic therapy and being monitored with infectious disease following Renal function has essentially normalized nephrology following closely. Patient is off hemodialysis at this time. Will follow-up with repeat labs and monitor kidney functions closely. Replace electrolytes per protocol Continue with bowel regimen although make as needed as patient is having mul tiple bowel movements Patient will need an event monitor on discharge for a total of 14 days recomme nded by cardiology with outpatient follow-up As mentioned continue local wound care to the sacral decubitus ulcer and additional areas of tissue loss on her back and buttock with Triad cream patient will require close follow-up with the wound care center on discharge for additional recommendations. Per home care once these wounds mature patient may be switched over to a honey gel type wound care. Will request wound care re-consultation for follow up and further recommendations for wound care. Secondary to patient's condition on admission, Adult Protective Services was consulted. Now has a legal guardian. She is currently pending Medicaid application. Will need physical therapy occupational therapy follow-up notes. [facility] has accepted with Medicaid pending. Patient unable to Discharge until medicaid application is pending. Social work to update when patient is able to discharge. Have contacted guardianship office multiple times and they have reported they are working on submitting Medicaid application. Will follow-up on Monday with social work regarding this. Unsure if the office is open given . The impression and plan of care has been dictated by Christina Soares, Nurse Practitioner as directed. Dr. Henrique MD I have performed a history and physical examination and medical decision making of this patient, discussed the same with the dictator, and agree with the dictators assessment and plan as written, documented as a scribe. Based on total visit time, I have performed more than 50% of this visit. Objective - Vital Signs Vital signs: Vital Signs Temp 98.9 F 08/18/24 02:00 Pulse 70 08/18/24 02:00 Resp 17 08/18/24 02:00 BP 111/66 08/18/24 02:00 Pulse Ox 98 08/18/24 02:00 FiO2 Intake & Output 08/17/24 08/17/24 08/18/24 06:59 18:59 06:59 Output Total 1100 Balance -1100 Output: Urine 1100 Other: Voiding Method Indwelling Catheter Indwelling Catheter Indwelling Catheter # Bowel Movements 1 - Labs CBC & Chem 7: 08/11/24 03:51 08/11/24 03:51 Labs: Abnormal Lab Results - Last 24 Hours (Table) 08/17/24 08/17/24 08/17/24 Range/Units 11:21 16:15 20:49 POC Glucose (mg/dL) 111 H 126 H 140 H (70-110) mg/dL
[2024-08-19] MEDS ORDERED: bisacodyL 10 MG SUPP RECTAL PRN (03:44)
[2024-08-19] MEDS ORDERED: LACTULOSE 20 GM/30 ML CUP PO PRN (03:44)
[2024-08-19 06:00] LABS: Glucose,Whole Blood 113 mg/dL (70-110)
[2024-08-19 08:15] VITALS: BP 131/84; PULSE 98; RESP 17; TEMP 98.3
[2024-08-19 08:35] LABS: Basophils # (A) 0.04 X 10*3/uL (0.00-0.10); Basophils % (A) 0.5 %; Eosinophils # (A) 0.33 X 10*3/uL (0.04-0.35); Eosinophils % (A) 3.8 %; HCT 28.3 % (37.2-46.3); HGB 8.7 g/dL (12.0-15.0); Lymphocytes % (A) 30.2 %; MCH 29.1 pg (27.0-32.0); MCHC 30.7 g/dL (32.0-37.0); MCV 94.6 FL (80.0-97.0); Mean Platelet Volume 9.3 FL (9.5-12.2); Monocytes # (A) 0.65 X 10*3/uL (0.20-1.00); Monocytes % (A) 7.5 %; NRBC Per 100 WBC 0 X 10*3/uL (0.00-0.01); Neutrophils # (A) 4.63 X 10*3/uL (1.80-7.70); Neutrophils % (A) 53.8 %; Platelet Count 249 X 10*3/uL (140-440); RBC 2.99 X 10*6/uL (4.10-5.20); RDW 16.5 % (11.5-14.5); WBC 8.61 X 10*3/uL (4.50-10.00)
[2024-08-19 09:13] LABS: Blood Urea Nitrogen 7.4 mg/dL (9.0-27.0); Calcium 7.9 mg/dL (8.7-10.3); Carbon Dioxide 26.9 mmol/L (21.6-31.8); Chloride 101 mmol/L (96-109); Glucose 102 mg/dL (70-110); Potassium 3.3 mmol/L (3.5-5.5); Sodium 136 mmol/L (135-145)
--- NOTE | 2024-08-19 10:10 | P.DS ---
Providers Date of admission: 07/22/24 13:34 Expected date of discharge: 08/19/24 Attending physician: Jina Norris Consults: 07/22/24 13:24 Consult Physician Routine Consulting Provider: Fatou Blum Consult Reason/Comments: sepsis Do you want consulting provider notified?: Yes 07/23/24 14:33 Consult Physician Routine Consulting Provider: Mark Barahona Consult Reason/Comments: arf Do you want consulting provider notified?: Yes 07/24/24 01:49 Consult Physician Urgent Consulting Provider: Dylan Madden Consult Reason/Comments: multiple cardiac pauses greater than 3 seconds. Do you want consulting provider notified?: Yes, Notify in am 07/25/24 09:12 Consult Physician Routine Consulting Provider: Nadeem Liu Consult Reason/Comments: Placement of temporary hemodialysis catheter Do you want consulting provider notified?: Yes 07/28/24 13:23 Consult Physician Routine Consulting Provider: Flaco Condon Consult Reason/Comments: Pauses, evaluate for pacemaker Do you want consulting provider notified?: Yes Primary care physician: Stated None Hospital Course: Final Diagnosis Multiple areas of pressure injury with mixed full-thickness tissue loss and mottling wound care has evaluated the patient recommending to continue with Triad cream and pressure offloading as well as a specialty air mattress. Patient will require fpc wound care and follow-up with the wound care center on discharge. Bradycardia with pauses, evaluated by cardiology and will have a 14-day event monitor on discharge Extensive decubitus ulcer with pressure ulcers with sepsis, present on admission Leukocytosis, possibly secondary to above, improved Acute renal failure with acute tubular necrosis with worsening oliguria requiring hemodialysis renal function has recovered Generalized weakness and mostly bedbound Elevated LFTs, trending down possibly underlying cholangitis, completed course of antibiotic therapy Nausea, vomiting, diarrhea history, likely secondary to COVID-19, improved COVID-19 infection Morbid obesity with a BMI 54.8 History of noncompliance and most likely possible underlying psychiatric issues GI prophylaxis DVT prophylaxis Full code Discharge Disposition Stable for discharge to the [facility]. Patient will continue on thiamine and multivitamin. Patient is receiving [place] for pain management. As mentioned wound care to continue with Triad cream and gauze can change 3 times a week to her wounds on her buttock back and thighs I would recommend close follow-up with wound care on discharge and a recommendation for long-term wound care will be with the Medihoney gel cover with gauze and change 3 times a week. Her renal function electrolytes repeat blood work in 2 to 3 days. Antibiotics needed on discharge. Hospital Course Patient is a 58-year-old female with no reported past medical history, former smoker. patient has been brought into the hospital for evaluation of subjective fever chills nausea vomiting diarrhea symptom has been going on for about a week apparently patient has been bedbound for the last 1 week as the patient was found by the paramedics in the bed covered with stool and urine. Patient had a white blood cell count of 24, no fever, did have elevated lactic acid and elevated liver enzymes. Was found to be positive for acute covid infection. Patient had a negative chest xray. Due to the concern for sepsis patient admitted to the hospital with ID consultation. Additionally patient found to have significant wounds and skin break down on her back, buttock and thighs with prompted a wound care consultation. Wound care consultation describes numerous large areas including her low back and buttocks posteriorly as well as her posterior right calf have mixed configuration with some full- thickness tissue loss and some mottling. She has one area on her posterior left flank where there appears to be a long area about 1/2 cm wide that also looks like a her and her tissues. Recommendations made to cover wounds with triad and cover with gauze. Patient to follow up with wound care on discharge and recommendations made to transition to termite control servicer wound care with honey gel and gauze and change three times a week or as needed if dressings are soiled. Patient should be placed on pressure air reduction mattress on discharge to the [facility]. Patient did have an elevated creatinine on admission which spiked at 4.87 and currently has normalized. Nephrology followed along with the patient. Patient did receive hemodialysis and temporary hemodialysis catheter has been moved and patient will not require any further hemodialysis on discharge. Patient did not have any medical insurance she required subacute rehabilitation due to her significant medical debility and condition on admission. She is not complaining of any chest pain or shortness of breath. She has completed a period of isolation for her acute COVID infection. She is awake alert oriented baseline cognitive function unkown however she is alert x 3. Pleasant. Patient will be discharged to [facility]. Patient will receive an event monitor for 14 days on discharge and outpatient follow-up with cardiology. Patient has been cleared by consultations for discharge. Please refer to consultation notes for further HPI. Overall prognosis is guarded and high risk for readmissions given significant comorbidities and poor social support. Please see medication reconciliation for a list of current medications. Thank you for allowing us to participate in the care of this patient. The impression and plan of care has been dictated by Christina Soares, Nurse Practitioner as directed. Dr. Jr MD I have performed a history and physical examination and medical decision making of this patient, discussed the same with the dictator, and agree with the dictators assessment and plan as written, documented as a scribe. Based on total visit time, I have performed more than 50% of this visit. Patient Condition at Discharge: Stable Plan - Discharge Summary Discharge Rx Participant: Yes New Discharge Prescriptions: New HYDROcodone/APAP 5-325MG [[place] 5-325] 1 each PO Q6HR PRN #4 tab PRN Reason: Pain Thiamine [Vitamin B-1] 100 mg PO BID-W/MEALS tab ALPRAZolam [Xanax] 0.25 mg PO TID PRN #6 tab PRN Reason: Anxiety bisacodyL [Dulcolax] 10 mg RECTAL HS PRN suppositor PRN Reason: Constipation Heparin Sodium,Porcine (1 ml) [Heparin Sodium] 5,000 unit SQ Q12HR each Multivitamins, Thera [Multivitamin (formulary)] 1 each PO DAILY@1200 tab Sennosides [Senokot] 8.6 mg PO BID tab Pantoprazole [Protonix] 40 mg PO DAILY #30 tab Lactulose [Cephulac] 20 gm PO BID PRN ml PRN Reason: Constipation Discharge Medication List ALPRAZolam [Xanax] 0.25 mg PO TID PRN #6 tab 08/14/24 [Rx] HYDROcodone/APAP 5-325MG [[place] 5-325] 1 each PO Q6HR PRN #4 tab 08/14/24 [Rx] Heparin Sodium,Porcine (1 ml) [Heparin Sodium] 5,000 unit SQ Q12HR each 08/14/24 [Rx] Multivitamins, Thera [Multivitamin (formulary)] 1 each PO DAILY@1200 tab 08/14/24 [Rx] Pantoprazole [Protonix] 40 mg PO DAILY #30 tab 08/14/24 [Rx] Sennosides [Senokot] 8.6 mg PO BID tab 08/14/24 [Rx] Thiamine [Vitamin B-1] 100 mg PO BID-W/MEALS tab 08/14/24 [Rx] Lactulose [Cephulac] 20 gm PO BID PRN ml 08/19/24 [Rx] bisacodyL [Dulcolax] 10 mg RECTAL HS PRN suppositor 08/19/24 [Rx] Follow up Appointment(s)/Referral(s): Kris Burroughs MD [Medical Doctor] - 1 Week Artur Perez DPM [STAFF PHYSICIAN] - 1 Week (for onychomycosis and nail trim) [facility] [NON-STAFF] - 1-2 days [facility] [NON-STAFF] - 1-2 days None,Stated [Primary Care Provider] - 1-2 days Fatou Blum MD [STAFF PHYSICIAN] - 1 Week Ambulatory/Diagnostic Orders: Basic Metabolic Panel [LAB.AMB] Location: None Selected Complete Blood Count w/diff [LAB.AMB] Time Frame: 3 Days, Location: None Selected Activity/Diet/Wound Care/Special Instructions: Patient is going to [facility] Activity as tolerated 14 Day event monitor on discharge follow up with cardiology after completion Follow up with wound care Follow up with infectious disease Establish care with PCP Discharge/Stand Alone Forms: Area PCPs Discharge Disposition: TRANSFER TO SNF/F
[2024-08-19 11:38] LABS: Glucose,Whole Blood 124 mg/dL (70-110)
--- NOTE | 2024-08-19 12:31 | P.PN ---
Subjective Progress Note Date: 08/16/24 Principal diagnosis: Reason for follow-up is COVID-19, leukocytosis Patient is a 58-year-old female with no reported past medical history former smoker patient has been brought into the hospital for evaluation of subjective fever chills nausea vomiting diarrhea patient tested positive for COVID 19 chest x-ray negative for acute cardiopulmonary disease process did have elevated white count and elevated liver enzymes. On today's evaluation that is 08/16/2024,the patient continues to be afebrile, patient is on room air and denies any shortness of breath no chest pain or cough.Patient denies having any nausea or vomiting, no abdominal pain and no diarrhea has been reported, denies pain to the back wound and rash has decreased in intensity No new labs were obtained today Objective - Vital Signs Vital signs: Vital Signs Temp 98.3 F 08/16/24 12:36 Pulse 98 08/16/24 12:36 Resp 17 08/16/24 12:36 BP 138/73 08/16/24 12:36 Pulse Ox 99 08/16/24 12:36 FiO2 Intake & Output 08/15/24 08/16/24 08/16/24 18:59 06:59 18:59 Intake Total 1890 Output Total 1150 850 Balance -1150 1040 Intake: Oral 1890 Output: Urine 1150 850 Other: Voiding Method Indwelling Catheter # Bowel Movements 1 - Exam GENERAL DESCRIPTION: Middle-age female lying in bed in no distress RESPIRATORY SYSTEM: Unlabored breathing , decreased breath sounds at bases HEART: S1 S2 regular rate and rhythm , ABDOMEN: Soft , no tenderness Skin: Micropapular rash to the upper chest and upper arm slightly decreased in intensity - Labs CBC & Chem 7: 08/19/24 04:17 08/19/24 04:17 Labs: Abnormal Lab Results - Last 24 Hours (Table) 08/15/24 Range/Units 21:08 POC Glucose (mg/dL) 148 H (70-110) mg/dL Assessment and Plan (1) Leukocytosis Status: Acute Code(s): D72.829 - ELEVATED WHITE BLOOD CELL COUNT, UNSPECIFIED SNOMED Code(s): 317740600 (2) COVID-19 Status: Acute Code(s): U07.1 - COVID-19 SNOMED Code(s): 902512956 (3) Cholangitis Status: Acute Code(s): K83.09 - OTHER CHOLANGITIS SNOMED Code(s): 67736880 (4) Wound, open, back Status: Acute Code(s): S21.209A - UNSP OPN WND UNSP BK WL OF THORAX W/O PENET THOR CAV, INIT SNOMED Code(s): 105388667 (5) Drug rash Status: Acute Code(s): L27.0 - GEN SKIN ERUPTION DUE TO DRUGS AND MEDS TAKEN INTERNALLY SNOMED Code(s): 14155714 Plan: 1patient did have features of SIRS as the patient did have tachycardia elevated white count but no fever source likely abdominal keeping in mind predominantly symptoms of nausea vomiting and diarrhea and did have elevated liver enzymes concerning for possible cholangitis did have a positive UA urine source not entirely excluded 2-patient did tested positive for COVID-19 however did not have significant respiratory symptoms patient not hypoxic chest x-ray was negative questionable incidental finding 3-patient ultrasound of the abdomen did show some gallbladder sludge but no features of cholecystitis CBD was normal, subsequently her liver enzymes have improved and the patient has completed course of antibiotics currently doing well off antibiotics and the patient white count has been normal 4-patient did have multiple wounds to the back and posterior thigh area without any cellulitis, patient has been advised local wound care to the back with Aquacel silver dressing change q. 48-hour and frequent change of position discontinue Triad cream 5patient has developed a rash to the upper chest and upper extremity concerning for possible drug rash likely offending drug could be the Protonix which was discontinued patient rash has decreased in intensity and we will monitor closely Dictation was produced using [employer] dictation software. please excuse any grammatical, word or spelling errors. Time with Patient: Less than 30
== END 2024-08-19 12:24 | DRG 871 ==
LOC: EDBD → EC 10:57 → EEVIPCON 13:34 → 3SCARD 13:34 → 4SSUR 07-31 22:00
PROVIDERS: ADMIT Hospitalist; ATTEND Hospitalist
PROC: 06H033Z Insertion of Infusion Device into Inferior Vena Cava, Percutaneous Approach (ICD-10-PCS; principal; 2024-07-25 12:30)
PROC: 5A1D70Z Performance of Urinary Filtration, Intermittent, Less than 6 Hours Per Day (ICD-10-PCS; 2024-07-26)
PROC: 06PYX3Z Removal of Infusion Device from Lower Vein, External Approach (ICD-10-PCS; 2024-08-02)
DX: A41.89 Other specified sepsis (principal); N17.0 Acute kidney failure with tubular necrosis; U07.1 COVID-19; Z68.43 Body mass index [BMI] 50.0-59.9, adult; E87.0 Hyperosmolality and hypernatremia; E87.20 Acidosis, unspecified; K83.09 Other cholangitis; L27.0 Generalized skin eruption due to drugs and medicaments taken internally; L89.152 Pressure ulcer of sacral region, stage 2; T50.995A Adverse effect of other drugs, medicaments and biological substances, initial encounter; Y92.230 Patient room in hospital as the place of occurrence of the external cause; E86.0 Dehydration; E66.01 Morbid (severe) obesity due to excess calories; R65.20 Severe sepsis without septic shock; E83.39 Other disorders of phosphorus metabolism; E83.42 Hypomagnesemia; Z74.01 Bed confinement status; Z87.891 Personal history of nicotine dependence; Z91.199 Patient's noncompliance with other medical treatment and regimen due to unspecified reason; Z59.71 Insufficient health insurance coverage
CPT/HCPCS: 36415; 36556; 71045; 76700; 80048; 80053; 80076; 81001; 82550; 83605; 83735; 84100; 84439; 84443; 84481; 85025; 85610; 85730; 86706; 87040; 87070; 87086; 87205; 87340; 87636; 90935; 93005; 93270; 93306; 96361; 96365; 96368; 99291

== ENCOUNTER 2024-08-26 16:00 | Observation (INO) | payer OTHER ==
--- NOTE | 2024-08-26 16:31 | ED ---
General Adult HPI - General Chief complaint: Nausea/Vomiting/Diarrhea Stated complaint: low blood pressure, nausea Time Seen by Provider: 08/26/24 16:20 Source: patient, family, RN notes reviewed Mode of arrival: wheelchair Limitations: no limitations - History of Present Illness Initial comments: Patient is a 58-year-old female presenting to the emergency department with concerns for low blood pressure. Patient has not been feeling well for a couple of days. Patient has nausea and has vomited. Patient feels weak and fatigued. Patient does have congestion and cough. Patient went to her doctor today and was told blood pressure was low and to come to the emergency department. Patient does have lightheadedness - Related Data Home Medications Medication Instructions Recorded Confirmed Acetaminophen [Tylenol] 650 mg PO Q4H PRN 08/26/24 08/26/24 HYDROcodone/APAP 5-325MG [[place] 1 tab PO Q6HR PRN 08/26/24 08/26/24 5-325] Multivitamins, Thera [Multivitamin 1 tab PO DAILY 08/26/24 08/26/24 (formulary)] Omeprazole 20 mg PO DAILY 08/26/24 08/26/24 Thiamine [Vitamin B-1] 100 mg PO BID 08/26/24 08/26/24 Previous Rx's Medication Instructions Recorded ALPRAZolam [Xanax] 0.25 mg PO TID PRN #6 tab 08/14/24 Heparin Sodium,Porcine (1 ml) 5,000 unit SQ Q12HR each 08/14/24 [Heparin Sodium] Sennosides [Senokot] 8.6 mg PO BID tab 08/14/24 Lactulose [Cephulac] 20 gm PO BID PRN ml 08/19/24 Allergies Allergy/AdvReac Type Severity Reaction Status Date / Time No Known Allergies Allergy Verified 08/26/24 17:46 Review of Systems ROS Statement: Those systems with pertinent positive or pertinent negative responses have been documented in the HPI. ROS Other: All systems not noted in ROS Statement are negative. Constitutional: Denies: fever Eyes: Denies: eye pain ENT: Reports: congestion. Denies: ear pain Respiratory: Reports: as per HPI, cough Cardiovascular: Denies: chest pain Endocrine: Reports: fatigue Gastrointestinal: Reports: nausea, vomiting Genitourinary: Denies: dysuria Musculoskeletal: Denies: back pain Neurological: Reports: as per HPI Past Medical History Past Medical History: Diabetes Mellitus History of Any Multi-Drug Resistant Organisms: None Reported Past Surgical History: No Surgical Hx Reported Past Psychological History: No Psychological Hx Reported Smoking Status: Former smoker Past Alcohol Use History: None Reported Past Drug Use History: None Reported General Exam Limitations: no limitations General appearance: alert, in no apparent distress Head exam: Present: normocephalic Eye exam: Present: normal appearance Neck exam: Present: normal inspection Respiratory exam: Present: normal lung sounds bilaterally Cardiovascular Exam: Present: tachycardia GI/Abdominal exam: Present: soft. Absent: tenderness, pulsatile mass Neurological exam: Present: alert. Absent: motor sensory deficit Psychiatric exam: Present: normal affect, normal mood Skin exam: Present: normal color Course Vital Signs 08/26/24 08/26/24 08/26/24 16:12 16:54 17:54 Temperature 98 F Pulse Rate 116 H 98 Respiratory 18 20 Rate Blood Pressure 70/59 112/88 131/83 O2 Sat by Pulse 100 96 Oximetry 08/26/24 18:35 Temperature Pulse Rate 96 Respiratory 20 Rate Blood Pressure 135/90 O2 Sat by Pulse 96 Oximetry EKG Findings - EKG Results: EKG: interpreted by ERMD, sinus rhythm, normal axis, normal QRS, normal ST/T EKG shows: tachycardia Medical Decision Making - Medical Decision Making Secondary to BMI over 30, patient given fluid bolus based off ideal body weight of 50 kg, 30 cc/kg is 1500 cc. Was pt. sent in by a medical professional or institution (CHANDA Melvin, ASSEMBLY PRESS OPERATOR, urgent care, hospital, or half-way...) When possible be specific @ -Patient sent over from Dr. Aguilera's office Did you speak to anyone other than the patient for history (EMS, parent, family, police, friend...)? What history was obtained from this source @ -[No] Did you review nursing and triage notes (agree or disagree)? Why? @ -[I reviewed and agree with nursing and triage notes] Were old charts reviewed (outside hosp., previous admission, EMS record, old EKG, old radiological studies, urgent care reports/EKG's, half-way records)? Report findings @ -[No old charts were reviewed] Differential Diagnosis (chest pain, altered mental status, abdominal pain women, abdominal pain men, vaginal bleeding, weakness, fever, dyspnea, syncope, headache, dizziness, GI bleed, back pain, seizure, CVA, palpatations, mental health, musculoskeletal)? @ -Differential Weakness: Hypoglycemia, shock, sepsis, hyponatremia, anemia, infection, ND, ETOH, adverse medicine reaction, overdose, stroke, this is not meant to be an all-inclusive list. EKG interpreted by me (3pts min.). @ -[As above] X-rays interpreted by me (1pt min.). @ -Chest x-ray shows no acute process CT interpreted by me (1pt min.). @ -[None done] U/S interpreted by me (1pt. min.). @ -[None done] What testing was considered but not performed or refused? (CT, X-rays, U/S, labs)? Why? @ -[None] What meds were considered but not given or refused? Why? @ -[None] Did you discuss the management of the patient with other professionals (professionals i.e. , PA, ASSEMBLY PRESS OPERATOR, lab, RT, psych nurse, rn social services, jump roll operator, teacher, special officer automat, case coordinator)? Give summary @ -Case discussed with practitioner Anusha who will admit covering hospital call Was smoking cessation discussed for >3mins.? @ -[No] Was critical care preformed (if so, how long)? @ -33 minutes critical care Were there social determinants of health that impacted care today? How? (Homelessness, low income, unemployed, alcoholism, drug addiction, transportation, low edu. Level, literacy, decrease access to med. care, custodial, rehab)? @ -[No] Was there de-escalation of care discussed even if they declined (Discuss DNR or withdrawal of care, Hospice)? DNR status @ -[No] What co-morbidities impacted this encounter? (DM, HTN, Smoking, COPD, CAD, Cancer, CVA, ARF, Chemo, Hep., AIDS, mental health diagnosis, sleep apnea, morbid obesity)? @ -[None] Was patient admitted / discharged? Hospital course, mention meds given and route, prescriptions, significant lab abnormalities, going to OR and other pertinent info. @ -Patient presents from office with concerns for hypotension. On reevaluation hypotension was not present. There is concern for elevation white blood cell count and UTI therefore patient will be admitted with fluids and IV antibiotics. There is concern for sepsis diagnosed at 1900. Blood culture, lactic acid, and IV antibiotics have already all been ordered. Patient reevaluated and updated. Admission orders written for Undiagnosed new problem with uncertain prognosis? @ -[No] Drug Therapy requiring intensive monitoring for toxicity (Heparin, Nitro, Insulin, Cardizem)? @ -[No] Were any procedures done? @ -[No] Diagnosis/symptom? @ -UTI, sepsis Acute, or Chronic, or Acute on Chronic? @ -Acute Uncomplicated (without systemic symptoms) or Complicated (systemic symptoms)? @ -[default] Side effects of treatment? @ -[No] Exacerbation, Progression, or Severe Exacerbation? @ -[No] Poses a threat to life or bodily function? How? (Chest pain, USA, ND, pneumonia, PE, COPD, DKA, ARF, appy, cholecystitis, CVA, Diverticulitis, Homicidal, Suicidal, threat to staff... and all critical care pts) @ -Threat for multiorgan dysfunction - Lab Data Result diagrams: 08/26/24 16:53 08/26/24 16:53 Lab Results 08/26/24 08/26/24 08/26/24 Range/Units 16:53 16:53 16:53 WBC 16.5 H (3.8-10.6) k/uL RBC 3.81 (3.80-5.40) m/uL Hgb 11.2 L (11.4-16.0) gm/dL Hct 35.8 (34.0-46.0) % MCV 94.1 (80.0-100.0) fL MCH 29.4 (25.0-35.0) pg MCHC 31.3 (31.0-37.0) g/dL RDW 16.1 H (11.5-15.5) % Plt Count 321 (150-450) k/uL MPV 7.1 Neutrophils % 73 % Lymphocytes % 18 % Monocytes % 4 % Eosinophils % 2 % Basophils % 0 % Neutrophils # 12.1 H (1.3-7.7) k/uL Lymphocytes # 3.1 (1.0-4.8) k/uL Monocytes # 0.7 (0-1.0) k/uL Eosinophils # 0.3 (0-0.7) k/uL Basophils # 0.1 (0-0.2) k/uL Hypochromasia Slight Anisocytosis Slight PT 10.4 (10.0-12.5) sec INR 0.9 (<1.2) APTT 22.4 (22.0-30.0) sec Sodium (137-145) mmol/L Potassium (3.5-5.1) mmol/L Chloride (98-107) mmol/L Carbon Dioxide (22-30) mmol/L Anion Gap mmol/L BUN (7-17) mg/dL Creatinine (0.52-1.04) mg/dL Est GFR (CKD-EPI)AfAm (>60 ml/min/1.73 sqM) Est GFR (CKD-EPI)NonAf (>60 ml/min/1.73 sqM) Glucose (74-99) mg/dL Plasma Lactic Acid Noel (0.7-2.0) mmol/L Calcium (8.4-10.2) mg/dL Total Bilirubin (0.2-1.3) mg/dL AST (14-36) U/L ALT (4-34) U/L Alkaline Phosphatase (38-126) U/L Troponin I (0.000-0.034) ng/mL Total Protein (6.3-8.2) g/dL Albumin (3.5-5.0) g/dL Urine Color Light Yellow Urine Appearance Cloudy H (Clear) Urine pH 6.5 (5.0-8.0) Ur Specific [place] 1.007 (1.001-1.035) Urine Protein Trace H (Negative) Urine Glucose (UA) Negative (Negative) Urine Ketones Negative (Negative) Urine Blood Small H (Negative) Urine Nitrite Positive H (Negative) Urine Bilirubin Negative (Negative) Urine Urobilinogen <2.0 (<2.0) mg/dL Ur Leukocyte Esterase Large H (Negative) Urine RBC 2 (0-5) /hpf Urine WBC >182 H (0-5) /hpf Ur Squamous Epith Cells 2 (0-4) /hpf Urine Bacteria Occasional H (None) /hpf Urine Mucus Rare H (None) /hpf Influenza Type A (PCR) (Not Detectd) Influenza Type B (PCR) (Not Detectd) RSV (PCR) (Not Detectd) SARS-CoV-2 (PCR) (Not Detectd) 08/26/24 08/26/24 08/26/24 Range/Units 16:53 16:53 16:53 WBC (3.8-10.6) k/uL RBC (3.80-5.40) m/uL Hgb (11.4-16.0) gm/dL Hct (34.0-46.0) % MCV (80.0-100.0) fL MCH (25.0-35.0) pg MCHC (31.0-37.0) g/dL RDW (11.5-15.5) % Plt Count (150-450) k/uL MPV Neutrophils % % Lymphocytes % % Monocytes % % Eosinophils % % Basophils % % Neutrophils # (1.3-7.7) k/uL Lymphocytes # (1.0-4.8) k/uL Monocytes # (0-1.0) k/uL Eosinophils # (0-0.7) k/uL Basophils # (0-0.2) k/uL Hypochromasia Anisocytosis PT (10.0-12.5) sec INR (<1.2) APTT (22.0-30.0) sec Sodium 134 L (137-145) mmol/L Potassium 3.9 (3.5-5.1) mmol/L Chloride 96 L (98-107) mmol/L Carbon Dioxide 25 (22-30) mmol/L Anion Gap 13 mmol/L BUN 11 (7-17) mg/dL Creatinine 0.65 (0.52-1.04) mg/dL Est GFR (CKD-EPI)AfAm >90 (>60 ml/min/1.73 sqM) Est GFR (CKD-EPI)NonAf >90 (>60 ml/min/1.73 sqM) Glucose 122 H (74-99) mg/dL Plasma Lactic Acid Noel 1.9 (0.7-2.0) mmol/L Calcium 8.7 (8.4-10.2) mg/dL Total Bilirubin 0.8 (0.2-1.3) mg/dL AST 37 H (14-36) U/L ALT 33 (4-34) U/L Alkaline Phosphatase 156 H (38-126) U/L Troponin I (0.000-0.034) ng/mL Total Protein 6.1 L (6.3-8.2) g/dL Albumin 3.0 L (3.5-5.0) g/dL Urine Color Urine Appearance (Clear) Urine pH (5.0-8.0) Ur Specific [place] (1.001-1.035) Urine Protein (Negative) Urine Glucose (UA) (Negative) Urine Ketones (Negative) Urine Blood (Negative) Urine Nitrite (Negative) Urine Bilirubin (Negative) Urine Urobilinogen (<2.0) mg/dL Ur Leukocyte Esterase (Negative) Urine RBC (0-5) /hpf Urine WBC (0-5) /hpf Ur Squamous Epith Cells (0-4) /hpf Urine Bacteria (None) /hpf Urine Mucus (None) /hpf Influenza Type A (PCR) Not Detected (Not Detectd) Influenza Type B (PCR) Not Detected (Not Detectd) RSV (PCR) Not Detected (Not Detectd) SARS-CoV-2 (PCR) Not Detected (Not Detectd) 08/26/24 Range/Units 16:53 WBC (3.8-10.6) k/uL RBC (3.80-5.40) m/uL Hgb (11.4-16.0) gm/dL Hct (34.0-46.0) % MCV (80.0-100.0) fL MCH (25.0-35.0) pg MCHC (31.0-37.0) g/dL RDW (11.5-15.5) % Plt Count (150-450) k/uL MPV Neutrophils % % Lymphocytes % % Monocytes % % Eosinophils % % Basophils % % Neutrophils # (1.3-7.7) k/uL Lymphocytes # (1.0-4.8) k/uL Monocytes # (0-1.0) k/uL Eosinophils # (0-0.7) k/uL Basophils # (0-0.2) k/uL Hypochromasia Anisocytosis PT (10.0-12.5) sec INR (<1.2) APTT (22.0-30.0) sec Sodium (137-145) mmol/L Potassium (3.5-5.1) mmol/L Chloride (98-107) mmol/L Carbon Dioxide (22-30) mmol/L Anion Gap mmol/L BUN (7-17) mg/dL Creatinine (0.52-1.04) mg/dL Est GFR (CKD-EPI)AfAm (>60 ml/min/1.73 sqM) Est GFR (CKD-EPI)NonAf (>60 ml/min/1.73 sqM) Glucose (74-99) mg/dL Plasma Lactic Acid Noel (0.7-2.0) mmol/L Calcium (8.4-10.2) mg/dL Total Bilirubin (0.2-1.3) mg/dL AST (14-36) U/L ALT (4-34) U/L Alkaline Phosphatase (38-126) U/L Troponin I <0.012 (0.000-0.034) ng/mL Total Protein (6.3-8.2) g/dL Albumin (3.5-5.0) g/dL Urine Color Urine Appearance (Clear) Urine pH (5.0-8.0) Ur Specific [place] (1.001-1.035) Urine Protein (Negative) Urine Glucose (UA) (Negative) Urine Ketones (Negative) Urine Blood (Negative) Urine Nitrite (Negative) Urine Bilirubin (Negative) Urine Urobilinogen (<2.0) mg/dL Ur Leukocyte Esterase (Negative) Urine RBC (0-5) /hpf Urine WBC (0-5) /hpf Ur Squamous Epith Cells (0-4) /hpf Urine Bacteria (None) /hpf Urine Mucus (None) /hpf Influenza Type A (PCR) (Not Detectd) Influenza Type B (PCR) (Not Detectd) RSV (PCR) (Not Detectd) SARS-CoV-2 (PCR) (Not Detectd) Critical Care Time Critical Care Time: Yes Disposition Clinical Impression: Sepsis, Urinary tract infection Disposition: ADMITTED IP TO THIS [facility] Condition: Serious Is patient prescribed a controlled substance at d/c from ED?: No Referrals: None,Stated [Primary Care Provider] - 1-2 days Time of Disposition: 19:02
[2024-08-26] MEDS: LACTATED RINGERS 500 ML IV SCH (16:57)
[2024-08-26] MEDS: ONDANSETRON 4 MG/2 ML VIAL IVP STA (17:00)
[2024-08-26] MEDS: FAMOTIDINE 20 MG/2 ML VIAL IV STA (17:01)
[2024-08-26] MEDS: cefTRIAXone IN SWFI 1,000 MG/10 ML SYRINGE IVP STA (17:03)
[2024-08-26 17:06] LABS: Anisocytosis Slight; Basophils # (A) 0.1 k/uL (0-0.2); Basophils % (A) 0 %; Eosinophils # (A) 0.3 k/uL (0-0.7); Eosinophils % (A) 2 %; HCT 35.8 % (34.0-46.0); HGB 11.2 gm/dL (11.4-16.0); Hypochromasia Slight; Lymphocytes # (A) 3.1 k/uL (1.0-4.8); Lymphocytes % (A) 18 %; MCH 29.4 pg (25.0-35.0); MCHC 31.3 g/dL (31.0-37.0); MCV 94.1 fL (80.0-100.0); Mean Platelet Volume 7.1; Monocytes # (A) 0.7 k/uL (0-1.0); Monocytes % (A) 4 %; Neutrophils # (A) 12.1 k/uL (1.3-7.7); Neutrophils % (A) 73 %; Platelet Count 321 k/uL (150-450); RBC 3.81 m/uL (3.80-5.40); RDW 16.1 % (11.5-15.5); WBC 16.5 k/uL (3.8-10.6)
[2024-08-26 17:13] LABS: INR 0.9 (<1.2); Partial Thromboplastin Time 22.4 sec (22.0-30.0); Prothrombin Time 10.4 sec (10.0-12.5)
[2024-08-26 17:14] LABS: ALT 33 U/L (4-34); AST 37 U/L (14-36); African American GFR (CKD) >90 (>60 ml/min/1.73 sqM); Alkaline Phosphatase 156 U/L (38-126); Anion Gap 13 mmol/L; Blood Urea Nitrogen 11 mg/dL (7-17); Calcium 8.7 mg/dL (8.4-10.2); Carbon Dioxide 25 mmol/L (22-30); Chloride 96 mmol/L (98-107); Glucose 122 mg/dL (74-99); Non-African American GFR(CKD) >90 (>60 ml/min/1.73 sqM); Potassium 3.9 mmol/L (3.5-5.1); Sodium 134 mmol/L (137-145); Total Bilirubin 0.8 mg/dL (0.2-1.3); Total Protein 6.1 g/dL (6.3-8.2)
--- NOTE | 2024-08-26 17:26 | XR ---
EXAMINATION TYPE: XR chest 2V DATE OF EXAM: 08/26/2024 5:16 PM COMPARISON: Chest radiographs from 07/22/2024 TECHNIQUE: XR chest 2V Frontal and lateral views of the chest. CLINICAL INDICATION:Female, 58 years old with history of Fever; FINDINGS: Lungs/Pleura: There is no evidence of pleural effusion, focal consolidation, or pneumothorax. Right basilar linear atelectasis. Pulmonary vascularity: Unremarkable. Heart/mediastinum: Cardiomediastinal silhouette is unremarkable. Musculoskeletal: No acute osseous pathology. IMPRESSION: No acute cardiopulmonary disease/process. [facility], , 08/26/2024 5:23 PM
[2024-08-26 17:40] LABS: Influenza A Not Detected (Not Detectd); Influenza B Not Detected (Not Detectd); RSV Not Detected (Not Detectd)
[2024-08-26 18:10] LABS: Appearance,Urine Cloudy (Clear); Bacteria,Urine Occasional /hpf; Bilirubin,Urine Negative (Negative); Blood,Urine Small (Negative); Color,Urine Light Yellow; Glucose,Urine (UA) Negative (Negative); Ketones,Urine Negative (Negative); Leukocyte Esterase,Urine Large (Negative); Mucus,Urine Rare /hpf; Nitrite,Urine Positive (Negative); PH, Urine 6.5 (5.0-8.0); Protein,Urine Trace (Negative); RBC,Urine 2 /hpf (0-5); Specific Gravity,Urine 1.007 (1.001-1.035); Squamous Epithelial Cell,Urine 2 /hpf (0-4); Urobilinogen,Urine <2.0 mg/dL (<2.0); WBC,Urine >182 /hpf (0-5)
[2024-08-26] MEDS ORDERED: ONDANSETRON 4 MG/2 ML VIAL IVP PRN (19:08)
[2024-08-26] MEDS ORDERED: NALOXONE 0.4 MG/ML 1 ML VIAL IV PRN (19:08)
[2024-08-26] MEDS ORDERED: ALPRAZolam 0.25 MG TAB PO PRN (19:09)
[2024-08-26] MEDS: LACTATED RINGERS 1,000 ML IV STA (19:26)
[2024-08-26] MEDS: HEPARIN SODIUM,PORCINE 5,000 UNIT/ML 1 ML VIAL SQ SCH (21:13)
[2024-08-26] MEDS: THIAMINE 100 MG TAB PO SCH (21:13)
[2024-08-26] MEDS: SENNOSIDES 8.6 MG TAB PO SCH (21:13)
[2024-08-26] MEDS: ACETAMINOPHEN TAB 325 MG TAB PO PRN (22:10)
[2024-08-27 07:33] LABS: Glucose,Whole Blood 104 mg/dL (70-110)
[2024-08-27 08:51] LABS: Basophils # (A) 0.06 X 10*3/uL (0.00-0.10); Basophils % (A) 0.7 %; Eosinophils # (A) 0.39 X 10*3/uL (0.04-0.35); Eosinophils % (A) 4.3 %; HCT 28.8 % (37.2-46.3); HGB 8.9 g/dL (12.0-15.0); Lymphocytes # (A) 2.21 X 10*3/uL (0.90-5.00); Lymphocytes % (A) 24.1 %; MCH 29.8 pg (27.0-32.0); MCHC 30.9 g/dL (32.0-37.0); MCV 96.3 FL (80.0-97.0); Monocytes # (A) 0.78 X 10*3/uL (0.20-1.00); Monocytes % (A) 8.5 %; NRBC Per 100 WBC 0 X 10*3/uL (0.00-0.01); Neutrophils # (A) 5.62 X 10*3/uL (1.80-7.70); Neutrophils % (A) 61.3 %; Platelet Count 240 X 10*3/uL (140-440); RBC 2.99 X 10*6/uL (4.10-5.20); RDW 17.2 % (11.5-14.5); WBC 9.16 X 10*3/uL (4.50-10.00)
[2024-08-27] MEDS: HYDROcodone/APAP 5-325MG 1 EACH TAB PO PRN (09:52)
[2024-08-27] MEDS: PANTOPRAZOLE 40 MG TABLET PO SCH (09:52)
[2024-08-27] MEDS: MULTIVITAMINS, THERA 1 EACH TAB PO SCH (09:54)
[2024-08-27 10:24] LABS: ALT 27 U/L (8-44); AST 28 U/L (13-35); Albumin 2.5 g/dL (3.8-4.9); Albumin/Globulin Ratio 1.09 Ratio (1.60-3.17); Alkaline Phosphatase 121 U/L (41-126); BUN/Creat Ratio 13.83 Ratio (12.00-20.00); Blood Urea Nitrogen 8.3 mg/dL (9.0-27.0); Carbon Dioxide 22.9 mmol/L (21.6-31.8); Chloride 100 mmol/L (96-109); Globulin 2.3 g/dL (1.6-3.3); Glucose 105 mg/dL (70-110); Potassium 3.6 mmol/L (3.5-5.5); Sodium 135 mmol/L (135-145); Total Bilirubin 0.3 mg/dL (0.3-1.2); Total Protein 4.8 g/dL (6.2-8.2)
[2024-08-27 12:41] LABS: Glucose,Whole Blood 96 mg/dL (70-110)
[2024-08-27] MEDS ORDERED: DEXTROSE 50% SYRINGE 50 ML IVP PRN ×2 (13:59)
--- NOTE | 2024-08-27 14:12 | P.HPIM ---
History of Present Illness This is a pleasant 58 years old female with past medical history of multiple medical problems Patient came to the hospital when Dr. Aguilera sent her for low blood pressure. Patient states that she has been feeling dizzy and she feels really hot and going to pass out. Patient has some left lower abdominal pain also which was excruciating but now is much better almost relieved. The pain comes and goes from like a colleague Associated with dysuria Also patient had diarrhea but now stopped. She vomited but not anymore. Abdomen soft now. She denies chest pain or dyspnea. No headache dizziness weakness or numbness. She denies smoking alcohol or illicit drugs. She is afebrile and hemodynamically stable Blood pressure was on the low side 100/56 She has leukocytosis of 16.5 and hemoglobin 11.2. Rest of BMP, LFT, INR is unremarkable. Troponin is negative. Urinalysis suspicious for infection Influenza and COVID test were negative EKG showing sinus tachycardia in [address]-T changes Chest x-ray showed no acute cardiopulmonary process Urine culture is pending Review of Systems Review of systems CONSTITUTIONAL: No fever, no malaise, no fatigue. HEENT: No recent visual problems or hearing problems. Denied any sore throat. CARDIOVASCULAR: No orthopnea, PND, no palpitations, no syncope. PULMONARY: No shortness of breath, no cough, no hemoptysis. GASTROINTESTINAL: No diarrhea, no nausea, no vomiting, no abdominal pain. Normoactive bowel sounds. NEUROLOGICAL: No headaches, no weakness, no numbness. HEMATOLOGICAL: Denies any bleeding or petechiae. GENITOURINARY: Denies any burning micturition, frequency, or urgency. MUSCULOSKELETAL/RHEUMATOLOGICAL: Denies any joint pain, swelling, or any muscle pain. ENDOCRINE: Denies any polyuria or polydipsia. Past Medical History Past Medical History: Diabetes Mellitus History of Any Multi-Drug Resistant Organisms: None Reported Past Surgical History: No Surgical Hx Reported Past Psychological History: No Psychological Hx Reported Smoking Status: Former smoker Past Alcohol Use History: None Reported Past Drug Use History: None Reported Medications and Allergies Home Medications Medication Instructions Recorded Confirmed Type ALPRAZolam [Xanax] 0.25 mg PO TID PRN #6 tab 08/14/24 08/26/24 Rx Heparin Sodium,Porcine (1 ml) 5,000 unit SQ Q12HR each 08/14/24 08/26/24 Rx [Heparin Sodium] Sennosides [Senokot] 8.6 mg PO BID tab 08/14/24 08/26/24 Rx Lactulose [Cephulac] 20 gm PO BID PRN ml 08/19/24 08/26/24 Rx Acetaminophen [Tylenol] 650 mg PO Q4H PRN 08/26/24 08/26/24 History HYDROcodone/APAP 5-325MG [[place] 1 tab PO Q6HR PRN 08/26/24 08/26/24 History 5-325] Multivitamins, Thera [Multivitamin 1 tab PO DAILY 08/26/24 08/26/24 History (formulary)] Omeprazole 20 mg PO DAILY 08/26/24 08/26/24 History Thiamine [Vitamin B-1] 100 mg PO BID 08/26/24 08/26/24 History Allergies Allergy/AdvReac Type Severity Reaction Status Date / Time No Known Allergies Allergy Verified 08/26/24 17:46 Physical Exam Vitals: Vital Signs Temp Pulse Pulse Pulse Resp BP BP 08/27/24 13:13 98.5 F 82 17 105/69 08/27/24 07:57 99 F 91 19 119/74 08/27/24 02:00 98.2 F 79 19 100/56 08/27/24 01:00 79 20 102/56 08/27/24 00:00 87 20 102/59 08/26/24 23:00 93 20 100/66 08/26/24 22:00 91 20 117/69 08/26/24 21:00 91 20 136/74 08/26/24 20:00 90 20 131/71 08/26/24 18:35 96 20 135/90 08/26/24 17:54 98 20 131/83 08/26/24 16:54 112/88 08/26/24 16:12 98 F 116 H 18 70/59 Pulse Ox 08/27/24 13:13 96 08/27/24 07:57 99 08/27/24 02:00 96 08/27/24 01:00 96 08/27/24 00:00 96 08/26/24 23:00 96 08/26/24 22:00 96 08/26/24 21:00 96 08/26/24 20:00 96 08/26/24 18:35 96 08/26/24 17:54 96 08/26/24 16:54 08/26/24 16:12 100 Intake and Output 08/26/24 08/27/24 08/27/24 22:59 06:59 14:59 Other: Weight 104.326 kg GENERAL: The patient is alert and oriented x3, not in any acute distress. Well developed, well nourished. HEENT: Pupils are round and equally reacting to light. EOMI. No scleral icterus. No conjunctival pallor. Normocephalic, atraumatic. No pharyngeal erythema. No thyromegaly. CARDIOVASCULAR: S1 and S2 present. No murmurs, rubs, or gallops. PULMONARY: Chest is clear to auscultation, no wheezing , no crackles. ABDOMEN: Soft, nontender, nondistended, normoactive bowel sounds. No palpable organomegaly. MUSCULOSKELETAL: No joint swelling or deformity. EXTREMITIES: No cyanosis, clubbing, or pedal edema. NEUROLOGICAL: Gross neurological examination did not reveal any focal deficits. SKIN: No rashes. no petechiae. Results CBC & Chem 7: 08/27/24 06:04 08/27/24 06:04 Labs: Abnormal Lab Results - Last 24 Hours (Table) 08/26/24 08/26/24 08/26/24 Range/Units 16:53 16:53 16:53 WBC 16.5 H (3.8-10.6) k/uL RBC (4.10-5.20) X 10*6/uL Hgb 11.2 L (11.4-16.0) gm/dL Hct (37.2-46.3) % MCHC (32.0-37.0) g/dL RDW 16.1 H (11.5-15.5) % Immature Gran # (0.00-0.04) X 10*3/uL Neutrophils # 12.1 H (1.3-7.7) k/uL Eosinophils # (0.04-0.35) X 10*3/uL Sodium 134 L (137-145) mmol/L Chloride 96 L (98-107) mmol/L Anion Gap (4.00-12.00) mmol/L BUN (9.0-27.0) mg/dL Glucose 122 H (74-99) mg/dL Calcium (8.7-10.3) mg/dL AST 37 H (14-36) U/L Alkaline Phosphatase 156 H (38-126) U/L Total Protein 6.1 L (6.3-8.2) g/dL Albumin 3.0 L (3.5-5.0) g/dL Albumin/Globulin Ratio (1.60-3.17) Ratio Urine Appearance Cloudy H (Clear) Urine Protein Trace H (Negative) Urine Blood Small H (Negative) Urine Nitrite Positive H (Negative) Ur Leukocyte Esterase Large H (Negative) Urine WBC >182 H (0-5) /hpf Urine Bacteria Occasional H (None) /hpf Urine Mucus Rare H (None) /hpf 08/27/24 08/27/24 Range/Units 06:04 06:04 WBC (3.8-10.6) k/uL RBC 2.99 L (4.10-5.20) X 10*6/uL Hgb 8.9 L (11.4-16.0) gm/dL Hct 28.8 L (37.2-46.3) % MCHC 30.9 L (32.0-37.0) g/dL RDW 17.2 H (11.5-15.5) % Immature Gran # 0.10 H (0.00-0.04) X 10*3/uL Neutrophils # (1.3-7.7) k/uL Eosinophils # 0.39 H (0.04-0.35) X 10*3/uL Sodium (137-145) mmol/L Chloride (98-107) mmol/L Anion Gap 12.10 H (4.00-12.00) mmol/L BUN 8.3 L (9.0-27.0) mg/dL Glucose (74-99) mg/dL Calcium 8.0 L (8.7-10.3) mg/dL AST (14-36) U/L Alkaline Phosphatase (38-126) U/L Total Protein 4.8 L (6.3-8.2) g/dL Albumin 2.5 L (3.5-5.0) g/dL Albumin/Globulin Ratio 1.09 L (1.60-3.17) Ratio Urine Appearance (Clear) Urine Protein (Negative) Urine Blood (Negative) Urine Nitrite (Negative) Ur Leukocyte Esterase (Negative) Urine WBC (0-5) /hpf Urine Bacteria (None) /hpf Urine Mucus (None) /hpf Assessment and Plan Assessment: Acute urinary tract infection Sepsis secondary to above with tachycardia and hypotension and leukocytosis Obesity with BMI of 41.1. Diabetes mellitus Plan: Continue with antibiotic ceftriaxone Follow-up urine culture Continue with IV hydration ID team consult Labs and medication were reviewed.. Continue same treatment. Continue with symptomatic treatment. Resume home medication. Monitor labs and vitals. DVT and GI prophylaxis. Further recommendations as per clinical course of the patient DVT prophylaxis: Subcutaneous heparin GI Prophylaxis: Pepcid PT/OT: Pending Prognosis is guarded
[2024-08-27 17:16] LABS: Glucose,Whole Blood 127 mg/dL (70-110)
[2024-08-27] MEDS: INSULIN ASPART (NovoLOG) 100 UNIT/ML VIAL SQ SCH (17:21)
[2024-08-27 20:32] LABS: Glucose,Whole Blood 105 mg/dL (70-110)
--- NOTE | 2024-08-27 23:48 | P.CONS ---
History of Present Illness - Reason for Consult Consult date: 08/27/24 UTI, sepsis Requesting physician: Jose Rafael Peralta - Chief Complaint Weakness dizziness nausea x 1 day - History of Present Illness Patient is a 58-year-old female with multiple comorbidities including diabetes mellitus recently did have a prolonged stay at this facility during which time she did have a renal failure requiring dialysis and did have a multiple pressure ulcer to bilateral gluteal area patient was stabilized and [facility] patient was brought into the office yesterday for hospital follow-up visit patient was noted to be significantly hypertensive with a systolic of 60 patient was complaining of feeling dizzy and nauseous for the patient was sent to the ER for further evaluation patient mention she has not been feeling well for the last few days has been complaining of feeling nauseated vomiting and decreased appetite patient also complaining of some burning of urine but denies having any hematuria or significant diarrhea patient denies having any headache or URI symptoms no chest pain shortness of breath or cough and no diarrhea on presentation to the hospital the patient was afebrile subsequently did have a low-grade fever of 99 F patient was tachycardic and did have a blood pressure of 70 systolic on arrival to the ER that responded to the IV fluids patient did have a elevated white count 16.5 wit h a left shift creatinine 0.65 liver isms are normal urine has been positive influenza RSV COVID testing was negative patient did have a chest x-ray no acute cardiopulmonary disease process patient was started on Rocephin infectious disease was consulted for further management of antibiotic therapy Review of Systems Positive point and negatives has been mentioned in the HPI, complete review of systems was performed and all other systems are negative Past Medical History Past Medical History: Diabetes Mellitus History of Any Multi-Drug Resistant Organisms: None Reported Past Surgical History: No Surgical Hx Reported Past Psychological History: No Psychological Hx Reported Smoking Status: Former smoker Past Alcohol Use History: None Reported Past Drug Use History: None Reported - Past Family History Father History Unknown: Yes Mother History Unknown: Yes Medications and Allergies Home Medications Medication Instructions Recorded Confirmed Type ALPRAZolam [Xanax] 0.25 mg PO TID PRN #6 tab 08/14/24 08/26/24 Rx Heparin Sodium,Porcine (1 ml) 5,000 unit SQ Q12HR each 08/14/24 08/26/24 Rx [Heparin Sodium] Sennosides [Senokot] 8.6 mg PO BID tab 08/14/24 08/26/24 Rx Lactulose [Cephulac] 20 gm PO BID PRN ml 08/19/24 08/26/24 Rx Acetaminophen [Tylenol] 650 mg PO Q4H PRN 08/26/24 08/26/24 History HYDROcodone/APAP 5-325MG [[place] 1 tab PO Q6HR PRN 08/26/24 08/26/24 History 5-325] Multivitamins, Thera [Multivitamin 1 tab PO DAILY 08/26/24 08/26/24 History (formulary)] Omeprazole 20 mg PO DAILY 08/26/24 08/26/24 History Thiamine [Vitamin B-1] 100 mg PO BID 08/26/24 08/26/24 History Allergies Allergy/AdvReac Type Severity Reaction Status Date / Time No Known Allergies Allergy Verified 08/26/24 17:46 Physical Exam Vitals: Vital Signs Temp Pulse Pulse Pulse Resp BP BP 08/27/24 07:57 99 F 91 19 119/74 08/27/24 02:00 98.2 F 79 19 100/56 08/27/24 01:00 79 20 102/56 08/27/24 00:00 87 20 102/59 08/26/24 23:00 93 20 100/66 08/26/24 22:00 91 20 117/69 08/26/24 21:00 91 20 136/74 08/26/24 20:00 90 20 131/71 08/26/24 18:35 96 20 135/90 08/26/24 17:54 98 20 131/83 08/26/24 16:54 112/88 08/26/24 16:12 98 F 116 H 18 70/59 Pulse Ox 08/27/24 07:57 99 08/27/24 02:00 96 08/27/24 01:00 96 08/27/24 00:00 96 08/26/24 23:00 96 08/26/24 22:00 96 08/26/24 21:00 96 08/26/24 20:00 96 08/26/24 18:35 96 08/26/24 17:54 96 08/26/24 16:54 08/26/24 16:12 100 Intake and Output 08/26/24 08/27/24 08/27/24 22:59 06:59 14:59 Other: Weight 104.326 kg GENERAL DESCRIPTION: Middle-aged female lying in bed, no distress. No tachypnea or accessory muscle of respiration use. HEENT: Shows Pallor , no scleral icterus. Oral mucous membrane is dry. NECK: Trachea central, no thyromegaly. LUNGS: Unlabored breathing. Clear to auscultation anteriorly. No wheeze or crackle. HEART: S1, S2, regular rate and rhythm. No loud murmur ABDOMEN: Soft, no tenderness , guarding or rigidity, no organomegaly EXTREMITIES: No edema of feet. SKIN: Bilateral gluteal area did have multiple stage II pressure ulcer but no cellulitis NEUROLOGICAL: The patient is awake, alert, oriented x3, mood and affect normal. Results CBC & Chem 7: 08/27/24 06:04 08/27/24 06:04 Labs: Abnormal Lab Results - Last 24 Hours (Table) 08/26/24 08/26/24 08/26/24 Range/Units 16:53 16:53 16:53 WBC 16.5 H (3.8-10.6) k/uL RBC (4.10-5.20) X 10*6/uL Hgb 11.2 L (11.4-16.0) gm/dL Hct (37.2-46.3) % MCHC (32.0-37.0) g/dL RDW 16.1 H (11.5-15.5) % Immature Gran # (0.00-0.04) X 10*3/uL Neutrophils # 12.1 H (1.3-7.7) k/uL Eosinophils # (0.04-0.35) X 10*3/uL Sodium 134 L (137-145) mmol/L Chloride 96 L (98-107) mmol/L Anion Gap (4.00-12.00) mmol/L BUN (9.0-27.0) mg/dL Glucose 122 H (74-99) mg/dL Calcium (8.7-10.3) mg/dL AST 37 H (14-36) U/L Alkaline Phosphatase 156 H (38-126) U/L Total Protein 6.1 L (6.3-8.2) g/dL Albumin 3.0 L (3.5-5.0) g/dL Albumin/Globulin Ratio (1.60-3.17) Ratio Urine Appearance Cloudy H (Clear) Urine Protein Trace H (Negative) Urine Blood Small H (Negative) Urine Nitrite Positive H (Negative) Ur Leukocyte Esterase Large H (Negative) Urine WBC >182 H (0-5) /hpf Urine Bacteria Occasional H (None) /hpf Urine Mucus Rare H (None) /hpf 08/27/24 08/27/24 Range/Units 06:04 06:04 WBC (3.8-10.6) k/uL RBC 2.99 L (4.10-5.20) X 10*6/uL Hgb 8.9 L (11.4-16.0) gm/dL Hct 28.8 L (37.2-46.3) % MCHC 30.9 L (32.0-37.0) g/dL RDW 17.2 H (11.5-15.5) % Immature Gran # 0.10 H (0.00-0.04) X 10*3/uL Neutrophils # (1.3-7.7) k/uL Eosinophils # 0.39 H (0.04-0.35) X 10*3/uL Sodium (137-145) mmol/L Chloride (98-107) mmol/L Anion Gap 12.10 H (4.00-12.00) mmol/L BUN 8.3 L (9.0-27.0) mg/dL Glucose (74-99) mg/dL Calcium 8.0 L (8.7-10.3) mg/dL AST (14-36) U/L Alkaline Phosphatase (38-126) U/L Total Protein 4.8 L (6.3-8.2) g/dL Albumin 2.5 L (3.5-5.0) g/dL Albumin/Globulin Ratio 1.09 L (1.60-3.17) Ratio Urine Appearance (Clear) Urine Protein (Negative) Urine Blood (Negative) Urine Nitrite (Negative) Ur Leukocyte Esterase (Negative) Urine WBC (0-5) /hpf Urine Bacteria (None) /hpf Urine Mucus (None) /hpf Assessment and Plan (1) Sepsis Current Visit: Yes Status: Acute Code(s): A41.9 - SEPSIS, UNSPECIFIED ORGANISM SNOMED Code(s): 63028336 (2) Urinary tract infection Current Visit: Yes Status: Acute Code(s): N39.0 - URINARY TRACT INFECTION, SITE NOT SPECIFIED SNOMED Code(s): 69306650 Plan: 1patient presented to hospital with sepsis in this patient who did have hypotension tachycardia elevated white count meeting currently for SIRS/sepsis source is UTI in this patient who did have urinary symptoms significantly positive UA likely from enteric gram-negative pathogen. 2patient to have bilateral gluteal area stage II pressure ulcer but no cellulitis. 3we will increase the dose of Rocephin to 2 g daily while waiting for the culture to finalize. 4local wound care to bilateral gluteal wound with dry Aquacel silver dressing change q. 48-hour discussed with the nursing staff. We will follow on clinical condition and cultures to further adjust medication if needed Thank you for this consultation we will follow the patient along with you Dictation was produced using [employer] dictation software. please excuse any grammatical, word or spelling errors. Time with Patient: Greater than 30
[2024-08-28 07:09] LABS: Glucose,Whole Blood 89 mg/dL (70-110)
[2024-08-28 12:06] LABS: Glucose,Whole Blood 103 mg/dL (70-110)
[2024-08-28 14:52] VITALS: BMI 42.3
[2024-08-28 17:04] LABS: Glucose,Whole Blood 96 mg/dL (70-110)
[2024-08-28 20:33] LABS: Glucose,Whole Blood 163 mg/dL (70-110)
--- NOTE | 2024-08-29 01:28 | P.PN ---
Subjective Progress Note Date: 08/28/24 This is a pleasant 58 years old female with past medical history of multiple medical problems Patient came to the hospital when Dr. Aguilera sent her for low blood pressure. Patient states that she has been feeling dizzy and she feels really hot and going to pass out. Patient has some left lower abdominal pain also which was excruciating but now is much better almost relieved. The pain comes and goes from like a colleague Associated with dysuria Also patient had diarrhea but now stopped. She vomited but not anymore. Abdomen soft now. She denies chest pain or dyspnea. No headache dizziness weakness or numbness. She denies smoking alcohol or illicit drugs. She is afebrile and hemodynamically stable Blood pressure was on the low side 100/56 She has leukocytosis of 16.5 and hemoglobin 11.2. Rest of BMP, LFT, INR is unremarkable. Troponin is negative. Urinalysis suspicious for infection Influenza and COVID test were negative EKG showing sinus tachycardia in [address]-T changes Chest x-ray showed no acute cardiopulmonary process Urine culture is pending 08/28/2024 Patient is seen in follow-up today and is continued on antibiotics in the form of ceftriaxone with infectious disease following. Awaiting urine culture at this time to determine discharge antibiotics. Patient reports she was having some pain with urination and lower abdominal cramping. Patient urinalysis was positive with nitrates and currently awaiting cultures. Patient's white count has normalized and patient remains afebrile. Continue with local wound care to the gluteal wounds and specialty bed and recommend frequent offloading and position changes every 2 hours. Review of systems: Constitutional: No reports of fatigue, fever, or chills Cardiovascular: No reports of chest pain or palpitations Respiratory: No reports of shortness of breath or cough GI: No reports of nausea, vomiting, or diarrhea : No reports of dysuria or retention, patient is reporting some improvements in pain with urination Neurovascular: reports of generalized weakness All medications have been reviewed Physical exam: GENERAL: The patient is alert and oriented x3, not in any acute distress. Well developed, appears older than stated age, morbidly obese HEENT: Pupils are round and equally reacting to light. EOMI. No scleral icterus. No conjunctival pallor. Normocephalic, atraumatic. No pharyngeal erythema. No thyromegaly. CARDIOVASCULAR: S1 and S2 present. No murmurs, rubs, or gallops. PULMONARY: Chest is clear to auscultation, no wheezing , no crackles. ABDOMEN: Soft, obese, nontender, nondistended, normoactive bowel sounds. No palpable organomegaly. MUSCULOSKELETAL: No joint swelling or deformity. EXTREMITIES: No cyanosis, clubbing, or pedal edema. NEUROLOGICAL: Gross neurological examination did not reveal any focal deficits. SKIN: No rashes. no petechiae. Bilateral gluteal stage II pressure ulcers, present on admission Assessment: Acute urinary tract infection, present on admission with sepsis Sepsis secondary to above with tachycardia and hypotension and leukocytosis Obesity with BMI of 41.1. Diabetes mellitus Recent COVID-19 infection History of anxiety Recent acute renal failure requiring emergent dialysis on 07/23/2024, resolved and improved Bilateral gluteal stage II decubitus pressure ulcers, present on admission Morbid obesity with a BMI of 42.3 Patient does have a legal public guardian that was assigned on last admission GI prophylaxis DVT prophylaxis Full code Plan: Continue with antibiotic in the form of ceftriaxone with infectious disease following awaiting urine culture Continue local wound care of bilateral gluteal stage II pressure ulcers with frequent offloading and has received a specialty bed. Recommend position c hanges every 2 hours PT/OT therapy to work with the patient and recommend daily Awaiting cultures to determine discharge antibiotics Social work following and patient will be returning to [facility] on discharge Possible discharge planning in the next 24 to 48 hours The impression and plan of care has been dictated by Christina Soares, Nurse Practitioner as directed. Dr. Henrique MD I have performed a history and examination and MDM of this patient, discussed the same with the dictator, and agree with the dictator's assessment and plan as written ,documented as a scribe. Based on total visit time, I have performed more than 50% of the visit. Objective - Vital Signs Vital signs: Vital Signs Temp 98.3 F 08/28/24 07:11 Pulse 88 08/28/24 07:11 Resp 20 08/28/24 07:11 BP 122/86 08/28/24 07:11 Pulse Ox 99 08/28/24 07:11 FiO2 Intake & Output 08/27/24 08/28/24 08/28/24 18:59 06:59 18:59 Intake Total 1240 340 Output Total 1200 Balance 40 340 Weight 105 kg Intake: IV 240 0.9NS 240 Intake, IV Titration 100 Amount cefTRIAXone 2 gm In 100 Sodium Chloride 0.9% 50 ml @ 100 mls/hr IVPB Q12HR [facility] Rx#:[id number] Oral 1240 Output: Urine 1200 Other: Voiding Method Diaper Diaper External Catheter External Catheter # Voids 900 - Labs CBC & Chem 7: 08/27/24 06:04 08/27/24 06:04 Labs: Abnormal Lab Results - Last 24 Hours (Table) 08/27/24 08/27/24 Range/Units 06:04 17:06 Anion Gap 12.10 H (4.00-12.00) mmol/L BUN 8.3 L (9.0-27.0) mg/dL POC Glucose (mg/dL) 127 H (70-110) mg/dL Calcium 8.0 L (8.7-10.3) mg/dL Total Protein 4.8 L (6.2-8.2) g/dL Albumin 2.5 L (3.8-4.9) g/dL Albumin/Globulin Ratio 1.09 L (1.60-3.17) Ratio Microbiology - Last 24 Hours (Table) 08/27/24 07:34 Urine Culture - Preliminary Urine,Voided 08/26/24 16:53 Blood Culture - Preliminary Blood
[2024-08-29 07:13] LABS: Glucose,Whole Blood 105 mg/dL (70-110)
--- NOTE | 2024-08-29 08:29 | P.PN ---
Subjective Progress Note Date: 08/28/24 Principal diagnosis: Reason for follow-up is UTI multiple pressure ulcer Patient is a 58-year-old female with multiple comorbidities including diabetes mellitus recently did have a prolonged stay at this facility during which time she did have a renal failure requiring dialysis and did have a multiple pressure ulcer to bilateral gluteal area now presented to hospital with weakness dizziness did have hypotension positive UA concerning for symptomatic ureteric infection. On today's evaluation that is 08/28/2024,the patient denies any fever or any chills, patient is breathing comfortably on room air, the patient denies chest pain shortness of breath and no significant cough, patient denies abdominal pain, no nausea vomiting or diarrhea. Patient mention feeling slightly better. No new labs has been repeated today cultures are currently pending Objective - Vital Signs Vital signs: Vital Signs Temp 98.3 F 08/28/24 07:11 Pulse 88 08/28/24 07:11 Resp 20 08/28/24 07:11 BP 122/86 08/28/24 07:11 Pulse Ox 99 08/28/24 07:11 FiO2 Intake & Output 08/27/24 08/28/24 08/28/24 18:59 06:59 18:59 Intake Total 1240 340 Output Total 1200 Balance 40 340 Weight 105 kg Intake: IV 240 0.9NS 240 Intake, IV Titration 100 Amount cefTRIAXone 2 gm In 100 Sodium Chloride 0.9% 50 ml @ 100 mls/hr IVPB Q12HR [facility] Rx#:[id number] Oral 1240 Output: Urine 1200 Other: Voiding Method Diaper Diaper Diaper External Catheter External Catheter External Catheter # Voids 900 - Exam GENERAL DESCRIPTION: Middle-age female lying in bed in no distress RESPIRATORY SYSTEM: Unlabored breathing , decreased breath sounds at bases HEART: S1 S2 regular rate and rhythm , ABDOMEN: Soft , no tenderness EXTREMITIES: Swelling to the leg no redness - Labs CBC & Chem 7: 08/27/24 06:04 08/27/24 06:04 Labs: Abnormal Lab Results - Last 24 Hours (Table) 08/27/24 Range/Units 17:06 POC Glucose (mg/dL) 127 H (70-110) mg/dL Microbiology - Last 24 Hours (Table) 08/27/24 07:34 Urine Culture - Preliminary Urine,Voided 08/26/24 16:53 Blood Culture - Preliminary Blood Assessment and Plan (1) Sepsis Current Visit: Yes Status: Acute Code(s): A41.9 - SEPSIS, UNSPECIFIED ORGANISM SNOMED Code(s): 89946298 (2) Urinary tract infection Current Visit: Yes Status: Acute Code(s): N39.0 - URINARY TRACT INFECTION, SITE NOT SPECIFIED SNOMED Code(s): 00818116 Plan: 1patient presented to hospital with sepsis in this patient who did have hypotension tachycardia elevated white count meeting currently for SIRS/sepsis source is UTI in this patient who did have urinary symptoms significantly positive UA likely from enteric gram-negative pathogen. 2patient to have bilateral gluteal area stage II pressure ulcer but no cellulitis. 3local wound care to bilateral gluteal wound with dry Aquacel silver dressing change q. 48-hour 4patient is currently being treated with Rocephin 2 g daily while waiting for the culture to finalize Dictation was produced using [employer] dictation software. please excuse any grammatical, word or spelling errors. Time with Patient: Less than 30
[2024-08-29 12:04] LABS: Glucose,Whole Blood 107 mg/dL (70-110)
--- NOTE | 2024-08-29 15:16 | P.PN ---
Subjective Progress Note Date: 08/29/24 Principal diagnosis: Reason for follow-up is UTI multiple pressure ulcer Patient is a 58-year-old female with multiple comorbidities including diabetes mellitus recently did have a prolonged stay at this facility during which time she did have a renal failure requiring dialysis and did have a multiple pressure ulcer to bilateral gluteal area now presented to hospital with weakness dizziness did have hypotension positive UA concerning for symptomatic ureteric infection. On today's evaluation that is 08/29/2024,the patient remains to be afebrile, patient is on room air not requiring supplemental oxygen and denies any shortness of breath no chest pain or cough.Patient denies having any nausea or vomiting, no abdominal pain and no diarrhea has been reported. No new labs were obtained today urine culture normal lary blood culture negative Objective - Vital Signs Vital signs: Vital Signs Temp 98.2 F 08/29/24 11:47 Pulse 92 08/29/24 11:47 Resp 17 08/29/24 11:47 BP 132/76 08/29/24 11:47 Pulse Ox 99 08/29/24 11:47 FiO2 Intake & Output 08/28/24 08/29/24 08/29/24 18:59 06:59 18:59 Intake Total 900 1200 Output Total 450 300 Balance 450 -300 1200 Weight 105 kg Intake: Oral 900 1200 Output: Urine 450 300 Other: Voiding Method Diaper Diaper External Catheter External Catheter - Exam GENERAL DESCRIPTION: Middle-age female lying in bed in no distress RESPIRATORY SYSTEM: Unlabored breathing , decreased breath sounds at bases HEART: S1 S2 regular rate and rhythm , ABDOMEN: Soft , no tenderness EXTREMITIES: Swelling to the leg no redness - Labs CBC & Chem 7: 08/27/24 06:04 08/27/24 06:04 Labs: Abnormal Lab Results - Last 24 Hours (Table) 08/28/24 Range/Units 20:29 POC Glucose (mg/dL) 163 H (70-110) mg/dL Microbiology - Last 24 Hours (Table) 08/26/24 16:53 Blood Culture - Preliminary Blood 08/27/24 07:34 Urine Culture - Preliminary Urine,Voided Assessment and Plan (1) Sepsis Current Visit: Yes Status: Acute Code(s): A41.9 - SEPSIS, UNSPECIFIED ORGANISM SNOMED Code(s): 08139666 (2) Urinary tract infection Current Visit: Yes Status: Acute Code(s): N39.0 - URINARY TRACT INFECTION, SITE NOT SPECIFIED SNOMED Code(s): 37213954 Plan: 1patient presented to hospital with sepsis in this patient who did have hypotension tachycardia elevated white count meeting currently for SIRS/sepsis source is UTI in this patient who did have urinary symptoms significantly positive UA likely from enteric gram-negative pathogen. 2patient to have bilateral gluteal area stage II pressure ulcer but no cellulitis. 3local wound care to bilateral gluteal wound with dry Aquacel silver dressing change q. 48-hour 4patient seem to have shown clinical improvement blood culture have been negative urine did not grow any resistant pathogen to continue with Rocephin 2 g daily finishing therapy with oral Ceftin discussed with DRESSMAKER HELPER for admitting team Dictation was produced using [employer] dictation software. please excuse any grammatical, word or spelling errors. Time with Patient: Less than 30
[2024-08-29 17:15] LABS: Glucose,Whole Blood 113 mg/dL (70-110)
[2024-08-29 19:58] VITALS: RESP 16
[2024-08-29 20:39] LABS: Glucose,Whole Blood 123 mg/dL (70-110)
--- NOTE | 2024-08-30 06:36 | P.PN ---
Subjective Progress Note Date: 08/29/24 This is a pleasant 58 years old female with past medical history of multiple medical problems Patient came to the hospital when Dr. Aguilera sent her for low blood pressure. Patient states that she has been feeling dizzy and she feels really hot and going to pass out. Patient has some left lower abdominal pain also which was excruciating but now is much better almost relieved. The pain comes and goes from like a colleague Associated with dysuria Also patient had diarrhea but now stopped. She vomited but not anymore. Abdomen soft now. She denies chest pain or dyspnea. No headache dizziness weakness or numbness. She denies smoking alcohol or illicit drugs. She is afebrile and hemodynamically stable Blood pressure was on the low side 100/56 She has leukocytosis of 16.5 and hemoglobin 11.2. Rest of BMP, LFT, INR is unremarkable. Troponin is negative. Urinalysis suspicious for infection Influenza and COVID test were negative EKG showing sinus tachycardia in [address]-T changes Chest x-ray showed no acute cardiopulmonary process Urine culture is pending 08/28/2024 Patient is seen in follow-up today and is continued on antibiotics in the form of ceftriaxone with infectious disease following. Awaiting urine culture at this time to determine discharge antibiotics. Patient reports she was having some pain with urination and lower abdominal cramping. Patient urinalysis was positive with nitrates and currently awaiting cultures. Patient's white count has normalized and patient remains afebrile. Continue with local wound care to the gluteal wounds and specialty bed and recommend frequent offloading and position changes every 2 hours. 08/29/2024 Patient is seen in follow-up with continued on antibiotics with infectious disease following continuing to await urine cultures. Patient reports to feeling improved and is having bowel movements and tolerating diet. Plan will be for patient to return to [facility] on discharge. Review of systems: Constitutional: No reports of fatigue, fever, or chills Cardiovascular: No reports of chest pain or palpitations Respiratory: No reports of shortness of breath or cough GI: No reports of nausea, vomiting, or diarrhea : No reports of dysuria or retention, patient is reporting some improvements in pain with urination Neurovascular: reports of generalized weakness All medications have been reviewed Physical exam: GENERAL: The patient is alert and oriented x3, not in any acute distress. Well developed, appears older than stated age, morbidly obese HEENT: Pupils are round and equally reacting to light. EOMI. No scleral icterus. No conjunctival pallor. Normocephalic, atraumatic. No pharyngeal erythema. No thyromegaly. CARDIOVASCULAR: S1 and S2 present. No murmurs, rubs, or gallops. PULMONARY: Chest is clear to auscultation, no wheezing , no crackles. ABDOMEN: Soft, obese, nontender, nondistended, normoactive bowel sounds. No palpable organomegaly. MUSCULOSKELETAL: No joint swelling or deformity. EXTREMITIES: No cyanosis, clubbing, or pedal edema. NEUROLOGICAL: Gross neurological examination did not reveal any focal deficits. SKIN: No rashes. no petechiae. Bilateral gluteal stage II pressure ulcers, present on admission Assessment: Acute urinary tract infection, present on admission with sepsis Sepsis secondary to above with tachycardia and hypotension and leukocytosis Obesity with BMI of 41.1. Diabetes mellitus Recent COVID-19 infection History of anxiety Recent acute renal failure requiring emergent dialysis on 07/23/2024, resolved and improved Bilateral gluteal stage II decubitus pressure ulcers, present on admission Morbid obesity with a BMI of 42.3 Patient does have a legal public guardian that was assigned on last admission GI prophylaxis DVT prophylaxis Full code Plan: Continue with antibiotic in the form of ceftriaxone with infectious disease following awaiting urine culture Continue local wound care of bilateral gluteal stage II pressure ulcers with frequent offloading and has received a specialty bed. Recommend position changes every 2 hours PT/OT therapy to work with the patient and recommend daily Awaiting cultures to determine discharge antibiotics, cultures remain pending as of today and will call micro lab to inquire about results Social work following and patient will be returning to [facility] on discharge Possible discharge planning in the next 24 hours The impression and plan of care has been dictated by Christina Soares, Nurse Practitioner as directed. Dr. Henrique MD I have performed a history and examination and MDM of this patient, discussed the same with the dictator, and agree with the dictator's assessment and plan as written ,documented as a scribe. Based on total visit time, I have performed more than 50% of the visit. Objective - Vital Signs Vital signs: Vital Signs Temp 98.3 F 08/29/24 07:14 Pulse 83 08/29/24 07:14 Resp 16 08/29/24 07:14 BP 138/80 08/29/24 07:14 Pulse Ox 97 08/29/24 09:18 FiO2 Intake & Output 08/28/24 08/29/24 08/29/24 18:59 06:59 18:59 Intake Total 900 1200 Output Total 450 300 Balance 450 -300 1200 Weight 105 kg Intake: Oral 900 1200 Output: Urine 450 300 Other: Voiding Method Diaper Diaper External Catheter External Catheter - Labs CBC & Chem 7: 08/27/24 06:04 08/27/24 06:04 Labs: Abnormal Lab Results - Last 24 Hours (Table) 08/28/24 Range/Units 20:29 POC Glucose (mg/dL) 163 H (70-110) mg/dL Microbiology - Last 24 Hours (Table) 08/26/24 16:53 Blood Culture - Preliminary Blood 08/27/24 07:34 Urine Culture - Preliminary Urine,Voided
[2024-08-30 07:07] LABS: Glucose,Whole Blood 90 mg/dL (70-110)
--- NOTE | 2024-08-30 09:58 | P.DS ---
Providers Date of admission: 08/26/24 19:09 Expected date of discharge: 08/30/24 Attending physician: Jina Norris Consults: 08/26/24 19:08 Consult Physician Routine Consulting Provider: Fatou Blum Consult Reason/Comments: uti, sepsis Do you want consulting provider notified?: Yes Primary care physician: Stated None Hospital Course: Final diagnosis Acute urinary tract infection, present on admission with sepsis Sepsis secondary to above with tachycardia and hypotension and leukocytosis Obesity with BMI of 41.1. Diabetes mellitus Recent COVID-19 infection History of anxiety Recent acute renal failure requiring emergent dialysis on 07/23/2024, resolved and improved Bilateral gluteal stage II decubitus pressure ulcers, present on admission Morbid obesity with a BMI of 42.3 Patient does have a legal public guardian that was assigned on last admission GI prophylaxis DVT prophylaxis Full code Discharge disposition Patient is being discharged in a stable condition with guarded prognosis to [facility] . Patient will follow-up with Dr. Lemon in the outpatient setting upon discharge. Patient is to continue with oral Ceftin 500 mg twice daily for the next 1 week and outpatient follow-up with infectious disease as scheduled. Total time taken is greater than 35 minutes. Hospital course This is a 58-year-old female who was recently admitted with concerns of sepsis secondary to urinary tract infection being closely monitored. Patient evaluated by infectious disease maintained on ceftriaxone showing clinical improvement and urine culture finalized showing normal lary and per ID recommendations patient will continue oral Ceftin twice daily for the next 1 week on discharge. Patient to continue with local wound care as previously doing to lower extremities, thighs, buttock area with frequent offloading and position changes every 2 hours. Recommend specialty bed. Patient will be returning to [facility]. Please refer to other consultation notes for further HPI. Currently no reports of chest pain, shortness of breath, or palpitations. Patient is afebrile. No reports of nausea or vomiting and patient is tolerating diet. Patient will be going to [facility] today. Physical exam: Gen: This is a 58-year-old female who is awake, alert and oriented x 3, well- developed, morbidly obese, elderly appearing HEENT: Head is atraumatic, normocephalic. Pupils equal, round. Sclerae is anicteric. NECK: Supple. No JVD. No lymphadenopathy. No thyromegaly. LUNGS: Clear to auscultation. No wheezes or rhonchi. No intercostal retractions. HEART: Regular rate and rhythm. No murmur. ABDOMEN: Soft. Obese bowel sounds are present. No masses. No tenderness. EXTREMITIES: No pedal edema. No calf tenderness. NEUROLOGICAL: Patient is awake, alert and oriented x3. Cranial nerves 2 through 12 are grossly intact. Diffusely weak remains bedbound Please refer to medication reconciliation sheet for a list of medications. The impression and plan of care has been dictated by Christina Soares, Nurse Practitioner as directed. Dr. Henrique MD I have performed a history and examination and MDM of this patient, discussed the same with the dictator, and agree with the dictator's assessment and plan as written ,documented as a scribe. Based on total visit time, I have performed more than 50% of the visit. Patient Condition at Discharge: Fair Plan - Discharge Summary Discharge Rx Participant: No New Discharge Prescriptions: New cefuroxime axetiL [Ceftin] 500 mg PO BID 7 Days #14 tab INSULIN ASPART (NovoLOG) [NovoLOG (formulary)] 0 unit SQ ACHS each Continue Thiamine [Vitamin B-1] 100 mg PO BID Omeprazole 20 mg PO DAILY Multivitamins, Thera [Multivitamin (formulary)] 1 tab PO DAILY Acetaminophen [Tylenol] 650 mg PO Q4H PRN PRN Reason: GENERAL DISCOMFORT Heparin Sodium,Porcine (1 ml) [Heparin Sodium] 5,000 unit SQ Q12HR each Sennosides [Senokot] 8.6 mg PO BID tab Lactulose [Cephulac] 20 gm PO BID PRN ml PRN Reason: Constipation ALPRAZolam [Xanax] 0.25 mg PO TID PRN #6 tab PRN Reason: Anxiety Changed HYDROcodone/APAP 5-325MG [[place] 5-325] 1 tab PO Q6HR PRN #4 tab PRN Reason: Pain Discharge Medication List Heparin Sodium,Porcine (1 ml) [Heparin Sodium] 5,000 unit SQ Q12HR each 08/14/24 [Rx] Sennosides [Senokot] 8.6 mg PO BID tab 08/14/24 [Rx] Lactulose [Cephulac] 20 gm PO BID PRN ml 08/19/24 [Rx] Acetaminophen [Tylenol] 650 mg PO Q4H PRN 08/26/24 [History] Multivitamins, Thera [Multivitamin (formulary)] 1 tab PO DAILY 08/26/24 [History] Omeprazole 20 mg PO DAILY 08/26/24 [History] Thiamine [Vitamin B-1] 100 mg PO BID 08/26/24 [History] ALPRAZolam [Xanax] 0.25 mg PO TID PRN #6 tab 08/30/24 [Rx] HYDROcodone/APAP 5-325MG [[place] 5-325] 1 tab PO Q6HR PRN #4 tab 08/30/24 [Rx] INSULIN ASPART (NovoLOG) [NovoLOG (formulary)] 0 unit SQ ACHS each 08/30/24 [Rx] cefuroxime axetiL [Ceftin] 500 mg PO BID 7 Days #14 tab 08/30/24 [Rx] Follow up Appointment(s)/Referral(s): Bertram Lemon MD [REFERRING] - 1 Week Fatou Blum MD [STAFF PHYSICIAN] - 1 Week Activity/Diet/Wound Care/Special Instructions: Patient is returning to [facility] Activity as tolerated patient to continue on oral Ceftin twice daily for the next 7 days Follow-up outpatient with infectious disease Continue local wound care Continue monitoring Accu-Cheks before meals and at bedtime and treat with sliding scale as needed Discharge Disposition: TRANSFER TO SNF/F
[2024-08-30 12:26] LABS: Glucose,Whole Blood 94 mg/dL (70-110)
[2024-08-30 12:29] VITALS: BP 114/59; PULSE 87; TEMP 98.5
--- NOTE | 2024-08-31 15:20 | P.PN ---
Subjective Progress Note Date: 08/30/24 Principal diagnosis: Reason for follow-up is UTI multiple pressure ulcer Patient is a 58-year-old female with multiple comorbidities including diabetes mellitus recently did have a prolonged stay at this facility during which time she did have a renal failure requiring dialysis and did have a multiple pressure ulcer to bilateral gluteal area now presented to hospital with weakness dizziness did have hypotension positive UA concerning for symptomatic ureteric infection. On today's evaluation that is 08/30/2024, the patient continues to be afebrile, the patient is on room air and breathing comfortably, the Pt denies having any chest pain or cough, the patient denies having any abdominal pain no vomiting or any diarrhea has been reported by the nursing staff. No new lab has been obtained today culture remains to be negative Objective - Vital Signs Vital signs: Vital Signs Temp 98.6 F 08/30/24 07:05 Pulse 88 08/30/24 07:05 Resp 16 08/30/24 07:05 BP 106/61 08/30/24 07:05 Pulse Ox 97 08/30/24 07:05 FiO2 Intake & Output 08/29/24 08/30/24 08/30/24 18:59 06:59 18:59 Intake Total 3477 240 480 Output Total 900 500 Balance 2577 -260 480 Intake: Oral 3477 240 480 Output: Urine 900 500 Other: Voiding Method Diaper Diaper Diaper External Catheter External Catheter External Catheter # Bowel Movements 1 1 - Exam GENERAL DESCRIPTION: Middle-age female lying in bed in no distress RESPIRATORY SYSTEM: Unlabored breathing , decreased breath sounds at bases HEART: S1 S2 regular rate and rhythm , ABDOMEN: Soft , no tenderness EXTREMITIES: Swelling to the leg no redness - Labs CBC & Chem 7: 08/27/24 06:04 08/27/24 06:04 Labs: Abnormal Lab Results - Last 24 Hours (Table) 08/29/24 08/29/24 Range/Units 17:14 20:37 POC Glucose (mg/dL) 113 H 123 H (70-110) mg/dL Microbiology - Last 24 Hours (Table) 08/26/24 16:53 Blood Culture - Preliminary Blood 08/27/24 07:34 Urine Culture - Final Urine,Voided Assessment and Plan (1) Sepsis Status: Acute Code(s): A41.9 - SEPSIS, UNSPECIFIED ORGANISM SNOMED Code(s): 09551883 (2) Urinary tract infection Status: Acute Code(s): N39.0 - URINARY TRACT INFECTION, SITE NOT SPECIFIED SNOMED Code(s): 84194890 Plan: 1patient presented to hospital with sepsis in this patient who did have hypotension tachycardia elevated white count meeting currently for SIRS/sepsis source is UTI in this patient who did have urinary symptoms significantly positive UA likely from enteric gram-negative pathogen. 2patient to have bilateral gluteal area stage II pressure ulcer but no cellulitis. 3local wound care to bilateral gluteal wound with dry Aquacel silver dressing change q. 48-hour 4patient seem to have shown clinical improvement blood culture have been negative, finishing therapy with short course of oral Ceftin on discharge Dictation was produced using [employer] dictation software. please excuse any grammatical, word or spelling errors. Time with Patient: Less than 30
== END 2024-08-30 13:10 ==
LOC: EC 16:00 → INTOOBSV 19:09 → 5NMEDONC 19:09
PROVIDERS: ADMIT Hospitalist; ATTEND Hospitalist
DX: A41.9 Sepsis, unspecified organism (principal); N39.0 Urinary tract infection, site not specified; E11.9 Type 2 diabetes mellitus without complications; L89.302 Pressure ulcer of unspecified buttock, stage 2; F41.9 Anxiety disorder, unspecified; E66.01 Morbid (severe) obesity due to excess calories; Z11.52 Encounter for screening for COVID-19; Z68.41 Body mass index [BMI] 40.0-44.9, adult; Z86.16 Personal history of COVID-19; Z87.891 Personal history of nicotine dependence; Z79.899 Other long term (current) drug therapy
CPT/HCPCS: 96376 ×3; 96366 ×3; 96372 ×6; 96365; 96375; 99291; 36415; 94760; 93005; 97110 ×2; 97530; 97162; 97167; 80053 ×2; 83605; 84484; 85025 ×2; 85610; 85730; 81001; 87040; 87086; 83036; 87636; 71046; G0378 ×5; J1644 ×5; J2405; J0696 ×6; J3490